=== PATIENT | female | born 1990 | race American Indian/Alaskan Native ===

== ENCOUNTER 2016-11-28 17:35 | Inpatient (IN) | payer MEDICAID, SELFPAY ==
--- NOTE | 2016-11-28 17:47 | EDM.PDOC ---
<Susan Esquivel - Last Filed: 11/28/16 18:49> ED HPI DIABETIC EMERGENCY - General Chief Complaint: Diabetic Complaint Stated Complaint: BY AMBULANCE Time Seen by Provider: 11/28/16 17:46 - History of Present Illness INITIAL COMMENTS - FREE TEXT/NARRATIVE: Patient presents to the ER per [facility]. She is somewhat lethargic. She states she missed her Lantus last night. She states she has been vomiting and has had abdominal pain since 8am today. She denies fever, chills, chest pain, sob. Symptom Onset Date: 11/28/16 Symptom Onset Time: 08:00 Location, General: Reports: abdomen Quality: Reports: Ache Severity: moderate Improves with: Reports: None Worsens with: Reports: None Associated Symptoms: Reports: nausea/vomiting Associated Symptoms (General): Reports: nausea/vomiting - Related Data Allergies/ADRs: Allergies Allergy/AdvReac Type Severity Reaction Status Date / Time No Known Allergies Allergy Verified 05/18/15 23:28 Home Meds: Home Meds Insulin Aspart [NovoLOG] 10 unit SQ TID 02/18/14 [History] Insulin Detemir [Levemir] 30 unit SUBCUT BEDTIME #1 pen 09/07/16 [Rx] Potassium Chloride [Klor-Con 10] 40 meq PO BIDMEALS #4 tab.er 09/07/16 [Rx] ED ROS GENERAL - Review of Systems Review Of Systems: ROS reveals no pertinent complaints other than HPI. ED EXAM GENERAL NO PERIP PULSE - Physical Exam Exam: See Below Exam Limited By: No limitations General Appearance: WD/WN, no apparent distress, lethargic, mild distress, thin Eye Exam: bilateral eye: PERRL (sluggishly reactive to light) Ears: normal external exam, normal canal, hearing grossly normal, normal TMs Nose: normal inspection, normal mucosa, no blood Throat/Mouth: Normal inspection, Normal oropharynx, Normal voice, No airway compromise, Other Head: atraumatic, normocephalic Neck: normal inspection, supple, non-tender, full range of motion Respiratory/Chest: no respiratory distress, lungs clear, normal breath sounds, no accessory muscle use, chest non-tender Cardiovascular: normal peripheral pulses, regular rate, rhythm, no edema, no gallop, no JVD, no murmur, no rub GI/Abdominal: normal bowel sounds, soft, non tender, no organomegaly, no distention, no abnormal bruit, no mass (Female) Exam: Deferred Rectal (Female) Exam: Deferred Back Exam: normal inspection, full range of motion Extremities: normal inspection, normal range of motion, non-tender, no pedal edema, normal capillary refill Neurological: alert, oriented, CN II-XII intact, normal cognition, no motor/ sensory deficits Psychiatric: flat affect Skin Exam: Warm, Dry, Intact, Normal color, No rash Lymphatic: no adenopathy Course - Vital Signs Last Recorded V/S: Last Vital Signs Temp 36.2 C 11/28/16 17:46 Pulse 132 H 11/28/16 17:46 Resp 16 11/28/16 17:46 BP 149/85 H 11/28/16 17:46 Pulse Ox 100 11/28/16 17:46 - Orders/Labs/Meds Orders: Active Orders 24 hr Category Date Time Status Blood Glucose Check, Bedside [RC] ONETIME Care 11/28/16 17:50 Active Peripheral IV Care [RC] . DIRECTED Care 11/28/16 17:48 Active Chest 1V Frontal [CR] Stat Exams 11/28/16 18:54 Ordered CULTURE BLOOD [BC] Stat Lab 11/28/16 17:55 Received CULTURE BLOOD [BC] Stat Lab 11/28/16 18:00 Results CULTURE STREP A CONFIRMATION [RM] Stat Lab 11/28/16 18:00 Results STREP SCRN A RAPID W CULT CONF [RM] Stat Lab 11/28/16 18:00 Results UA W/MICROSCOPIC [URIN] Stat Lab 11/28/16 18:37 Ordered Insulin Regular, Human [NovoLIN R] 100 unit Med 11/28/16 18:36 Active Sodium Chloride 0.9% [Normal Saline] 99 ml IV TITRATE Sodium Chloride 0.9% [Saline Flush] Med 11/28/16 17:48 Active 10 ml FLUSH ASDIRECTED PRN Blood Culture x2 Reflex Set [OM.PC] Stat Oth 11/28/16 17:47 Ordered Peripheral IV Insertion Adult [OM.PC] Stat Oth 11/28/16 17:47 Ordered Medication Orders Insulin Human Regular 100 unit (/ Sodium Chloride) 100 mls @ 5 mls/hr IV TITRATE ONE; 5 UNITS/HR PRN Reason: Protocol Stop: 11/29/16 14:35 Sodium Chloride (Saline Flush) 10 ml FLUSH ASDIRECTED PRN PRN Reason: Keep Vein Open Last Admin: 11/28/16 18:05 Dose: 10 ml Labs: Laboratory Tests 11/28/16 11/28/16 11/28/16 Range/Units 17:55 17:55 17:55 WBC 8.9 (5.0-10.0) 10^3/uL RBC 5.00 (4.2-5.4) 10^6/uL Hgb 14.9 (12.0-16.0) g/dL Hct 46.0 (37.0-47.0) % MCV 92.0 (80-100) fL MCH 29.8 (27.0-34.0) pg MCHC 32.4 L (33.0-35.0) g/dL Plt Count 424 (150-450) 10^3/uL Neut % (Auto) 84.8 H (42.2-75.2) % Lymph % (Auto) 11.1 L (20.5-50.1) % [place] % (Auto) 3.9 (2-8) % Eos % (Auto) 0.0 L (1.0-3.0) % Baso % (Auto) 0.2 (0.0-1.0) % ABG pH (7.35-7.45) ABG pCO2 (35-45) mmHg ABG pO2 (70-100) mmHg ABG HCO3 (22-26) mmol/L ABG O2 Saturation (95-100) % ABG Base Excess ((-2)-(+3)) mmol/L Aakash Test O2 Delivery Device Oxygen Flow Rate Sodium 135 (135-145) mmol/L Potassium 5.2 H (3.6-5.0) mmol/L Chloride 104 (101-111) mmol/L Carbon Dioxide 7.0 L* (21.0-31.0) mmol/L Anion Gap 29.2 BUN 23 H (7-18) mg/dL Creatinine 1.3 (0.6-1.3) mg/dL Est Cr Clr Drug Dosing 61.58 mL/min Estimated GFR (MDRD) 50 BUN/Creatinine Ratio 17.69 Glucose 236 H (74-105) mg/dL POC Glucose (70-105) mg/dl Lactic Acid 1.0 (0.5-2.2) mmol/L Calcium 9.1 (8.4-10.2) mg/dl Total Bilirubin 1.2 H (0.2-1.0) mg/dL AST 21 (10-42) IU/L ALT 23 (10-60) IU/L Alkaline Phosphatase 108 (42-121) IU/L Creatine Kinase 44 (26-174) IU/L Total Protein 9.3 H (6.7-8.2) g/dl Albumin 4.9 (3.2-5.5) g/dl Globulin 4.4 Albumin/Globulin Ratio 1.11 Amylase 75 (28-100) U/L Lipase 14 L (22-51) U/L Urine HCG, Qual Urine Opiates Screen (NEGATIVE) Ur Oxycodone Screen (NEGATIVE) Urine Methadone Screen (NEGATIVE) Ur Barbiturates Screen (NEGATIVE) U Tricyclic Antidepress (NEGATIVE) Ur Phencyclidine Scrn (NEGATIVE) Ur Amphetamine Screen (NEGATIVE) U Methamphetamines Scrn (NEGATIVE) Urine MDMA Screen (NEGATIVE) U Benzodiazepines Scrn (NEGATIVE) Urine Cocaine Screen (NEGATIVE) U Marijuana (THC) Screen (NEGATIVE) Ethyl Alcohol < 5 mg/dL Ketones Positive 11/28/16 11/28/16 11/28/16 Range/Units 17:59 18:35 18:35 WBC (5.0-10.0) 10^3/uL RBC (4.2-5.4) 10^6/uL Hgb (12.0-16.0) g/dL Hct (37.0-47.0) % MCV (80-100) fL MCH (27.0-34.0) pg MCHC (33.0-35.0) g/dL Plt Count (150-450) 10^3/uL Neut % (Auto) (42.2-75.2) % Lymph % (Auto) (20.5-50.1) % [place] % (Auto) (2-8) % Eos % (Auto) (1.0-3.0) % Baso % (Auto) (0.0-1.0) % ABG pH (7.35-7.45) ABG pCO2 (35-45) mmHg ABG pO2 (70-100) mmHg ABG HCO3 (22-26) mmol/L ABG O2 Saturation (95-100) % ABG Base Excess ((-2)-(+3)) mmol/L Aakash Test O2 Delivery Device Oxygen Flow Rate Sodium (135-145) mmol/L Potassium (3.6-5.0) mmol/L Chloride (101-111) mmol/L Carbon Dioxide (21.0-31.0) mmol/L Anion Gap BUN (7-18) mg/dL Creatinine (0.6-1.3) mg/dL Est Cr Clr Drug Dosing mL/min Estimated GFR (MDRD) BUN/Creatinine Ratio Glucose (74-105) mg/dL POC Glucose 209 H (70-105) mg/dl Lactic Acid (0.5-2.2) mmol/L Calcium (8.4-10.2) mg/dl Total Bilirubin (0.2-1.0) mg/dL AST (10-42) IU/L ALT (10-60) IU/L Alkaline Phosphatase (42-121) IU/L Creatine Kinase (26-174) IU/L Total Protein (6.7-8.2) g/dl Albumin (3.2-5.5) g/dl Globulin Albumin/Globulin Ratio Amylase (28-100) U/L Lipase (22-51) U/L Urine HCG, Qual Negative Urine Opiates Screen Negative (NEGATIVE) Ur Oxycodone Screen Negative (NEGATIVE) Urine Methadone Screen Negative (NEGATIVE) Ur Barbiturates Screen Negative (NEGATIVE) U Tricyclic Antidepress Negative (NEGATIVE) Ur Phencyclidine Scrn Negative (NEGATIVE) Ur Amphetamine Screen Positive H (NEGATIVE) U Methamphetamines Scrn Positive H (NEGATIVE) Urine MDMA Screen Negative (NEGATIVE) U Benzodiazepines Scrn Negative (NEGATIVE) Urine Cocaine Screen Negative (NEGATIVE) U Marijuana (THC) Screen Negative (NEGATIVE) Ethyl Alcohol mg/dL Ketones 11/28/16 11/28/16 Range/Units 18:45 18:53 WBC (5.0-10.0) 10^3/uL RBC (4.2-5.4) 10^6/uL Hgb (12.0-16.0) g/dL Hct (37.0-47.0) % MCV (80-100) fL MCH (27.0-34.0) pg MCHC (33.0-35.0) g/dL Plt Count (150-450) 10^3/uL Neut % (Auto) (42.2-75.2) % Lymph % (Auto) (20.5-50.1) % [place] % (Auto) (2-8) % Eos % (Auto) (1.0-3.0) % Baso % (Auto) (0.0-1.0) % ABG pH 7.06 L* (7.35-7.45) ABG pCO2 13 L* (35-45) mmHg ABG pO2 129 H (70-100) mmHg ABG HCO3 3.4 L (22-26) mmol/L ABG O2 Saturation 98 (95-100) % ABG Base Excess -27 L ((-2)-(+3)) mmol/L Aakash Test pos O2 Delivery Device Room air Oxygen Flow Rate 0 Sodium (135-145) mmol/L Potassium (3.6-5.0) mmol/L Chloride (101-111) mmol/L Carbon Dioxide (21.0-31.0) mmol/L Anion Gap BUN (7-18) mg/dL Creatinine (0.6-1.3) mg/dL Est Cr Clr Drug Dosing mL/min Estimated GFR (MDRD) BUN/Creatinine Ratio Glucose (74-105) mg/dL POC Glucose 247 H (70-105) mg/dl Lactic Acid (0.5-2.2) mmol/L Calcium (8.4-10.2) mg/dl Total Bilirubin (0.2-1.0) mg/dL AST (10-42) IU/L ALT (10-60) IU/L Alkaline Phosphatase (42-121) IU/L Creatine Kinase (26-174) IU/L Total Protein (6.7-8.2) g/dl Albumin (3.2-5.5) g/dl Globulin Albumin/Globulin Ratio Amylase (28-100) U/L Lipase (22-51) U/L Urine HCG, Qual Urine Opiates Screen (NEGATIVE) Ur Oxycodone Screen (NEGATIVE) Urine Methadone Screen (NEGATIVE) Ur Barbiturates Screen (NEGATIVE) U Tricyclic Antidepress (NEGATIVE) Ur Phencyclidine Scrn (NEGATIVE) Ur Amphetamine Screen (NEGATIVE) U Methamphetamines Scrn (NEGATIVE) Urine MDMA Screen (NEGATIVE) U Benzodiazepines Scrn (NEGATIVE) Urine Cocaine Screen (NEGATIVE) U Marijuana (THC) Screen (NEGATIVE) Ethyl Alcohol mg/dL Ketones Rapid Strep: NEGATIVE Rapid Influenza A & B: Meds: Medications Generic Name Dose Route Start Last Admin Trade Name Mihaela PRN Reason Stop Dose Admin Insulin Human Regular 100 unit 100 mls @ 5 mls/hr 11/28/16 18:36 / Sodium Chloride IV 11/29/16 14:35 TITRATE ONE Protocol 5 UNITS/HR Sodium Chloride 10 ml 11/28/16 17:48 11/28/16 18:05 Saline Flush FLUSH 10 ml ASDIRECTED PRN Administration Keep Vein Open Discontinued Medications Generic Name Dose Route Start Last Admin Trade Name Mihaela PRN Reason Stop Dose Admin Sodium Chloride 1,000 mls @ 999 mls/hr 11/28/16 17:49 11/28/16 17:55 Normal Saline IV 11/28/16 18:49 999 mls/hr .BOLUS ONE Administration Insulin Human Regular 5 unit 11/29/16 18:37 Novolin R IV 11/29/16 18:38 ONETIME ONE Protocol Insulin Human Regular 5 unit 11/28/16 18:37 11/28/16 18:55 Novolin R IV 11/28/16 18:38 5 unit ONETIME ONE Administration Protocol Ondansetron HCl 4 mg 11/28/16 17:49 11/28/16 18:00 Zofran IV 11/28/16 17:50 4 mg ONETIME ONE Administration Departure - Departure Time of Disposition: 18:52 Disposition: Admitted As Inpatient 67 Condition: poor Clinical Impression: Substance abuse, Methamphetamine abuse, Marijuana abuse, Noncompliance with diabetes treatment Diabetic ketoacidosis associated with type 1 diabetes mellitus Qualifiers: Diabetes mellitus complication detail: without coma Qualified Code(s): E10.10 - Type 1 diabetes mellitus with ketoacidosis without coma Forms: ED Department Discharge - My Orders Last 24 Hours: My Active Orders 11/28/16 17:47 Blood Culture x2 Reflex Set [OM.PC] Stat Peripheral IV Insertion Adult [OM.PC] Stat 11/28/16 17:48 Peripheral IV Care [RC] . DIRECTED Sodium Chloride 0.9% [Saline Flush] 10 ml FLUSH ASDIRECTED PRN 11/28/16 17:50 Blood Glucose Check, Bedside [RC] ONETIME 11/28/16 17:55 CULTURE BLOOD [BC] Stat 11/28/16 18:00 CULTURE BLOOD [BC] Stat CULTURE STREP A CONFIRMATION [RM] Stat STREP SCRN A RAPID W CULT CONF [RM] Stat 11/28/16 18:36 Insulin Regular, Human [NovoLIN R] 100 unit Sodium Chloride 0.9% [Normal Saline] 99 ml IV TITRATE 11/28/16 18:37 UA W/MICROSCOPIC [URIN] Stat 11/28/16 18:54 Chest 1V Frontal [CR] Stat - Assessment/Plan Last 24 Hours: My Active Orders 11/28/16 17:47 Blood Culture x2 Reflex Set [OM.PC] Stat Peripheral IV Insertion Adult [OM.PC] Stat 11/28/16 17:48 Peripheral IV Care [RC] . DIRECTED Sodium Chloride 0.9% [Saline Flush] 10 ml FLUSH ASDIRECTED PRN 11/28/16 17:50 Blood Glucose Check, Bedside [RC] ONETIME 11/28/16 17:55 CULTURE BLOOD [BC] Stat 11/28/16 18:00 CULTURE BLOOD [BC] Stat CULTURE STREP A CONFIRMATION [RM] Stat STREP SCRN A RAPID W CULT CONF [RM] Stat 11/28/16 18:36 Insulin Regular, Human [NovoLIN R] 100 unit Sodium Chloride 0.9% [Normal Saline] 99 ml IV TITRATE 11/28/16 18:37 UA W/MICROSCOPIC [URIN] Stat 11/28/16 18:54 Chest 1V Frontal [CR] Stat <Clint Carl - Last Filed: 11/28/16 19:06> ED HPI DIABETIC EMERGENCY - General Source of Information: Reports: Patient, EMS, Old records, RN, RN notes reviewed History Limitations: Reports: No limitations - History of Present Illness INITIAL COMMENTS - FREE TEXT/NARRATIVE: Admits to recent methamphetamine use, and daily marijuana use. Past Medical History Other Musculoskeletal History: fracture left foot one month ago, no surgery Psychiatric History: Reports: Addiction, Other (see below) Other Psychiatric History: Medical non-complience Endocrine/Metabolic History: Reports: Diabetes, type I, Other (see below) (DKA) Social & Family History - Family History Family Medical History: Noncontributory HEENT: Reports: None Oncologic: Reports: Breast, Other (see below) Other Oncologic Family History: Stomach CA - Tobacco Use Smoking Status *Q: Never Smoker Years of Tobacco use: 6 Packs/Tins Daily: 0.1 Second Hand Smoke Exposure: No - Caffeine Use Caffeine Use: Reports: None - Alcohol Use Days Per Week of Alcohol Use: 1 Number of Drinks Per Day: 10 Total Drinks Per Week: 10 - Recreational Drug Use Recreational Drug Use: Yes Drug Use in Last 12 Months: Yes Recreational Drug Type: Reports: Marijuana/Hashish, Methamphetamine Recreational Drug Use Frequency: Binges - Living Situation & Occupation Living situation: Reports: with family ED EXAM GENERAL NO PERIP PULSE - Physical Exam Throat/Mouth: Other (very dry oral membranes) Course - Vital Signs Last Recorded V/S: Last Vital Signs Temp 36.2 C 11/28/16 17:46 Pulse 132 H 11/28/16 17:46 Resp 16 11/28/16 17:46 BP 149/85 H 11/28/16 17:46 Pulse Ox 100 11/28/16 17:46 - Orders/Labs/Meds Orders: Active Orders 24 hr Category Date Time Status Blood Glucose Check, Bedside [RC] ONETIME Care 11/28/16 17:50 Active Peripheral IV Care [RC] . DIRECTED Care 11/28/16 17:48 Active Chest 1V Frontal [CR] Stat Exams 11/28/16 18:54 Ordered CULTURE BLOOD [BC] Stat Lab 11/28/16 17:55 Received CULTURE BLOOD [BC] Stat Lab 11/28/16 18:00 Results CULTURE STREP A CONFIRMATION [] Stat Lab 11/28/16 18:00 Results STREP SCRN A RAPID W CULT CONF [RM] Stat Lab 11/28/16 18:00 Results UA W/MICROSCOPIC [URIN] Stat Lab 11/28/16 18:37 Ordered Insulin Regular, Human [NovoLIN R] 100 unit Med 11/28/16 18:36 Active Sodium Chloride 0.9% [Normal Saline] 99 ml IV TITRATE Sodium Chloride 0.9% [Saline Flush] Med 11/28/16 17:48 Active 10 ml FLUSH ASDIRECTED PRN Blood Culture x2 Reflex Set [OM.PC] Stat Oth 11/28/16 17:47 Ordered Peripheral IV Insertion Adult [OM.PC] Stat Oth 11/28/16 17:47 Ordered Medication Orders Insulin Human Regular 100 unit (/ Sodium Chloride) 100 mls @ 5 mls/hr IV TITRATE ONE; 5 UNITS/HR PRN Reason: Protocol Stop: 11/29/16 14:35 Sodium Chloride (Saline Flush) 10 ml FLUSH ASDIRECTED PRN PRN Reason: Keep Vein Open Last Admin: 11/28/16 18:05 Dose: 10 ml Labs: Laboratory Tests 11/28/16 11/28/16 11/28/16 Range/Units 17:55 17:55 17:55 WBC 8.9 (5.0-10.0) 10^3/uL RBC 5.00 (4.2-5.4) 10^6/uL Hgb 14.9 (12.0-16.0) g/dL Hct 46.0 (37.0-47.0) % MCV 92.0 (80-100) fL MCH 29.8 (27.0-34.0) pg MCHC 32.4 L (33.0-35.0) g/dL Plt Count 424 (150-450) 10^3/uL Neut % (Auto) 84.8 H (42.2-75.2) % Lymph % (Auto) 11.1 L (20.5-50.1) % [place] % (Auto) 3.9 (2-8) % Eos % (Auto) 0.0 L (1.0-3.0) % Baso % (Auto) 0.2 (0.0-1.0) % ABG pH (7.35-7.45) ABG pCO2 (35-45) mmHg ABG pO2 (70-100) mmHg ABG HCO3 (22-26) mmol/L ABG O2 Saturation (95-100) % ABG Base Excess ((-2)-(+3)) mmol/L Aakash Test O2 Delivery Device Oxygen Flow Rate Sodium 135 (135-145) mmol/L Potassium 5.2 H (3.6-5.0) mmol/L Chloride 104 (101-111) mmol/L Carbon Dioxide 7.0 L* (21.0-31.0) mmol/L Anion Gap 29.2 BUN 23 H (7-18) mg/dL Creatinine 1.3 (0.6-1.3) mg/dL Est Cr Clr Drug Dosing 61.58 mL/min Estimated GFR (MDRD) 50 BUN/Creatinine Ratio 17.69 Glucose 236 H (74-105) mg/dL POC Glucose (70-105) mg/dl Lactic Acid 1.0 (0.5-2.2) mmol/L Calcium 9.1 (8.4-10.2) mg/dl Total Bilirubin 1.2 H (0.2-1.0) mg/dL AST 21 (10-42) IU/L ALT 23 (10-60) IU/L Alkaline Phosphatase 108 (42-121) IU/L Creatine Kinase 44 (26-174) IU/L Total Protein 9.3 H (6.7-8.2) g/dl Albumin 4.9 (3.2-5.5) g/dl Globulin 4.4 Albumin/Globulin Ratio 1.11 Amylase 75 (28-100) U/L Lipase 14 L (22-51) U/L Urine HCG, Qual Urine Opiates Screen (NEGATIVE) Ur Oxycodone Screen (NEGATIVE) Urine Methadone Screen (NEGATIVE) Ur Barbiturates Screen (NEGATIVE) U Tricyclic Antidepress (NEGATIVE) Ur Phencyclidine Scrn (NEGATIVE) Ur Amphetamine Screen (NEGATIVE) U Methamphetamines Scrn (NEGATIVE) Urine MDMA Screen (NEGATIVE) U Benzodiazepines Scrn (NEGATIVE) Urine Cocaine Screen (NEGATIVE) U Marijuana (THC) Screen (NEGATIVE) Ethyl Alcohol < 5 mg/dL Ketones Positive 11/28/16 11/28/16 11/28/16 Range/Units 17:59 18:35 18:35 WBC (5.0-10.0) 10^3/uL RBC (4.2-5.4) 10^6/uL Hgb (12.0-16.0) g/dL Hct (37.0-47.0) % MCV (80-100) fL MCH (27.0-34.0) pg MCHC (33.0-35.0) g/dL Plt Count (150-450) 10^3/uL Neut % (Auto) (42.2-75.2) % Lymph % (Auto) (20.5-50.1) % [place] % (Auto) (2-8) % Eos % (Auto) (1.0-3.0) % Baso % (Auto) (0.0-1.0) % ABG pH (7.35-7.45) ABG pCO2 (35-45) mmHg ABG pO2 (70-100) mmHg ABG HCO3 (22-26) mmol/L ABG O2 Saturation (95-100) % ABG Base Excess ((-2)-(+3)) mmol/L Aakash Test O2 Delivery Device Oxygen Flow Rate Sodium (135-145) mmol/L Potassium (3.6-5.0) mmol/L Chloride (101-111) mmol/L Carbon Dioxide (21.0-31.0) mmol/L Anion Gap BUN (7-18) mg/dL Creatinine (0.6-1.3) mg/dL Est Cr Clr Drug Dosing mL/min Estimated GFR (MDRD) BUN/Creatinine Ratio Glucose (74-105) mg/dL POC Glucose 209 H (70-105) mg/dl Lactic Acid (0.5-2.2) mmol/L Calcium (8.4-10.2) mg/dl Total Bilirubin (0.2-1.0) mg/dL AST (10-42) IU/L ALT (10-60) IU/L Alkaline Phosphatase (42-121) IU/L Creatine Kinase (26-174) IU/L Total Protein (6.7-8.2) g/dl Albumin (3.2-5.5) g/dl Globulin Albumin/Globulin Ratio Amylase (28-100) U/L Lipase (22-51) U/L Urine HCG, Qual Negative Urine Opiates Screen Negative (NEGATIVE) Ur Oxycodone Screen Negative (NEGATIVE) Urine Methadone Screen Negative (NEGATIVE) Ur Barbiturates Screen Negative (NEGATIVE) U Tricyclic Antidepress Negative (NEGATIVE) Ur Phencyclidine Scrn Negative (NEGATIVE) Ur Amphetamine Screen Positive H (NEGATIVE) U Methamphetamines Scrn Positive H (NEGATIVE) Urine MDMA Screen Negative (NEGATIVE) U Benzodiazepines Scrn Negative (NEGATIVE) Urine Cocaine Screen Negative (NEGATIVE) U Marijuana (THC) Screen Negative (NEGATIVE) Ethyl Alcohol mg/dL Ketones 11/28/16 11/28/16 Range/Units 18:45 18:53 WBC (5.0-10.0) 10^3/uL RBC (4.2-5.4) 10^6/uL Hgb (12.0-16.0) g/dL Hct (37.0-47.0) % MCV (80-100) fL MCH (27.0-34.0) pg MCHC (33.0-35.0) g/dL Plt Count (150-450) 10^3/uL Neut % (Auto) (42.2-75.2) % Lymph % (Auto) (20.5-50.1) % [place] % (Auto) (2-8) % Eos % (Auto) (1.0-3.0) % Baso % (Auto) (0.0-1.0) % ABG pH 7.06 L* (7.35-7.45) ABG pCO2 13 L* (35-45) mmHg ABG pO2 129 H (70-100) mmHg ABG HCO3 3.4 L (22-26) mmol/L ABG O2 Saturation 98 (95-100) % ABG Base Excess -27 L ((-2)-(+3)) mmol/L Aakash Test pos O2 Delivery Device Room air Oxygen Flow Rate 0 Sodium (135-145) mmol/L Potassium (3.6-5.0) mmol/L Chloride (101-111) mmol/L Carbon Dioxide (21.0-31.0) mmol/L Anion Gap BUN (7-18) mg/dL Creatinine (0.6-1.3) mg/dL Est Cr Clr Drug Dosing mL/min Estimated GFR (MDRD) BUN/Creatinine Ratio Glucose (74-105) mg/dL POC Glucose 247 H (70-105) mg/dl Lactic Acid (0.5-2.2) mmol/L Calcium (8.4-10.2) mg/dl Total Bilirubin (0.2-1.0) mg/dL AST (10-42) IU/L ALT (10-60) IU/L Alkaline Phosphatase (42-121) IU/L Creatine Kinase (26-174) IU/L Total Protein (6.7-8.2) g/dl Albumin (3.2-5.5) g/dl Globulin Albumin/Globulin Ratio Amylase (28-100) U/L Lipase (22-51) U/L Urine HCG, Qual Urine Opiates Screen (NEGATIVE) Ur Oxycodone Screen (NEGATIVE) Urine Methadone Screen (NEGATIVE) Ur Barbiturates Screen (NEGATIVE) U Tricyclic Antidepress (NEGATIVE) Ur Phencyclidine Scrn (NEGATIVE) Ur Amphetamine Screen (NEGATIVE) U Methamphetamines Scrn (NEGATIVE) Urine MDMA Screen (NEGATIVE) U Benzodiazepines Scrn (NEGATIVE) Urine Cocaine Screen (NEGATIVE) U Marijuana (THC) Screen (NEGATIVE) Ethyl Alcohol mg/dL Ketones Meds: Medications Generic Name Dose Route Start Last Admin Trade Name Mihaela PRN Reason Stop Dose Admin Insulin Human Regular 100 unit 100 mls @ 5 mls/hr 11/28/16 18:36 / Sodium Chloride IV 11/29/16 14:35 TITRATE ONE Protocol 5 UNITS/HR Sodium Chloride 10 ml 11/28/16 17:48 11/28/16 18:05 Saline Flush FLUSH 10 ml ASDIRECTED PRN Administration Keep Vein Open Discontinued Medications Generic Name Dose Route Start Last Admin Trade Name Freq PRN Reason Stop Dose Admin Sodium Chloride 1,000 mls @ 999 mls/hr 11/28/16 17:49 11/28/16 17:55 Normal Saline IV 11/28/16 18:49 999 mls/hr .BOLUS ONE Administration Insulin Human Regular 5 unit 11/29/16 18:37 Novolin R IV 11/29/16 18:38 ONETIME ONE Protocol Insulin Human Regular 5 unit 11/28/16 18:37 11/28/16 18:55 Novolin R IV 11/28/16 18:38 5 unit ONETIME ONE Administration Protocol Ondansetron HCl 4 mg 11/28/16 17:49 11/28/16 18:00 Zofran IV 11/28/16 17:50 4 mg ONETIME ONE Administration - Re-Assessments/Exams Free Text/Narrative Re-Assessment/Exam: 11/28/16 18:43 FOR THIS ENCOUNTER THE PATIENT WAS SEEN IN CONJUNCTION WITH [facility] STUDENT SUSAN ESQUIVEL. ALL PATIENT CARE AND/OR PROCEDURE(S), DIAGNOSTIC ORDERS, MEDICATION(S) AND TREATMENT ORDERS, DISPOSITION ORDERS/PLANNING, AND DISCHARGE/FOLLOW UP INSTRUCTIONS WERE UNDER MY DIRECT SUPERVISION. gbd Departure - Departure Time of Disposition: 19:04 (Dr. Chu) Condition: critical - My Orders Last 24 Hours: My Active Orders 11/28/16 17:47 Blood Culture x2 Reflex Set [OM.PC] Stat Peripheral IV Insertion Adult [OM.PC] Stat 11/28/16 17:48 Peripheral IV Care [RC] . DIRECTED Sodium Chloride 0.9% [Saline Flush] 10 ml FLUSH ASDIRECTED PRN 11/28/16 17:50 Blood Glucose Check, Bedside [RC] ONETIME 11/28/16 17:55 CULTURE BLOOD [BC] Stat 11/28/16 18:00 CULTURE BLOOD [BC] Stat CULTURE STREP A CONFIRMATION [RM] Stat STREP SCRN A RAPID W CULT CONF [RM] Stat 11/28/16 18:36 Insulin Regular, Human [NovoLIN R] 100 unit Sodium Chloride 0.9% [Normal Saline] 99 ml IV TITRATE 11/28/16 18:37 UA W/MICROSCOPIC [URIN] Stat 11/28/16 18:54 Chest 1V Frontal [CR] Stat - Assessment/Plan Last 24 Hours: My Active Orders 11/28/16 17:47 Blood Culture x2 Reflex Set [OM.PC] Stat Peripheral IV Insertion Adult [OM.PC] Stat 11/28/16 17:48 Peripheral IV Care [RC] . DIRECTED Sodium Chloride 0.9% [Saline Flush] 10 ml FLUSH ASDIRECTED PRN 11/28/16 17:50 Blood Glucose Check, Bedside [RC] ONETIME 11/28/16 17:55 CULTURE BLOOD [BC] Stat 11/28/16 18:00 CULTURE BLOOD [BC] Stat CULTURE STREP A CONFIRMATION [RM] Stat STREP SCRN A RAPID W CULT CONF [RM] Stat 11/28/16 18:36 Insulin Regular, Human [NovoLIN R] 100 unit Sodium Chloride 0.9% [Normal Saline] 99 ml IV TITRATE 11/28/16 18:37 UA W/MICROSCOPIC [URIN] Stat 11/28/16 18:54 Chest 1V Frontal [CR] Stat
[2016-11-28] MEDS ORDERED: Sodium Chloride 0.9% 10 ML Syringe FLUSH PRN (17:48)
[2016-11-28] MEDS ORDERED: Sodium Chloride 0.9% 1,000 ML IV ONE ×3 (17:49→20:48)
[2016-11-28] MEDS ORDERED: Ondansetron 4 MG/2 ML SDV IV ONE (17:49)
[2016-11-28 18:27] LABS: CHLORIDE,CL 104 mmol/L (101-111); SODIUM,NA 135 mmol/L (135-145)
[2016-11-28] MEDS ORDERED: Insulin Regular, Human 100 Units/ML 10 ML Vial IV ONE (18:37)
[2016-11-28 18:51] LABS: O2 DELIVERY DEVICE ROOM AIR; O2 FLOW RATE 0
[2016-11-28 18:55] LABS: BASE EXCESS ARTERIAL -27 mmol/L ((-2)-(+3)); BICARBONATE,ARTERIAL 3.4 mmol/L (22-26); O2 SATURATION ARTERIAL 98 % (95-100); PO2 ARTERIAL 129 mmHg (70-100)
[2016-11-28 18:57] LABS: PCO2 ARTERIAL 13 mmHg (35-45)
[2016-11-28 18:58] LABS: ALLEN TEST pos
[2016-11-28] MEDS ORDERED: Ondansetron 4 MG Tab.DIS PO PRN (20:34)
[2016-11-28] MEDS ORDERED: Zolpidem 5 MG Tab PO PRN (20:34)
[2016-11-28] MEDS ORDERED: Acetaminophen/oxyCODONE 325-5 MG Tab PO PRN (20:34)
[2016-11-28] MEDS ORDERED: Sodium Chloride 0.9% 1,000 ML IV SCH (20:45)
[2016-11-28] MEDS: Aspirin 81 MG Tab.EC PO SCH (21:52)
[2016-11-28] MEDS: Gabapentin 100 MG Cap PO SCH (21:53)
[2016-11-28] MEDS ORDERED: 50% Dextrose in Water 50 ML Syringe ONE (22:13)
[2016-11-28] MEDS ORDERED: Dextrose 5%-0.45% NaCl 1,000 ML IV SCH (22:30)
--- NOTE | 2016-11-28 23:12 | HP ---
CHIEF COMPLAINT: Nausea, vomiting, weakness. HISTORY OF PRESENTING ILLNESS: Ms. Rolanda Horne is a 26-year-old female with medical history significant for type 1 diabetes mellitus and history of polysubstance abuse, including marijuana and methamphetamine, presented to the ER with complaints of increasing weakness, tiredness, and nausea and vomiting. While in the emergency room, the patient was noted to be in severe diabetic ketoacidosis with elevated anion gap, requiring admission to the hospital. At this time, the patient claims that she has been sick for the last 2 days. She missed taking her Levemir last night and this morning. Since 8:00 a.m., she has been increasingly weak and tired and nausea and vomiting. The patient had at least 2 episodes of vomiting each hour and she got severely dehydrated, so came to the emergency room. She complains of increasing weakness, 5-6/10 in intensity, aggravated on ambulation, relieved with rest, associated with nausea and vomiting. Denied any fevers for the last few days, but complains of having chills earlier today. Denies any headaches. No chest pains. No shortness of breath. No cough with phlegm for the last few days. No complaints of burning or micturition. No complaints of abdominal pain. The patient denied any history of chest pains on exertion. No history of dyspnea on exertion. No history of orthopnea or paroxysmal nocturnal dyspnea. The patient denied any history of hematemesis, hematochezia, or melanotic stools. Normal bowel and bladder habits, otherwise. REVIEW OF SYSTEMS: A complete review of system including skin, ear, nose, and throat, cardiovascular system, respiratory system, gastrointestinal system, genitourinary system, hematology, oncology, neurology, allergy, immunology, endocrinology, constitutional were all evaluated and were negative except both said notes. PAST MEDICAL HISTORY: Significant for: 1. Type 1 diabetes mellitus. 2. Polysubstance abuse. 3. Neuropathy. 4. Ingrowing toenails. 5. Seizures PAST SURGICAL HISTORY, None. ALLERGIES: No known drug allergies. SOCIAL HISTORY: Significant for smoking marijuana. Her last marijuana use was 2-3 days back. Smoking methamphetamine and last methamphetamine use was 2-3 days back. FAMILY HISTORY: Significant for diabetes in the family. PHYSICAL EXAMINATION: Vital Signs: Temperature of 97, blood pressure of 150/72, respiratory rate of 30, heart rate of 187, saturating at 100% on room air. General Appearance: The patient is well oriented to time, place, and person. Follows commands spontaneously. Cardiovascular: S1 and S2 heard with normal intensity. No gallops. Respiratory: Clear to auscultation bilaterally. No wheeze. No crepitations. Abdomen: Soft. Bowel sounds positive. Nontender. No rigidity. Extremities: No edema in bilateral lower extremities. Ingrowing toenail noted on the great toe. Neurology: No gross focal neurological deficits. LABORATORY DATA: WBC 8.9, hemoglobin 14.9, hematocrit 46, platelet count 32.4. Sodium 135, potassium 5.2, chloride 104, bicarb 7, BUN 23, creatinine 1.3, glucose 236, lactic acid 1, AST 21, ALT 23, alkaline phosphatase 108, total protein 9.3. Urinalysis negative for nitrites, negative for leukocyte esterase, moderate bacteria, large bilirubin, greater than 300 protein and greater than 160 ketones. Urine toxicology screen positive for methamphetamine and also amphetamine. Ethyl alcohol less than 5, positive for ketones. HOME MEDICATIONS: Include: 1. Levemir 30 units at bedtime. 2. NovoLog 10 units 3 times a day. 3. Aspirin 81 mg daily. 4. Ibuprofen 400 mg every 6 hours as needed. 5. Neurontin 100 mg at bedtime. 6. Potassium chloride 40 mg twice a day. ASSESSMENT: 1. Severe diabetic ketoacidosis. 2. Severe dehydration. 3. Hypernatremia. 4. Polysubstance abuse. 5. Type 1 diabetes mellitus, uncontrolled. 6. Noncompliance with medications. PLAN: 1. Severe diabetic ketoacidosis. The patient presents with severe diabetic ketoacidosis. Her ABG shows a pH of 7.06 with bicarb of 3.4. The patient will be admitted to the hospital. We will have her on IV fluids, IV insulin drip and we will closely follow. We will recheck a basic metabolic panel every 6 hourly and we will continue insulin drip until anion gap is closed. Her anion gap is elevated at 29.2 at this time. 2. Polysubstance abuse. The patient was educated about ill effects of substance abuse on her health and strongly encouraged her to quit smoking marijuana and methamphetamine, which she understands and verbalized the same. 3. Severe dehydration. We will continue with IV normal saline. 4. Hyperkalemia. The patient is noted to have a potassium of 5.2, she is noted to have potassium supplement. We will hold the potassium supplement, closely follow with the basic metabolic panel. 5. Deep vein thrombosis prophylaxis. We will have her on Lovenox for deep vein thrombosis prophylaxis. 6. We will obtain a urine HCG screen. 7. Code status, Full Code. 8. Discussed with Dr. Marin, ER Physician. Reviewed the labs and Medications, Reviewed the old charts. [facility] /[id number] MTDD
[2016-11-28 23:56] LABS: CHLORIDE,CL 112 mmol/L (101-111); SODIUM,NA 135 mmol/L (135-145)
[2016-11-29] MEDS: Dextrose 5%-0.45% NaCl 1,000 ML IV SCH ×3 (00:33→09:36)
[2016-11-29 07:13] LABS: CHLORIDE,CL 114 mmol/L (101-111); SODIUM,NA 136 mmol/L (135-145)
[2016-11-29] MEDS: Aspirin 81 MG Tab.EC PO SCH (08:57)
[2016-11-29] MEDS: Enoxaparin 40 MG/0.4 ML Syringe SUBCUT SCH (08:59)
[2016-11-29] MEDS: Calcium Carbonate 500 MG Tab.Chew PO SCH ×2 (12:09→17:46)
[2016-11-29] MEDS: D5 1/2 NS w/ 20 mEq/L KCl 1,000 ML IV SCH ×2 (12:17→20:04)
--- NOTE | 2016-11-29 12:24 | PN ---
DATE: 11/29/2016 SUBJECTIVE: Ms. Rolanda Horne is a 26-year-old female with medical history significant for type 1 diabetes mellitus, history of polysubstance abuse, including marijuana and methamphetamine admitted to the hospital with increasing weakness, tiredness, nausea, and vomiting, noted to have acute diabetic ketoacidosis and acute dehydration. For the past 24 hours, the patient was continued on IV insulin drip, IV fluids. We had to change IV fluids to D5 half-normal saline and change the dosage on the insulin drip to optimize her DKA . She denies any chest pain. No shortness of breath. No abdominal pain. No nausea, vomiting, or diarrhea after getting admitted to the hospital. REVIEW OF SYSTEMS: Cardiovascular, respiratory, gastrointestinal, neurology, constitutional were all evaluated. PHYSICAL EXAMINATION: Vital Signs: Temperature of 99, pulse of 96, blood pressure 109/66, respiratory rate of 16, saturating at 99% on room air. General Appearance: The patient is well oriented to time, place, and person. Follows commands spontaneously. Cardiovascular System: S1 and S2 heard with normal intensity. No gallops. Respiratory: Clear to auscultation bilaterally. No wheeze. No crepitations. Abdomen: Soft. Bowel sounds positive. Nontender. No rigidity. Extremities: No edema in bilateral lower extremities. Neurology: No gross focal neurological deficit appreciated. Skin: No acute rash noted. MEDICATIONS: 1. Aspirin 81 mg daily. 2. Calcium carbonate 500 mg twice a day. 3. Lovenox 40 mg daily. 4. Neurontin 100 mg twice a day. 5. Magnesium oxide 500 mg twice a day. 6. Zofran 4 mg every 4 hours as needed. 7. Percocet 5/325 mg every 4 hours as needed for pain. 8. Neutra-Phos 250 mg p.o. 4 times a day. 9. Ambien 5 mg at bedtime as needed. 10.IV insulin drip. 11.IV fluids with D5 half-normal saline. LABORATORY DATA: Reviewed. WBC 7.6, hemoglobin 11.6, hematocrit 35.1, and platelet count 359. Sodium 136, potassium 3.4, chloride 114, bicarb 13, anion gap 12.4, BUN 11, creatinine 0.6, glucose 127. Calcium 7.7, phosphorus 2, and magnesium 1.4. ASSESSMENT: 1. Severe diabetic ketoacidosis. 2. Severe dehydration. 3. Acute hypomagnesemia. 4. Acute hypokalemia. 5. Acute hypophosphatemia. 6. Polysubstance abuse. 7. Type 1 diabetes mellitus, uncontrolled. 8. Noncompliance with medications. PLAN: 1. Severe diabetic ketoacidosis. The patient was admitted with severe diabetic ketoacidosis and anion gap seems to be improving, but she continues to have metabolic acidosis. We will continue with IV insulin drip and also on IV fluids. We will change IV fluids to D5 half-normal saline with potassium and stated at 150 mL/h. Once the bicarb is improved then one can switch her to subcutaneous insulin at that time. Closely follow the patient. 2. Severe dehydration, seems to be improved. The patient got at least 3 L of fluid boluses along with D5 half-normal saline fluids. Her weakness has much improved. 3. Nausea and vomiting. The patient denies any further nausea and vomiting at this time. Use Zofran as needed for symptom control. 4. Acute hypokalemia. We will replace with oral potassium chloride. We will mix 20 mEq in D5 half normal saline. We will recheck a basic metabolic panel later today. 5. Acute hypomagnesemia and hypophosphatemia. The patient is noted to have low magnesium and phosphorus. We will replace with oral magnesium oxide and Neutra-Phos and we will recheck a magnesium and phosphorus level in a.m. 6. Deep venous thrombosis prophylaxis. Continue with Lovenox for DVT prophylaxis. [facility] /[id number]
[2016-11-29] MEDS: Phosphorus #1 250 MG Tab PO SCH ×3 (13:00→20:43)
[2016-11-29 14:30] LABS: CHLORIDE,CL 108 mmol/L (101-111); SODIUM,NA 133 mmol/L (135-145)
[2016-11-29] MEDS ORDERED: Insulin Regular, Human 100 Units/ML 10 ML Vial IV ONE (18:37)
[2016-11-29 20:33] LABS: CHLORIDE,CL 111 mmol/L (101-111); SODIUM,NA 136 mmol/L (135-145)
[2016-11-29] MEDS: Gabapentin 100 MG Cap PO SCH (20:43)
[2016-11-29] MEDS ORDERED: Insulin Aspart 100 Units/ML 3 ML Pen SUBCUT SCH (21:15)
[2016-11-29] MEDS: Insulin Detemir 100 Units/ML 3 ML Pen SUBCUT SCH (21:48)
[2016-11-29] MEDS: Sodium Chloride 0.45% 1,000 ML IV SCH (21:51)
[2016-11-30 06:35] LABS: CHLORIDE,CL 112 mmol/L (101-111); SODIUM,NA 139 mmol/L (135-145)
[2016-11-30] MEDS: Insulin Aspart 100 Units/ML 3 ML Pen SUBCUT SCH ×4 (08:18→21:10)
[2016-11-30] MEDS: Aspirin 81 MG Tab.EC PO SCH (08:22)
[2016-11-30] MEDS: Phosphorus #1 250 MG Tab PO SCH ×4 (08:22→21:07)
[2016-11-30] MEDS: Calcium Carbonate 500 MG Tab.Chew PO SCH ×3 (08:22→21:07)
[2016-11-30] MEDS: Enoxaparin 40 MG/0.4 ML Syringe SUBCUT SCH (08:23)
[2016-11-30] MEDS: Sodium Chloride 0.45% 1,000 ML IV SCH ×2 (11:57→22:09)
[2016-11-30] MEDS: Potassium Chloride 10 MEQ in Premix Bag 1 BAG IV SCH ×5 (11:58→17:04)
--- NOTE | 2016-11-30 13:05 | PN ---
DATE: 11/30/2016 SUBJECTIVE: Mrs. Coleen Orantes is a 26-year-old female with medical history significant for type 1 diabetes mellitus, history of polysubstance abuse, including marijuana and methamphetamine, noncompliance with medications, admitted with increasing weakness, tiredness, nausea, vomiting and was noted to be in severe diabetic ketoacidosis. For the past 24 hours, the patient denies any complaints of chest pain. No shortness of breath. No abdominal pain. No nausea. No vomiting. No diarrhea. We were able to switch her to subcutaneous insulin. She was noted to be hypoglycemic this morning. She continues to have electrolyte imbalance with hypokalemia, hypomagnesemia, and hypophosphatemia. REVIEW OF SYSTEMS: Cardiovascular, respiratory, gastrointestinal, neurology, constitutional were all evaluated. PHYSICAL EXAMINATION: Vital signs: Temperature of 98.3, pulse of 87, blood pressure 123/83, respiratory rate of 20, saturating at 98% on room air. General Appearance: The patient is well oriented to time, place, and person. Follows commands spontaneously. Cardiovascular: S1, S2 heard with normal intensity. No gallops. Respiratory: Clear to auscultation bilaterally. No wheeze. No crepitations. Abdomen: Soft. Bowel sounds positive. Nontender. No rigidity. Extremities: No edema in bilateral lower extremities. Neurology: No gross focal neurological deficits. MEDICATIONS: Reviewed, continue with: 1. Aspirin 81 mg daily. 2. Calcium carbonate 500 mg 3 times a day. 3. Lovenox 40 mg daily. 4. Neurontin 100 mg at bedtime. 5. NovoLog supplemental scale. 6. Levemir 30 units at bedtime. 7. Vancomycin 1 g pharmacy to dose. 8. Magnesium oxide 500 mg 3 times a day. LABORATORY DATA: Sodium 139, potassium 2.7, chloride 112, bicarb 20, BUN 6, creatinine 0.4, glucose 29, calcium 7.8, phosphorus 1.8, magnesium 1.4. ASSESSMENT: 1. Severe diabetic ketoacidosis, resolved. 2. Severe dehydration, resolved. 3. Acute hypokalemia. 4. Acute hypomagnesemia. 5. Acute hypophosphatemia. 6. Polysubstance abuse. 7. Noncompliance with medical treatments. PLAN: 1. Severe diabetic ketoacidosis. This seems to be resolved. We were able to wean her off the insulin drip. She is currently on subcutaneous insulin. She is noted to have hypoglycemic episodes, have her on hypoglycemic protocol. Avoid any hypoglycemic episodes. We will further titrate the medications insulin to optimize her blood sugars. 2. Acute hypokalemia. The patient's potassium is down to 2.7. We will replace with 40 mg of IV potassium chloride. Recheck a potassium later in the evening and have her on oral potassium chloride. 3. Hypomagnesemia. She is currently on magnesium oxide 3 times a day. Continue the same. We increased the dose to 3 times a day today. Recheck magnesium in the a.m. 4. Hypophosphatemia. Continue with Neutra-Phos 4 times a day. We will recheck a phosphorus level in the a.m. 5. DVT prophylaxis. Continue with Lovenox for DVT prophylaxis. 6. Bacteremia. The patient's blood cultures were positive for Gram-positive coccus. We repeated the blood culture, shows 1 of 2 blood cultures positive, still awaiting for identity and susceptibility on the blood cultures. The patient does not have any signs of sepsis at this time. Her blood culture positive could be contaminant. We will closely follow. Meanwhile, we will continue the IV vancomycin. [facility] /[id number]
[2016-11-30] MEDS: Gabapentin 100 MG Cap PO SCH (21:07)
[2016-11-30] MEDS: Insulin Detemir 100 Units/ML 3 ML Pen SUBCUT SCH (21:08)
[2016-11-30] MEDS ORDERED: Vancomycin 1 GM SDV ONE (22:54)
[2016-12-01 06:59] LABS: CHLORIDE,CL 108 mmol/L (101-111); SODIUM,NA 140 mmol/L (135-145)
[2016-12-01] MEDS ORDERED: Insulin Detemir 100 Units/ML 3 ML Pen SUBCUT SCH (08:20)
[2016-12-01] MEDS ORDERED: Potassium Chloride 20 MEQ in Premix Bag 1 BAG IV SCH (08:30)
[2016-12-01] MEDS: Insulin Aspart 100 Units/ML 3 ML Pen SUBCUT SCH (08:48)
[2016-12-01] MEDS: Sodium Chloride 0.45% 1,000 ML IV SCH (11:16)
--- NOTE | 2016-12-01 11:16 | PCM.DCSUM1 ---
Discharge Summary - Hospital Course Brief History: Coleen is a pleasant 26 y/o with PMH of brittle Type I DM, polysubstance abuse and medical non-complience. Pt presented with N/V, fatigue , weakness for 2 day duration. Pt admitted to recent cannibus and meth use. Pt was found to be in signficant DKA with pH or 7.06 , bicarb of 7 and anion gap of 29. Pt was admitted for DKA and signigicant electrolye abnormalities. - Discharge Data Discharge Date: 12/01/16 Discharge Disposition: DC/Tfer to Acute Hospital 02 Condition: Good - Patient Summary/Data Hospital Course: DKA in pt with h/o brittle type I DM -at admit pt had pH of 7.06, bicarb 7 and anion gap of 29 -pt was treated with insulin drip and IV fluids- pt required D5 IV fluids to maintain glucose at rate that would allow cont use of insulin until gap closed. -gap was closed and pt transitioned to SQ insulin -pt has been brittle with ranges of glucose checks- 300 and AM glucose of 29 yesterday, 33 today -pt's prandial novolog had been held - getting only SSI for prandial doses - consider resuming prandial doses at 50% of baseline - defer to accepting MD -home dose of 30 units levemir- reduced to 20 units today given her AM hypoglycemia -pt is eating well. no emesis no nausea Bacteremia with staph epi - ingrown toe nails bilateral/infected - -3 of 4 bottles growing staph epi - cultures obtained on admit -pt has been on vacn since initial + bottle - cont same -no fevers, no leukocytosis -will repeat blood cultures today -ECHO - not availabel prior to transfer -source appears to be her bilateral infected ingrown toenails- pt states these have been present for about one month -no protozoology teacher or surgeon available here this seek - transfer to [facility] for podietry consult Hypokalelmia / low mag -low again this AM at 2.8 - will replace again with 40 mEq IV - dose ordered- unlikely will be able to give prior to transfer -replace mag- low at 1.7 - will give one gram IV mag- this has been started prior to transfer Low calcium -started on PO TUMS -no ionized levels available here- albumin ordered- pending - to correct for low albumin if present Substance abuse -UDS + and pt admits to smoking both cannibus and methamphetamine -pt denies IV drug use EVER. -no s/s of withdrawal to date Low phos - resolved -phos now normal range today- -can d/c PO neutrophos Dehydration- -Due to DKA_ resolved s/p IV fluids and correction of DKA full code meeta for DVT PPX Dr. Heredia accepting MD at [place]. - Patient Instructions Diet: Diabetic Diet Activity: As Tolerated Other/Special Instructions: transfer to [facility] for podietry consult. Dr. Heredia accepting MD - Discharge Plan Home Medications: Home Meds Insulin Aspart [NovoLOG] 10 unit SQ TID 02/18/14 [History] Potassium Chloride [Klor-Con 10] 40 meq PO BIDMEALS #4 tab.er 09/07/16 [Rx] Aspirin [Halfprin] 81 mg PO BRK 11/28/16 [History] Gabapentin [Neurontin] 100 mg PO BEDTIME 11/28/16 [History] Acetaminophen/oxyCODONE [Percocet 325-5 MG] 1 tab PO Q4H PRN #0 tablet 12/01/16 [Rx] Calcium Carbonate [Tums] 500 mg PO TID tab.chew 12/01/16 [Rx] Enoxaparin [Lovenox] 40 mg SUBCUT DAILY syringe 12/01/16 [Rx] Insulin Aspart [NovoLOG] 0 unit SUBCUT QIDACANDBED pen 12/01/16 [Rx] Insulin Detemir [Levemir] 20 unit SUBCUT BEDTIME pen 12/01/16 [Rx] Magnesium Oxide 500 mg PO TID tablet 12/01/16 [Rx] Ondansetron [Zofran ODT] 4 mg PO Q4H PRN #0 tab.dis 12/01/16 [Rx] Phosphorus #1 [Neutra-Phos] 500 mg PO QID tablet 12/01/16 [Rx] Potassium Chloride [KCL 20 MEQ in Water 100 ML] 20 meq IV Q2H bag 12/01/16 [Rx] Sodium Chloride 0.45% 100 ml IV ASDIRECTED #0 bag 12/01/16 [Rx] Sodium Chloride 0.9% [Saline Flush] 10 ml FLUSH ASDIRECTED PRN #0 syringe [Rx] Vancomycin Pharmacy to Dose [Pharmacy to Dose - Vancomycin] 1 dose .XX ASDIRECTED each 12/01/16 [Rx] Vancomycin [Vancocin] 1 gm IV Q8H adv 12/01/16 [Rx] - General Info Date of Service: 12/01/16 Subjective Update: pt states she feels better - basically back to baseline. denies any symptoms of hypoglycemia in the am. states when it happens during the day she gets dizzy /weak but can not tell in AM when glucose is low. pt denies ever use of IV drugs. states she has been suffering from bilateral ingrown toes nails for about one month. states was seen at [facility] for it but that they couldn't "do anything " until the infection was gone. nail with drainage, crusting on bandaide. Pain with weight bearing. no f/c. no redness /warmth to foot- just toes. Functional Status: Reports: pain controlled, tolerating diet, ambulating, urinating - Review of Systems General: Reports: no symptoms HEENT: Reports: no symptoms Pulmonary: Reports: no symptoms Cardiovascular: Reports: no symptoms Gastrointestinal: Reports: No symptoms Genitourinary: Reports: no symptoms Musculoskeletal: Reports: no symptoms Skin: Reports: other (infected great toes with ingrown toe nails ) Neurological: Reports: no symptoms Psychiatric: Reports: no symptoms - Patient Data Vitals - Most Recent: Last Vital Signs Temp 36.7 C 12/01/16 08:23 Pulse 88 12/01/16 08:23 Resp 20 12/01/16 08:23 BP 122/71 12/01/16 08:23 Pulse Ox 100 12/01/16 08:23 Weight - Most Recent: 55.066 kg I&O - Last 24 hours: Intake & Output 11/30/16 12/01/16 12/01/16 22:59 06:59 14:59 Intake Total 1653 940 Output Total 1600 1000 Balance 53 940 -1000 Lab Results - Last 24 hrs: Laboratory Results - last 24 hr 11/30/16 11/30/16 11/30/16 Range/Units 11:13 16:48 20:52 Sodium (135-145) mmol/L Potassium (3.6-5.0) mmol/L Chloride (101-111) mmol/L Carbon Dioxide (21.0-31.0) mmol/L Anion Gap BUN (7-18) mg/dL Creatinine (0.6-1.3) mg/dL Est Cr Clr Drug Dosing mL/min Estimated GFR (MDRD) Glucose (74-105) mg/dL POC Glucose 211 H 171 H 336 H (70-105) mg/dl Calcium (8.4-10.2) mg/dl Phosphorus (2.5-4.6) mg/dL Magnesium (1.8-2.5) mg/dL Albumin (3.2-5.5) g/dl Vancomycin Trough (10-15) ug/ml 11/30/16 11/30/16 12/01/16 Range/Units 21:35 21:35 06:15 Sodium 140 (135-145) mmol/L Potassium 3.5 L 2.8 L (3.6-5.0) mmol/L Chloride 108 (101-111) mmol/L Carbon Dioxide 26.0 (21.0-31.0) mmol/L Anion Gap 8.8 BUN 6 L (7-18) mg/dL Creatinine 0.4 L (0.6-1.3) mg/dL Est Cr Clr Drug Dosing 186.90 mL/min Estimated GFR (MDRD) > 60 Glucose 33 L* (74-105) mg/dL POC Glucose (70-105) mg/dl Calcium 7.8 L (8.4-10.2) mg/dl Phosphorus 3.2 (2.5-4.6) mg/dL Magnesium 1.7 L (1.8-2.5) mg/dL Albumin (3.2-5.5) g/dl Vancomycin Trough 9.7 L (10-15) ug/ml 12/01/16 12/01/16 Range/Units 07:53 08:43 Sodium (135-145) mmol/L Potassium (3.6-5.0) mmol/L Chloride (101-111) mmol/L Carbon Dioxide (21.0-31.0) mmol/L Anion Gap BUN (7-18) mg/dL Creatinine (0.6-1.3) mg/dL Est Cr Clr Drug Dosing mL/min Estimated GFR (MDRD) Glucose (74-105) mg/dL POC Glucose 139 H (70-105) mg/dl Calcium (8.4-10.2) mg/dl Phosphorus (2.5-4.6) mg/dL Magnesium (1.8-2.5) mg/dL Albumin 3.4 (3.2-5.5) g/dl Vancomycin Trough (10-15) ug/ml ULI Results - Last 24 hrs: Microbiology 11/29/16 14:00 Aerobic Blood Culture - Preliminary Blood - Venous NO GROWTH AFTER 1 DAY Anaerobic Blood Culture - Preliminary NO GROWTH AFTER 1 DAY Med Orders - Current: Current Medications Aspirin (Halfprin) 81 mg PO BRK COUNTS INCLUDE 234 BEDS AT THE [facility] Last Admin: 11/30/16 08:22 Dose: 81 mg Calcium Carbonate/Glycine (Tums) 500 mg PO TID COUNTS INCLUDE 234 BEDS AT THE [facility] Last Admin: 11/30/16 21:07 Dose: 500 mg Enoxaparin Sodium (Lovenox) 40 mg SUBCUT DAILY COUNTS INCLUDE 234 BEDS AT THE [facility] Last Admin: 11/30/16 08:23 Dose: 40 mg Gabapentin (Neurontin) 100 mg PO BEDTIME COUNTS INCLUDE 234 BEDS AT THE [facility] Last Admin: 11/30/16 21:07 Dose: 100 mg Vancomycin HCl 1 gm/ Sodium (Chloride) 250 mls @ 166.667 mls/hr IV Q8H COUNTS INCLUDE 234 BEDS AT THE [facility] Last Infusion: 12/01/16 06:57 Dose: Infused Sodium Chloride (Sodium Chloride 0.45%) 1,000 mls @ 100 mls/hr IV ASDIRECTED COUNTS INCLUDE 234 BEDS AT THE [facility] Last Admin: 11/30/16 22:09 Dose: 100 mls/hr Potassium Chloride 20 meq/ (Premix) 100 mls @ 50 mls/hr IV Q2H COUNTS INCLUDE 234 BEDS AT THE [facility] Stop: 12/01/16 12:29 Insulin Aspart (Novolog) 0 unit SUBCUT QIDACANDBED COUNTS INCLUDE 234 BEDS AT THE [facility] PRN Reason: Protocol Last Admin: 12/01/16 08:48 Dose: Not Given Insulin Detemir (Levemir) 20 unit SUBCUT BEDTIME COUNTS INCLUDE 234 BEDS AT THE [facility] Magnesium Oxide (Magnesium Oxide) 500 mg PO TID COUNTS INCLUDE 234 BEDS AT THE [facility] Last Admin: 11/30/16 21:06 Dose: 500 mg Ondansetron HCl (Zofran Odt) 4 mg PO Q4H PRN PRN Reason: nausea, able to take PO Oxycodone/Acetaminophen (Percocet 325-5 Mg) 1 tab PO Q4H PRN PRN Reason: Pain (moderate 4-6) Sodium Chloride (Saline Flush) 10 ml FLUSH ASDIRECTED PRN PRN Reason: Keep Vein Open Last Admin: 11/28/16 18:05 Dose: 10 ml Sodium Phosphate (Neutra-Phos) 500 mg PO QID COUNTS INCLUDE 234 BEDS AT THE [facility] Last Admin: 11/30/16 21:07 Dose: 500 mg Vancomycin HCl (Pharmacy To Dose - Vancomycin) 1 dose .XX ASDIRECTED COUNTS INCLUDE 234 BEDS AT THE [facility] Zolpidem Tartrate (Ambien) 5 mg PO BEDTIME PRN PRN Reason: Sleep Discontinued Medications Calcium Carbonate/Glycine (Tums) 500 mg PO BIDM COUNTS INCLUDE 234 BEDS AT THE [facility] Last Admin: 11/30/16 08:22 Dose: 500 mg Dextrose/Water (Dextrose 50% In Water) Confirm Administered Dose 50 ml .ROUTE .STK-MED ONE Stop: 11/28/16 22:14 Last Admin: 11/28/16 22:34 Dose: 50 ml Sodium Chloride (Normal Saline) 1,000 mls @ 999 mls/hr IV .BOLUS ONE Stop: 11/28/16 18:49 Last Admin: 11/28/16 17:55 Dose: 999 mls/hr Insulin Human Regular 100 unit (/ Sodium Chloride) 100 mls @ 2 mls/hr IV TITRATE ONE; 2 UNITS/HR PRN Reason: Protocol Stop: 11/30/16 20:35 Last Titration: 11/29/16 18:32 Dose: 3 units/hr, 3 mls/hr Sodium Chloride (Normal Saline) 1,000 mls @ 999 mls/hr IV .BOLUS ONE Stop: 11/28/16 20:06 Last Admin: 11/28/16 19:09 Dose: 999 mls/hr Sodium Chloride (Normal Saline) 1,000 mls @ 150 mls/hr IV ASDIRECTED COUNTS INCLUDE 234 BEDS AT THE [facility] Sodium Chloride (Normal Saline) 1,000 mls @ 999 mls/hr IV .BOLUS ONE Stop: 11/28/16 21:48 Last Admin: 11/28/16 21:31 Dose: 999 mls/hr Dextrose/Sodium Chloride (Dextrose 5%-1/2 Ns) 1,000 mls @ 150 mls/hr IV ASDIRECTED COUNTS INCLUDE 234 BEDS AT THE [facility] Last Admin: 11/28/16 22:49 Dose: 150 mls/hr Dextrose/Sodium Chloride (Dextrose 5%-1/2 Ns) 1,000 mls @ 200 mls/hr IV ASDIRECTED COUNTS INCLUDE 234 BEDS AT THE [facility] Last Infusion: 11/29/16 12:14 Dose: 200 mls/hr Potassium Chloride/Dextrose/Sod Cl (D5 1/2 Ns W/ 20 Meq/L Kcl) 1,000 mls @ 150 mls/hr IV ASDIRECTED COUNTS INCLUDE 234 BEDS AT THE [facility] Last Admin: 11/29/16 20:04 Dose: 150 mls/hr Potassium Chloride 10 meq/ (Premix) 100 mls @ 100 mls/hr IV Q2HR COUNTS INCLUDE 234 BEDS AT THE [facility] Stop: 11/30/16 18:59 Last Admin: 11/30/16 17:04 Dose: Not Given Magnesium Sulfate/Dextrose 1 (gm/ Premix) 100 mls @ 100 mls/hr IV ONETIME ONE Stop: 12/01/16 09:27 Insulin Aspart (Novolog) 0 unit SUBCUT ASDIRECTED COUNTS INCLUDE 234 BEDS AT THE [facility] PRN Reason: Protocol Last Admin: 11/29/16 21:49 Dose: 4 units Insulin Detemir (Levemir) 0 unit SUBCUT BEDTIME COUNTS INCLUDE 234 BEDS AT THE [facility] Last Admin: 11/30/16 21:08 Dose: 30 units Insulin Human Regular (Novolin R) 5 unit IV ONETIME ONE PRN Reason: Protocol Stop: 11/29/16 18:38 Insulin Human Regular (Novolin R) 5 unit IV ONETIME ONE PRN Reason: Protocol Stop: 11/28/16 18:38 Last Admin: 11/28/16 18:55 Dose: 5 unit Magnesium Oxide (Magnesium Oxide) 500 mg PO BIDM COUNTS INCLUDE 234 BEDS AT THE [facility] Last Admin: 11/30/16 08:22 Dose: 500 mg Ondansetron HCl (Zofran) 4 mg IV ONETIME ONE Stop: 11/28/16 17:50 Last Admin: 11/28/16 18:00 Dose: 4 mg Sodium Phosphate (Neutra-Phos) 250 mg PO QID COUNTS INCLUDE 234 BEDS AT THE [facility] Last Admin: 11/30/16 08:22 Dose: 250 mg Vancomycin HCl (Vancomycin) Confirm Administered Dose 1 gm .ROUTE .STK-MED ONE Stop: 11/30/16 22:55 Last Admin: 11/30/16 23:03 Dose: Not Given - Exam General: Reports: alert, oriented, cooperative, no acute distress HEENT: Reports: Pupils equal Lungs: Reports: Clear to auscultation, Normal respiratory effort Cardiovascular: Reports: regular rate, regular rhythm, no murmurs Abdomen: Reports: bowel sounds present, soft, no tenderness Extremities: Reports: no edema Skin: Reports: warm, dry Wound/Incisions: Reports: other (bialteral ingrown toes nails. +drainage on bandaides, tender, wet macerated skin ) Psy/Mental Status: Reports: alert, normal affect, normal mood *Q Meaningful Use (DIS) - VTE *Q VTE Criteria *Q: - Stroke *Q Stroke Criteria *Q: - AMI *Q AMI Criteria *Q:
[2016-12-01] MEDS: Phosphorus #1 250 MG Tab PO SCH (11:19)
[2016-12-01] MEDS: Aspirin 81 MG Tab.EC PO SCH (11:20)
[2016-12-01] MEDS: Calcium Carbonate 500 MG Tab.Chew PO SCH (11:20)
[2016-12-01] MEDS: Enoxaparin 40 MG/0.4 ML Syringe SUBCUT SCH (11:20)
[2016-12-01 11:32] VITALS: BP 136/91
== END 2016-12-01 12:06 | DRG 638 ==
LOC: DL.ED 17:35 → DL.MS 19:19
PROVIDERS: ADMIT Internal Medicine; ATTEND Internal Medicine
DX: E10.10 Type 1 diabetes mellitus with ketoacidosis without coma (principal); E87.0 Hyperosmolality and hypernatremia; F15.10 Other stimulant abuse, uncomplicated; F12.10 Cannabis abuse, uncomplicated; E10.40 Type 1 diabetes mellitus with diabetic neuropathy, unspecified; Z79.4 Long term (current) use of insulin; E86.0 Dehydration; E83.42 Hypomagnesemia; E83.39 Other disorders of phosphorus metabolism; F19.10 Other psychoactive substance abuse, uncomplicated; Z91.14 Patient's other noncompliance with medication regimen
CPT/HCPCS: 36415; 36600; 80053; 80305; 81001; 81025; 82009; 82150; 82550; 82803; 82962 ×2; 83605; 83690; 85025; 87040 ×2; 87077; 87081; 87186; 87430; 87804 ×2; 96374; 96375; 99285; G0480; J1815 ×2; J2405; J7030 ×2; J7050 ×2; 71010; 80048; 80202; 82040; 83735; 84100; 84132; 85027; A9270-GY; J1650; J3370; J3475; J3480; J7042; J7060

== ENCOUNTER 2018-11-26 09:32 | Emergency (ER) | payer OTHER ==
[2018-11-26 09:39] VITALS: BP 92/70
[2018-11-26] MEDS ORDERED: Sodium Chloride 0.9% 10 ML Syringe FLUSH PRN (09:39)
[2018-11-26] MEDS ORDERED: Sodium Chloride 0.9% 1,000 ML IV ONE ×2 (09:41→10:57)
[2018-11-26] MEDS ORDERED: Insulin Regular, Human 100 Units/ML 3 ML Vial IV ONE (09:50)
--- NOTE | 2018-11-26 09:50 | EDM.PDOC ---
ED HPI GENERAL MEDICAL PROBLEM - General Chief Complaint: Diabetic Complaint Stated Complaint: AMBULANCE Time Seen by Provider: 11/26/18 09:36 Source of Information: Reports: Patient, EMS, EMS Notes Reviewed, RN, RN Notes Reviewed History Limitations: Reports: No Limitations - History of Present Illness INITIAL COMMENTS - FREE TEXT/NARRATIVE: Pt to ER per [facility] with c/o high blood sugar and lethargy, nausea. EMS reports the patient states she has not taken her insulin since last night, has progressively gotten more nauseated and lethargic. Patient denies drug or alcohol use, denies , denies recent illness. Onset: Today, Sudden - Related Data Allergies Allergy/AdvReac Type Severity Reaction Status Date / Time No Known Allergies Allergy Verified 11/26/18 09:36 Home Meds: Home Meds Insulin Aspart [Novolog] 8 unit SQ TIDMEALS 12/04/16 [History] Insulin Detemir [Levemir] 25 unit SUBCUT BEDTIME 12/04/16 [History] Pnv No.122/Iron/Folic Acid [ Multi Tablet] 1 each PO DAILY 12/04/16 [ History] Past Medical History - Past Health History Medical/Surgical History: Denies Medical/Surgical History Other HEENT History: states has a cloud to the right side Cardiovascular History: Reports: None Respiratory History: Reports: None Gastrointestinal History: Reports: None Genitourinary History: Reports: None [employer] History: Reports: Other Musculoskeletal History: fracture left foot one month ago, no surgery. Bilateral ingrown toe nails leading to sepsis, IV vanco BID for 10 days Neurological History: Reports: Seizure Psychiatric History: Reports: Addiction, Other (See Below) Other Psychiatric History: Medical non-complience Endocrine/Metabolic History: Reports: Diabetes, Type I Hematologic History: Reports: None Immunologic History: Reports: None Oncologic (Cancer) History: Reports: None Dermatologic History: Reports: None - Infectious Disease History Infectious Disease History: Reports: None - Past Surgical History Head Surgeries/Procedures: Reports: None Social & Family History - Family History Family Medical History: Noncontributory HEENT: Reports: None Oncologic: Reports: Breast, Other (See Below) Other Oncologic Family History: Stomach CA - Tobacco Use Smoking Status *Q: Current Status Unknown Second Hand Smoke Exposure: No - Caffeine Use Caffeine Use: Reports: None - Recreational Drug Use Recreational Drug Use: No - Living Situation & Occupation Living situation: Reports: with Family ED ROS GENERAL - Review of Systems Review Of Systems: ROS reveals no pertinent complaints other than HPI. ED EXAM GENERAL NO PERIP PULSE - Physical Exam Exam: See Below Exam Limited By: No Limitations General Appearance: Lethargic, Moderate Distress, Thin Eye Exam: Bilateral Eye: Normal Inspection Ears: Normal External Exam Nose: Normal Inspection Throat/Mouth: Normal Inspection, Normal Voice, No Airway Compromise, Other (Dry mucous membranes) Head: Atraumatic, Normocephalic Neck: Normal Inspection, Supple, Non-Tender, Full Range of Motion Respiratory/Chest: No Respiratory Distress, Lungs Clear, Normal Breath Sounds, No Accessory Muscle Use, Chest Non-Tender Cardiovascular: Normal Peripheral Pulses, Regular Rate, Rhythm, No Edema, No Gallop, No JVD, No Murmur, No Rub GI/Abdominal: Normal Bowel Sounds, Soft, Non-Tender (Female) Exam: Deferred Rectal (Female) Exam: Deferred Back Exam: Normal Inspection, Full Range of Motion Extremities: Normal Inspection, Normal Range of Motion, Non-Tender, No Pedal Edema, Normal Capillary Refill Neurological: Other (very lethargic, inattentive, arousable) Skin Exam: Warm, Dry, Intact, Normal Color, No Rash Lymphatic: No Adenopathy Course - Vital Signs Last Recorded V/S: Last Vital Signs Temp 98.6 F 11/26/18 09:36 Pulse 132 H 11/26/18 09:36 Resp 16 11/26/18 09:36 BP 92/70 11/26/18 09:36 Pulse Ox 100 11/26/18 09:36 - Orders/Labs/Meds Orders: Active Orders 24 hr Category Date Time Status Blood Glucose Check, Bedside [RC] ONETIME Care 11/26/18 09:36 Active Blood Glucose Check, Bedside [RC] ONETIME Care 11/26/18 10:53 Active Peripheral IV Care [RC] . DIRECTED Care 11/26/18 09:39 Active Chest 1V Frontal [CR] Urgent Exams 11/26/18 11:39 Stop Req CULTURE BLOOD [BC] Stat Lab 11/26/18 10:47 Received CULTURE BLOOD [BC] Stat Lab 11/26/18 10:47 Results Blood Culture x2 Reflex Set [OM.PC] Stat Oth 11/26/18 10:05 Ordered Peripheral IV Insertion Adult [OM.PC] Stat Oth 11/26/18 09:39 Ordered Labs: Laboratory Tests 11/26/18 11/26/18 11/26/18 Range/Units 09:36 09:40 09:40 WBC 22.2 H (5.0-10.0) 10^3/uL RBC 4.21 (4.2-5.4) 10^6/uL Hgb 13.1 (12.0-16.0) g/dL Hct 41.6 (37.0-47.0) % MCV 98.8 D (80-100) fL MCH 31.1 (27.0-34.0) pg MCHC 31.5 L (33.0-35.0) g/dL Plt Count 427 (150-450) 10^3/uL Neut % (Auto) 92.5 H (42.2-75.2) % Lymph % (Auto) 3.5 L (20.5-50.1) % [place] % (Auto) 3.9 (2-8) % Eos % (Auto) 0.0 L (1.0-3.0) % Baso % (Auto) 0.1 (0.0-1.0) % Add Manual Diff Yes Neutrophils % (Manual) 81 H (42-75) % Band Neutrophils % 11 % Lymphocytes % (Manual) 5 L (20-50) % Monocytes % (Manual) 3 (2-8) % ABG pH (7.35-7.45) ABG pCO2 (35-45) mmHg ABG pO2 (70-100) mmHg ABG HCO3 (22-26) mmol/L ABG O2 Saturation (95-100) % ABG Base Excess ((-2)-(+3)) mmol/L O2 Delivery Device Sodium 134 L (135-145) mmol/L Potassium 5.5 H (3.6-5.0) mmol/L Chloride 97 L (101-111) mmol/L Carbon Dioxide 5.0 L* (21.0-31.0) mmol/L Anion Gap 37.5 BUN 36 H (7-18) mg/dL Creatinine 1.7 H (0.6-1.3) mg/dL Est Cr Clr Drug Dosing 42.71 mL/min Estimated GFR (MDRD) 36 BUN/Creatinine Ratio 21.17 Glucose 818 H* (74-105) mg/dL POC Glucose > 500 H* (70-105) mg/dl Lactic Acid (0.5-2.2) mmol/L Calcium 8.7 (8.4-10.2) mg/dl Total Bilirubin 3.1 H (0.2-1.0) mg/dL AST 34 (10-42) IU/L ALT 27 (10-60) IU/L Alkaline Phosphatase 135 H (42-121) IU/L Total Protein 7.8 (6.7-8.2) g/dl Albumin 4.3 (3.2-5.5) g/dl Globulin 3.5 Albumin/Globulin Ratio 1.23 Urine Color (YELLOW) Urine Appearance (CLEAR) Urine pH (5.0-9.0) Ur Specific [place] (1.005-1.030) Urine Protein (NEGATIVE) Urine Glucose (UA) (NEGATIVE) Urine Ketones (NEGATIVE) Urine Occult Blood (NEGATIVE) Urine Nitrite (NEGATIVE) Urine Bilirubin (NEGATIVE) Urine Urobilinogen (0.2-1.0) mg/dL Ur Leukocyte Esterase (NEGATIVE) Urine RBC /HPF Urine WBC (0-5/HPF) /HPF Ur Epithelial Cells /HPF Urine Bacteria (0-FEW/HPF) /HPF Urine Mucus /LPF Urine HCG, Qual Urine Opiates Screen (NEGATIVE) Ur Oxycodone Screen (NEGATIVE) Urine Methadone Screen (NEGATIVE) Ur Barbiturates Screen (NEGATIVE) U Tricyclic Antidepress (NEGATIVE) Ur Phencyclidine Scrn (NEGATIVE) Ur Amphetamine Screen (NEGATIVE) U Methamphetamines Scrn (NEGATIVE) Urine MDMA Screen (NEGATIVE) U Benzodiazepines Scrn (NEGATIVE) Urine Cocaine Screen (NEGATIVE) U Marijuana (THC) Screen (NEGATIVE) Ethyl Alcohol < 5 mg/dL Ketones Positive 11/26/18 11/26/18 11/26/18 Range/Units 10:47 10:50 10:55 WBC (5.0-10.0) 10^3/uL RBC (4.2-5.4) 10^6/uL Hgb (12.0-16.0) g/dL Hct (37.0-47.0) % MCV (80-100) fL MCH (27.0-34.0) pg MCHC (33.0-35.0) g/dL Plt Count (150-450) 10^3/uL Neut % (Auto) (42.2-75.2) % Lymph % (Auto) (20.5-50.1) % [place] % (Auto) (2-8) % Eos % (Auto) (1.0-3.0) % Baso % (Auto) (0.0-1.0) % Add Manual Diff Neutrophils % (Manual) (42-75) % Band Neutrophils % % Lymphocytes % (Manual) (20-50) % Monocytes % (Manual) (2-8) % ABG pH 7.00 L* (7.35-7.45) ABG pCO2 12 L* (35-45) mmHg ABG pO2 122 H (70-100) mmHg ABG HCO3 2.9 L (22-26) mmol/L ABG O2 Saturation 97 (95-100) % ABG Base Excess -28 L ((-2)-(+3)) mmol/L O2 Delivery Device Room air Sodium (135-145) mmol/L Potassium (3.6-5.0) mmol/L Chloride (101-111) mmol/L Carbon Dioxide (21.0-31.0) mmol/L Anion Gap BUN (7-18) mg/dL Creatinine (0.6-1.3) mg/dL Est Cr Clr Drug Dosing mL/min Estimated GFR (MDRD) BUN/Creatinine Ratio Glucose (74-105) mg/dL POC Glucose > 500 H* (70-105) mg/dl Lactic Acid 2.0 (0.5-2.2) mmol/L Calcium (8.4-10.2) mg/dl Total Bilirubin (0.2-1.0) mg/dL AST (10-42) IU/L ALT (10-60) IU/L Alkaline Phosphatase (42-121) IU/L Total Protein (6.7-8.2) g/dl Albumin (3.2-5.5) g/dl Globulin Albumin/Globulin Ratio Urine Color (YELLOW) Urine Appearance (CLEAR) Urine pH (5.0-9.0) Ur Specific [place] (1.005-1.030) Urine Protein (NEGATIVE) Urine Glucose (UA) (NEGATIVE) Urine Ketones (NEGATIVE) Urine Occult Blood (NEGATIVE) Urine Nitrite (NEGATIVE) Urine Bilirubin (NEGATIVE) Urine Urobilinogen (0.2-1.0) mg/dL Ur Leukocyte Esterase (NEGATIVE) Urine RBC /HPF Urine WBC (0-5/HPF) /HPF Ur Epithelial Cells /HPF Urine Bacteria (0-FEW/HPF) /HPF Urine Mucus /LPF Urine HCG, Qual Urine Opiates Screen (NEGATIVE) Ur Oxycodone Screen (NEGATIVE) Urine Methadone Screen (NEGATIVE) Ur Barbiturates Screen (NEGATIVE) U Tricyclic Antidepress (NEGATIVE) Ur Phencyclidine Scrn (NEGATIVE) Ur Amphetamine Screen (NEGATIVE) U Methamphetamines Scrn (NEGATIVE) Urine MDMA Screen (NEGATIVE) U Benzodiazepines Scrn (NEGATIVE) Urine Cocaine Screen (NEGATIVE) U Marijuana (THC) Screen (NEGATIVE) Ethyl Alcohol mg/dL Ketones 11/26/18 11/26/18 11/26/18 Range/Units 11:03 11:03 11:03 WBC (5.0-10.0) 10^3/uL RBC (4.2-5.4) 10^6/uL Hgb (12.0-16.0) g/dL Hct (37.0-47.0) % MCV (80-100) fL MCH (27.0-34.0) pg MCHC (33.0-35.0) g/dL Plt Count (150-450) 10^3/uL Neut % (Auto) (42.2-75.2) % Lymph % (Auto) (20.5-50.1) % [place] % (Auto) (2-8) % Eos % (Auto) (1.0-3.0) % Baso % (Auto) (0.0-1.0) % Add Manual Diff Neutrophils % (Manual) (42-75) % Band Neutrophils % % Lymphocytes % (Manual) (20-50) % Monocytes % (Manual) (2-8) % ABG pH (7.35-7.45) ABG pCO2 (35-45) mmHg ABG pO2 (70-100) mmHg ABG HCO3 (22-26) mmol/L ABG O2 Saturation (95-100) % ABG Base Excess ((-2)-(+3)) mmol/L O2 Delivery Device Sodium (135-145) mmol/L Potassium (3.6-5.0) mmol/L Chloride (101-111) mmol/L Carbon Dioxide (21.0-31.0) mmol/L Anion Gap BUN (7-18) mg/dL Creatinine (0.6-1.3) mg/dL Est Cr Clr Drug Dosing mL/min Estimated GFR (MDRD) BUN/Creatinine Ratio Glucose (74-105) mg/dL POC Glucose (70-105) mg/dl Lactic Acid (0.5-2.2) mmol/L Calcium (8.4-10.2) mg/dl Total Bilirubin (0.2-1.0) mg/dL AST (10-42) IU/L ALT (10-60) IU/L Alkaline Phosphatase (42-121) IU/L Total Protein (6.7-8.2) g/dl Albumin (3.2-5.5) g/dl Globulin Albumin/Globulin Ratio Urine Color Yellow (YELLOW) Urine Appearance Clear (CLEAR) Urine pH 5.0 (5.0-9.0) Ur Specific [place] 1.015 (1.005-1.030) Urine Protein 30 H (NEGATIVE) Urine Glucose (UA) 500 H (NEGATIVE) Urine Ketones >=160 H (NEGATIVE) Urine Occult Blood Negative (NEGATIVE) Urine Nitrite Negative (NEGATIVE) Urine Bilirubin Small H (NEGATIVE) Urine Urobilinogen 0.2 (0.2-1.0) mg/dL Ur Leukocyte Esterase Negative (NEGATIVE) Urine RBC Not seen /HPF Urine WBC Not seen (0-5/HPF) /HPF Ur Epithelial Cells Rare /HPF Urine Bacteria Rare (0-FEW/HPF) /HPF Urine Mucus Not seen /LPF Urine HCG, Qual Negative Urine Opiates Screen Negative (NEGATIVE) Ur Oxycodone Screen Negative (NEGATIVE) Urine Methadone Screen Negative (NEGATIVE) Ur Barbiturates Screen Negative (NEGATIVE) U Tricyclic Antidepress Negative (NEGATIVE) Ur Phencyclidine Scrn Negative (NEGATIVE) Ur Amphetamine Screen Negative (NEGATIVE) U Methamphetamines Scrn Positive H (NEGATIVE) Urine MDMA Screen Negative (NEGATIVE) U Benzodiazepines Scrn Negative (NEGATIVE) Urine Cocaine Screen Negative (NEGATIVE) U Marijuana (THC) Screen Negative (NEGATIVE) Ethyl Alcohol mg/dL Ketones 11/26/18 11/26/18 Range/Units 11:32 12:06 WBC (5.0-10.0) 10^3/uL RBC (4.2-5.4) 10^6/uL Hgb (12.0-16.0) g/dL Hct (37.0-47.0) % MCV (80-100) fL MCH (27.0-34.0) pg MCHC (33.0-35.0) g/dL Plt Count (150-450) 10^3/uL Neut % (Auto) (42.2-75.2) % Lymph % (Auto) (20.5-50.1) % [place] % (Auto) (2-8) % Eos % (Auto) (1.0-3.0) % Baso % (Auto) (0.0-1.0) % Add Manual Diff Neutrophils % (Manual) (42-75) % Band Neutrophils % % Lymphocytes % (Manual) (20-50) % Monocytes % (Manual) (2-8) % ABG pH (7.35-7.45) ABG pCO2 (35-45) mmHg ABG pO2 (70-100) mmHg ABG HCO3 (22-26) mmol/L ABG O2 Saturation (95-100) % ABG Base Excess ((-2)-(+3)) mmol/L O2 Delivery Device Sodium 142 (135-145) mmol/L Potassium 3.7 D (3.6-5.0) mmol/L Chloride 108 (101-111) mmol/L Carbon Dioxide 7.0 L* (21.0-31.0) mmol/L Anion Gap 30.7 BUN 33 H (7-18) mg/dL Creatinine 1.5 H (0.6-1.3) mg/dL Est Cr Clr Drug Dosing 48.41 mL/min Estimated GFR (MDRD) 42 BUN/Creatinine Ratio Glucose 472 H* (74-105) mg/dL POC Glucose 458 H* (70-105) mg/dl Lactic Acid (0.5-2.2) mmol/L Calcium 8.3 L (8.4-10.2) mg/dl Total Bilirubin (0.2-1.0) mg/dL AST (10-42) IU/L ALT (10-60) IU/L Alkaline Phosphatase (42-121) IU/L Total Protein (6.7-8.2) g/dl Albumin (3.2-5.5) g/dl Globulin Albumin/Globulin Ratio Urine Color (YELLOW) Urine Appearance (CLEAR) Urine pH (5.0-9.0) Ur Specific [place] (1.005-1.030) Urine Protein (NEGATIVE) Urine Glucose (UA) (NEGATIVE) Urine Ketones (NEGATIVE) Urine Occult Blood (NEGATIVE) Urine Nitrite (NEGATIVE) Urine Bilirubin (NEGATIVE) Urine Urobilinogen (0.2-1.0) mg/dL Ur Leukocyte Esterase (NEGATIVE) Urine RBC /HPF Urine WBC (0-5/HPF) /HPF Ur Epithelial Cells /HPF Urine Bacteria (0-FEW/HPF) /HPF Urine Mucus /LPF Urine HCG, Qual Urine Opiates Screen (NEGATIVE) Ur Oxycodone Screen (NEGATIVE) Urine Methadone Screen (NEGATIVE) Ur Barbiturates Screen (NEGATIVE) U Tricyclic Antidepress (NEGATIVE) Ur Phencyclidine Scrn (NEGATIVE) Ur Amphetamine Screen (NEGATIVE) U Methamphetamines Scrn (NEGATIVE) Urine MDMA Screen (NEGATIVE) U Benzodiazepines Scrn (NEGATIVE) Urine Cocaine Screen (NEGATIVE) U Marijuana (THC) Screen (NEGATIVE) Ethyl Alcohol mg/dL Ketones Meds: Medications Discontinued Medications Generic Name Dose Route Start Last Admin Trade Name Enriqueq PRN Reason Stop Dose Admin Sodium Chloride 1,000 mls @ 999 mls/hr 11/26/18 09:41 11/26/18 09:50 Normal Saline IV 11/26/18 10:41 999 mls/hr .BOLUS ONE Administration Insulin Human Regular 100 unit 100 mls @ 5.44 mls/hr 11/26/18 10:00 11/26/18 10:23 / Sodium Chloride IV 0.1 units/kg/hr TITRATE DONNIE 5.44 mls/hr Administration Protocol 0.1 UNITS/KG/HR Sodium Chloride 1,000 mls @ 999 mls/hr 11/26/18 10:57 11/26/18 11:00 Normal Saline IV 11/26/18 11:57 999 mls/hr .BOLUS ONE Administration Insulin Human Regular 10 unit 11/26/18 09:50 11/26/18 10:24 Humulin R IV 11/26/18 09:51 103 units ONETIME ONE Administration Sodium Bicarbonate 50 meq 11/26/18 11:27 11/26/18 11:32 Sodium Bicarbonate 8.4% IVPUSH 11/26/18 11:28 50 meq ONETIME ONE Administration Sodium Chloride 10 ml 11/26/18 09:39 11/26/18 09:50 Saline Flush FLUSH 10 ml ASDIRECTED PRN Administration Keep Vein Open - Radiology Interpretation Free Text/Narrative:: Chest xray: FINDINGS: Lungs: There is questionable airspace disease in the left lung base. No air bronchogram formation or silhouette sign. However, the patient is rotated to the left which could produce an asymmetric appearance of the lung bases. Pleural space: No pleural effusion or pneumothorax. Heart/Mediastinum: The heart is not enlarged. The mediastinal contours are normal. Bones/joints: No acute osseous abnormality. IMPRESSION: Question of left basilar airspace disease. Any pertinent clinical information to support pneumonia? Thank you for allowing us to participate in the care of your patient. Dictated and Authenticated by: Silvio Phillips MD See rad report - Re-Assessments/Exams Free Text/Narrative Re-Assessment/Exam: 11/26/18 11:51 Discussed patient case with Dr. Jara who agreed to accept the patient for transfer. Departure - Departure Time of Disposition: 11:51 Disposition: DC/Tfer to [facility] 02 Condition: Poor Clinical Impression: Methamphetamine abuse Diabetic ketoacidosis associated with type 1 diabetes mellitus Qualifiers: Diabetes mellitus complication detail: without coma Qualified Code(s): E10.10 - Type 1 diabetes mellitus with ketoacidosis without coma - Discharge Information *PRESCRIPTION DRUG MONITORING PROGRAM REVIEWED*: No *COPY OF PRESCRIPTION DRUG MONITORING REPORT IN PATIENT LEOLA: No Forms: ED Department Discharge, Interfacility Transfer EMTALA - My Orders Last 24 Hours: My Active Orders 11/26/18 09:36 Blood Glucose Check, Bedside [RC] ONETIME 11/26/18 09:39 Peripheral IV Care [RC] . DIRECTED Peripheral IV Insertion Adult [OM.PC] Stat 11/26/18 10:05 Blood Culture x2 Reflex Set [OM.PC] Stat 11/26/18 10:47 CULTURE BLOOD [BC] Stat CULTURE BLOOD [BC] Stat 11/26/18 10:53 Blood Glucose Check, Bedside [RC] ONETIME 11/26/18 11:39 Chest 1V Frontal [CR] Urgent - Assessment/Plan Last 24 Hours: My Active Orders 11/26/18 09:36 Blood Glucose Check, Bedside [RC] ONETIME 11/26/18 09:39 Peripheral IV Care [RC] . DIRECTED Peripheral IV Insertion Adult [OM.PC] Stat 11/26/18 10:05 Blood Culture x2 Reflex Set [OM.PC] Stat 11/26/18 10:47 CULTURE BLOOD [BC] Stat CULTURE BLOOD [BC] Stat 11/26/18 10:53 Blood Glucose Check, Bedside [RC] ONETIME 11/26/18 11:39 Chest 1V Frontal [CR] Urgent
[2018-11-26 10:16] LABS: ANION GAP 37.5; CHLORIDE,CL 97 mmol/L (101-111); SODIUM,NA 134 mmol/L (135-145)
[2018-11-26 10:51] LABS: BASE EXCESS ARTERIAL -28 mmol/L ((-2)-(+3)); BICARBONATE,ARTERIAL 2.9 mmol/L (22-26); O2 DELIVERY DEVICE ROOM AIR; O2 SATURATION ARTERIAL 97 % (95-100); PO2 ARTERIAL 122 mmHg (70-100)
[2018-11-26 10:57] LABS: PCO2 ARTERIAL 12 mmHg (35-45)
[2018-11-26] MEDS ORDERED: Sodium Bicarbonate 8.4% 50 MEQ/50 ML Syringe IVPUSH ONE (11:27)
[2018-11-26 12:32] LABS: ANION GAP 30.7
== END 2018-11-26 12:10 ==
LOC: DL.ED 09:32
DX: E10.10 Type 1 diabetes mellitus with ketoacidosis without coma (principal); F15.10 Other stimulant abuse, uncomplicated; Z79.899 Other long term (current) drug therapy; Z79.4 Long term (current) use of insulin
CPT/HCPCS: 36415; 36600; 51701; 71045; 80048; 80053; 80305; 81001; 81025; 82009; 82803; 82962; 83605; 85025; 87040; 96361; 96365; 96366; 96375; 96376; 99285; G0480; J1815; J7030; 99284

== ENCOUNTER 2019-03-14 19:23 | Inpatient (IN) | payer MEDICAID, OTHER ==
[2019-03-14] MEDS ORDERED: Ondansetron 4 MG/2 ML SDV IV ONE (19:37)
[2019-03-14 19:51] LABS: BASE EXCESS ARTERIAL -17 mmol/L ((-2)-(+3)); BICARBONATE,ARTERIAL 8.1 mmol/L (22-26); O2 DELIVERY DEVICE ROOM AIR; O2 SATURATION ARTERIAL 98 % (95-100); PO2 ARTERIAL 118 mmHg (70-100)
[2019-03-14 19:52] LABS: ALLEN TEST PERFORMED; PCO2 ARTERIAL 17 mmHg (35-45)
[2019-03-14] MEDS ORDERED: Sodium Bicarbonate 8.4% 50 MEQ/50 ML Syringe IVPUSH ONE (19:55)
[2019-03-14] MEDS ORDERED: Sodium Chloride 0.9% 1,000 ML IV ONE (20:03)
[2019-03-14 20:24] LABS: ANION GAP 32.1; CHLORIDE,CL 99 mmol/L (101-111); SODIUM,NA 138 mmol/L (135-145)
--- NOTE | 2019-03-14 21:04 | EDM.PDOC ---
ED HPI GENERAL MEDICAL PROBLEM - General Chief Complaint: Gastrointestinal Problem Stated Complaint: UNK Time Seen by Provider: 03/14/19 19:35 Source of Information: Reports: Patient History Limitations: Reports: No Limitations - History of Present Illness INITIAL COMMENTS - FREE TEXT/NARRATIVE: ED via [facility] with c/o vomiting since 5am. Denies recent drug or alcohol use. Hx IDDM. Took insulin today. Weak tonight. No diarrhea. Denies blood in emesis. Blood sugar for EMS 169. Onset: Today Throat Pain Score (Numeric/FACES): 8 - Related Data Allergies Allergy/AdvReac Type Severity Reaction Status Date / Time No Known Allergies Allergy Verified 03/14/19 19:46 Home Meds: Home Meds Insulin Aspart [Novolog] 8 unit SQ TIDMEALS 12/04/16 [History] Insulin Detemir [Levemir] 25 unit SUBCUT BEDTIME 12/04/16 [History] Pnv No.122/Iron/Folic Acid [ Multi Tablet] 1 each PO DAILY 12/04/16 [ History] Past Medical History - Past Health History Medical/Surgical History: Denies Medical/Surgical History Other HEENT History: states has a cloud to the right side Cardiovascular History: Reports: None Respiratory History: Reports: None Gastrointestinal History: Reports: None Genitourinary History: Reports: None INVASIVE CARDIOLOGIST History: Reports: Other Musculoskeletal History: fracture left foot one month ago, no surgery. Bilateral ingrown toe nails leading to sepsis, IV vanco BID for 10 days Neurological History: Reports: Seizure Psychiatric History: Reports: Addiction, Other (See Below) Other Psychiatric History: Medical non-complience Endocrine/Metabolic History: Reports: Diabetes, Type I Hematologic History: Reports: None Immunologic History: Reports: None Oncologic (Cancer) History: Reports: None Dermatologic History: Reports: None - Infectious Disease History Infectious Disease History: Reports: None - Past Surgical History Head Surgeries/Procedures: Reports: None Social & Family History - Family History Family Medical History: Noncontributory HEENT: Reports: None Oncologic: Reports: Breast, Other (See Below) Other Oncologic Family History: Stomach CA - Tobacco Use Smoking Status *Q: Never Smoker Second Hand Smoke Exposure: No - Caffeine Use Caffeine Use: Reports: Soda - Recreational Drug Use Recreational Drug Use: Yes Recreational Drug Type: Reports: Methamphetamine Other Recreational Drug Type: pt states that she was here about a month ago and almost from using meth. - Living Situation & Occupation Living situation: Reports: with Family ED ROS GENERAL - Review of Systems Review Of Systems: See Below Constitutional: Reports: Chills (yesterday benito), Weakness HEENT: Reports: No Symptoms Respiratory: Reports: No Symptoms Cardiovascular: Reports: No Symptoms Endocrine: Reports: High Glucose GI/Abdominal: Reports: Abdominal Pain (epigastric), Nausea, Vomiting. Denies: Black Stool, Hematemesis Skin: Reports: No Symptoms Neurological: Reports: No Symptoms ED EXAM, GI/ABD - Physical Exam Exam: See Below Exam Limited By: No Limitations General Appearance: Lethargic (arouses to voice), Mild Distress Eyes: Bilateral: EOMI (sluggish) Ears: Normal External Exam Nose: Normal Inspection Throat/Mouth: Normal Inspection Head: Atraumatic, Normocephalic Neck: Normal Inspection Respiratory/Chest: No Respiratory Distress, Lungs Clear, Normal Breath Sounds Cardiovascular: Normal Peripheral Pulses, Regular Rate, Rhythm GI/Abdominal Exam: Normal Bowel Sounds, Soft, Non-Tender, No Distention, Tender (epigastric) Extremities: Normal Range of Motion Psychiatric: Normal Affect, Normal Mood Skin Exam: Warm, Dry, Intact, Normal Color Course - Vital Signs Last Recorded V/S: Last Vital Signs Temp 99.2 F 03/14/19 21:14 Pulse 119 H 03/14/19 21:14 Resp 30 H 03/14/19 21:14 BP 140/89 03/14/19 21:14 Pulse Ox 99 03/14/19 21:14 - Orders/Labs/Meds Orders: Active Orders 24 hr Category Date Time Status Glucose [Blood Glucose Check, Bedside] [RC] Q1H Care 03/14/19 19:22 Active Telemetry Monitoring [Cardiac Monitoring] [RC] Care 03/14/19 21:28 Active CONTINUOUS BASIC METABOLIC PANEL,BMP [CHEM] AM Lab 03/15/19 05:11 Ordered CBC WITH AUTO DIFF [HEME] AM Lab 03/15/19 05:15 Ordered CULTURE BLOOD [BC] Stat Lab 03/14/19 19:41 Results CULTURE BLOOD [BC] Stat Lab 03/14/19 22:00 Results MAGNESIUM [CHEM] AM Lab 03/15/19 05:11 Ordered PHOSPHORUS [CHEM] AM Lab 03/15/19 05:11 Ordered Dextrose 5%-0.9% NaCl with KCl [D5 NS with 20 mEq KCl] Med 03/14/19 22:00 Active 1,000 ml IV ASDIRECTED Insulin Regular, Human [HumuLIN R] 100 unit Med 03/14/19 22:00 Active Sodium Chloride 0.9% [Normal Saline] 99 ml IV TITRATE Metoclopramide [Reglan] Med 03/14/19 22:04 Active 10 mg IVPUSH Q6H PRN Multivitamins/Minerals [Vitamins and Minerals] Med 03/15/19 08:00 Active 1 tab PO WITHBREAKFAST Ondansetron [Zofran] Med 03/14/19 22:08 Active 4 mg IV Q6H PRN Sodium Chloride 0.9% [Normal Saline] 1,000 ml Med 03/14/19 22:00 Active IV ASDIRECTED Blood Culture x2 Reflex Set [OM.PC] Stat Oth 03/14/19 19:20 Ordered Medication Orders Acetaminophen (Tylenol) 650 mg PO Q4H PRN PRN Reason: Pain (Mild, moderate )/fever Sodium Chloride (Normal Saline) 1,000 mls @ 999 mls/hr IV ASDIRECTED DONNIE Last Admin: 03/14/19 22:48 Dose: 999 mls/hr Potassium Chloride/Dextrose/Sod Cl (D5 Ns With 20 Meq Kcl) 1,000 mls @ 200 mls/ hr IV ASDIRECTED DONNIE Last Admin: 03/14/19 23:56 Dose: 200 mls/hr Insulin Human Regular 100 unit (/ Sodium Chloride) 100 mls @ 5.64 mls/hr IV TITRATE DONNIE; Protocol Last Infusion: 03/15/19 02:07 Dose: 0.15 units/kg/hr, 9 mls/hr Infusion: 03/15/19 01:07 Dose: 0.12 units/kg/hr, 7 mls/hr Infusion: 03/15/19 00:00 Dose: 0.08 units/kg/hr, 5 mls/hr Admin: 03/14/19 22:45 Dose: 0.08 units/kg/hr, 5 mls/hr Ibuprofen (Motrin) 400 mg PO Q6H PRN PRN Reason: Pain (severe 7-10) Metoclopramide HCl (Reglan) 10 mg IVPUSH Q6H PRN PRN Reason: Nausea Multivitamins/Minerals (Vitamins And Minerals) 1 tab PO WITHBREAKFAST DONNIE Ondansetron HCl (Zofran) 4 mg IV Q6H PRN PRN Reason: Nausea/Vomiting Pantoprazole Sodium (Protonix) 40 mg PO BIDAC DONNIE Last Admin: 03/14/19 22:51 Dose: Not Given Sodium Chloride (Saline Flush) 10 ml FLUSH ASDIRECTED PRN PRN Reason: Keep Vein Open Labs: Laboratory Tests 03/14/19 03/14/19 03/14/19 Range/Units 19:20 19:20 19:30 WBC (5.0-10.0) 10^3/uL RBC (4.2-5.4) 10^6/uL Hgb (12.0-16.0) g/dL Hct (37.0-47.0) % MCV (80-100) fL MCH (27.0-34.0) pg MCHC (33.0-35.0) g/dL Plt Count (150-450) 10^3/uL Neut % (Auto) (42.2-75.2) % Lymph % (Auto) (20.5-50.1) % Howard % (Auto) (2-8) % Eos % (Auto) (1.0-3.0) % Baso % (Auto) (0.0-1.0) % ABG pH (7.35-7.45) ABG pCO2 (35-45) mmHg ABG pO2 (70-100) mmHg ABG HCO3 (22-26) mmol/L ABG O2 Saturation (95-100) % ABG Base Excess ((-2)-(+3)) mmol/L Aakash Test O2 Delivery Device Sodium (135-145) mmol/L Potassium (3.6-5.0) mmol/L Chloride (101-111) mmol/L Carbon Dioxide (21.0-31.0) mmol/L Anion Gap BUN (7-18) mg/dL Creatinine (0.6-1.3) mg/dL Est Cr Clr Drug Dosing Estimated GFR (MDRD) BUN/Creatinine Ratio Glucose (74-105) mg/dL POC Glucose (70-105) mg/dl Lactic Acid (0.5-2.2) mmol/L Calcium (8.4-10.2) mg/dl Total Bilirubin (0.2-1.0) mg/dL AST (10-42) IU/L ALT (10-60) IU/L Alkaline Phosphatase (42-121) IU/L Total Protein (6.7-8.2) g/dl Albumin (3.2-5.5) g/dl Globulin Albumin/Globulin Ratio Amylase (28-100) U/L Lipase (22-51) U/L Urine Color Yellow (YELLOW) Urine Appearance Clear (CLEAR) Urine pH 5.5 (5.0-9.0) Ur Specific [place] 1.020 (1.005-1.030) Urine Protein 30 H (NEGATIVE) Urine Glucose (UA) 500 H (NEGATIVE) Urine Ketones >=160 H (NEGATIVE) Urine Occult Blood Trace-intact H (NEGATIVE) Urine Nitrite Negative (NEGATIVE) Urine Bilirubin Moderate H (NEGATIVE) Urine Urobilinogen 0.2 (0.2-1.0) mg/dL Ur Leukocyte Esterase Negative (NEGATIVE) Urine RBC 0-5 /HPF Urine WBC 0-5 (0-5/HPF) /HPF Ur Epithelial Cells Rare (NOT SEEN) /HPF Urine Bacteria Rare (0-FEW/HPF) /HPF Granular Casts Occasional (NOT SEEN) /LPF Fine Granular Casts (NOT SEEN) /LPF Urine HCG, Qual Negative Urine Opiates Screen Negative (NEGATIVE) Ur Oxycodone Screen Negative (NEGATIVE) Urine Methadone Screen Negative (NEGATIVE) Ur Barbiturates Screen Negative (NEGATIVE) U Tricyclic Antidepress Negative (NEGATIVE) Ur Phencyclidine Scrn Negative (NEGATIVE) Ur Amphetamine Screen Negative (NEGATIVE) U Methamphetamines Scrn Positive H (NEGATIVE) Urine MDMA Screen Negative (NEGATIVE) U Benzodiazepines Scrn Negative (NEGATIVE) Urine Cocaine Screen Negative (NEGATIVE) U Marijuana (THC) Screen Negative (NEGATIVE) Ethyl Alcohol mg/dL Ketones 03/14/19 03/14/19 03/14/19 Range/Units 19:34 19:41 19:41 WBC 12.0 H (5.0-10.0) 10^3/uL RBC 4.57 (4.2-5.4) 10^6/uL Hgb 13.8 D (12.0-16.0) g/dL Hct 40.7 (37.0-47.0) % MCV 89.1 (80-100) fL MCH 30.2 (27.0-34.0) pg MCHC 33.9 (33.0-35.0) g/dL Plt Count 489 H (150-450) 10^3/uL Neut % (Auto) 86.9 H (42.2-75.2) % Lymph % (Auto) 9.5 L (20.5-50.1) % Howard % (Auto) 3.4 (2-8) % Eos % (Auto) 0.0 L (1.0-3.0) % Baso % (Auto) 0.2 (0.0-1.0) % ABG pH (7.35-7.45) ABG pCO2 (35-45) mmHg ABG pO2 (70-100) mmHg ABG HCO3 (22-26) mmol/L ABG O2 Saturation (95-100) % ABG Base Excess ((-2)-(+3)) mmol/L Aakash Test O2 Delivery Device Sodium 138 (135-145) mmol/L Potassium 4.1 (3.6-5.0) mmol/L Chloride 99 L (101-111) mmol/L Carbon Dioxide 11.0 L (21.0-31.0) mmol/L Anion Gap 32.1 BUN 41 H (7-18) mg/dL Creatinine 1.6 H (0.6-1.3) mg/dL Est Cr Clr Drug Dosing TNP Estimated GFR (MDRD) 39 BUN/Creatinine Ratio 25.62 Glucose 196 H (74-105) mg/dL POC Glucose 194 H (70-105) mg/dl Lactic Acid (0.5-2.2) mmol/L Calcium 9.2 (8.4-10.2) mg/dl Total Bilirubin 2.1 H (0.2-1.0) mg/dL AST 19 (10-42) IU/L ALT 23 (10-60) IU/L Alkaline Phosphatase 143 H (42-121) IU/L Total Protein 8.3 H (6.7-8.2) g/dl Albumin 4.5 (3.2-5.5) g/dl Globulin 3.8 Albumin/Globulin Ratio 1.18 Amylase 112 H (28-100) U/L Lipase 22 (22-51) U/L Urine Color (YELLOW) Urine Appearance (CLEAR) Urine pH (5.0-9.0) Ur Specific [place] (1.005-1.030) Urine Protein (NEGATIVE) Urine Glucose (UA) (NEGATIVE) Urine Ketones (NEGATIVE) Urine Occult Blood (NEGATIVE) Urine Nitrite (NEGATIVE) Urine Bilirubin (NEGATIVE) Urine Urobilinogen (0.2-1.0) mg/dL Ur Leukocyte Esterase (NEGATIVE) Urine RBC /HPF Urine WBC (0-5/HPF) /HPF Ur Epithelial Cells (NOT SEEN) /HPF Urine Bacteria (0-FEW/HPF) /HPF Granular Casts (NOT SEEN) /LPF Fine Granular Casts (NOT SEEN) /LPF Urine HCG, Qual Urine Opiates Screen (NEGATIVE) Ur Oxycodone Screen (NEGATIVE) Urine Methadone Screen (NEGATIVE) Ur Barbiturates Screen (NEGATIVE) U Tricyclic Antidepress (NEGATIVE) Ur Phencyclidine Scrn (NEGATIVE) Ur Amphetamine Screen (NEGATIVE) U Methamphetamines Scrn (NEGATIVE) Urine MDMA Screen (NEGATIVE) U Benzodiazepines Scrn (NEGATIVE) Urine Cocaine Screen (NEGATIVE) U Marijuana (THC) Screen (NEGATIVE) Ethyl Alcohol < 5 mg/dL Ketones 03/14/19 03/14/19 03/14/19 Range/Units 19:41 19:41 19:45 WBC (5.0-10.0) 10^3/uL RBC (4.2-5.4) 10^6/uL Hgb (12.0-16.0) g/dL Hct (37.0-47.0) % MCV (80-100) fL MCH (27.0-34.0) pg MCHC (33.0-35.0) g/dL Plt Count (150-450) 10^3/uL Neut % (Auto) (42.2-75.2) % Lymph % (Auto) (20.5-50.1) % Howard % (Auto) (2-8) % Eos % (Auto) (1.0-3.0) % Baso % (Auto) (0.0-1.0) % ABG pH 7.29 L (7.35-7.45) ABG pCO2 17 L* (35-45) mmHg ABG pO2 118 H (70-100) mmHg ABG HCO3 8.1 L (22-26) mmol/L ABG O2 Saturation 98 (95-100) % ABG Base Excess -17 L ((-2)-(+3)) mmol/L Aakash Test Performed O2 Delivery Device Room air Sodium (135-145) mmol/L Potassium (3.6-5.0) mmol/L Chloride (101-111) mmol/L Carbon Dioxide (21.0-31.0) mmol/L Anion Gap BUN (7-18) mg/dL Creatinine (0.6-1.3) mg/dL Est Cr Clr Drug Dosing Estimated GFR (MDRD) BUN/Creatinine Ratio Glucose (74-105) mg/dL POC Glucose (70-105) mg/dl Lactic Acid 1.6 (0.5-2.2) mmol/L Calcium (8.4-10.2) mg/dl Total Bilirubin (0.2-1.0) mg/dL AST (10-42) IU/L ALT (10-60) IU/L Alkaline Phosphatase (42-121) IU/L Total Protein (6.7-8.2) g/dl Albumin (3.2-5.5) g/dl Globulin Albumin/Globulin Ratio Amylase (28-100) U/L Lipase (22-51) U/L Urine Color (YELLOW) Urine Appearance (CLEAR) Urine pH (5.0-9.0) Ur Specific [place] (1.005-1.030) Urine Protein (NEGATIVE) Urine Glucose (UA) (NEGATIVE) Urine Ketones (NEGATIVE) Urine Occult Blood (NEGATIVE) Urine Nitrite (NEGATIVE) Urine Bilirubin (NEGATIVE) Urine Urobilinogen (0.2-1.0) mg/dL Ur Leukocyte Esterase (NEGATIVE) Urine RBC /HPF Urine WBC (0-5/HPF) /HPF Ur Epithelial Cells (NOT SEEN) /HPF Urine Bacteria (0-FEW/HPF) /HPF Granular Casts (NOT SEEN) /LPF Fine Granular Casts (NOT SEEN) /LPF Urine HCG, Qual Urine Opiates Screen (NEGATIVE) Ur Oxycodone Screen (NEGATIVE) Urine Methadone Screen (NEGATIVE) Ur Barbiturates Screen (NEGATIVE) U Tricyclic Antidepress (NEGATIVE) Ur Phencyclidine Scrn (NEGATIVE) Ur Amphetamine Screen (NEGATIVE) U Methamphetamines Scrn (NEGATIVE) Urine MDMA Screen (NEGATIVE) U Benzodiazepines Scrn (NEGATIVE) Urine Cocaine Screen (NEGATIVE) U Marijuana (THC) Screen (NEGATIVE) Ethyl Alcohol mg/dL Ketones Positive Meds: Medications Generic Name Dose Route Start Last Admin Trade Name Enriqueq PRN Reason Stop Dose Admin Acetaminophen 650 mg 03/14/19 22:13 Tylenol PO Q4H PRN Pain (Mild, moderate )/fever Sodium Chloride 1,000 mls @ 999 mls/hr 03/14/19 22:00 03/14/19 22:48 Normal Saline IV 999 mls/hr ASDIRECTED DONNIE Administration Potassium Chloride/Dextrose/Sod Cl 1,000 mls @ 200 mls/hr 03/14/19 22:00 23:56 D5 Ns With 20 Meq Kcl IV 200 mls/hr ASDIRECTED DONNIE Administration Insulin Human Regular 100 unit 100 mls @ 5.64 mls/hr 03/14/19 22:00 03/15/19 02:07 / Sodium Chloride IV 0.15 units/kg/hr TITRATE DONNIE 9 mls/hr Infusion Protocol 0.1 UNITS/KG/HR Ibuprofen 400 mg 03/14/19 22:13 Motrin PO Q6H PRN Pain (severe 7-10) Metoclopramide HCl 10 mg 03/14/19 22:04 Reglan IVPUSH Q6H PRN Nausea Multivitamins/Minerals 1 tab 03/15/19 08:00 Vitamins And Minerals PO WITHBREAKFAST DONNIE Ondansetron HCl 4 mg 03/14/19 22:08 Zofran IV Q6H PRN Nausea/Vomiting Pantoprazole Sodium 40 mg 03/14/19 23:00 03/14/19 22:51 Protonix PO Not Given BIDAC DONNIE Sodium Chloride 10 ml 03/14/19 22:13 Saline Flush FLUSH ASDIRECTED PRN Keep Vein Open Discontinued Medications Generic Name Dose Route Start Last Admin Trade Name Enriqueq PRN Reason Stop Dose Admin Dextrose/Water 50 ml 03/14/19 21:52 03/14/19 22:41 Dextrose 50% In Water IVPUSH 03/14/19 21:53 50 ml ONETIME ONE Administration Sodium Chloride 1,000 mls @ 999 mls/hr 03/14/19 20:03 03/14/19 20:08 Normal Saline IV 03/14/19 21:03 999 mls/hr .BOLUS ONE Administration Metoclopramide HCl 10 mg 03/14/19 21:27 03/14/19 21:48 Reglan IVPUSH 06/24/19 21:28 10 mg ONETIME ONE Administration Ondansetron HCl 4 mg 03/14/19 19:37 03/14/19 19:50 Zofran IV 03/14/19 19:38 4 mg ONETIME ONE Administration Sodium Bicarbonate 50 meq 03/14/19 19:55 03/14/19 20:06 Sodium Bicarbonate 8.4% IVPUSH 03/14/19 19:56 50 meq ONETIME ONE Administration - Re-Assessments/Exams Free Text/Narrative Re-Assessment/Exam: 03/15/19 02:28 Dr Bradley accepting aptient for acute admission. Departure - Departure Time of Disposition: 21:20 Disposition: Admitted As Inpatient 67 Condition: Good Clinical Impression: Positive urine drug screen Diabetic ketoacidosis associated with type 1 diabetes mellitus Qualifiers: Diabetes mellitus complication detail: without coma Qualified Code(s): E10.10 - Type 1 diabetes mellitus with ketoacidosis without coma Vomiting Qualifiers: Vomiting type: bilious vomiting Nausea presence: with nausea Qualified Code(s) : R11.14 - Bilious vomiting - Discharge Information *PRESCRIPTION DRUG MONITORING PROGRAM REVIEWED*: No *COPY OF PRESCRIPTION DRUG MONITORING REPORT IN PATIENT LEOLA: No - My Orders Last 24 Hours: My Active Orders 03/14/19 19:20 Blood Culture x2 Reflex Set [OM.PC] Stat 03/14/19 19:22 Glucose [Blood Glucose Check, Bedside] [RC] Q1H 03/14/19 19:41 CULTURE BLOOD [BC] Stat 03/14/19 22:00 CULTURE BLOOD [BC] Stat - Assessment/Plan Last 24 Hours: My Active Orders 03/14/19 19:20 Blood Culture x2 Reflex Set [OM.PC] Stat 03/14/19 19:22 Glucose [Blood Glucose Check, Bedside] [RC] Q1H 03/14/19 19:41 CULTURE BLOOD [BC] Stat 03/14/19 22:00 CULTURE BLOOD [BC] Stat
[2019-03-14] MEDS ORDERED: Metoclopramide 10 MG/2 ML SDV IVPUSH ONE (21:27)
[2019-03-14] MEDS ORDERED: 50% Dextrose in Water 50 ML Syringe IVPUSH ONE (21:52)
[2019-03-14] MEDS ORDERED: Sodium Chloride 0.9% 1,000 ML IV SCH (22:00)
[2019-03-14] MEDS ORDERED: Metoclopramide 10 MG/2 ML SDV IVPUSH PRN (22:04)
[2019-03-14] MEDS ORDERED: Ondansetron 4 MG/2 ML SDV IV PRN (22:08)
[2019-03-14] MEDS ORDERED: Acetaminophen 325 MG Tab PO PRN (22:13)
[2019-03-14] MEDS ORDERED: Sodium Chloride 0.9% 10 ML Syringe FLUSH PRN (22:13)
[2019-03-14] MEDS ORDERED: Ibuprofen 400 MG Tab PO PRN (22:13)
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
[2019-03-14] MEDS: Pantoprazole 40 MG Tab.CR PO SCH (22:51)
[2019-03-14] MEDS: Dextrose 5%-0.9% NaCl with KCl 1,000 ML IV SCH (23:56)
[2019-03-15 01:35] LABS: ANION GAP 20.2
[2019-03-15] MEDS: Dextrose 5%-0.9% NaCl with KCl 1,000 ML IV SCH ×4 (05:03→20:30)
[2019-03-15] MEDS: Pantoprazole 40 MG Tab.CR PO SCH ×2 (06:16→17:13)
[2019-03-15 06:41] LABS: ANION GAP 20.6
[2019-03-15] MEDS: Multivitamins, Therapeutic with Minerals Tab PO SCH (08:57)
[2019-03-15] MEDS ORDERED: 50% Dextrose in Water 50 ML Syringe IVPUSH ONE (09:08)
--- NOTE | 2019-03-15 09:42 | PCM.PN ---
- General Info Date of Service: 03/15/19 Admission Dx/Problem (Free Text): Admission Diagnosis/Problem Admission Diagnosis/Problem Diabetic ketoacidosis Subjective Update: no more nausea, tolerating clear liquid diet abd pain resolved more communicative this morning no cp has good Uo Functional Status: Reports: Pain Controlled - Review of Systems General: Denies: Fever, Weakness Pulmonary: Denies: Shortness of Breath Cardiovascular: Denies: Chest Pain Gastrointestinal: Denies: Abdominal Pain Neurological: Denies: Confusion - Patient Data Vitals - Most Recent: Last Vital Signs Temp 36.9 C 03/15/19 07:24 Pulse 116 H 03/15/19 07:24 Resp 16 03/15/19 07:24 BP 106/57 L 03/15/19 07:24 Pulse Ox 100 03/15/19 07:24 Weight - Most Recent: 56.427 kg I&O - Last 24 Hours: Intake & Output 03/14/19 03/15/19 03/15/19 22:59 06:59 14:59 Intake Total 500 Output Total 600 Balance -100 Lab Results Last 24 Hours: Laboratory Results - last 24 hr 03/14/19 03/14/19 03/14/19 Range/Units 19:20 19:20 19:30 WBC (5.0-10.0) 10^3/uL RBC (4.2-5.4) 10^6/uL Hgb (12.0-16.0) g/dL Hct (37.0-47.0) % MCV (80-100) fL MCH (27.0-34.0) pg MCHC (33.0-35.0) g/dL Plt Count (150-450) 10^3/uL Neut % (Auto) (42.2-75.2) % Lymph % (Auto) (20.5-50.1) % [place] % (Auto) (2-8) % Eos % (Auto) (1.0-3.0) % Baso % (Auto) (0.0-1.0) % ABG pH (7.35-7.45) ABG pCO2 (35-45) mmHg ABG pO2 (70-100) mmHg ABG HCO3 (22-26) mmol/L ABG O2 Saturation (95-100) % ABG Base Excess ((-2)-(+3)) mmol/L Aakash Test O2 Delivery Device Sodium (135-145) mmol/L Potassium (3.6-5.0) mmol/L Chloride (101-111) mmol/L Carbon Dioxide (21.0-31.0) mmol/L Anion Gap BUN (7-18) mg/dL Creatinine (0.6-1.3) mg/dL Est Cr Clr Drug Dosing Estimated GFR (MDRD) BUN/Creatinine Ratio Glucose (74-105) mg/dL POC Glucose (70-105) mg/dl Lactic Acid (0.5-2.2) mmol/L Calcium (8.4-10.2) mg/dl Phosphorus (2.5-4.6) mg/dL Magnesium (1.8-2.5) mg/dL Total Bilirubin (0.2-1.0) mg/dL AST (10-42) IU/L ALT (10-60) IU/L Alkaline Phosphatase (42-121) IU/L Total Protein (6.7-8.2) g/dl Albumin (3.2-5.5) g/dl Globulin Albumin/Globulin Ratio Amylase (28-100) U/L Lipase (22-51) U/L Urine Color Yellow (YELLOW) Urine Appearance Clear (CLEAR) Urine pH 5.5 (5.0-9.0) Ur Specific [place] 1.020 (1.005-1.030) Urine Protein 30 H (NEGATIVE) Urine Glucose (UA) 500 H (NEGATIVE) Urine Ketones >=160 H (NEGATIVE) Urine Occult Blood Trace-intact H (NEGATIVE) Urine Nitrite Negative (NEGATIVE) Urine Bilirubin Moderate H (NEGATIVE) Urine Urobilinogen 0.2 (0.2-1.0) mg/dL Ur Leukocyte Esterase Negative (NEGATIVE) Urine RBC 0-5 /HPF Urine WBC 0-5 (0-5/HPF) /HPF Ur Epithelial Cells Rare (NOT SEEN) /HPF Urine Bacteria Rare (0-FEW/HPF) /HPF Granular Casts Occasional (NOT SEEN) /LPF Fine Granular Casts (NOT SEEN) /LPF Urine HCG, Qual Negative Urine Opiates Screen Negative (NEGATIVE) Ur Oxycodone Screen Negative (NEGATIVE) Urine Methadone Screen Negative (NEGATIVE) Ur Barbiturates Screen Negative (NEGATIVE) U Tricyclic Antidepress Negative (NEGATIVE) Ur Phencyclidine Scrn Negative (NEGATIVE) Ur Amphetamine Screen Negative (NEGATIVE) U Methamphetamines Scrn Positive H (NEGATIVE) Urine MDMA Screen Negative (NEGATIVE) U Benzodiazepines Scrn Negative (NEGATIVE) Urine Cocaine Screen Negative (NEGATIVE) U Marijuana (THC) Screen Negative (NEGATIVE) Ethyl Alcohol mg/dL Ketones 03/14/19 03/14/19 03/14/19 Range/Units 19:34 19:41 19:41 WBC 12.0 H (5.0-10.0) 10^3/uL RBC 4.57 (4.2-5.4) 10^6/uL Hgb 13.8 D (12.0-16.0) g/dL Hct 40.7 (37.0-47.0) % MCV 89.1 (80-100) fL MCH 30.2 (27.0-34.0) pg MCHC 33.9 (33.0-35.0) g/dL Plt Count 489 H (150-450) 10^3/uL Neut % (Auto) 86.9 H (42.2-75.2) % Lymph % (Auto) 9.5 L (20.5-50.1) % [place] % (Auto) 3.4 (2-8) % Eos % (Auto) 0.0 L (1.0-3.0) % Baso % (Auto) 0.2 (0.0-1.0) % ABG pH (7.35-7.45) ABG pCO2 (35-45) mmHg ABG pO2 (70-100) mmHg ABG HCO3 (22-26) mmol/L ABG O2 Saturation (95-100) % ABG Base Excess ((-2)-(+3)) mmol/L Aakash Test O2 Delivery Device Sodium 138 (135-145) mmol/L Potassium 4.1 (3.6-5.0) mmol/L Chloride 99 L (101-111) mmol/L Carbon Dioxide 11.0 L (21.0-31.0) mmol/L Anion Gap 32.1 BUN 41 H (7-18) mg/dL Creatinine 1.6 H (0.6-1.3) mg/dL Est Cr Clr Drug Dosing TNP Estimated GFR (MDRD) 39 BUN/Creatinine Ratio 25.62 Glucose 196 H (74-105) mg/dL POC Glucose 194 H (70-105) mg/dl Lactic Acid (0.5-2.2) mmol/L Calcium 9.2 (8.4-10.2) mg/dl Phosphorus (2.5-4.6) mg/dL Magnesium (1.8-2.5) mg/dL Total Bilirubin 2.1 H (0.2-1.0) mg/dL AST 19 (10-42) IU/L ALT 23 (10-60) IU/L Alkaline Phosphatase 143 H (42-121) IU/L Total Protein 8.3 H (6.7-8.2) g/dl Albumin 4.5 (3.2-5.5) g/dl Globulin 3.8 Albumin/Globulin Ratio 1.18 Amylase 112 H (28-100) U/L Lipase 22 (22-51) U/L Urine Color (YELLOW) Urine Appearance (CLEAR) Urine pH (5.0-9.0) Ur Specific [place] (1.005-1.030) Urine Protein (NEGATIVE) Urine Glucose (UA) (NEGATIVE) Urine Ketones (NEGATIVE) Urine Occult Blood (NEGATIVE) Urine Nitrite (NEGATIVE) Urine Bilirubin (NEGATIVE) Urine Urobilinogen (0.2-1.0) mg/dL Ur Leukocyte Esterase (NEGATIVE) Urine RBC /HPF Urine WBC (0-5/HPF) /HPF Ur Epithelial Cells (NOT SEEN) /HPF Urine Bacteria (0-FEW/HPF) /HPF Granular Casts (NOT SEEN) /LPF Fine Granular Casts (NOT SEEN) /LPF Urine HCG, Qual Urine Opiates Screen (NEGATIVE) Ur Oxycodone Screen (NEGATIVE) Urine Methadone Screen (NEGATIVE) Ur Barbiturates Screen (NEGATIVE) U Tricyclic Antidepress (NEGATIVE) Ur Phencyclidine Scrn (NEGATIVE) Ur Amphetamine Screen (NEGATIVE) U Methamphetamines Scrn (NEGATIVE) Urine MDMA Screen (NEGATIVE) U Benzodiazepines Scrn (NEGATIVE) Urine Cocaine Screen (NEGATIVE) U Marijuana (THC) Screen (NEGATIVE) Ethyl Alcohol < 5 mg/dL Ketones 03/14/19 03/14/19 03/14/19 Range/Units 19:41 19:41 19:45 WBC (5.0-10.0) 10^3/uL RBC (4.2-5.4) 10^6/uL Hgb (12.0-16.0) g/dL Hct (37.0-47.0) % MCV (80-100) fL MCH (27.0-34.0) pg MCHC (33.0-35.0) g/dL Plt Count (150-450) 10^3/uL Neut % (Auto) (42.2-75.2) % Lymph % (Auto) (20.5-50.1) % [place] % (Auto) (2-8) % Eos % (Auto) (1.0-3.0) % Baso % (Auto) (0.0-1.0) % ABG pH 7.29 L (7.35-7.45) ABG pCO2 17 L* (35-45) mmHg ABG pO2 118 H (70-100) mmHg ABG HCO3 8.1 L (22-26) mmol/L ABG O2 Saturation 98 (95-100) % ABG Base Excess -17 L ((-2)-(+3)) mmol/L Aakash Test Performed O2 Delivery Device Room air Sodium (135-145) mmol/L Potassium (3.6-5.0) mmol/L Chloride (101-111) mmol/L Carbon Dioxide (21.0-31.0) mmol/L Anion Gap BUN (7-18) mg/dL Creatinine (0.6-1.3) mg/dL Est Cr Clr Drug Dosing Estimated GFR (MDRD) BUN/Creatinine Ratio Glucose (74-105) mg/dL POC Glucose (70-105) mg/dl Lactic Acid 1.6 (0.5-2.2) mmol/L Calcium (8.4-10.2) mg/dl Phosphorus (2.5-4.6) mg/dL Magnesium (1.8-2.5) mg/dL Total Bilirubin (0.2-1.0) mg/dL AST (10-42) IU/L ALT (10-60) IU/L Alkaline Phosphatase (42-121) IU/L Total Protein (6.7-8.2) g/dl Albumin (3.2-5.5) g/dl Globulin Albumin/Globulin Ratio Amylase (28-100) U/L Lipase (22-51) U/L Urine Color (YELLOW) Urine Appearance (CLEAR) Urine pH (5.0-9.0) Ur Specific [place] (1.005-1.030) Urine Protein (NEGATIVE) Urine Glucose (UA) (NEGATIVE) Urine Ketones (NEGATIVE) Urine Occult Blood (NEGATIVE) Urine Nitrite (NEGATIVE) Urine Bilirubin (NEGATIVE) Urine Urobilinogen (0.2-1.0) mg/dL Ur Leukocyte Esterase (NEGATIVE) Urine RBC /HPF Urine WBC (0-5/HPF) /HPF Ur Epithelial Cells (NOT SEEN) /HPF Urine Bacteria (0-FEW/HPF) /HPF Granular Casts (NOT SEEN) /LPF Fine Granular Casts (NOT SEEN) /LPF Urine HCG, Qual Urine Opiates Screen (NEGATIVE) Ur Oxycodone Screen (NEGATIVE) Urine Methadone Screen (NEGATIVE) Ur Barbiturates Screen (NEGATIVE) U Tricyclic Antidepress (NEGATIVE) Ur Phencyclidine Scrn (NEGATIVE) Ur Amphetamine Screen (NEGATIVE) U Methamphetamines Scrn (NEGATIVE) Urine MDMA Screen (NEGATIVE) U Benzodiazepines Scrn (NEGATIVE) Urine Cocaine Screen (NEGATIVE) U Marijuana (THC) Screen (NEGATIVE) Ethyl Alcohol mg/dL Ketones Positive 03/14/19 03/15/19 03/15/19 Range/Units 22:38 00:00 01:05 WBC (5.0-10.0) 10^3/uL RBC (4.2-5.4) 10^6/uL Hgb (12.0-16.0) g/dL Hct (37.0-47.0) % MCV (80-100) fL MCH (27.0-34.0) pg MCHC (33.0-35.0) g/dL Plt Count (150-450) 10^3/uL Neut % (Auto) (42.2-75.2) % Lymph % (Auto) (20.5-50.1) % [place] % (Auto) (2-8) % Eos % (Auto) (1.0-3.0) % Baso % (Auto) (0.0-1.0) % ABG pH (7.35-7.45) ABG pCO2 (35-45) mmHg ABG pO2 (70-100) mmHg ABG HCO3 (22-26) mmol/L ABG O2 Saturation (95-100) % ABG Base Excess ((-2)-(+3)) mmol/L Aakash Test O2 Delivery Device Sodium (135-145) mmol/L Potassium (3.6-5.0) mmol/L Chloride (101-111) mmol/L Carbon Dioxide (21.0-31.0) mmol/L Anion Gap BUN (7-18) mg/dL Creatinine (0.6-1.3) mg/dL Est Cr Clr Drug Dosing Estimated GFR (MDRD) BUN/Creatinine Ratio Glucose (74-105) mg/dL POC Glucose 241 H 226 H 270 H (70-105) mg/dl Lactic Acid (0.5-2.2) mmol/L Calcium (8.4-10.2) mg/dl Phosphorus (2.5-4.6) mg/dL Magnesium (1.8-2.5) mg/dL Total Bilirubin (0.2-1.0) mg/dL AST (10-42) IU/L ALT (10-60) IU/L Alkaline Phosphatase (42-121) IU/L Total Protein (6.7-8.2) g/dl Albumin (3.2-5.5) g/dl Globulin Albumin/Globulin Ratio Amylase (28-100) U/L Lipase (22-51) U/L Urine Color (YELLOW) Urine Appearance (CLEAR) Urine pH (5.0-9.0) Ur Specific [place] (1.005-1.030) Urine Protein (NEGATIVE) Urine Glucose (UA) (NEGATIVE) Urine Ketones (NEGATIVE) Urine Occult Blood (NEGATIVE) Urine Nitrite (NEGATIVE) Urine Bilirubin (NEGATIVE) Urine Urobilinogen (0.2-1.0) mg/dL Ur Leukocyte Esterase (NEGATIVE) Urine RBC /HPF Urine WBC (0-5/HPF) /HPF Ur Epithelial Cells (NOT SEEN) /HPF Urine Bacteria (0-FEW/HPF) /HPF Granular Casts (NOT SEEN) /LPF Fine Granular Casts (NOT SEEN) /LPF Urine HCG, Qual Urine Opiates Screen (NEGATIVE) Ur Oxycodone Screen (NEGATIVE) Urine Methadone Screen (NEGATIVE) Ur Barbiturates Screen (NEGATIVE) U Tricyclic Antidepress (NEGATIVE) Ur Phencyclidine Scrn (NEGATIVE) Ur Amphetamine Screen (NEGATIVE) U Methamphetamines Scrn (NEGATIVE) Urine MDMA Screen (NEGATIVE) U Benzodiazepines Scrn (NEGATIVE) Urine Cocaine Screen (NEGATIVE) U Marijuana (THC) Screen (NEGATIVE) Ethyl Alcohol mg/dL Ketones 03/15/19 03/15/19 03/15/19 Range/Units 01:08 02:06 03:04 WBC (5.0-10.0) 10^3/uL RBC (4.2-5.4) 10^6/uL Hgb (12.0-16.0) g/dL Hct (37.0-47.0) % MCV (80-100) fL MCH (27.0-34.0) pg MCHC (33.0-35.0) g/dL Plt Count (150-450) 10^3/uL Neut % (Auto) (42.2-75.2) % Lymph % (Auto) (20.5-50.1) % [place] % (Auto) (2-8) % Eos % (Auto) (1.0-3.0) % Baso % (Auto) (0.0-1.0) % ABG pH (7.35-7.45) ABG pCO2 (35-45) mmHg ABG pO2 (70-100) mmHg ABG HCO3 (22-26) mmol/L ABG O2 Saturation (95-100) % ABG Base Excess ((-2)-(+3)) mmol/L Aakash Test O2 Delivery Device Sodium 140 (135-145) mmol/L Potassium 4.2 (3.6-5.0) mmol/L Chloride 111 D (101-111) mmol/L Carbon Dioxide 13.0 L (21.0-31.0) mmol/L Anion Gap 20.2 BUN 30 H (7-18) mg/dL Creatinine 1.1 (0.6-1.3) mg/dL Est Cr Clr Drug Dosing 68.43 Estimated GFR (MDRD) 60 BUN/Creatinine Ratio Glucose 279 H (74-105) mg/dL POC Glucose 329 H 344 H (70-105) mg/dl Lactic Acid (0.5-2.2) mmol/L Calcium 7.6 L D (8.4-10.2) mg/dl Phosphorus 2.9 (2.5-4.6) mg/dL Magnesium 1.7 L (1.8-2.5) mg/dL Total Bilirubin (0.2-1.0) mg/dL AST (10-42) IU/L ALT (10-60) IU/L Alkaline Phosphatase (42-121) IU/L Total Protein (6.7-8.2) g/dl Albumin (3.2-5.5) g/dl Globulin Albumin/Globulin Ratio Amylase (28-100) U/L Lipase (22-51) U/L Urine Color (YELLOW) Urine Appearance (CLEAR) Urine pH (5.0-9.0) Ur Specific [place] (1.005-1.030) Urine Protein (NEGATIVE) Urine Glucose (UA) (NEGATIVE) Urine Ketones (NEGATIVE) Urine Occult Blood (NEGATIVE) Urine Nitrite (NEGATIVE) Urine Bilirubin (NEGATIVE) Urine Urobilinogen (0.2-1.0) mg/dL Ur Leukocyte Esterase (NEGATIVE) Urine RBC /HPF Urine WBC (0-5/HPF) /HPF Ur Epithelial Cells (NOT SEEN) /HPF Urine Bacteria (0-FEW/HPF) /HPF Granular Casts (NOT SEEN) /LPF Fine Granular Casts (NOT SEEN) /LPF Urine HCG, Qual Urine Opiates Screen (NEGATIVE) Ur Oxycodone Screen (NEGATIVE) Urine Methadone Screen (NEGATIVE) Ur Barbiturates Screen (NEGATIVE) U Tricyclic Antidepress (NEGATIVE) Ur Phencyclidine Scrn (NEGATIVE) Ur Amphetamine Screen (NEGATIVE) U Methamphetamines Scrn (NEGATIVE) Urine MDMA Screen (NEGATIVE) U Benzodiazepines Scrn (NEGATIVE) Urine Cocaine Screen (NEGATIVE) U Marijuana (THC) Screen (NEGATIVE) Ethyl Alcohol mg/dL Ketones 03/15/19 03/15/19 03/15/19 Range/Units 04:04 05:08 06:05 WBC (5.0-10.0) 10^3/uL RBC (4.2-5.4) 10^6/uL Hgb (12.0-16.0) g/dL Hct (37.0-47.0) % MCV (80-100) fL MCH (27.0-34.0) pg MCHC (33.0-35.0) g/dL Plt Count (150-450) 10^3/uL Neut % (Auto) (42.2-75.2) % Lymph % (Auto) (20.5-50.1) % [place] % (Auto) (2-8) % Eos % (Auto) (1.0-3.0) % Baso % (Auto) (0.0-1.0) % ABG pH (7.35-7.45) ABG pCO2 (35-45) mmHg ABG pO2 (70-100) mmHg ABG HCO3 (22-26) mmol/L ABG O2 Saturation (95-100) % ABG Base Excess ((-2)-(+3)) mmol/L Aakash Test O2 Delivery Device Sodium (135-145) mmol/L Potassium (3.6-5.0) mmol/L Chloride (101-111) mmol/L Carbon Dioxide (21.0-31.0) mmol/L Anion Gap BUN (7-18) mg/dL Creatinine (0.6-1.3) mg/dL Est Cr Clr Drug Dosing Estimated GFR (MDRD) BUN/Creatinine Ratio Glucose (74-105) mg/dL POC Glucose 374 H 398 H 258 H (70-105) mg/dl Lactic Acid (0.5-2.2) mmol/L Calcium (8.4-10.2) mg/dl Phosphorus (2.5-4.6) mg/dL Magnesium (1.8-2.5) mg/dL Total Bilirubin (0.2-1.0) mg/dL AST (10-42) IU/L ALT (10-60) IU/L Alkaline Phosphatase (42-121) IU/L Total Protein (6.7-8.2) g/dl Albumin (3.2-5.5) g/dl Globulin Albumin/Globulin Ratio Amylase (28-100) U/L Lipase (22-51) U/L Urine Color (YELLOW) Urine Appearance (CLEAR) Urine pH (5.0-9.0) Ur Specific [place] (1.005-1.030) Urine Protein (NEGATIVE) Urine Glucose (UA) (NEGATIVE) Urine Ketones (NEGATIVE) Urine Occult Blood (NEGATIVE) Urine Nitrite (NEGATIVE) Urine Bilirubin (NEGATIVE) Urine Urobilinogen (0.2-1.0) mg/dL Ur Leukocyte Esterase (NEGATIVE) Urine RBC /HPF Urine WBC (0-5/HPF) /HPF Ur Epithelial Cells (NOT SEEN) /HPF Urine Bacteria (0-FEW/HPF) /HPF Granular Casts (NOT SEEN) /LPF Fine Granular Casts (NOT SEEN) /LPF Urine HCG, Qual Urine Opiates Screen (NEGATIVE) Ur Oxycodone Screen (NEGATIVE) Urine Methadone Screen (NEGATIVE) Ur Barbiturates Screen (NEGATIVE) U Tricyclic Antidepress (NEGATIVE) Ur Phencyclidine Scrn (NEGATIVE) Ur Amphetamine Screen (NEGATIVE) U Methamphetamines Scrn (NEGATIVE) Urine MDMA Screen (NEGATIVE) U Benzodiazepines Scrn (NEGATIVE) Urine Cocaine Screen (NEGATIVE) U Marijuana (THC) Screen (NEGATIVE) Ethyl Alcohol mg/dL Ketones 03/15/19 03/15/19 03/15/19 Range/Units 06:06 06:06 07:02 WBC 13.4 H (5.0-10.0) 10^3/uL RBC 3.81 L (4.2-5.4) 10^6/uL Hgb 11.3 L D (12.0-16.0) g/dL Hct 35.1 L (37.0-47.0) % MCV 92.1 D (80-100) fL MCH 29.7 (27.0-34.0) pg MCHC 32.2 L (33.0-35.0) g/dL Plt Count 435 (150-450) 10^3/uL Neut % (Auto) 80.6 H (42.2-75.2) % Lymph % (Auto) 12.9 L (20.5-50.1) % [place] % (Auto) 6.4 (2-8) % Eos % (Auto) 0.0 L (1.0-3.0) % Baso % (Auto) 0.1 (0.0-1.0) % ABG pH (7.35-7.45) ABG pCO2 (35-45) mmHg ABG pO2 (70-100) mmHg ABG HCO3 (22-26) mmol/L ABG O2 Saturation (95-100) % ABG Base Excess ((-2)-(+3)) mmol/L Aakash Test O2 Delivery Device Sodium 136 (135-145) mmol/L Potassium 3.6 (3.6-5.0) mmol/L Chloride 111 (101-111) mmol/L Carbon Dioxide 8.0 L* (21.0-31.0) mmol/L Anion Gap 20.6 BUN 21 H (7-18) mg/dL Creatinine 1.1 (0.6-1.3) mg/dL Est Cr Clr Drug Dosing 68.43 Estimated GFR (MDRD) 60 BUN/Creatinine Ratio Glucose 272 H (74-105) mg/dL POC Glucose 201 H (70-105) mg/dl Lactic Acid (0.5-2.2) mmol/L Calcium 7.5 L (8.4-10.2) mg/dl Phosphorus 2.4 L (2.5-4.6) mg/dL Magnesium 1.6 L (1.8-2.5) mg/dL Total Bilirubin (0.2-1.0) mg/dL AST (10-42) IU/L ALT (10-60) IU/L Alkaline Phosphatase (42-121) IU/L Total Protein (6.7-8.2) g/dl Albumin (3.2-5.5) g/dl Globulin Albumin/Globulin Ratio Amylase (28-100) U/L Lipase (22-51) U/L Urine Color (YELLOW) Urine Appearance (CLEAR) Urine pH (5.0-9.0) Ur Specific [place] (1.005-1.030) Urine Protein (NEGATIVE) Urine Glucose (UA) (NEGATIVE) Urine Ketones (NEGATIVE) Urine Occult Blood (NEGATIVE) Urine Nitrite (NEGATIVE) Urine Bilirubin (NEGATIVE) Urine Urobilinogen (0.2-1.0) mg/dL Ur Leukocyte Esterase (NEGATIVE) Urine RBC /HPF Urine WBC (0-5/HPF) /HPF Ur Epithelial Cells (NOT SEEN) /HPF Urine Bacteria (0-FEW/HPF) /HPF Granular Casts (NOT SEEN) /LPF Fine Granular Casts (NOT SEEN) /LPF Urine HCG, Qual Urine Opiates Screen (NEGATIVE) Ur Oxycodone Screen (NEGATIVE) Urine Methadone Screen (NEGATIVE) Ur Barbiturates Screen (NEGATIVE) U Tricyclic Antidepress (NEGATIVE) Ur Phencyclidine Scrn (NEGATIVE) Ur Amphetamine Screen (NEGATIVE) U Methamphetamines Scrn (NEGATIVE) Urine MDMA Screen (NEGATIVE) U Benzodiazepines Scrn (NEGATIVE) Urine Cocaine Screen (NEGATIVE) U Marijuana (THC) Screen (NEGATIVE) Ethyl Alcohol mg/dL Ketones 03/15/19 03/15/19 Range/Units 08:01 09:01 WBC (5.0-10.0) 10^3/uL RBC (4.2-5.4) 10^6/uL Hgb (12.0-16.0) g/dL Hct (37.0-47.0) % MCV (80-100) fL MCH (27.0-34.0) pg MCHC (33.0-35.0) g/dL Plt Count (150-450) 10^3/uL Neut % (Auto) (42.2-75.2) % Lymph % (Auto) (20.5-50.1) % [place] % (Auto) (2-8) % Eos % (Auto) (1.0-3.0) % Baso % (Auto) (0.0-1.0) % ABG pH (7.35-7.45) ABG pCO2 (35-45) mmHg ABG pO2 (70-100) mmHg ABG HCO3 (22-26) mmol/L ABG O2 Saturation (95-100) % ABG Base Excess ((-2)-(+3)) mmol/L Aakash Test O2 Delivery Device Sodium (135-145) mmol/L Potassium (3.6-5.0) mmol/L Chloride (101-111) mmol/L Carbon Dioxide (21.0-31.0) mmol/L Anion Gap BUN (7-18) mg/dL Creatinine (0.6-1.3) mg/dL Est Cr Clr Drug Dosing Estimated GFR (MDRD) BUN/Creatinine Ratio Glucose (74-105) mg/dL POC Glucose 141 H 73 (70-105) mg/dl Lactic Acid (0.5-2.2) mmol/L Calcium (8.4-10.2) mg/dl Phosphorus (2.5-4.6) mg/dL Magnesium (1.8-2.5) mg/dL Total Bilirubin (0.2-1.0) mg/dL AST (10-42) IU/L ALT (10-60) IU/L Alkaline Phosphatase (42-121) IU/L Total Protein (6.7-8.2) g/dl Albumin (3.2-5.5) g/dl Globulin Albumin/Globulin Ratio Amylase (28-100) U/L Lipase (22-51) U/L Urine Color (YELLOW) Urine Appearance (CLEAR) Urine pH (5.0-9.0) Ur Specific [place] (1.005-1.030) Urine Protein (NEGATIVE) Urine Glucose (UA) (NEGATIVE) Urine Ketones (NEGATIVE) Urine Occult Blood (NEGATIVE) Urine Nitrite (NEGATIVE) Urine Bilirubin (NEGATIVE) Urine Urobilinogen (0.2-1.0) mg/dL Ur Leukocyte Esterase (NEGATIVE) Urine RBC /HPF Urine WBC (0-5/HPF) /HPF Ur Epithelial Cells (NOT SEEN) /HPF Urine Bacteria (0-FEW/HPF) /HPF Granular Casts (NOT SEEN) /LPF Fine Granular Casts (NOT SEEN) /LPF Urine HCG, Qual Urine Opiates Screen (NEGATIVE) Ur Oxycodone Screen (NEGATIVE) Urine Methadone Screen (NEGATIVE) Ur Barbiturates Screen (NEGATIVE) U Tricyclic Antidepress (NEGATIVE) Ur Phencyclidine Scrn (NEGATIVE) Ur Amphetamine Screen (NEGATIVE) U Methamphetamines Scrn (NEGATIVE) Urine MDMA Screen (NEGATIVE) U Benzodiazepines Scrn (NEGATIVE) Urine Cocaine Screen (NEGATIVE) U Marijuana (THC) Screen (NEGATIVE) Ethyl Alcohol mg/dL Ketones Quan Results Last 24 Hours: Microbiology 03/14/19 22:00 Anaerobic Blood Culture - Final Blood - Venous - Lab Draw 03/14/19 19:41 Anaerobic Blood Culture - Final Blood - Venous Med Orders - Current: Current Medications Acetaminophen (Tylenol) 650 mg PO Q4H PRN PRN Reason: Pain (Mild, moderate )/fever Sodium Chloride (Normal Saline) 1,000 mls @ 999 mls/hr IV ASDIRECTED [facility] Last Admin: 03/14/19 22:48 Dose: 999 mls/hr Potassium Chloride/Dextrose/Sod Cl (D5 Ns With 20 Meq Kcl) 1,000 mls @ 200 mls/ hr IV ASDIRECTED DONNIE Last Admin: 03/15/19 05:03 Dose: 200 mls/hr Insulin Human Regular 100 unit (/ Sodium Chloride) 100 mls @ 5.64 mls/hr IV TITRATE DONNIE; Protocol Last Infusion: 03/15/19 09:00 Dose: Infused Ibuprofen (Motrin) 400 mg PO Q6H PRN PRN Reason: Pain (severe 7-10) Magnesium Oxide (Magnesium Oxide) 500 mg PO BIDM [facility] Stop: 03/16/19 08:01 Metoclopramide HCl (Reglan) 10 mg IVPUSH Q6H PRN PRN Reason: Nausea Multivitamins/Minerals (Vitamins And Minerals) 1 tab PO WITHBREAKFAST [facility] Last Admin: 03/15/19 08:57 Dose: 1 tab Ondansetron HCl (Zofran) 4 mg IV Q6H PRN PRN Reason: Nausea/Vomiting Pantoprazole Sodium (Protonix) 40 mg PO BIDAC DONNIE Last Admin: 03/15/19 06:16 Dose: Not Given Sodium Chloride (Saline Flush) 10 ml FLUSH ASDIRECTED PRN PRN Reason: Keep Vein Open Sodium Phosphate (Neutra-Phos) 500 mg PO .BID DONNIE Discontinued Medications Dextrose/Water (Dextrose 50% In Water) 50 ml IVPUSH ONETIME ONE Stop: 03/14/19 21:53 Last Admin: 03/14/19 22:41 Dose: 50 ml Dextrose/Water (Dextrose 50% In Water) 50 ml IVPUSH ONETIME ONE Stop: 03/15/19 09:09 Last Admin: 03/15/19 09:10 Dose: 50 ml Sodium Chloride (Normal Saline) 1,000 mls @ 999 mls/hr IV .BOLUS ONE Stop: 03/14/19 21:03 Last Admin: 03/14/19 20:08 Dose: 999 mls/hr Metoclopramide HCl (Reglan) 10 mg IVPUSH ONETIME ONE Stop: 03/14/19 21:28 Last Admin: 03/14/19 21:48 Dose: 10 mg Ondansetron HCl (Zofran) 4 mg IV ONETIME ONE Stop: 03/14/19 19:38 Last Admin: 03/14/19 19:50 Dose: 4 mg Sodium Bicarbonate (Sodium Bicarbonate 8.4%) 50 meq IVPUSH ONETIME ONE Stop: 03/14/19 19:56 Last Admin: 03/14/19 20:06 Dose: 50 meq - Exam General: Alert, Oriented Neck: Supple Lungs: Clear to Auscultation, Normal Respiratory Effort Cardiovascular: Regular Rate, Regular Rhythm GI/Abdominal Exam: Normal Bowel Sounds, Soft, Non-Tender Extremities: No Pedal Edema - Problem List & Annotations (1) CHANDLER (acute kidney injury) SNOMED Code(s): 89201602, 92432422 Code(s): N17.9 - ACUTE KIDNEY FAILURE, UNSPECIFIED Status: Acute Current Visit: Yes (2) Diabetic ketoacidosis associated with type 1 diabetes mellitus SNOMED Code(s): 655297378, 883210749 Code(s): E10.10 - TYPE 1 DIABETES MELLITUS WITH KETOACIDOSIS WITHOUT COMA Status: Acute Current Visit: No Qualifiers: Diabetes mellitus complication detail: without coma Qualified Code(s): E10.10 - Type 1 diabetes mellitus with ketoacidosis without coma - Problem List Review Problem List Initiated/Reviewed/Updated: Yes - My Orders Last 24 Hours: My Active Orders 03/14/19 21:28 Telemetry Monitoring [Cardiac Monitoring] [RC] CONTINUOUS 03/14/19 22:00 Dextrose 5%-0.9% NaCl with KCl [D5 NS with 20 mEq KCl] 1,000 ml IV ASDIRECTED Insulin Regular, Human [HumuLIN R] 100 unit Sodium Chloride 0.9% [Normal Saline] 99 ml IV TITRATE Sodium Chloride 0.9% [Normal Saline] 1,000 ml IV ASDIRECTED 03/14/19 22:04 Metoclopramide [Reglan] 10 mg IVPUSH Q6H PRN 03/14/19 22:08 Ondansetron [Zofran] 4 mg IV Q6H PRN 03/14/19 22:13 Patient Status [ADT] Routine Ambulate [RC] PER UNIT ROUTINE Oxygen Therapy [RC] PRN Up With Assistance [RC] ASDIRECTED VTE/DVT Education [RC] PER UNIT ROUTINE Vital Signs [RC] 04,08,12,16,20,00 Acetaminophen [Tylenol] 650 mg PO Q4H PRN Ibuprofen [Motrin] 400 mg PO Q6H PRN Sodium Chloride 0.9% [Saline Flush] 10 ml FLUSH ASDIRECTED PRN Antiembolic Hose [OM.PC] Per Unit Routine Peripheral IV Insertion Adult [OM.PC] Routine Resuscitation Status Routine 03/14/19 22:14 Antiembolic Devices [RC] PER UNIT ROUTINE Peripheral IV Care [RC] 03/14/19 23:00 Pantoprazole [ProTONIX] 40 mg PO BIDAC 03/15/19 08:00 Multivitamins/Minerals [Vitamins and Minerals] 1 tab PO WITHBREAKFAST 03/15/19 09:30 Phosphorus #1 [Neutra-Phos] 500 mg PO .BID 03/15/19 13:00 BASIC METABOLIC PANEL,BMP [CHEM] Timed 03/15/19 18:00 Magnesium Oxide 500 mg PO BIDM 03/16/19 05:11 MAGNESIUM [CHEM] AM PHOSPHORUS [CHEM] AM 03/16/19 05:15 BASIC METABOLIC PANEL,BMP [CHEM] AM CBC WITH AUTO DIFF [HEME] AM - Plan Plan:: 28-year-old presented with a one-day history of nausea. The patient has diabetes. DKA still low Bicarb cont to hydrate the patient cont insulin drip Follow electrolytes and replace mg, phos today recheck in 4 hours Abdominal pain Likely secondary to gastroenteritis, nausea vomiting Abdominal examination is benign, lactic acid is normal pain resolved Give proton pump inhibitor We'll monitor Acute renal failure Will hydrate well Follow electrolytes and replace as needed Recheck in the morning Leukocytosis Likely stress reaction Urinalysis is negative for signs of infection The patient has her period, RBCs likely related to that Blood culture has been obtained DVT prophylaxis with compression stocking, activity
[2019-03-15] MEDS: Phosphorus #1 250 MG Tab PO SCH ×2 (10:59→20:39)
[2019-03-15] MEDS ORDERED: 50% Dextrose in Water 50 ML Syringe IVPUSH PRN (11:07)
[2019-03-15 13:55] LABS: ANION GAP 11.5; CHLORIDE,CL 116 mmol/L (101-111); SODIUM,NA 139 mmol/L (135-145)
[2019-03-15] MEDS ORDERED: Potassium Chloride 10 MEQ Tab.ER PO ONE (15:00)
[2019-03-15 20:33] LABS: ANION GAP 11.4; CHLORIDE,CL 115 mmol/L (101-111); SODIUM,NA 138 mmol/L (135-145)
[2019-03-15] MEDS ORDERED: Insulin Glarg,Human.Rec.Analog 100 Unit/ML SUBCUT SCH (21:00)
[2019-03-15] MEDS: Lactated Ringers 1,000 ML IV SCH (21:15)
[2019-03-15] MEDS: Insulin Lispro 100 Units/ML 3 ML Vial SUBCUT SCH (21:18)
[2019-03-16] MEDS: Pantoprazole 40 MG Tab.CR PO SCH (05:47)
[2019-03-16 06:42] LABS: ANION GAP 12.9; CHLORIDE,CL 111 mmol/L (101-111); SODIUM,NA 137 mmol/L (135-145)
[2019-03-16] MEDS: Lactated Ringers 1,000 ML IV SCH (07:11)
[2019-03-16] MEDS: Multivitamins, Therapeutic with Minerals Tab PO SCH (07:50)
[2019-03-16] MEDS: Insulin Lispro 100 Units/ML 3 ML Vial SUBCUT SCH ×2 (07:50→12:10)
--- NOTE | 2019-03-16 10:07 | PCM.DCSUM1 ---
Discharge Summary - Hospital Course Free Text/Narrative:: 28-year-old presented with a one-day history of nausea. The patient has diabetes. DKA due to nausea, vomiting resolved with hydration, insulin drip replaced mg, phos today Abdominal pain Likely secondary to gastroenteritis, nausea vomiting resolved Acute renal failure resolved with hydration Leukocytosis Likely stress reaction resolved Diagnosis: Stroke: No - Discharge Data Discharge Date: 03/16/19 Discharge Disposition: Home, Self-Care 01 Condition: Stable - Discharge Diagnosis/Problem(s) (1) CHANDLER (acute kidney injury) SNOMED Code(s): 93732313, 22014661 ICD Code: N17.9 - ACUTE KIDNEY FAILURE, UNSPECIFIED Status: Acute Current Visit: Yes (2) Diabetic ketoacidosis associated with type 1 diabetes mellitus SNOMED Code(s): 756456919, 661983805 ICD Code: E10.10 - TYPE 1 DIABETES MELLITUS WITH KETOACIDOSIS WITHOUT COMA Status: Acute Current Visit: No Qualifiers: Diabetes mellitus complication detail: without coma Qualified Code(s): E10.10 - Type 1 diabetes mellitus with ketoacidosis without coma - Patient Instructions Diet: Diabetic Diet Activity: As Tolerated - Discharge Plan *PRESCRIPTION DRUG MONITORING PROGRAM REVIEWED*: Not Applicable *COPY OF PRESCRIPTION DRUG MONITORING REPORT IN PATIENT LEOLA: Not Applicable Home Medications: Home Meds Insulin Aspart [Novolog Flexpen] 8 unit SQ TIDMEALS 12/04/16 [History] Insulin Detemir [Levemir] 25 unit SUBCUT BEDTIME 12/04/16 [History] Pnv No.122/Iron/Folic Acid [ Multi Tablet] 1 each PO DAILY 12/04/16 [ History] Forms: ED Department Discharge Referrals: PCP,None [Ordering Only Provider] - - Discharge Summary/Plan Comment DC Time >30 min.: No - General Info Date of Service: 03/16/19 Functional Status: Reports: Tolerating Diet, Ambulating - Review of Systems General: Denies: Fever, Weakness Pulmonary: Denies: Shortness of Breath Cardiovascular: Denies: Chest Pain Gastrointestinal: Denies: Abdominal Pain Genitourinary: Denies: Dysuria - Patient Data Vitals - Most Recent: Last Vital Signs Temp 36.4 C 03/16/19 08:14 Pulse 90 03/16/19 08:14 Resp 20 03/16/19 08:14 BP 97/52 L 03/16/19 08:14 Pulse Ox 97 03/16/19 08:14 Weight - Most Recent: 56.427 kg I&O - Last 24 hours: Intake & Output 03/15/19 03/16/19 03/16/19 22:59 06:59 14:59 Output Total 700 Balance -700 Lab Results - Last 24 hrs: Laboratory Results - last 24 hr 03/15/19 03/15/19 03/15/19 Range/Units 10:04 11:01 12:00 WBC (5.0-10.0) 10^3/uL RBC (4.2-5.4) 10^6/uL Hgb (12.0-16.0) g/dL Hct (37.0-47.0) % MCV (80-100) fL MCH (27.0-34.0) pg MCHC (33.0-35.0) g/dL Plt Count (150-450) 10^3/uL Neut % (Auto) (42.2-75.2) % Lymph % (Auto) (20.5-50.1) % [place] % (Auto) (2-8) % Eos % (Auto) (1.0-3.0) % Baso % (Auto) (0.0-1.0) % Sodium (135-145) mmol/L Potassium (3.6-5.0) mmol/L Chloride (101-111) mmol/L Carbon Dioxide (21.0-31.0) mmol/L Anion Gap BUN (7-18) mg/dL Creatinine (0.6-1.3) mg/dL Est Cr Clr Drug Dosing mL/min Estimated GFR (MDRD) Glucose (74-105) mg/dL POC Glucose 213 H 77 118 H (70-105) mg/dl Calcium (8.4-10.2) mg/dl Phosphorus (2.5-4.6) mg/dL Magnesium (1.8-2.5) mg/dL 03/15/19 03/15/19 03/15/19 Range/Units 13:04 13:30 13:46 WBC (5.0-10.0) 10^3/uL RBC (4.2-5.4) 10^6/uL Hgb (12.0-16.0) g/dL Hct (37.0-47.0) % MCV (80-100) fL MCH (27.0-34.0) pg MCHC (33.0-35.0) g/dL Plt Count (150-450) 10^3/uL Neut % (Auto) (42.2-75.2) % Lymph % (Auto) (20.5-50.1) % [place] % (Auto) (2-8) % Eos % (Auto) (1.0-3.0) % Baso % (Auto) (0.0-1.0) % Sodium 139 (135-145) mmol/L Potassium 3.5 L (3.6-5.0) mmol/L Chloride 116 H (101-111) mmol/L Carbon Dioxide 15.0 L (21.0-31.0) mmol/L Anion Gap 11.5 BUN 13 (7-18) mg/dL Creatinine 0.6 (0.6-1.3) mg/dL Est Cr Clr Drug Dosing 125.46 mL/min Estimated GFR (MDRD) > 60 Glucose 144 H (74-105) mg/dL POC Glucose 144 H 151 H (70-105) mg/dl Calcium 7.4 L (8.4-10.2) mg/dl Phosphorus (2.5-4.6) mg/dL Magnesium (1.8-2.5) mg/dL 03/15/19 03/15/19 03/15/19 Range/Units 15:04 16:05 17:11 WBC (5.0-10.0) 10^3/uL RBC (4.2-5.4) 10^6/uL Hgb (12.0-16.0) g/dL Hct (37.0-47.0) % MCV (80-100) fL MCH (27.0-34.0) pg MCHC (33.0-35.0) g/dL Plt Count (150-450) 10^3/uL Neut % (Auto) (42.2-75.2) % Lymph % (Auto) (20.5-50.1) % [place] % (Auto) (2-8) % Eos % (Auto) (1.0-3.0) % Baso % (Auto) (0.0-1.0) % Sodium (135-145) mmol/L Potassium (3.6-5.0) mmol/L Chloride (101-111) mmol/L Carbon Dioxide (21.0-31.0) mmol/L Anion Gap BUN (7-18) mg/dL Creatinine (0.6-1.3) mg/dL Est Cr Clr Drug Dosing mL/min Estimated GFR (MDRD) Glucose (74-105) mg/dL POC Glucose 150 H 175 H 152 H (70-105) mg/dl Calcium (8.4-10.2) mg/dl Phosphorus (2.5-4.6) mg/dL Magnesium (1.8-2.5) mg/dL 03/15/19 03/15/19 03/15/19 Range/Units 18:09 19:10 20:00 WBC (5.0-10.0) 10^3/uL RBC (4.2-5.4) 10^6/uL Hgb (12.0-16.0) g/dL Hct (37.0-47.0) % MCV (80-100) fL MCH (27.0-34.0) pg MCHC (33.0-35.0) g/dL Plt Count (150-450) 10^3/uL Neut % (Auto) (42.2-75.2) % Lymph % (Auto) (20.5-50.1) % [place] % (Auto) (2-8) % Eos % (Auto) (1.0-3.0) % Baso % (Auto) (0.0-1.0) % Sodium (135-145) mmol/L Potassium (3.6-5.0) mmol/L Chloride (101-111) mmol/L Carbon Dioxide (21.0-31.0) mmol/L Anion Gap BUN (7-18) mg/dL Creatinine (0.6-1.3) mg/dL Est Cr Clr Drug Dosing mL/min Estimated GFR (MDRD) Glucose (74-105) mg/dL POC Glucose 219 H 247 H 237 H (70-105) mg/dl Calcium (8.4-10.2) mg/dl Phosphorus (2.5-4.6) mg/dL Magnesium (1.8-2.5) mg/dL 03/15/19 03/15/19 03/16/19 Range/Units 20:08 20:51 05:58 WBC 7.9 (5.0-10.0) 10^3/uL RBC 3.31 L (4.2-5.4) 10^6/uL Hgb 9.9 L (12.0-16.0) g/dL Hct 30.8 L (37.0-47.0) % MCV 93.1 (80-100) fL MCH 29.9 (27.0-34.0) pg MCHC 32.1 L (33.0-35.0) g/dL Plt Count 334 D (150-450) 10^3/uL Neut % (Auto) 54.4 (42.2-75.2) % Lymph % (Auto) 36.9 (20.5-50.1) % [place] % (Auto) 7.6 (2-8) % Eos % (Auto) 1.0 (1.0-3.0) % Baso % (Auto) 0.1 (0.0-1.0) % Sodium 138 (135-145) mmol/L Potassium 4.4 (3.6-5.0) mmol/L Chloride 115 H (101-111) mmol/L Carbon Dioxide 16.0 L (21.0-31.0) mmol/L Anion Gap 11.4 BUN 8 (7-18) mg/dL Creatinine 0.8 (0.6-1.3) mg/dL Est Cr Clr Drug Dosing 94.09 mL/min Estimated GFR (MDRD) > 60 Glucose 241 H (74-105) mg/dL POC Glucose 254 H (70-105) mg/dl Calcium 7.4 L (8.4-10.2) mg/dl Phosphorus (2.5-4.6) mg/dL Magnesium (1.8-2.5) mg/dL 03/16/19 03/16/19 Range/Units 05:58 07:08 WBC (5.0-10.0) 10^3/uL RBC (4.2-5.4) 10^6/uL Hgb (12.0-16.0) g/dL Hct (37.0-47.0) % MCV (80-100) fL MCH (27.0-34.0) pg MCHC (33.0-35.0) g/dL Plt Count (150-450) 10^3/uL Neut % (Auto) (42.2-75.2) % Lymph % (Auto) (20.5-50.1) % [place] % (Auto) (2-8) % Eos % (Auto) (1.0-3.0) % Baso % (Auto) (0.0-1.0) % Sodium 137 (135-145) mmol/L Potassium 3.9 (3.6-5.0) mmol/L Chloride 111 (101-111) mmol/L Carbon Dioxide 17.0 L (21.0-31.0) mmol/L Anion Gap 12.9 BUN 8 (7-18) mg/dL Creatinine 0.7 (0.6-1.3) mg/dL Est Cr Clr Drug Dosing 107.54 mL/min Estimated GFR (MDRD) > 60 Glucose 297 H (74-105) mg/dL POC Glucose 250 H (70-105) mg/dl Calcium 7.7 L (8.4-10.2) mg/dl Phosphorus 1.7 L (2.5-4.6) mg/dL Magnesium 1.4 L (1.8-2.5) mg/dL ULI Results - Last 24 hrs: Microbiology 03/14/19 22:00 Aerobic Blood Culture - Preliminary Blood - Venous - Lab Draw NO GROWTH AFTER 1 DAY Anaerobic Blood Culture - Final 03/14/19 19:41 Aerobic Blood Culture - Preliminary Blood - Venous NO GROWTH AFTER 1 DAY Anaerobic Blood Culture - Final Med Orders - Current: Current Medications Acetaminophen (Tylenol) 650 mg PO Q4H PRN PRN Reason: Pain (Mild, moderate )/fever Last Admin: 03/15/19 23:29 Dose: 650 mg Dextrose/Water (Dextrose 50% In Water) 50 ml IVPUSH ONETIME PRN PRN Reason: Blood Glucose Last Admin: 03/15/19 11:11 Dose: 50 ml Lactated Ringer's (Ringers, Lactated) 1,000 mls @ 100 mls/hr IV ASDIRECTED COUNT INCLUDES THE [facility] Last Admin: 03/16/19 07:11 Dose: 100 mls/hr Ibuprofen (Motrin) 400 mg PO Q6H PRN PRN Reason: Pain (severe 7-10) Insulin Glargine (Lantus) 20 unit SUBCUT BEDTIME COUNT INCLUDES THE [facility] Last Admin: 03/15/19 21:19 Dose: 20 units Insulin Human Lispro (Humalog) 0 unit SUBCUT ACBED DONNIE; Protocol Last Admin: 03/16/19 07:50 Dose: 6 units Magnesium Oxide (Magnesium Oxide) 500 mg PO WITHBREAKFAST DONNIE Stop: 03/16/19 10:31 Metoclopramide HCl (Reglan) 10 mg IVPUSH Q6H PRN PRN Reason: Nausea Multivitamins/Minerals (Vitamins And Minerals) 1 tab PO WITHBREAKFAST DONNIE Last Admin: 03/16/19 07:50 Dose: 1 tab Ondansetron HCl (Zofran) 4 mg IV Q6H PRN PRN Reason: Nausea/Vomiting Pantoprazole Sodium (Protonix) 40 mg PO BIDAC DONNIE Last Admin: 03/16/19 05:47 Dose: 40 mg Sodium Chloride (Saline Flush) 10 ml FLUSH ASDIRECTED PRN PRN Reason: Keep Vein Open Sodium Phosphate (Neutra-Phos) 500 mg PO ONETIME ONE Stop: 03/16/19 10:31 Discontinued Medications Dextrose/Water (Dextrose 50% In Water) 50 ml IVPUSH ONETIME ONE Stop: 03/14/19 21:53 Last Admin: 03/14/19 22:41 Dose: 50 ml Dextrose/Water (Dextrose 50% In Water) 50 ml IVPUSH ONETIME ONE Stop: 03/15/19 09:09 Last Admin: 03/15/19 09:10 Dose: 50 ml Sodium Chloride (Normal Saline) 1,000 mls @ 999 mls/hr IV .BOLUS ONE Stop: 03/14/19 21:03 Last Admin: 03/14/19 20:08 Dose: 999 mls/hr Sodium Chloride (Normal Saline) 1,000 mls @ 999 mls/hr IV ASDIRECTED DONNIE Last Admin: 03/14/19 22:48 Dose: 999 mls/hr Potassium Chloride/Dextrose/Sod Cl (D5 Ns With 20 Meq Kcl) 1,000 mls @ 200 mls/ hr IV ASDIRECTED DONNIE Last Admin: 03/15/19 20:30 Dose: 200 mls/hr Insulin Human Regular 100 unit (/ Sodium Chloride) 100 mls @ 5.64 mls/hr IV TITRATE DONNIE; Protocol Last Infusion: 03/15/19 21:15 Dose: 0 units/kg/hr, 0 mls/hr Magnesium Oxide (Magnesium Oxide) 500 mg PO BIDM COUNT INCLUDES THE [facility] Stop: 03/16/19 08:01 Last Admin: 03/16/19 07:50 Dose: 500 mg Metoclopramide HCl (Reglan) 10 mg IVPUSH ONETIME ONE Stop: 03/14/19 21:28 Last Admin: 03/14/19 21:48 Dose: 10 mg Ondansetron HCl (Zofran) 4 mg IV ONETIME ONE Stop: 03/14/19 19:38 Last Admin: 03/14/19 19:50 Dose: 4 mg Potassium Chloride (Klor-Con 10) 40 meq PO ONETIME ONE Stop: 03/15/19 15:01 Last Admin: 03/15/19 15:46 Dose: 40 meq Sodium Bicarbonate (Sodium Bicarbonate 8.4%) 50 meq IVPUSH ONETIME ONE Stop: 03/14/19 19:56 Last Admin: 03/14/19 20:06 Dose: 50 meq Sodium Phosphate (Neutra-Phos) 500 mg PO BID COUNT INCLUDES THE [facility] Stop: 03/15/19 21:01 Last Admin: 03/15/19 20:39 Dose: 500 mg - Exam General: Reports: Alert, Oriented Neck: Reports: Supple Lungs: Reports: Clear to Auscultation, Normal Respiratory Effort GI/Abdominal Exam: Normal Bowel Sounds, Soft, Non-Tender Extremities: No Pedal Edema Skin: Reports: Warm, Dry Psy/Mental Status: Reports: Alert, Normal Affect, Normal Mood
[2019-03-16] MEDS ORDERED: Phosphorus #1 250 MG Tab PO ONE (10:30)
[2019-03-16 13:27] VITALS: BP 101/53; PULSE 67
== END 2019-03-16 13:30 | disposition home or self-care (01) | DRG 638 ==
LOC: DL.ED 19:23 → UNDOADMIN 21:13 → DL.MS 21:13
PROVIDERS: ADMIT Internal Medicine; ATTEND Internal Medicine
DX: E10.10 Type 1 diabetes mellitus with ketoacidosis without coma (principal); R53.1 Weakness; N17.9 Acute kidney failure, unspecified; F15.10 Other stimulant abuse, uncomplicated; R10.13 Epigastric pain; R11.2 Nausea with vomiting, unspecified; R53.83 Other fatigue; K52.9 Noninfective gastroenteritis and colitis, unspecified; Z79.4 Long term (current) use of insulin; Z79.899 Other long term (current) drug therapy
CPT/HCPCS: 36415; 36600; 51701; 80053; 80305; 81001; 81025; 82009; 82150; 82803; 82962; 83605; 83690; 85025; 87040 ×2; 93005; 96361; 96374; 96375; 99285; G0480; J2405; J2765; J7030; 80048; 83735; 84100; A9270-GY; J1815; J1815-GY; J3480; J7050; J7120

== ENCOUNTER 2019-06-03 08:32 | Inpatient (IN) | payer MEDICAID ==
--- NOTE | 2019-06-03 08:38 | EDM.PDOC ---
ED HPI GENERAL MEDICAL PROBLEM - General Chief Complaint: General Stated Complaint: sick Time Seen by Provider: 06/03/19 08:38 Source of Information: Reports: Patient, RN, RN Notes Reviewed - History of Present Illness INITIAL COMMENTS - FREE TEXT/NARRATIVE: Pt to ER with her boyfriend. Boyfriend states the patient was fine yesterday, vomited through out the night, and told him he needed to bring her to the ER this morning. Pt and boyfriend unsure of last time she checked her blood sugar, or last time she took insulin. Patient and boyfriend admit that patient has used meth recently, unsure when last time was. Denies recent fever or chills, but admits to nausea and vomiting. Admits to bilateral kidney pain. Patient states she has been getting IV antibiotics for recent kidney infection/UTI/ sepsis. Onset: Gradual Duration: Getting Worse - Related Data Allergies Allergy/AdvReac Type Severity Reaction Status Date / Time No Known Allergies Allergy Verified 06/01/19 14:22 Home Meds: Home Meds Acetaminophen [Tylenol] 650 mg PO Q4H PRN #30 tablet 05/30/19 [Rx] Insulin Glarg,Human.Rec.Analog [Lantus] 35 unit SUBCUT BEDTIME #1 pen 05/30/19 [ Rx] Insulin Lispro [HumaLOG] 5 unit SUBCUT QIDACANDBED #1 vial 05/30/19 [Rx] Past Medical History - Past Health History Medical/Surgical History: Denies Medical/Surgical History Other HEENT History: states has a cloud to the right side. States she is near sighted. 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 Bilateral ingrown toe nails leading to sepsis, IV vanco BID for 10 days Neurological History: Reports: Concussion, Seizure Psychiatric History: Reports: Addiction, Other (See Below) Other Psychiatric History: Medical non-complience Endocrine/Metabolic History: Reports: Diabetes, Type I Hematologic History: Reports: None Immunologic History: Reports: None Oncologic (Cancer) History: Reports: None Dermatologic History: Reports: None - Infectious Disease History Infectious Disease History: Reports: None - Past Surgical History Head Surgeries/Procedures: Reports: None Social & Family History - Family History Family Medical History: Noncontributory HEENT: Reports: None Oncologic: Reports: Breast, Other (See Below) Other Oncologic Family History: Stomach CA - Caffeine Use Caffeine Use: Reports: Tea Other Caffeine Use: pt. unable to answer - Living Situation & Occupation Living situation: Reports: with Family ED ROS GENERAL - Review of Systems Review Of Systems: ROS reveals no pertinent complaints other than HPI. ED EXAM, GENERAL - Physical Exam Exam: See Below Exam Limited By: Altered Mental Status General Appearance: Lethargic, Moderate Distress, Thin Eye Exam: Bilateral Eye: EOMI, PERRL (4 sluggish) Ears: Normal External Exam, Hearing Grossly Normal Nose: Normal Inspection Throat/Mouth: Normal Inspection, Normal Voice, No Airway Compromise Head: Atraumatic, Normocephalic Neck: Normal Inspection, Supple, Non-Tender, Full Range of Motion Respiratory/Chest: No Respiratory Distress, Lungs Clear, Normal Breath Sounds, No Accessory Muscle Use, Chest Non-Tender Cardiovascular: Normal Peripheral Pulses, Regular Rate, Rhythm, No Edema, No Gallop, No JVD, No Murmur, No Rub Peripheral Pulses: 2+: Radial (L), Radial (R) GI/Abdominal: Normal Bowel Sounds, Soft, Non-Tender (Female) Exam: Deferred Rectal (Female) Exam: Deferred Back Exam: Normal Inspection, Full Range of Motion, CVA Tenderness (L), CVA Tenderness (R) Extremities: Normal Range of Motion, Non-Tender, No Pedal Edema, Normal Capillary Refill, Other (left AC track spence) Neurological: Inattentive, Slow to Respond Psychiatric: Anxious, Tearful Skin Exam: Warm, Dry, Intact, Normal Color, No Rash Lymphatic: No Adenopathy Course - Vital Signs Last Recorded V/S: Last Vital Signs Temp 95.8 F 06/03/19 08:41 Pulse 129 H 06/03/19 10:09 Resp 18 06/03/19 10:09 BP 121/78 06/03/19 10:09 Pulse Ox 100 06/03/19 10:09 - Orders/Labs/Meds Orders: Active Orders 24 hr Category Date Time Status Blood Glucose Check, Bedside [RC] ONETIME Care 06/03/19 08:46 Active EKG Documentation Completion [RC] STAT Care 06/03/19 08:45 Active Peripheral IV Care [RC] . DIRECTED Care 06/03/19 08:46 Active CULTURE BLOOD [BC] Stat Lab 06/03/19 10:25 Ordered CULTURE BLOOD [BC] Stat Lab 06/03/19 10:25 Ordered LACTIC ACID [CHEM] Stat Lab 06/03/19 10:23 Ordered Insulin Regular, Human [HumuLIN R] 100 unit Med 06/03/19 09:30 Active Sodium Chloride 0.9% [Normal Saline] 99 ml IV TITRATE Meropenem Premix [Meropenem] 1 gm Med 06/03/19 10:23 Active Premix Bag 1 bag IV ONETIME Sodium Chloride 0.9% [Saline Flush] Med 06/03/19 08:46 Active 10 ml FLUSH ASDIRECTED PRN Blood Culture x2 Reflex Set [OM.PC] Stat Oth 06/03/19 10:23 Ordered Peripheral IV Insertion Adult [OM.PC] Stat Oth 06/03/19 08:45 Ordered Medication Orders Insulin Human Regular 100 unit (/ Sodium Chloride) 100 mls @ 5.12 mls/hr IV TITRATE DONNIE; Protocol Last Admin: 06/03/19 09:25 Dose: 0.1 units/kg/hr, 5.12 mls/hr Meropenem/Sodium Chloride 1 gm (/ Premix) 50 mls @ 100 mls/hr IV ONETIME ONE Stop: 06/03/19 10:52 Sodium Chloride (Saline Flush) 10 ml FLUSH ASDIRECTED PRN PRN Reason: Keep Vein Open Last Admin: 06/03/19 08:56 Dose: 10 ml Labs: Laboratory Tests 06/03/19 06/03/19 06/03/19 Range/Units 08:41 08:50 08:50 WBC 19.6 H (5.0-10.0) 10^3/uL RBC 4.79 (4.2-5.4) 10^6/uL Hgb 14.1 D (12.0-16.0) g/dL Hct 41.3 (37.0-47.0) % MCV 86.2 D (80-100) fL MCH 29.4 (27.0-34.0) pg MCHC 34.1 (33.0-35.0) g/dL Plt Count 904 H D (150-450) 10^3/uL Neut % (Auto) 86.8 H (42.2-75.2) % Lymph % (Auto) 7.4 L (20.5-50.1) % [place] % (Auto) 5.6 (2-8) % Eos % (Auto) 0.1 L (1.0-3.0) % Baso % (Auto) 0.1 (0.0-1.0) % Add Manual Diff Yes Neutrophils % (Manual) 83 H (42-75) % Band Neutrophils % 7 % Lymphocytes % (Manual) 5 L (20-50) % Monocytes % (Manual) 2 (2-8) % Metamyelocytes % 3 ABG pH (7.35-7.45) ABG pCO2 (35-45) mmHg ABG pO2 (70-100) mmHg ABG HCO3 (22-26) mmol/L ABG O2 Saturation (95-100) % ABG Base Excess ((-2)-(+3)) mmol/L Aakash Test O2 Delivery Device Sodium 138 (135-145) mmol/L Potassium 3.9 (3.6-5.0) mmol/L Chloride 85 L D (101-111) mmol/L Carbon Dioxide 17.0 L D (21.0-31.0) mmol/L Anion Gap 39.9 BUN 44 H D (7-18) mg/dL Creatinine 2.9 H D (0.6-1.3) mg/dL Est Cr Clr Drug Dosing TNP Estimated GFR (MDRD) 19 BUN/Creatinine Ratio 15.17 Glucose 447 H* (74-105) mg/dL POC Glucose 395 H (70-105) mg/dl Calcium 10.6 H D (8.4-10.2) mg/dl Total Bilirubin 2.3 H (0.2-1.0) mg/dL AST 29 (10-42) IU/L ALT 85 H (10-60) IU/L Alkaline Phosphatase 274 H (42-121) IU/L Total Protein 10.9 H (6.7-8.2) g/dl Albumin 5.0 (3.2-5.5) g/dl Globulin 5.9 Albumin/Globulin Ratio 0.85 Urine Color (YELLOW) Urine Appearance (CLEAR) Urine pH (5.0-9.0) Ur Specific [place] (1.005-1.030) Urine Protein (NEGATIVE) Urine Glucose (UA) (NEGATIVE) Urine Ketones (NEGATIVE) Urine Occult Blood (NEGATIVE) Urine Nitrite (NEGATIVE) Urine Bilirubin (NEGATIVE) Urine Urobilinogen (0.2-1.0) mg/dL Ur Leukocyte Esterase (NEGATIVE) Urine RBC /HPF Urine WBC (0-5/HPF) /HPF Ur Epithelial Cells (NOT SEEN) /HPF Amorphous Sediment (NOT SEEN) /HPF Urine Bacteria (0-FEW/HPF) /HPF Urine HCG, Qual Urine Opiates Screen (NEGATIVE) Ur Oxycodone Screen (NEGATIVE) Urine Methadone Screen (NEGATIVE) Ur Barbiturates Screen (NEGATIVE) U Tricyclic Antidepress (NEGATIVE) Ur Phencyclidine Scrn (NEGATIVE) Ur Amphetamine Screen (NEGATIVE) U Methamphetamines Scrn (NEGATIVE) Urine MDMA Screen (NEGATIVE) U Benzodiazepines Scrn (NEGATIVE) Urine Cocaine Screen (NEGATIVE) U Marijuana (THC) Screen (NEGATIVE) Ethyl Alcohol < 5 mg/dL 06/03/19 06/03/19 06/03/19 Range/Units 09:03 09:03 09:03 WBC (5.0-10.0) 10^3/uL RBC (4.2-5.4) 10^6/uL Hgb (12.0-16.0) g/dL Hct (37.0-47.0) % MCV (80-100) fL MCH (27.0-34.0) pg MCHC (33.0-35.0) g/dL Plt Count (150-450) 10^3/uL Neut % (Auto) (42.2-75.2) % Lymph % (Auto) (20.5-50.1) % [place] % (Auto) (2-8) % Eos % (Auto) (1.0-3.0) % Baso % (Auto) (0.0-1.0) % Add Manual Diff Neutrophils % (Manual) (42-75) % Band Neutrophils % % Lymphocytes % (Manual) (20-50) % Monocytes % (Manual) (2-8) % Metamyelocytes % ABG pH (7.35-7.45) ABG pCO2 (35-45) mmHg ABG pO2 (70-100) mmHg ABG HCO3 (22-26) mmol/L ABG O2 Saturation (95-100) % ABG Base Excess ((-2)-(+3)) mmol/L Aakash Test O2 Delivery Device Sodium (135-145) mmol/L Potassium (3.6-5.0) mmol/L Chloride (101-111) mmol/L Carbon Dioxide (21.0-31.0) mmol/L Anion Gap BUN (7-18) mg/dL Creatinine (0.6-1.3) mg/dL Est Cr Clr Drug Dosing Estimated GFR (MDRD) BUN/Creatinine Ratio Glucose (74-105) mg/dL POC Glucose (70-105) mg/dl Calcium (8.4-10.2) mg/dl Total Bilirubin (0.2-1.0) mg/dL AST (10-42) IU/L ALT (10-60) IU/L Alkaline Phosphatase (42-121) IU/L Total Protein (6.7-8.2) g/dl Albumin (3.2-5.5) g/dl Globulin Albumin/Globulin Ratio Urine Color Yellow (YELLOW) Urine Appearance Clear (CLEAR) Urine pH 5.5 (5.0-9.0) Ur Specific [place] 1.015 (1.005-1.030) Urine Protein Trace H (NEGATIVE) Urine Glucose (UA) 500 H (NEGATIVE) Urine Ketones >=160 H (NEGATIVE) Urine Occult Blood Negative (NEGATIVE) Urine Nitrite Negative (NEGATIVE) Urine Bilirubin Negative (NEGATIVE) Urine Urobilinogen 0.2 (0.2-1.0) mg/dL Ur Leukocyte Esterase Negative (NEGATIVE) Urine RBC 0-5 /HPF Urine WBC 0-5 (0-5/HPF) /HPF Ur Epithelial Cells Few (NOT SEEN) /HPF Amorphous Sediment Few (NOT SEEN) /HPF Urine Bacteria Rare (0-FEW/HPF) /HPF Urine HCG, Qual Negative Urine Opiates Screen Negative (NEGATIVE) Ur Oxycodone Screen Negative (NEGATIVE) Urine Methadone Screen Negative (NEGATIVE) Ur Barbiturates Screen Negative (NEGATIVE) U Tricyclic Antidepress Negative (NEGATIVE) Ur Phencyclidine Scrn Negative (NEGATIVE) Ur Amphetamine Screen Negative (NEGATIVE) U Methamphetamines Scrn Positive H (NEGATIVE) Urine MDMA Screen Negative (NEGATIVE) U Benzodiazepines Scrn Negative (NEGATIVE) Urine Cocaine Screen Negative (NEGATIVE) U Marijuana (THC) Screen Negative (NEGATIVE) Ethyl Alcohol mg/dL 06/03/19 06/03/19 Range/Units 09:14 09:20 WBC (5.0-10.0) 10^3/uL RBC (4.2-5.4) 10^6/uL Hgb (12.0-16.0) g/dL Hct (37.0-47.0) % MCV (80-100) fL MCH (27.0-34.0) pg MCHC (33.0-35.0) g/dL Plt Count (150-450) 10^3/uL Neut % (Auto) (42.2-75.2) % Lymph % (Auto) (20.5-50.1) % [place] % (Auto) (2-8) % Eos % (Auto) (1.0-3.0) % Baso % (Auto) (0.0-1.0) % Add Manual Diff Neutrophils % (Manual) (42-75) % Band Neutrophils % % Lymphocytes % (Manual) (20-50) % Monocytes % (Manual) (2-8) % Metamyelocytes % ABG pH 7.36 (7.35-7.45) ABG pCO2 28 L (35-45) mmHg ABG pO2 106 H (70-100) mmHg ABG HCO3 15.3 L (22-26) mmol/L ABG O2 Saturation 98 (95-100) % ABG Base Excess -9 L ((-2)-(+3)) mmol/L Aakash Test rb O2 Delivery Device Room air Sodium (135-145) mmol/L Potassium (3.6-5.0) mmol/L Chloride (101-111) mmol/L Carbon Dioxide (21.0-31.0) mmol/L Anion Gap BUN (7-18) mg/dL Creatinine (0.6-1.3) mg/dL Est Cr Clr Drug Dosing Estimated GFR (MDRD) BUN/Creatinine Ratio Glucose (74-105) mg/dL POC Glucose 431 H* (70-105) mg/dl Calcium (8.4-10.2) mg/dl Total Bilirubin (0.2-1.0) mg/dL AST (10-42) IU/L ALT (10-60) IU/L Alkaline Phosphatase (42-121) IU/L Total Protein (6.7-8.2) g/dl Albumin (3.2-5.5) g/dl Globulin Albumin/Globulin Ratio Urine Color (YELLOW) Urine Appearance (CLEAR) Urine pH (5.0-9.0) Ur Specific [place] (1.005-1.030) Urine Protein (NEGATIVE) Urine Glucose (UA) (NEGATIVE) Urine Ketones (NEGATIVE) Urine Occult Blood (NEGATIVE) Urine Nitrite (NEGATIVE) Urine Bilirubin (NEGATIVE) Urine Urobilinogen (0.2-1.0) mg/dL Ur Leukocyte Esterase (NEGATIVE) Urine RBC /HPF Urine WBC (0-5/HPF) /HPF Ur Epithelial Cells (NOT SEEN) /HPF Amorphous Sediment (NOT SEEN) /HPF Urine Bacteria (0-FEW/HPF) /HPF Urine HCG, Qual Urine Opiates Screen (NEGATIVE) Ur Oxycodone Screen (NEGATIVE) Urine Methadone Screen (NEGATIVE) Ur Barbiturates Screen (NEGATIVE) U Tricyclic Antidepress (NEGATIVE) Ur Phencyclidine Scrn (NEGATIVE) Ur Amphetamine Screen (NEGATIVE) U Methamphetamines Scrn (NEGATIVE) Urine MDMA Screen (NEGATIVE) U Benzodiazepines Scrn (NEGATIVE) Urine Cocaine Screen (NEGATIVE) U Marijuana (THC) Screen (NEGATIVE) Ethyl Alcohol mg/dL Meds: Medications Generic Name Dose Route Start Last Admin Trade Name Freq PRN Reason Stop Dose Admin Insulin Human Regular 100 unit 100 mls @ 5.12 mls/hr 06/03/19 09:30 06/03/19 09:25 / Sodium Chloride IV 0.1 units/kg/hr TITRATE DONNIE 5.12 mls/hr Administration Protocol 0.1 UNITS/KG/HR Meropenem/Sodium Chloride 1 gm 50 mls @ 100 mls/hr 06/03/19 10:23 / Premix IV 06/03/19 10:52 ONETIME ONE Sodium Chloride 10 ml 06/03/19 08:46 06/03/19 08:56 Saline Flush FLUSH 10 ml ASDIRECTED PRN Administration Keep Vein Open Discontinued Medications Generic Name Dose Route Start Last Admin Trade Name Freq PRN Reason Stop Dose Admin Sodium Chloride 1,000 mls @ 999 mls/hr 06/03/19 08:46 06/03/19 08:48 Normal Saline IV 06/03/19 09:46 999 mls/hr .BOLUS ONE Administration Sodium Chloride 1,000 mls @ 999 mls/hr 06/03/19 09:18 Normal Saline IV 06/03/19 10:18 .BOLUS ONE Insulin Human Regular 10 unit 06/03/19 08:47 06/03/19 08:54 Humulin R IV 06/03/19 08:48 10 units ONETIME ONE Administration Ondansetron HCl 4 mg 06/03/19 08:46 06/03/19 08:56 Zofran IV 06/03/19 08:47 4 mg ONETIME ONE Administration - Radiology Interpretation Free Text/Narrative:: Discussed pt case with Dr. Vargas who agreed to accept the patient as an inpatient to the medical floor. Departure - Departure Time of Disposition: 10:27 Disposition: Admitted As Inpatient 67 Condition: Poor Clinical Impression: Pyelonephritis, Methamphetamine abuse Diabetic ketoacidosis associated with type 1 diabetes mellitus Qualifiers: Diabetes mellitus complication detail: without coma Qualified Code(s): E10.10 - Type 1 diabetes mellitus with ketoacidosis without coma - Discharge Information *PRESCRIPTION DRUG MONITORING PROGRAM REVIEWED*: No *COPY OF PRESCRIPTION DRUG MONITORING REPORT IN PATIENT LEOLA: No Forms: ED Department Discharge - My Orders Last 24 Hours: My Active Orders 06/03/19 08:45 EKG Documentation Completion [RC] STAT Peripheral IV Insertion Adult [OM.PC] Stat 06/03/19 08:46 Blood Glucose Check, Bedside [RC] ONETIME Peripheral IV Care [RC] . DIRECTED Sodium Chloride 0.9% [Saline Flush] 10 ml FLUSH ASDIRECTED PRN 06/03/19 09:30 Insulin Regular, Human [HumuLIN R] 100 unit Sodium Chloride 0.9% [Normal Saline] 99 ml IV TITRATE 06/03/19 10:23 LACTIC ACID [CHEM] Stat Meropenem Premix [Meropenem] 1 gm Premix Bag 1 bag IV ONETIME Blood Culture x2 Reflex Set [OM.PC] Stat 06/03/19 10:25 CULTURE BLOOD [BC] Stat CULTURE BLOOD [BC] Stat - Assessment/Plan Last 24 Hours: My Active Orders 06/03/19 08:45 EKG Documentation Completion [RC] STAT Peripheral IV Insertion Adult [OM.PC] Stat 06/03/19 08:46 Blood Glucose Check, Bedside [RC] ONETIME Peripheral IV Care [RC] . DIRECTED Sodium Chloride 0.9% [Saline Flush] 10 ml FLUSH ASDIRECTED PRN 06/03/19 09:30 Insulin Regular, Human [HumuLIN R] 100 unit Sodium Chloride 0.9% [Normal Saline] 99 ml IV TITRATE 06/03/19 10:23 LACTIC ACID [CHEM] Stat Meropenem Premix [Meropenem] 1 gm Premix Bag 1 bag IV ONETIME Blood Culture x2 Reflex Set [OM.PC] Stat 06/03/19 10:25 CULTURE BLOOD [BC] Stat CULTURE BLOOD [BC] Stat
[2019-06-03] MEDS ORDERED: Ondansetron 4 MG/2 ML SDV IV ONE (08:46)
[2019-06-03] MEDS ORDERED: Sodium Chloride 0.9% 1,000 ML IV ONE ×2 (08:46→09:18)
[2019-06-03] MEDS ORDERED: Insulin Regular, Human 100 Units/ML 3 ML Vial IV ONE (08:47)
[2019-06-03] MEDS: Sodium Chloride 0.9% 10 ML Syringe FLUSH PRN ×4 (08:56→12:41)
[2019-06-03 09:16] LABS: ANION GAP 39.9; CHLORIDE,CL 85 mmol/L (101-111); SODIUM,NA 138 mmol/L (135-145)
[2019-06-03 09:40] LABS: BASE EXCESS ARTERIAL -9 mmol/L ((-2)-(+3)); BICARBONATE,ARTERIAL 15.3 mmol/L (22-26); O2 DELIVERY DEVICE ROOM AIR; O2 SATURATION ARTERIAL 98 % (95-100); PCO2 ARTERIAL 28 mmHg (35-45); PO2 ARTERIAL 106 mmHg (70-100)
[2019-06-03 09:46] LABS: ALLEN TEST rb
[2019-06-03] MEDS ORDERED: Meropenem Premix 1 GM in Premix Bag 1 BAG IV ONE ×2 (10:23→11:30)
[2019-06-03] MEDS: Dextrose 5% in Water 1,000 ML IV SCH ×2 (12:39→19:56)
[2019-06-03 12:55] LABS: ANION GAP 24.6
[2019-06-03] MEDS ORDERED: Sodium Chloride 0.9% 3,000 ML IV ONE (13:21)
--- NOTE | 2019-06-03 13:25 | PCM.HP ---
H&P History of Present Illness - General Date of Service: 06/03/19 Admit Problem/Dx: Admission Diagnosis/Problem Admission Diagnosis/Problem Diabetic ketoacidosis Source of Information: Patient History Limitations: Reports: Altered Mental Status - History of Present Illness Initial Comments - Free Text/Narative: 29 yo F with PMH of type 1 DM, IVDU, who presents with lethargy, AMS. She was recently managed for UTI on admission at our facility and was to get daily ceftriaxone Returns to the ED today with lethargy. Unable to obtain Hx from patient as she has AMS In the ED, she was found to have AG of 39, blood glucose of 447. Started on insulin gtt and IV fluids. Lab work suggests severe dehydration. UDS positive for Meth Onset of Symptoms: Reports: Today - Related Data Allergies/Adverse Reactions: Allergies Allergy/AdvReac Type Severity Reaction Status Date / Time No Known Allergies Allergy Verified 06/03/19 11:47 Home Medications: Home Meds Acetaminophen [Tylenol] 650 mg PO Q4H PRN #30 tablet 05/30/19 [Rx] Insulin Glarg,Human.Rec.Analog [Lantus] 35 unit SUBCUT BEDTIME #1 pen 05/30/19 [ Rx] Insulin Lispro [HumaLOG] 5 unit SUBCUT QIDACANDBED #1 vial 05/30/19 [Rx] Past Medical History - Past Health History Medical/Surgical History: Denies Medical/Surgical History HEENT History: Reports: Impaired Vision Other HEENT History: states has a cloud to the right side. States she is near sighted. 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, Recurrent [employer] History: Reports: Other Musculoskeletal History: fracture left foot one month ago, no surgery. Bilateral ingrown toe nails leading to sepsis, IV vanco BID for 10 days Neurological History: Reports: Concussion, Seizure Psychiatric History: Reports: Addiction, Other (See Below) Other Psychiatric History: Medical non-complience Endocrine/Metabolic History: Reports: Diabetes, Type I Hematologic History: Reports: None Immunologic History: Reports: None Oncologic (Cancer) History: Reports: None Dermatologic History: Reports: None - Infectious Disease History Infectious Disease History: Reports: None - Past Surgical History Head Surgeries/Procedures: Reports: None Social & Family History - Family History Family Medical History: Noncontributory HEENT: Reports: None Oncologic: Reports: Breast, Other (See Below) Other Oncologic Family History: Stomach CA - Tobacco Use Smoking Status *Q: Current Some Day Smoker Years of Tobacco use: 10 Packs/Tins Daily: 1 - Caffeine Use Caffeine Use: Reports: Other Other Caffeine Use: pt. unable to answer - Recreational Drug Use Recreational Drug Use: Yes Recreational Drug Type: Reports: Methamphetamine - Living Situation & Occupation Living situation: Reports: with Family H&P Review of Systems - Review of Systems: Review Of Systems: Unable To Obtain (AMS) Exam - Exam Exam: See Below - Vital Signs Vital Signs: Last Vital Signs Temp 36.7 C 06/03/19 11:36 Pulse 116 H 06/03/19 11:36 Resp 20 06/03/19 11:36 BP 136/84 06/03/19 11:36 Pulse Ox 100 06/03/19 11:36 Weight: 50.712 kg - Exam General: Lethargic, Obtunded Neck: Supple, Trachea Midline Lungs: Clear to Auscultation, Normal Respiratory Effort Cardiovascular: Regular Rate, Regular Rhythm GI/Abdominal Exam: Normal Bowel Sounds, Soft, Non-Tender, No Organomegaly Extremities: Normal Inspection, Normal Range of Motion, Non-Tender, No Pedal Edema - Patient Data Lab Results Last 24 hrs: Laboratory Results - last 24 hr 06/03/19 06/03/19 06/03/19 Range/Units 08:41 08:50 08:50 WBC 19.6 H (5.0-10.0) 10^3/uL RBC 4.79 (4.2-5.4) 10^6/uL Hgb 14.1 D (12.0-16.0) g/dL Hct 41.3 (37.0-47.0) % MCV 86.2 D (80-100) fL MCH 29.4 (27.0-34.0) pg MCHC 34.1 (33.0-35.0) g/dL Plt Count 904 H D (150-450) 10^3/uL Neut % (Auto) 86.8 H (42.2-75.2) % Lymph % (Auto) 7.4 L (20.5-50.1) % [place] % (Auto) 5.6 (2-8) % Eos % (Auto) 0.1 L (1.0-3.0) % Baso % (Auto) 0.1 (0.0-1.0) % Add Manual Diff Yes Neutrophils % (Manual) 83 H (42-75) % Band Neutrophils % 7 % Lymphocytes % (Manual) 5 L (20-50) % Monocytes % (Manual) 2 (2-8) % Metamyelocytes % 3 ABG pH (7.35-7.45) ABG pCO2 (35-45) mmHg ABG pO2 (70-100) mmHg ABG HCO3 (22-26) mmol/L ABG O2 Saturation (95-100) % ABG Base Excess ((-2)-(+3)) mmol/L Aakash Test O2 Delivery Device Sodium 138 (135-145) mmol/L Potassium 3.9 (3.6-5.0) mmol/L Chloride 85 L D (101-111) mmol/L Carbon Dioxide 17.0 L D (21.0-31.0) mmol/L Anion Gap 39.9 BUN 44 H D (7-18) mg/dL Creatinine 2.9 H D (0.6-1.3) mg/dL Est Cr Clr Drug Dosing TNP Estimated GFR (MDRD) 19 BUN/Creatinine Ratio 15.17 Glucose 447 H* (74-105) mg/dL POC Glucose 395 H (70-105) mg/dl Lactic Acid (0.5-2.2) mmol/L Calcium 10.6 H D (8.4-10.2) mg/dl Phosphorus (2.5-4.6) mg/dL Magnesium (1.8-2.5) mg/dL Total Bilirubin 2.3 H (0.2-1.0) mg/dL AST 29 (10-42) IU/L ALT 85 H (10-60) IU/L Alkaline Phosphatase 274 H (42-121) IU/L Total Protein 10.9 H (6.7-8.2) g/dl Albumin 5.0 (3.2-5.5) g/dl Globulin 5.9 Albumin/Globulin Ratio 0.85 Urine Color (YELLOW) Urine Appearance (CLEAR) Urine pH (5.0-9.0) Ur Specific [place] (1.005-1.030) Urine Protein (NEGATIVE) Urine Glucose (UA) (NEGATIVE) Urine Ketones (NEGATIVE) Urine Occult Blood (NEGATIVE) Urine Nitrite (NEGATIVE) Urine Bilirubin (NEGATIVE) Urine Urobilinogen (0.2-1.0) mg/dL Ur Leukocyte Esterase (NEGATIVE) Urine RBC /HPF Urine WBC (0-5/HPF) /HPF Ur Epithelial Cells (NOT SEEN) /HPF Amorphous Sediment (NOT SEEN) /HPF Urine Bacteria (0-FEW/HPF) /HPF Urine HCG, Qual Urine Opiates Screen (NEGATIVE) Ur Oxycodone Screen (NEGATIVE) Urine Methadone Screen (NEGATIVE) Ur Barbiturates Screen (NEGATIVE) U Tricyclic Antidepress (NEGATIVE) Ur Phencyclidine Scrn (NEGATIVE) Ur Amphetamine Screen (NEGATIVE) U Methamphetamines Scrn (NEGATIVE) Urine MDMA Screen (NEGATIVE) U Benzodiazepines Scrn (NEGATIVE) Urine Cocaine Screen (NEGATIVE) U Marijuana (THC) Screen (NEGATIVE) Ethyl Alcohol < 5 mg/dL 06/03/19 06/03/19 06/03/19 Range/Units 08:50 09:03 09:03 WBC (5.0-10.0) 10^3/uL RBC (4.2-5.4) 10^6/uL Hgb (12.0-16.0) g/dL Hct (37.0-47.0) % MCV (80-100) fL MCH (27.0-34.0) pg MCHC (33.0-35.0) g/dL Plt Count (150-450) 10^3/uL Neut % (Auto) (42.2-75.2) % Lymph % (Auto) (20.5-50.1) % [place] % (Auto) (2-8) % Eos % (Auto) (1.0-3.0) % Baso % (Auto) (0.0-1.0) % Add Manual Diff Neutrophils % (Manual) (42-75) % Band Neutrophils % % Lymphocytes % (Manual) (20-50) % Monocytes % (Manual) (2-8) % Metamyelocytes % ABG pH (7.35-7.45) ABG pCO2 (35-45) mmHg ABG pO2 (70-100) mmHg ABG HCO3 (22-26) mmol/L ABG O2 Saturation (95-100) % ABG Base Excess ((-2)-(+3)) mmol/L Aakash Test O2 Delivery Device Sodium (135-145) mmol/L Potassium (3.6-5.0) mmol/L Chloride (101-111) mmol/L Carbon Dioxide (21.0-31.0) mmol/L Anion Gap BUN (7-18) mg/dL Creatinine (0.6-1.3) mg/dL Est Cr Clr Drug Dosing Estimated GFR (MDRD) BUN/Creatinine Ratio Glucose (74-105) mg/dL POC Glucose (70-105) mg/dl Lactic Acid 2.6 H (0.5-2.2) mmol/L Calcium (8.4-10.2) mg/dl Phosphorus (2.5-4.6) mg/dL Magnesium (1.8-2.5) mg/dL Total Bilirubin (0.2-1.0) mg/dL AST (10-42) IU/L ALT (10-60) IU/L Alkaline Phosphatase (42-121) IU/L Total Protein (6.7-8.2) g/dl Albumin (3.2-5.5) g/dl Globulin Albumin/Globulin Ratio Urine Color (YELLOW) Urine Appearance (CLEAR) Urine pH (5.0-9.0) Ur Specific [place] (1.005-1.030) Urine Protein (NEGATIVE) Urine Glucose (UA) (NEGATIVE) Urine Ketones (NEGATIVE) Urine Occult Blood (NEGATIVE) Urine Nitrite (NEGATIVE) Urine Bilirubin (NEGATIVE) Urine Urobilinogen (0.2-1.0) mg/dL Ur Leukocyte Esterase (NEGATIVE) Urine RBC /HPF Urine WBC (0-5/HPF) /HPF Ur Epithelial Cells (NOT SEEN) /HPF Amorphous Sediment (NOT SEEN) /HPF Urine Bacteria (0-FEW/HPF) /HPF Urine HCG, Qual Negative Urine Opiates Screen Negative (NEGATIVE) Ur Oxycodone Screen Negative (NEGATIVE) Urine Methadone Screen Negative (NEGATIVE) Ur Barbiturates Screen Negative (NEGATIVE) U Tricyclic Antidepress Negative (NEGATIVE) Ur Phencyclidine Scrn Negative (NEGATIVE) Ur Amphetamine Screen Negative (NEGATIVE) U Methamphetamines Scrn Positive H (NEGATIVE) Urine MDMA Screen Negative (NEGATIVE) U Benzodiazepines Scrn Negative (NEGATIVE) Urine Cocaine Screen Negative (NEGATIVE) U Marijuana (THC) Screen Negative (NEGATIVE) Ethyl Alcohol mg/dL 0906/03/19 06/03/19 Range/Units 09:03 09:14 09:20 WBC (5.0-10.0) 10^3/uL RBC (4.2-5.4) 10^6/uL Hgb (12.0-16.0) g/dL Hct (37.0-47.0) % MCV (80-100) fL MCH (27.0-34.0) pg MCHC (33.0-35.0) g/dL Plt Count (150-450) 10^3/uL Neut % (Auto) (42.2-75.2) % Lymph % (Auto) (20.5-50.1) % [place] % (Auto) (2-8) % Eos % (Auto) (1.0-3.0) % Baso % (Auto) (0.0-1.0) % Add Manual Diff Neutrophils % (Manual) (42-75) % Band Neutrophils % % Lymphocytes % (Manual) (20-50) % Monocytes % (Manual) (2-8) % Metamyelocytes % ABG pH 7.36 (7.35-7.45) ABG pCO2 28 L (35-45) mmHg ABG pO2 106 H (70-100) mmHg ABG HCO3 15.3 L (22-26) mmol/L ABG O2 Saturation 98 (95-100) % ABG Base Excess -9 L ((-2)-(+3)) mmol/L Aakash Test rb O2 Delivery Device Room air Sodium (135-145) mmol/L Potassium (3.6-5.0) mmol/L Chloride (101-111) mmol/L Carbon Dioxide (21.0-31.0) mmol/L Anion Gap BUN (7-18) mg/dL Creatinine (0.6-1.3) mg/dL Est Cr Clr Drug Dosing Estimated GFR (MDRD) BUN/Creatinine Ratio Glucose (74-105) mg/dL POC Glucose 431 H* (70-105) mg/dl Lactic Acid (0.5-2.2) mmol/L Calcium (8.4-10.2) mg/dl Phosphorus (2.5-4.6) mg/dL Magnesium (1.8-2.5) mg/dL Total Bilirubin (0.2-1.0) mg/dL AST (10-42) IU/L ALT (10-60) IU/L Alkaline Phosphatase (42-121) IU/L Total Protein (6.7-8.2) g/dl Albumin (3.2-5.5) g/dl Globulin Albumin/Globulin Ratio Urine Color Yellow (YELLOW) Urine Appearance Clear (CLEAR) Urine pH 5.5 (5.0-9.0) Ur Specific [place] 1.015 (1.005-1.030) Urine Protein Trace H (NEGATIVE) Urine Glucose (UA) 500 H (NEGATIVE) Urine Ketones >=160 H (NEGATIVE) Urine Occult Blood Negative (NEGATIVE) Urine Nitrite Negative (NEGATIVE) Urine Bilirubin Negative (NEGATIVE) Urine Urobilinogen 0.2 (0.2-1.0) mg/dL Ur Leukocyte Esterase Negative (NEGATIVE) Urine RBC 0-5 /HPF Urine WBC 0-5 (0-5/HPF) /HPF Ur Epithelial Cells Few (NOT SEEN) /HPF Amorphous Sediment Few (NOT SEEN) /HPF Urine Bacteria Rare (0-FEW/HPF) /HPF Urine HCG, Qual Urine Opiates Screen (NEGATIVE) Ur Oxycodone Screen (NEGATIVE) Urine Methadone Screen (NEGATIVE) Ur Barbiturates Screen (NEGATIVE) U Tricyclic Antidepress (NEGATIVE) Ur Phencyclidine Scrn (NEGATIVE) Ur Amphetamine Screen (NEGATIVE) U Methamphetamines Scrn (NEGATIVE) Urine MDMA Screen (NEGATIVE) U Benzodiazepines Scrn (NEGATIVE) Urine Cocaine Screen (NEGATIVE) U Marijuana (THC) Screen (NEGATIVE) Ethyl Alcohol mg/dL 06/03/19 06/03/19 06/03/19 Range/Units 10:26 11:22 12:21 WBC (5.0-10.0) 10^3/uL RBC (4.2-5.4) 10^6/uL Hgb (12.0-16.0) g/dL Hct (37.0-47.0) % MCV (80-100) fL MCH (27.0-34.0) pg MCHC (33.0-35.0) g/dL Plt Count (150-450) 10^3/uL Neut % (Auto) (42.2-75.2) % Lymph % (Auto) (20.5-50.1) % [place] % (Auto) (2-8) % Eos % (Auto) (1.0-3.0) % Baso % (Auto) (0.0-1.0) % Add Manual Diff Neutrophils % (Manual) (42-75) % Band Neutrophils % % Lymphocytes % (Manual) (20-50) % Monocytes % (Manual) (2-8) % Metamyelocytes % ABG pH (7.35-7.45) ABG pCO2 (35-45) mmHg ABG pO2 (70-100) mmHg ABG HCO3 (22-26) mmol/L ABG O2 Saturation (95-100) % ABG Base Excess ((-2)-(+3)) mmol/L Aakash Test O2 Delivery Device Sodium 141 (135-145) mmol/L Potassium 3.6 (3.6-5.0) mmol/L Chloride 99 L D (101-111) mmol/L Carbon Dioxide 21.0 (21.0-31.0) mmol/L Anion Gap 24.6 BUN 42 H (7-18) mg/dL Creatinine 2.0 H (0.6-1.3) mg/dL Est Cr Clr Drug Dosing 33.53 Estimated GFR (MDRD) 30 BUN/Creatinine Ratio Glucose 213 H (74-105) mg/dL POC Glucose 294 H 248 H (70-105) mg/dl Lactic Acid (0.5-2.2) mmol/L Calcium 9.1 D (8.4-10.2) mg/dl Phosphorus 3.2 (2.5-4.6) mg/dL Magnesium 2.2 (1.8-2.5) mg/dL Total Bilirubin (0.2-1.0) mg/dL AST (10-42) IU/L ALT (10-60) IU/L Alkaline Phosphatase (42-121) IU/L Total Protein (6.7-8.2) g/dl Albumin (3.2-5.5) g/dl Globulin Albumin/Globulin Ratio Urine Color (YELLOW) Urine Appearance (CLEAR) Urine pH (5.0-9.0) Ur Specific [place] (1.005-1.030) Urine Protein (NEGATIVE) Urine Glucose (UA) (NEGATIVE) Urine Ketones (NEGATIVE) Urine Occult Blood (NEGATIVE) Urine Nitrite (NEGATIVE) Urine Bilirubin (NEGATIVE) Urine Urobilinogen (0.2-1.0) mg/dL Ur Leukocyte Esterase (NEGATIVE) Urine RBC /HPF Urine WBC (0-5/HPF) /HPF Ur Epithelial Cells (NOT SEEN) /HPF Amorphous Sediment (NOT SEEN) /HPF Urine Bacteria (0-FEW/HPF) /HPF Urine HCG, Qual Urine Opiates Screen (NEGATIVE) Ur Oxycodone Screen (NEGATIVE) Urine Methadone Screen (NEGATIVE) Ur Barbiturates Screen (NEGATIVE) U Tricyclic Antidepress (NEGATIVE) Ur Phencyclidine Scrn (NEGATIVE) Ur Amphetamine Screen (NEGATIVE) U Methamphetamines Scrn (NEGATIVE) Urine MDMA Screen (NEGATIVE) U Benzodiazepines Scrn (NEGATIVE) Urine Cocaine Screen (NEGATIVE) U Marijuana (THC) Screen (NEGATIVE) Ethyl Alcohol mg/dL 06/03/19 Range/Units 12:29 WBC (5.0-10.0) 10^3/uL RBC (4.2-5.4) 10^6/uL Hgb (12.0-16.0) g/dL Hct (37.0-47.0) % MCV (80-100) fL MCH (27.0-34.0) pg MCHC (33.0-35.0) g/dL Plt Count (150-450) 10^3/uL Neut % (Auto) (42.2-75.2) % Lymph % (Auto) (20.5-50.1) % [place] % (Auto) (2-8) % Eos % (Auto) (1.0-3.0) % Baso % (Auto) (0.0-1.0) % Add Manual Diff Neutrophils % (Manual) (42-75) % Band Neutrophils % % Lymphocytes % (Manual) (20-50) % Monocytes % (Manual) (2-8) % Metamyelocytes % ABG pH (7.35-7.45) ABG pCO2 (35-45) mmHg ABG pO2 (70-100) mmHg ABG HCO3 (22-26) mmol/L ABG O2 Saturation (95-100) % ABG Base Excess ((-2)-(+3)) mmol/L Aakash Test O2 Delivery Device Sodium (135-145) mmol/L Potassium (3.6-5.0) mmol/L Chloride (101-111) mmol/L Carbon Dioxide (21.0-31.0) mmol/L Anion Gap BUN (7-18) mg/dL Creatinine (0.6-1.3) mg/dL Est Cr Clr Drug Dosing Estimated GFR (MDRD) BUN/Creatinine Ratio Glucose (74-105) mg/dL POC Glucose 189 H (70-105) mg/dl Lactic Acid (0.5-2.2) mmol/L Calcium (8.4-10.2) mg/dl Phosphorus (2.5-4.6) mg/dL Magnesium (1.8-2.5) mg/dL Total Bilirubin (0.2-1.0) mg/dL AST (10-42) IU/L ALT (10-60) IU/L Alkaline Phosphatase (42-121) IU/L Total Protein (6.7-8.2) g/dl Albumin (3.2-5.5) g/dl Globulin Albumin/Globulin Ratio Urine Color (YELLOW) Urine Appearance (CLEAR) Urine pH (5.0-9.0) Ur Specific [place] (1.005-1.030) Urine Protein (NEGATIVE) Urine Glucose (UA) (NEGATIVE) Urine Ketones (NEGATIVE) Urine Occult Blood (NEGATIVE) Urine Nitrite (NEGATIVE) Urine Bilirubin (NEGATIVE) Urine Urobilinogen (0.2-1.0) mg/dL Ur Leukocyte Esterase (NEGATIVE) Urine RBC /HPF Urine WBC (0-5/HPF) /HPF Ur Epithelial Cells (NOT SEEN) /HPF Amorphous Sediment (NOT SEEN) /HPF Urine Bacteria (0-FEW/HPF) /HPF Urine HCG, Qual Urine Opiates Screen (NEGATIVE) Ur Oxycodone Screen (NEGATIVE) Urine Methadone Screen (NEGATIVE) Ur Barbiturates Screen (NEGATIVE) U Tricyclic Antidepress (NEGATIVE) Ur Phencyclidine Scrn (NEGATIVE) Ur Amphetamine Screen (NEGATIVE) U Methamphetamines Scrn (NEGATIVE) Urine MDMA Screen (NEGATIVE) U Benzodiazepines Scrn (NEGATIVE) Urine Cocaine Screen (NEGATIVE) U Marijuana (THC) Screen (NEGATIVE) Ethyl Alcohol mg/dL Result Diagrams: 06/03/19 08:50 06/03/19 12:21 Quan Results Last 24 hrs: Microbiology 06/03/19 08:50 Anaerobic Blood Culture - Final Blood - Venous Problem List Initiated/Reviewed/Updated: Yes Orders Last 24hrs: Active Orders 24 hr Category Date Time Status Admission Status [Patient Status] [ADT] Routine ADT 06/03/19 10:20 Active Ambulate [RC] ASDIRECTED Care 06/03/19 11:36 Active Blood Glucose Check, Bedside [RC] Q1H Care 06/03/19 11:35 Active Height and Weight [RC] DAILY Care 06/03/19 11:36 Active Oxygen Therapy [RC] PRN Care 06/03/19 11:36 Active Peripheral IV Care [RC] , Care 06/03/19 08:46 Active Up With Assistance [RC] ASDIRECTED Care 06/03/19 11:36 Active VTE/DVT Education [RC] PER UNIT ROUTINE Care 06/03/19 11:36 Active Vital Signs [RC] Q4H Care 06/03/19 11:36 Active NPO Now [Nothing per Oral Now Diet] [DIET] Diet 06/03/19 Lunch Active Chest Abdomen Pelvis wo Cont [CT] Stat Exams 06/03/19 12:38 Ordered BASIC METABOLIC PANEL,BMP [CHEM] Q4H Lab 06/03/19 15:35 Ordered BASIC METABOLIC PANEL,BMP [CHEM] Q4H Lab 06/03/19 19:35 Ordered BASIC METABOLIC PANEL,BMP [CHEM] Q4H Lab 06/03/19 23:35 Ordered CULTURE BLOOD [BC] Stat Lab 06/03/19 08:50 Results CULTURE BLOOD [BC] Stat Lab 06/03/19 10:39 Received CULTURE URINE [RM] Routine Lab 06/03/19 08:59 Received MAGNESIUM [CHEM] Q4H Lab 06/03/19 15:35 Ordered MAGNESIUM [CHEM] Q4H Lab 06/03/19 19:35 Ordered MAGNESIUM [CHEM] Q4H Lab 06/03/19 23:35 Ordered Dextrose 5% in Water 1,000 ml Med 06/03/19 12:45 Active IV ASDIRECTED Heparin Sodium Med 06/03/19 14:00 Active 5,000 units SUBCUT Q8HR Insulin Regular, Human [HumuLIN R] 100 unit Med 06/03/19 09:30 Active Sodium Chloride 0.9% [Normal Saline] 99 ml IV TITRATE Meropenem Premix [Meropenem] 1 gm Med 06/03/19 22:00 Active Premix Bag 1 bag IV Q8HR Sodium Chloride 0.9% [Saline Flush] Med 06/03/19 08:46 Active 10 ml FLUSH ASDIRECTED PRN Sodium Chloride 0.9% [Saline Flush] Med 06/03/19 11:35 Active 10 ml FLUSH ASDIRECTED PRN Blood Culture x2 Reflex Set [OM.PC] Stat Ot 06/03/19 10:23 Ordered Peripheral IV Insertion Adult [OM.PC] Routine Ot 06/03/19 11:36 Ordered Peripheral IV Insertion Adult [OM.PC] Stat [facility] 06/03/19 08:45 Ordered Saline Lock Insert [OM.PC] Routine Ot 06/03/19 11:36 Ordered Resuscitation Status Routine Resus Stat 06/03/19 11:35 Ordered Medication Orders Heparin Sodium (Porcine) (Heparin Sodium) 5,000 units SUBCUT Q8HR DONNIE Insulin Human Regular 100 unit (/ Sodium Chloride) 100 mls @ 5.12 mls/hr IV TITRATE DONNIE; Protocol Last Titration: 06/03/19 12:35 Dose: 0.11 units/kg/hr, 5.8 mls/hr Titration: 06/03/19 11:37 Dose: 0.11 units/kg/hr, 5.8 mls/hr Admin: 06/03/19 09:25 Dose: 0.1 units/kg/hr, 5.12 mls/hr Dextrose/Water (Dextrose 5% In Water) 1,000 mls @ 150 mls/hr IV ASDIRECTED DONNIE Last Admin: 06/03/19 12:39 Dose: 150 mls/hr Meropenem/Sodium Chloride 1 gm (/ Premix) 50 mls @ 100 mls/hr IV Q8HR DONNIE Sodium Chloride (Saline Flush) 10 ml FLUSH ASDIRECTED PRN PRN Reason: Keep Vein Open Last Admin: 06/03/19 12:41 Dose: 10 ml Admin: 06/03/19 12:24 Dose: 10 ml Admin: 06/03/19 11:33 Dose: 10 ml Admin: 06/03/19 08:56 Dose: 10 ml Sodium Chloride (Saline Flush) 10 ml FLUSH ASDIRECTED PRN PRN Reason: Keep Vein Open Assessment/Plan Comment:: DKA IVF hydration DKA protocol accucheck hourly BMP Q4 hrs Check Mg, PO4 Severe Dehydration rehydrate patient IVF boluses CHANDLER Pre-renal 2/2 dehydration Sepsis UTI? check CT chest abd pelvis Start IV meropenem Blood cx Urine cx DVT ppx SC heparin
[2019-06-03] MEDS: Heparin Sodium 5,000 Units/ML Vial SUBCUT SCH ×2 (14:47→21:44)
[2019-06-03 16:14] LABS: ANION GAP 16.4
[2019-06-03 20:14] LABS: CHLORIDE,CL 108 mmol/L (101-111); SODIUM,NA 142 mmol/L (135-145)
[2019-06-03] MEDS ORDERED: Ondansetron 4 MG/2 ML SDV IV PRN (20:57)
[2019-06-03] MEDS: Meropenem Premix 1 GM in Premix Bag 1 BAG IV SCH (21:42)
[2019-06-03] MEDS ORDERED: Dextrose 5%-0.9% NaCl 1,000 ML IV SCH (22:45)
[2019-06-04 00:09] LABS: ANION GAP 14.2; CHLORIDE,CL 107 mmol/L (101-111); SODIUM,NA 141 mmol/L (135-145)
[2019-06-04] MEDS ORDERED: Potassium Chloride 10 MEQ Tab.ER PO ONE (04:25)
[2019-06-04] MEDS: Meropenem Premix 1 GM in Premix Bag 1 BAG IV SCH (05:33)
[2019-06-04] MEDS: Heparin Sodium 5,000 Units/ML Vial SUBCUT SCH ×3 (05:35→22:03)
[2019-06-04] MEDS ORDERED: Insulin NPH HUM/REG Insulin HM 100 UNIT/ML 3 ML Vial SQ ONE (09:15)
[2019-06-04] MEDS: Sodium Chloride 0.9% 10 ML Syringe FLUSH PRN ×4 (09:44→11:53)
[2019-06-04] MEDS: Acetaminophen 325 MG Tab PO PRN ×2 (09:50→16:15)
[2019-06-04] MEDS: cefTRIAXone 2 GM in Sodium Chloride 0.9% 100 ML IV SCH (10:06)
--- NOTE | 2019-06-04 11:33 | PCM.PN ---
- General Info Date of Service: 06/04/19 Admission Dx/Problem (Free Text): Admission Diagnosis/Problem Admission Diagnosis/Problem Diabetic ketoacidosis Subjective Update: Feels better today No fever overnight Complains of mild back pain CT scan report reviewed, no collection in the urinary system Will transition to BB insulin today - Review of Systems General: Denies: Fever HEENT: Reports: No Symptoms Pulmonary: Reports: No Symptoms Cardiovascular: Reports: No Symptoms Gastrointestinal: Reports: No Symptoms Genitourinary: Reports: No Symptoms Musculoskeletal: Reports: Back Pain Skin: Reports: No Symptoms - Patient Data Vitals - Most Recent: Last Vital Signs Temp 37.2 C 06/04/19 07:54 Pulse 98 06/04/19 07:54 Resp 20 06/04/19 07:54 BP 124/78 06/04/19 07:54 Pulse Ox 97 06/04/19 07:54 Weight - Most Recent: 54.613 kg I&O - Last 24 Hours: Intake & Output 06/03/19 06/04/19 06/04/19 22:59 06:59 14:59 Intake Total 4000 1354 1966 Output Total 700 Balance 3300 1354 1966 Lab Results Last 24 Hours: Laboratory Results - last 24 hr 06/03/19 06/03/19 06/03/19 Range/Units 11:22 12:21 12:29 Sodium 141 (135-145) mmol/L Potassium 3.6 (3.6-5.0) mmol/L Chloride 99 L D (101-111) mmol/L Carbon Dioxide 21.0 (21.0-31.0) mmol/L Anion Gap 24.6 BUN 42 H (7-18) mg/dL Creatinine 2.0 H (0.6-1.3) mg/dL Est Cr Clr Drug Dosing 33.53 mL/min Estimated GFR (MDRD) 30 Glucose 213 H (74-105) mg/dL POC Glucose 248 H 189 H (70-105) mg/dl Calcium 9.1 D (8.4-10.2) mg/dl Phosphorus 3.2 (2.5-4.6) mg/dL Magnesium 2.2 (1.8-2.5) mg/dL 06/03/19 06/03/19 06/03/19 Range/Units 13:29 14:28 15:32 Sodium (135-145) mmol/L Potassium (3.6-5.0) mmol/L Chloride (101-111) mmol/L Carbon Dioxide (21.0-31.0) mmol/L Anion Gap BUN (7-18) mg/dL Creatinine (0.6-1.3) mg/dL Est Cr Clr Drug Dosing mL/min Estimated GFR (MDRD) Glucose (74-105) mg/dL POC Glucose 189 H 185 H 146 H (70-105) mg/dl Calcium (8.4-10.2) mg/dl Phosphorus (2.5-4.6) mg/dL Magnesium (1.8-2.5) mg/dL 06/03/19 06/03/19 06/03/19 Range/Units 15:50 16:28 17:29 Sodium 144 (135-145) mmol/L Potassium 3.4 L (3.6-5.0) mmol/L Chloride 107 (101-111) mmol/L Carbon Dioxide 24.0 (21.0-31.0) mmol/L Anion Gap 16.4 BUN 35 H (7-18) mg/dL Creatinine 1.5 H (0.6-1.3) mg/dL Est Cr Clr Drug Dosing 44.70 mL/min Estimated GFR (MDRD) 41 Glucose 133 H (74-105) mg/dL POC Glucose 104 91 (70-105) mg/dl Calcium 8.0 L (8.4-10.2) mg/dl Phosphorus (2.5-4.6) mg/dL Magnesium 2.0 (1.8-2.5) mg/dL 06/03/19 06/03/19 06/03/19 Range/Units 18:20 19:33 19:35 Sodium 142 (135-145) mmol/L Potassium 3.0 L (3.6-5.0) mmol/L Chloride 108 (101-111) mmol/L Carbon Dioxide 23.0 (21.0-31.0) mmol/L Anion Gap 14.0 BUN 27 H (7-18) mg/dL Creatinine 1.0 (0.6-1.3) mg/dL Est Cr Clr Drug Dosing 67.05 mL/min Estimated GFR (MDRD) > 60 Glucose 72 L (74-105) mg/dL POC Glucose 98 81 (70-105) mg/dl Calcium 7.8 L (8.4-10.2) mg/dl Phosphorus (2.5-4.6) mg/dL Magnesium 1.9 (1.8-2.5) mg/dL 06/03/19 06/03/19 06/03/19 Range/Units 20:35 21:20 22:28 Sodium (135-145) mmol/L Potassium (3.6-5.0) mmol/L Chloride (101-111) mmol/L Carbon Dioxide (21.0-31.0) mmol/L Anion Gap BUN (7-18) mg/dL Creatinine (0.6-1.3) mg/dL Est Cr Clr Drug Dosing mL/min Estimated GFR (MDRD) Glucose (74-105) mg/dL POC Glucose 81 78 62 L (70-105) mg/dl Calcium (8.4-10.2) mg/dl Phosphorus (2.5-4.6) mg/dL Magnesium (1.8-2.5) mg/dL 06/03/19 06/03/19 06/03/19 Range/Units 23:01 23:39 23:45 Sodium 141 (135-145) mmol/L Potassium 3.2 L (3.6-5.0) mmol/L Chloride 107 (101-111) mmol/L Carbon Dioxide 23.0 (21.0-31.0) mmol/L Anion Gap 14.2 BUN 23 H (7-18) mg/dL Creatinine 1.0 (0.6-1.3) mg/dL Est Cr Clr Drug Dosing 67.05 mL/min Estimated GFR (MDRD) > 60 Glucose 91 (74-105) mg/dL POC Glucose 87 93 (70-105) mg/dl Calcium 7.9 L (8.4-10.2) mg/dl Phosphorus (2.5-4.6) mg/dL Magnesium 2.0 (1.8-2.5) mg/dL 06/04/19 06/04/19 06/04/19 Range/Units 00:40 01:29 02:27 Sodium (135-145) mmol/L Potassium (3.6-5.0) mmol/L Chloride (101-111) mmol/L Carbon Dioxide (21.0-31.0) mmol/L Anion Gap BUN (7-18) mg/dL Creatinine (0.6-1.3) mg/dL Est Cr Clr Drug Dosing mL/min Estimated GFR (MDRD) Glucose (74-105) mg/dL POC Glucose 116 H 134 H 160 H (70-105) mg/dl Calcium (8.4-10.2) mg/dl Phosphorus (2.5-4.6) mg/dL Magnesium (1.8-2.5) mg/dL 06/04/19 06/04/19 06/04/19 Range/Units 03:34 04:34 05:31 Sodium (135-145) mmol/L Potassium (3.6-5.0) mmol/L Chloride (101-111) mmol/L Carbon Dioxide (21.0-31.0) mmol/L Anion Gap BUN (7-18) mg/dL Creatinine (0.6-1.3) mg/dL Est Cr Clr Drug Dosing mL/min Estimated GFR (MDRD) Glucose (74-105) mg/dL POC Glucose 204 H 254 H 274 H (70-105) mg/dl Calcium (8.4-10.2) mg/dl Phosphorus (2.5-4.6) mg/dL Magnesium (1.8-2.5) mg/dL 06/04/19 06/04/19 06/04/19 Range/Units 06:30 07:31 08:43 Sodium (135-145) mmol/L Potassium (3.6-5.0) mmol/L Chloride (101-111) mmol/L Carbon Dioxide (21.0-31.0) mmol/L Anion Gap BUN (7-18) mg/dL Creatinine (0.6-1.3) mg/dL Est Cr Clr Drug Dosing mL/min Estimated GFR (MDRD) Glucose (74-105) mg/dL POC Glucose 208 H 203 H 298 H (70-105) mg/dl Calcium (8.4-10.2) mg/dl Phosphorus (2.5-4.6) mg/dL Magnesium (1.8-2.5) mg/dL Quan Results Last 24 Hours: Microbiology 06/03/19 10:39 Aerobic Blood Culture - Preliminary Blood - Venous - Lab Draw NO GROWTH AFTER 1 DAY Anaerobic Blood Culture - Preliminary NO GROWTH AFTER 1 DAY 06/03/19 08:50 Aerobic Blood Culture - Preliminary Blood - Venous NO GROWTH AFTER 1 DAY Anaerobic Blood Culture - Final 06/03/19 08:59 Urine Culture - Preliminary Urine, Quick Cath (In-Out) NO GROWTH AFTER 1 DAY Med Orders - Current: Current Medications Acetaminophen (Tylenol) 650 mg PO Q4H PRN PRN Reason: Pain/Fever Last Admin: 06/04/19 09:50 Dose: 650 mg Heparin Sodium (Porcine) (Heparin Sodium) 5,000 units SUBCUT Q8HR DONNIE Last Admin: 06/04/19 05:35 Dose: 5,000 units Insulin Human Regular 100 unit (/ Sodium Chloride) 100 mls @ 5.12 mls/hr IV TITRATE DONNIE; Protocol Last Titration: 06/04/19 04:18 Dose: 0.03 units/kg/hr, 2 mls/hr Ceftriaxone Sodium 2 gm/ (Sodium Chloride) 100 mls @ 200 mls/hr IV Q24H [facility] Last Infusion: 06/04/19 10:56 Dose: Infused Insulin Glargine (Lantus) 30 unit SUBCUT BEDTIME DONNIE Insulin Human Lispro (Humalog) 0 unit SUBCUT QIDACANDBED [facility]; Protocol Insulin Human Lispro (Humalog) 10 unit SUBCUT TIDMEALS [facility] Ondansetron HCl (Zofran) 4 mg IV Q4H PRN PRN Reason: Nausea/Vomiting Last Admin: 06/03/19 21:04 Dose: 4 mg Sodium Chloride (Saline Flush) 10 ml FLUSH ASDIRECTED PRN PRN Reason: Keep Vein Open Last Admin: 06/04/19 10:57 Dose: 10 ml Discontinued Medications Sodium Chloride (Normal Saline) 1,000 mls @ 999 mls/hr IV .BOLUS ONE Stop: 06/03/19 09:46 Last Admin: 06/03/19 08:48 Dose: 999 mls/hr Sodium Chloride (Normal Saline) 1,000 mls @ 999 mls/hr IV .BOLUS ONE Stop: 06/03/19 10:18 Last Infusion: 06/03/19 12:30 Dose: Infused Meropenem/Sodium Chloride 1 gm (/ Premix) 50 mls @ 100 mls/hr IV ONETIME ONE Stop: 06/03/19 11:59 Last Infusion: 06/03/19 12:23 Dose: Infused Dextrose/Water (Dextrose 5% In Water) 1,000 mls @ 150 mls/hr IV ASDIRECTED DONNIE Last Admin: 06/03/19 19:56 Dose: 150 mls/hr Meropenem/Sodium Chloride 1 gm (/ Premix) 50 mls @ 100 mls/hr IV Q8HR [facility] Last Admin: 06/04/19 05:33 Dose: 100 mls/hr Sodium Chloride (Normal Saline) 3,000 mls @ 999 mls/hr IV .BOLUS ONE Stop: 06/03/19 16:21 Last Infusion: 06/03/19 15:58 Dose: 999 mls/hr Dextrose/Sodium Chloride (Dextrose 5%-Normal Saline) 1,000 mls @ 100 mls/hr IV ASDIRECTED [facility] Last Infusion: 06/04/19 09:45 Dose: Infused Insulin Human Regular (Humulin R) 10 unit IV ONETIME ONE Stop: 06/03/19 08:48 Last Admin: 06/03/19 08:54 Dose: 10 units Insulin NPH Beef/Pork (Humulin 70-30) 30 unit SQ ONETIME ONE Stop: 06/04/19 09:16 Last Admin: 06/04/19 09:42 Dose: 30 unit Ondansetron HCl (Zofran) 4 mg IV ONETIME ONE Stop: 06/03/19 08:47 Last Admin: 06/03/19 08:56 Dose: 4 mg Potassium Chloride (Klor-Con 10) 40 meq PO ONETIME ONE Stop: 06/04/19 04:26 Last Admin: 06/04/19 04:41 Dose: 40 meq Sodium Chloride (Saline Flush) 10 ml FLUSH ASDIRECTED PRN PRN Reason: Keep Vein Open Last Admin: 06/03/19 12:41 Dose: 10 ml - Exam General: Alert, Oriented HEENT: Pupils Equal, Pupils Reactive Neck: Supple Lungs: Clear to Auscultation, Normal Respiratory Effort Cardiovascular: Regular Rate, Regular Rhythm GI/Abdominal Exam: Normal Bowel Sounds, Soft, Non-Tender, No Organomegaly Extremities: Normal Inspection, Normal Range of Motion, Non-Tender, No Pedal Edema - Problem List Review Problem List Initiated/Reviewed/Updated: Yes - My Orders Last 24 Hours: My Active Orders 06/03/19 11:35 Sodium Chloride 0.9% [Saline Flush] 10 ml FLUSH ASDIRECTED PRN Resuscitation Status Routine 06/03/19 11:36 Ambulate [RC] ASDIRECTED Height and Weight [RC] 0600 Oxygen Therapy [RC] PRN Up With Assistance [RC] ASDIRECTED VTE/DVT Education [RC] PER UNIT ROUTINE Vital Signs [RC] Q4H Peripheral IV Insertion Adult [OM.PC] Routine Saline Lock Insert [OM.PC] Routine 06/03/19 14:00 Heparin Sodium 5,000 units SUBCUT Q8HR 06/03/19 16:40 Communication Order [RC] PER UNIT ROUTINE 06/03/19 19:25 Communication Order [RC] DAILY 06/03/19 20:57 Ondansetron [Zofran] 4 mg IV Q4H PRN 06/04/19 09:04 BASIC METABOLIC PANEL,BMP [CHEM] Routine CBC W/O DIFF,HEMOGRAM [HEME] Routine MAGNESIUM [CHEM] Routine PHOSPHORUS [CHEM] Routine 06/04/19 09:10 Communication Order [RC] ROUTINE 06/04/19 09:15 Acetaminophen [Tylenol] 650 mg PO Q4H PRN 06/04/19 09:16 Accu Check [Blood Glucose Check, Bedside] [RC] QIDACANDBED 06/04/19 10:00 cefTRIAXone [Rocephin] 2 gm Sodium Chloride 0.9% [Normal Saline] 100 ml IV Q24H 06/04/19 11:00 Insulin Lispro [HumaLOG] See Protocol SUBCUT QIDACANDBED 06/04/19 12:00 Insulin Lispro [HumaLOG] 10 unit SUBCUT TIDMEALS 06/04/19 21:00 Insulin Glarg,Human.Rec.Analog [LantUS] 30 unit SUBCUT BEDTIME 06/04/19 Breakfast Consistent Carbohydrate Diet [DIET] 06/05/19 05:11 BASIC METABOLIC PANEL,BMP [CHEM] AM CBC W/O DIFF,HEMOGRAM [HEME] AM MAGNESIUM [CHEM] AM PHOSPHORUS [CHEM] AM 06/06/19 05:11 BASIC METABOLIC PANEL,BMP [CHEM] AM CBC W/O DIFF,HEMOGRAM [HEME] AM MAGNESIUM [CHEM] AM PHOSPHORUS [CHEM] AM 06/07/19 05:11 BASIC METABOLIC PANEL,BMP [CHEM] AM CBC W/O DIFF,HEMOGRAM [HEME] AM MAGNESIUM [CHEM] AM PHOSPHORUS [CHEM] AM - Plan Plan:: DKA, resolved Uncontrolled Type 1 DM transition to basal bolus insulin accuchecks, ISS carb controlled diet Substance abuse disorder UDS: meth positive 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 To complete dose on 06/08/19 Blood cx: neg Urine cx: neg DVT ppx SC heparin
[2019-06-04 11:34] LABS: ANION GAP 13.9; CHLORIDE,CL 106 mmol/L (101-111); SODIUM,NA 138 mmol/L (135-145)
[2019-06-04] MEDS: Phosphorus #1 250 MG Tab PO SCH ×3 (12:19→20:53)
[2019-06-04] MEDS: Insulin Lispro 100 Units/ML 3 ML Vial SUBCUT SCH ×5 (12:19→20:59)
[2019-06-04] MEDS ORDERED: Insulin Glarg,Human.Rec.Analog 100 UNIT/ML ML SUBCUT SCH (21:00)
[2019-06-05] MEDS: Heparin Sodium 5,000 Units/ML Vial SUBCUT SCH ×3 (05:48→21:48)
[2019-06-05 07:20] LABS: ANION GAP 10.9; CHLORIDE,CL 106 mmol/L (101-111); SODIUM,NA 140 mmol/L (135-145)
[2019-06-05] MEDS: Insulin Lispro 100 Units/ML 3 ML Vial SUBCUT SCH ×7 (09:42→21:51)
[2019-06-05] MEDS: Potassium Chloride 10 MEQ Tab.ER PO SCH ×3 (09:58→17:32)
[2019-06-05] MEDS: Phosphorus #1 250 MG Tab PO SCH ×3 (09:58→21:45)
[2019-06-05] MEDS: cefTRIAXone 2 GM in Sodium Chloride 0.9% 100 ML IV SCH (09:59)
--- NOTE | 2019-06-05 09:59 | PCM.PN ---
- General Info Date of Service: 06/05/19 Admission Dx/Problem (Free Text): Admission Diagnosis/Problem Admission Diagnosis/Problem Diabetic ketoacidosis Subjective Update: Feels better today No fever overnight Had episode of hypoglycemia this morning Corrected with hypoglycemic protocol No new symptoms this morning Potassium low this morning - Review of Systems General: Reports: No Symptoms. Denies: Fever HEENT: Reports: No Symptoms Pulmonary: Reports: No Symptoms Cardiovascular: Reports: No Symptoms Gastrointestinal: Reports: No Symptoms Genitourinary: Reports: No Symptoms Musculoskeletal: Reports: No Symptoms Skin: Reports: No Symptoms - Patient Data Vitals - Most Recent: Last Vital Signs Temp 36.4 C 06/05/19 08:00 Pulse 77 06/05/19 08:00 Resp 20 06/05/19 08:00 BP 120/75 06/05/19 08:00 Pulse Ox 100 06/05/19 08:00 Weight - Most Recent: 57.969 kg I&O - Last 24 Hours: Intake & Output 06/04/19 06/05/19 06/05/19 22:59 06:59 14:59 Intake Total 200 Output Total 1000 Balance 200 -1000 Lab Results Last 24 Hours: Laboratory Results - last 24 hr 06/04/19 06/04/19 06/04/19 Range/Units 11:03 11:03 11:32 WBC 15.4 H (5.0-10.0) 10^3/uL RBC 3.37 L (4.2-5.4) 10^6/uL Hgb 10.0 L D (12.0-16.0) g/dL Hct 30.4 L (37.0-47.0) % MCV 90.2 D (80-100) fL MCH 29.7 (27.0-34.0) pg MCHC 32.9 L (33.0-35.0) g/dL Plt Count 638 H D (150-450) 10^3/uL Sodium 138 (135-145) mmol/L Potassium 3.9 (3.6-5.0) mmol/L Chloride 106 (101-111) mmol/L Carbon Dioxide 22.0 (21.0-31.0) mmol/L Anion Gap 13.9 BUN 11 (7-18) mg/dL Creatinine 0.8 (0.6-1.3) mg/dL Est Cr Clr Drug Dosing 90.26 mL/min Estimated GFR (MDRD) > 60 Glucose 300 H (74-105) mg/dL POC Glucose 282 H (70-105) mg/dl Calcium 8.0 L (8.4-10.2) mg/dl Phosphorus 1.3 L (2.5-4.6) mg/dL Magnesium 1.9 (1.8-2.5) mg/dL 06/04/19 06/04/19 06/05/19 Range/Units 16:20 20:18 05:45 WBC 9.8 (5.0-10.0) 10^3/uL RBC 3.13 L (4.2-5.4) 10^6/uL Hgb 9.3 L (12.0-16.0) g/dL Hct 28.5 L (37.0-47.0) % MCV 91.1 (80-100) fL MCH 29.7 (27.0-34.0) pg MCHC 32.6 L (33.0-35.0) g/dL Plt Count 634 H (150-450) 10^3/uL Sodium (135-145) mmol/L Potassium (3.6-5.0) mmol/L Chloride (101-111) mmol/L Carbon Dioxide (21.0-31.0) mmol/L Anion Gap BUN (7-18) mg/dL Creatinine (0.6-1.3) mg/dL Est Cr Clr Drug Dosing mL/min Estimated GFR (MDRD) Glucose (74-105) mg/dL POC Glucose 76 208 H (70-105) mg/dl Calcium (8.4-10.2) mg/dl Phosphorus (2.5-4.6) mg/dL Magnesium (1.8-2.5) mg/dL 06/05/19 06/05/19 06/05/19 Range/Units 05:45 07:47 08:03 WBC (5.0-10.0) 10^3/uL RBC (4.2-5.4) 10^6/uL Hgb (12.0-16.0) g/dL Hct (37.0-47.0) % MCV (80-100) fL MCH (27.0-34.0) pg MCHC (33.0-35.0) g/dL Plt Count (150-450) 10^3/uL Sodium 140 (135-145) mmol/L Potassium 2.9 L (3.6-5.0) mmol/L Chloride 106 (101-111) mmol/L Carbon Dioxide 26.0 (21.0-31.0) mmol/L Anion Gap 10.9 BUN 7 (7-18) mg/dL Creatinine 0.4 L (0.6-1.3) mg/dL Est Cr Clr Drug Dosing 191.62 mL/min Estimated GFR (MDRD) > 60 Glucose 42 L* (74-105) mg/dL POC Glucose 57 L 103 (70-105) mg/dl Calcium 8.0 L (8.4-10.2) mg/dl Phosphorus 2.5 (2.5-4.6) mg/dL Magnesium 1.8 (1.8-2.5) mg/dL Quan Results Last 24 Hours: Microbiology 06/03/19 08:59 Urine Culture - Final Urine, Quick Cath (In-Out) No Growth 06/03/19 10:39 Aerobic Blood Culture - Preliminary Blood - Venous - Lab Draw NO GROWTH AFTER 1 DAY Anaerobic Blood Culture - Preliminary NO GROWTH AFTER 1 DAY 06/03/19 08:50 Aerobic Blood Culture - Preliminary Blood - Venous NO GROWTH AFTER 1 DAY Anaerobic Blood Culture - Final Med Orders - Current: Current Medications Acetaminophen (Tylenol) 650 mg PO Q4H PRN PRN Reason: Pain/Fever Last Admin: 06/04/19 16:15 Dose: 650 mg Heparin Sodium (Porcine) (Heparin Sodium) 5,000 units SUBCUT Q8HR [facility] Last Admin: 06/05/19 05:48 Dose: 5,000 units Ceftriaxone Sodium 2 gm/ (Sodium Chloride) 100 mls @ 200 mls/hr IV Q24H [facility] Last Infusion: 06/04/19 10:56 Dose: Infused Insulin Human Lispro (Humalog) 0 unit SUBCUT QIDACANDBED [facility]; Protocol Last Admin: 06/05/19 09:42 Dose: Not Given Ondansetron HCl (Zofran) 4 mg IV Q4H PRN PRN Reason: Nausea/Vomiting Last Admin: 06/03/19 21:04 Dose: 4 mg Potassium Chloride (Klor-Con 10) 40 meq PO Q4H [facility] Stop: 06/05/19 18:01 Sodium Chloride (Saline Flush) 10 ml FLUSH ASDIRECTED PRN PRN Reason: Keep Vein Open Last Admin: 06/04/19 11:53 Dose: 10 ml Sodium Phosphate (Neutra-Phos) 500 mg PO TID [facility] Last Admin: 06/04/19 20:53 Dose: 500 mg Discontinued Medications Sodium Chloride (Normal Saline) 1,000 mls @ 999 mls/hr IV .BOLUS ONE Stop: 06/03/19 09:46 Last Admin: 06/03/19 08:48 Dose: 999 mls/hr Insulin Human Regular 100 unit (/ Sodium Chloride) 100 mls @ 5.12 mls/hr IV TITRATE DONNIE; Protocol Last Titration: 06/04/19 11:50 Dose: 0.03 units/kg/hr, 2 mls/hr Sodium Chloride (Normal Saline) 1,000 mls @ 999 mls/hr IV .BOLUS ONE Stop: 06/03/19 10:18 Last Infusion: 06/03/19 12:30 Dose: Infused Meropenem/Sodium Chloride 1 gm (/ Premix) 50 mls @ 100 mls/hr IV ONETIME ONE Stop: 06/03/19 11:59 Last Infusion: 06/03/19 12:23 Dose: Infused Dextrose/Water (Dextrose 5% In Water) 1,000 mls @ 150 mls/hr IV ASDIRECTED [facility] Last Admin: 06/03/19 19:56 Dose: 150 mls/hr Meropenem/Sodium Chloride 1 gm (/ Premix) 50 mls @ 100 mls/hr IV Q8HR [facility] Last Admin: 06/04/19 05:33 Dose: 100 mls/hr Sodium Chloride (Normal Saline) 3,000 mls @ 999 mls/hr IV .BOLUS ONE Stop: 06/03/19 16:21 Last Infusion: 06/03/19 15:58 Dose: 999 mls/hr Dextrose/Sodium Chloride (Dextrose 5%-Normal Saline) 1,000 mls @ 100 mls/hr IV ASDIRECTED [facility] Last Infusion: 06/04/19 09:45 Dose: Infused Insulin Glargine (Lantus) 30 unit SUBCUT BEDTIME [facility] Last Admin: 06/04/19 20:58 Dose: 30 units Insulin Human Lispro (Humalog) 10 unit SUBCUT TIDMEALS [facility] Last Admin: 06/05/19 09:44 Dose: Not Given Insulin Human Regular (Humulin R) 10 unit IV ONETIME ONE Stop: 06/03/19 08:48 Last Admin: 06/03/19 08:54 Dose: 10 units Insulin NPH Beef/Pork (Humulin 70-30) 30 unit SQ ONETIME ONE Stop: 06/04/19 09:16 Last Admin: 06/04/19 09:42 Dose: 30 unit Ondansetron HCl (Zofran) 4 mg IV ONETIME ONE Stop: 06/03/19 08:47 Last Admin: 06/03/19 08:56 Dose: 4 mg Potassium Chloride (Klor-Con 10) 40 meq PO ONETIME ONE Stop: 06/04/19 04:26 Last Admin: 06/04/19 04:41 Dose: 40 meq Sodium Chloride (Saline Flush) 10 ml FLUSH ASDIRECTED PRN PRN Reason: Keep Vein Open Last Admin: 06/03/19 12:41 Dose: 10 ml - Exam General: Alert, Oriented HEENT: Pupils Equal, Pupils Reactive Lungs: Clear to Auscultation, Normal Respiratory Effort Cardiovascular: Regular Rate, Regular Rhythm GI/Abdominal Exam: Normal Bowel Sounds, Soft, Non-Tender, No Organomegaly Extremities: Normal Inspection, Normal Range of Motion, Non-Tender, No Pedal Edema - Problem List Review Problem List Initiated/Reviewed/Updated: Yes - My Orders Last 24 Hours: My Active Orders 06/04/19 09:10 Communication Order [RC] ROUTINE 06/04/19 09:15 Acetaminophen [Tylenol] 650 mg PO Q4H PRN 06/04/19 09:16 Accu Check [Blood Glucose Check, Bedside] [RC] QIDACANDBED 06/04/19 10:00 cefTRIAXone [Rocephin] 2 gm Sodium Chloride 0.9% [Normal Saline] 100 ml IV Q24H 06/04/19 11:00 Insulin Lispro [HumaLOG] See Protocol SUBCUT QIDACANDBED 06/04/19 11:43 Phosphorus #1 [Neutra-Phos] 500 mg PO TID 06/05/19 10:00 Potassium Chloride [Klor-Con 10] 40 meq PO Q4H 06/05/19 12:00 Insulin Lispro [HumaLOG] 8 unit SUBCUT TIDMEALS 06/05/19 16:00 POTASSIUM,K [CHEM] Routine 06/05/19 21:00 Insulin Glarg,Human.Rec.Analog [LantUS] 20 unit SUBCUT BEDTIME 06/06/19 05:11 BASIC METABOLIC PANEL,BMP [CHEM] AM CBC W/O DIFF,HEMOGRAM [HEME] AM MAGNESIUM [CHEM] AM PHOSPHORUS [CHEM] AM 06/07/19 05:11 BASIC METABOLIC PANEL,BMP [CHEM] AM CBC W/O DIFF,HEMOGRAM [HEME] AM MAGNESIUM [CHEM] AM PHOSPHORUS [CHEM] AM - Plan Plan:: DKA, resolved Uncontrolled Type 1 DM Hypoglycemia this morning reduce insulin dose; lantus 20 hs, lispro 8 tidac accuchecks, ISS carb controlled diet Hypokalemia replenish potassium orally Substance abuse disorder UDS: meth positive 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 To complete dose on 06/08/19 Blood cx: neg Urine cx: neg DVT ppx SC heparin Dispo, discharge home tomorrow
[2019-06-05] MEDS: Sodium Chloride 0.9% 10 ML Syringe FLUSH PRN ×3 (10:00→21:56)
[2019-06-05] MEDS: Acetaminophen 325 MG Tab PO PRN ×2 (10:33→22:53)
[2019-06-05] MEDS ORDERED: Calcium Carbonate 500 MG Tab.Chew PO PRN (12:46)
[2019-06-05] MEDS: Insulin Glarg,Human.Rec.Analog 100 UNIT/ML ML SUBCUT SCH (21:46)
[2019-06-06] MEDS: Heparin Sodium 5,000 Units/ML Vial SUBCUT SCH ×3 (05:33→21:22)
[2019-06-06 06:53] LABS: ANION GAP 13.2; CHLORIDE,CL 104 mmol/L (101-111); SODIUM,NA 138 mmol/L (135-145)
[2019-06-06] MEDS: Insulin Lispro 100 Units/ML 3 ML Vial SUBCUT SCH ×6 (08:44→21:23)
[2019-06-06] MEDS: Phosphorus #1 250 MG Tab PO SCH ×3 (08:47→21:23)
--- NOTE | 2019-06-06 10:48 | PCM.PN ---
- General Info Date of Service: 06/06/19 Admission Dx/Problem (Free Text): Admission Diagnosis/Problem Admission Diagnosis/Problem Diabetic ketoacidosis Subjective Update: Complains of diarrhea overnight No chest pain, no SOB, no abdominal pain, no n/v Functional Status: Reports: Pain Controlled - Review of Systems General: Reports: No Symptoms HEENT: Reports: No Symptoms Pulmonary: Reports: No Symptoms Cardiovascular: Reports: No Symptoms Gastrointestinal: Reports: Diarrhea Genitourinary: Reports: No Symptoms Musculoskeletal: Reports: No Symptoms Skin: Reports: No Symptoms - Patient Data Vitals - Most Recent: Last Vital Signs Temp 36.8 C 06/06/19 08:09 Pulse 76 06/06/19 08:09 Resp 20 06/06/19 08:09 BP 121/86 06/06/19 08:09 Pulse Ox 100 06/06/19 08:09 Weight - Most Recent: 57.062 kg I&O - Last 24 Hours: Intake & Output 06/05/19 06/06/19 06/06/19 22:59 06:59 14:59 Intake Total 1150 650 240 Output Total 1200 800 Balance -50 -150 240 Lab Results Last 24 Hours: Laboratory Results - last 24 hr 06/05/19 06/05/19 06/05/19 Range/Units 11:30 16:02 16:30 WBC (5.0-10.0) 10^3/uL RBC (4.2-5.4) 10^6/uL Hgb (12.0-16.0) g/dL Hct (37.0-47.0) % MCV (80-100) fL MCH (27.0-34.0) pg MCHC (33.0-35.0) g/dL Plt Count (150-450) 10^3/uL Sodium (135-145) mmol/L Potassium 4.3 (3.6-5.0) mmol/L Chloride (101-111) mmol/L Carbon Dioxide (21.0-31.0) mmol/L Anion Gap BUN (7-18) mg/dL Creatinine (0.6-1.3) mg/dL Est Cr Clr Drug Dosing mL/min Estimated GFR (MDRD) Glucose (74-105) mg/dL POC Glucose 255 H 86 (70-105) mg/dl Calcium (8.4-10.2) mg/dl Phosphorus (2.5-4.6) mg/dL Magnesium (1.8-2.5) mg/dL 06/05/19 06/06/19 06/06/19 Range/Units 20:42 05:20 05:20 WBC 6.9 (5.0-10.0) 10^3/uL RBC 3.39 L (4.2-5.4) 10^6/uL Hgb 9.9 L (12.0-16.0) g/dL Hct 30.9 L (37.0-47.0) % MCV 91.2 (80-100) fL MCH 29.2 (27.0-34.0) pg MCHC 32.0 L (33.0-35.0) g/dL Plt Count 598 H (150-450) 10^3/uL Sodium 138 (135-145) mmol/L Potassium 4.2 (3.6-5.0) mmol/L Chloride 104 (101-111) mmol/L Carbon Dioxide 25.0 (21.0-31.0) mmol/L Anion Gap 13.2 BUN 12 (7-18) mg/dL Creatinine 0.5 L (0.6-1.3) mg/dL Est Cr Clr Drug Dosing 150.90 mL/min Estimated GFR (MDRD) > 60 Glucose 116 H (74-105) mg/dL POC Glucose 90 (70-105) mg/dl Calcium 8.9 (8.4-10.2) mg/dl Phosphorus 4.2 (2.5-4.6) mg/dL Magnesium 1.6 L (1.8-2.5) mg/dL 06/06/19 Range/Units 07:52 WBC (5.0-10.0) 10^3/uL RBC (4.2-5.4) 10^6/uL Hgb (12.0-16.0) g/dL Hct (37.0-47.0) % MCV (80-100) fL MCH (27.0-34.0) pg MCHC (33.0-35.0) g/dL Plt Count (150-450) 10^3/uL Sodium (135-145) mmol/L Potassium (3.6-5.0) mmol/L Chloride (101-111) mmol/L Carbon Dioxide (21.0-31.0) mmol/L Anion Gap BUN (7-18) mg/dL Creatinine (0.6-1.3) mg/dL Est Cr Clr Drug Dosing mL/min Estimated GFR (MDRD) Glucose (74-105) mg/dL POC Glucose 215 H (70-105) mg/dl Calcium (8.4-10.2) mg/dl Phosphorus (2.5-4.6) mg/dL Magnesium (1.8-2.5) mg/dL Quan Results Last 24 Hours: Microbiology 06/03/19 10:39 Aerobic Blood Culture - Preliminary Blood - Venous - Lab Draw NO GROWTH AFTER 3 DAYS Anaerobic Blood Culture - Preliminary NO GROWTH AFTER 3 DAYS 06/03/19 08:50 Aerobic Blood Culture - Preliminary Blood - Venous NO GROWTH AFTER 3 DAYS Anaerobic Blood Culture - Final 06/03/19 08:59 Urine Culture - Final Urine, Quick Cath (In-Out) No Growth Med Orders - Current: Current Medications Acetaminophen (Tylenol) 650 mg PO Q4H PRN PRN Reason: Pain/Fever Last Admin: 06/05/19 22:53 Dose: 650 mg Calcium Carbonate/Glycine (Tums) 500 mg PO TID PRN PRN Reason: Heartburn Last Admin: 06/05/19 14:42 Dose: 500 mg Heparin Sodium (Porcine) (Heparin Sodium) 5,000 units SUBCUT Q8HR [facility] Last Admin: 06/06/19 05:33 Dose: 5,000 units Ceftriaxone Sodium 2 gm/ (Sodium Chloride) 100 mls @ 200 mls/hr IV Q24H [facility] Last Infusion: 06/05/19 10:39 Dose: Infused Magnesium Sulfate/Dextrose 1 (gm/ Premix) 100 mls @ 100 mls/hr IV ONETIME ONE Stop: 06/06/19 10:59 Insulin Glargine (Lantus) 20 unit SUBCUT BEDTIME [facility] Last Admin: 06/05/19 21:46 Dose: 20 units Insulin Human Lispro (Humalog) 0 unit SUBCUT QIDACANDBED [facility]; Protocol Last Admin: 06/06/19 08:44 Dose: 4 units Insulin Human Lispro (Humalog) 8 unit SUBCUT TIDMEALS [facility] Last Admin: 06/06/19 08:46 Dose: 8 units Ondansetron HCl (Zofran) 4 mg IV Q4H PRN PRN Reason: Nausea/Vomiting Last Admin: 06/03/19 21:04 Dose: 4 mg Sodium Chloride (Saline Flush) 10 ml FLUSH ASDIRECTED PRN PRN Reason: Keep Vein Open Last Admin: 06/05/19 21:56 Dose: 10 ml Sodium Phosphate (Neutra-Phos) 500 mg PO TID DONNIE Last Admin: 06/06/19 08:47 Dose: 500 mg Discontinued Medications Sodium Chloride (Normal Saline) 1,000 mls @ 999 mls/hr IV .BOLUS ONE Stop: 06/03/19 09:46 Last Admin: 06/03/19 08:48 Dose: 999 mls/hr Insulin Human Regular 100 unit (/ Sodium Chloride) 100 mls @ 5.12 mls/hr IV TITRATE DONNIE; Protocol Last Titration: 06/04/19 11:50 Dose: 0.03 units/kg/hr, 2 mls/hr Sodium Chloride (Normal Saline) 1,000 mls @ 999 mls/hr IV .BOLUS ONE Stop: 06/03/19 10:18 Last Infusion: 06/03/19 12:30 Dose: Infused Meropenem/Sodium Chloride 1 gm (/ Premix) 50 mls @ 100 mls/hr IV ONETIME ONE Stop: 06/03/19 11:59 Last Infusion: 06/03/19 12:23 Dose: Infused Dextrose/Water (Dextrose 5% In Water) 1,000 mls @ 150 mls/hr IV ASDIRECTED [facility] Last Admin: 06/03/19 19:56 Dose: 150 mls/hr Meropenem/Sodium Chloride 1 gm (/ Premix) 50 mls @ 100 mls/hr IV Q8HR [facility] Last Admin: 06/04/19 05:33 Dose: 100 mls/hr Sodium Chloride (Normal Saline) 3,000 mls @ 999 mls/hr IV .BOLUS ONE Stop: 06/03/19 16:21 Last Infusion: 06/03/19 15:58 Dose: 999 mls/hr Dextrose/Sodium Chloride (Dextrose 5%-Normal Saline) 1,000 mls @ 100 mls/hr IV ASDIRECTED [facility] Last Infusion: 06/04/19 09:45 Dose: Infused Insulin Glargine (Lantus) 30 unit SUBCUT BEDTIME [facility] Last Admin: 06/04/19 20:58 Dose: 30 units Insulin Human Lispro (Humalog) 10 unit SUBCUT TIDMEALS [facility] Last Admin: 06/05/19 09:44 Dose: Not Given Insulin Human Regular (Humulin R) 10 unit IV ONETIME ONE Stop: 06/03/19 08:48 Last Admin: 06/03/19 08:54 Dose: 10 units Insulin NPH Beef/Pork (Humulin 70-30) 30 unit SQ ONETIME ONE Stop: 06/04/19 09:16 Last Admin: 06/04/19 09:42 Dose: 30 unit Ondansetron HCl (Zofran) 4 mg IV ONETIME ONE Stop: 06/03/19 08:47 Last Admin: 06/03/19 08:56 Dose: 4 mg Potassium Chloride (Klor-Con 10) 40 meq PO ONETIME ONE Stop: 06/04/19 04:26 Last Admin: 06/04/19 04:41 Dose: 40 meq Potassium Chloride (Klor-Con 10) 40 meq PO Q4H DONNIE Stop: 06/05/19 18:01 Last Admin: 06/05/19 17:32 Dose: 40 meq Sodium Chloride (Saline Flush) 10 ml FLUSH ASDIRECTED PRN PRN Reason: Keep Vein Open Last Admin: 06/03/19 12:41 Dose: 10 ml - Exam General: Alert, Oriented HEENT: Pupils Equal, Pupils Reactive Neck: Supple Lungs: Clear to Auscultation, Normal Respiratory Effort Cardiovascular: Regular Rate, Regular Rhythm GI/Abdominal Exam: Normal Bowel Sounds, Soft, No Organomegaly, Tender. No: Guarding, Rigid, Rebound Extremities: Normal Inspection, Normal Range of Motion, Non-Tender, No Pedal Edema - Problem List Review Problem List Initiated/Reviewed/Updated: Yes - My Orders Last 24 Hours: My Active Orders 06/05/19 12:00 Insulin Lispro [HumaLOG] 8 unit SUBCUT TIDMEALS 06/05/19 12:46 Calcium Carbonate [Tums] 500 mg PO TID PRN 06/05/19 21:00 Insulin Glarg,Human.Rec.Analog [LantUS] 20 unit SUBCUT BEDTIME 06/06/19 10:00 Magnesium Sulfate/D5W [Magnesium Sulfate in D5W 100 Premix] 1 gm Premix Bag 1 bag IV ONETIME 06/06/19 10:21 CLOSTRIDIUM DIFFICILE TOX RFLX [MREF] Routine 06/07/19 05:11 BASIC METABOLIC PANEL,BMP [CHEM] AM CBC W/O DIFF,HEMOGRAM [HEME] AM MAGNESIUM [CHEM] AM PHOSPHORUS [CHEM] AM - Plan Plan:: \ Diarrhea check C Diff as px has been on abx if negative, PRN imodium Uncontrolled Type 1 DM continue insulin dose; lantus 20 hs, lispro 8 tidac accuchecks, ISS carb controlled diet Hypokalemia replenish potassium orally Substance abuse disorder UDS: meth positive 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 To complete dose on 06/08/19 Blood cx: neg Urine cx: neg DVT ppx SC heparin Dispo, discharge home tomorrow
[2019-06-06] MEDS: cefTRIAXone 2 GM in Sodium Chloride 0.9% 100 ML IV SCH (11:02)
[2019-06-06] MEDS: Sodium Chloride 0.9% 10 ML Syringe FLUSH PRN ×2 (11:04→11:47)
[2019-06-06] MEDS: Insulin Glarg,Human.Rec.Analog 100 UNIT/ML ML SUBCUT SCH (21:25)
[2019-06-07] MEDS: Heparin Sodium 5,000 Units/ML Vial SUBCUT SCH ×3 (06:49→21:17)
[2019-06-07 06:53] LABS: ANION GAP 15.8; CHLORIDE,CL 95 mmol/L (101-111); SODIUM,NA 133 mmol/L (135-145)
[2019-06-07] MEDS: Insulin Lispro 100 Units/ML 3 ML Vial SUBCUT SCH ×6 (07:52→21:18)
[2019-06-07] MEDS: cefTRIAXone 2 GM in Sodium Chloride 0.9% 100 ML IV SCH ×2 (10:37→10:58)
[2019-06-07] MEDS: Sodium Chloride 0.9% 10 ML Syringe FLUSH PRN (10:38)
[2019-06-07] MEDS: Phosphorus #1 250 MG Tab PO SCH (10:38)
--- NOTE | 2019-06-07 11:36 | PCM.PN ---
- General Info Date of Service: 06/07/19 Admission Dx/Problem (Free Text): Admission Diagnosis/Problem Admission Diagnosis/Problem Diabetic ketoacidosis Subjective Update: No diarrhea overnight, likely resolved No chest pain, no SOB, no abdominal pain, no n/v Is agreeable to enrol in a drug treatment program Planned to DC tomorrow home after completing IV abx - Review of Systems General: Reports: No Symptoms HEENT: Reports: No Symptoms Pulmonary: Reports: No Symptoms Cardiovascular: Reports: No Symptoms Gastrointestinal: Reports: No Symptoms Genitourinary: Reports: No Symptoms Musculoskeletal: Reports: No Symptoms Skin: Reports: No Symptoms Neurological: Reports: No Symptoms - Patient Data Vitals - Most Recent: Last Vital Signs Temp 36.3 C 06/07/19 08:01 Pulse 87 06/07/19 08:01 Resp 20 06/07/19 08:01 BP 116/72 06/07/19 08:01 Pulse Ox 99 06/07/19 08:01 Weight - Most Recent: 58.967 kg I&O - Last 24 Hours: Intake & Output 06/06/19 06/07/19 06/07/19 22:59 06:59 14:59 Intake Total 800 750 Output Total 1200 650 Balance -400 100 Lab Results Last 24 Hours: Laboratory Results - last 24 hr 06/06/19 06/06/19 06/06/19 Range/Units 11:33 15:55 16:16 WBC (5.0-10.0) 10^3/uL RBC (4.2-5.4) 10^6/uL Hgb (12.0-16.0) g/dL Hct (37.0-47.0) % MCV (80-100) fL MCH (27.0-34.0) pg MCHC (33.0-35.0) g/dL Plt Count (150-450) 10^3/uL Sodium (135-145) mmol/L Potassium (3.6-5.0) mmol/L Chloride (101-111) mmol/L Carbon Dioxide (21.0-31.0) mmol/L Anion Gap BUN (7-18) mg/dL Creatinine (0.6-1.3) mg/dL Est Cr Clr Drug Dosing mL/min Estimated GFR (MDRD) Glucose (74-105) mg/dL POC Glucose 262 H 28 L* 64 L (70-105) mg/dl Calcium (8.4-10.2) mg/dl Phosphorus (2.5-4.6) mg/dL Magnesium (1.8-2.5) mg/dL 06/06/19 06/06/19 06/07/19 Range/Units 16:56 20:56 05:32 WBC 7.5 (5.0-10.0) 10^3/uL RBC 3.30 L (4.2-5.4) 10^6/uL Hgb 9.8 L (12.0-16.0) g/dL Hct 30.2 L (37.0-47.0) % MCV 91.5 (80-100) fL MCH 29.7 (27.0-34.0) pg MCHC 32.5 L (33.0-35.0) g/dL Plt Count 595 H (150-450) 10^3/uL Sodium (135-145) mmol/L Potassium (3.6-5.0) mmol/L Chloride (101-111) mmol/L Carbon Dioxide (21.0-31.0) mmol/L Anion Gap BUN (7-18) mg/dL Creatinine (0.6-1.3) mg/dL Est Cr Clr Drug Dosing mL/min Estimated GFR (MDRD) Glucose (74-105) mg/dL POC Glucose 78 283 H (70-105) mg/dl Calcium (8.4-10.2) mg/dl Phosphorus (2.5-4.6) mg/dL Magnesium (1.8-2.5) mg/dL 06/07/19 06/07/19 Range/Units 05:32 07:40 WBC (5.0-10.0) 10^3/uL RBC (4.2-5.4) 10^6/uL Hgb (12.0-16.0) g/dL Hct (37.0-47.0) % MCV (80-100) fL MCH (27.0-34.0) pg MCHC (33.0-35.0) g/dL Plt Count (150-450) 10^3/uL Sodium 133 L (135-145) mmol/L Potassium 4.8 (3.6-5.0) mmol/L Chloride 95 L (101-111) mmol/L Carbon Dioxide 27.0 (21.0-31.0) mmol/L Anion Gap 15.8 BUN 18 (7-18) mg/dL Creatinine 0.6 (0.6-1.3) mg/dL Est Cr Clr Drug Dosing 129.95 mL/min Estimated GFR (MDRD) > 60 Glucose 397 H (74-105) mg/dL POC Glucose 368 H (70-105) mg/dl Calcium 8.5 (8.4-10.2) mg/dl Phosphorus 4.7 H (2.5-4.6) mg/dL Magnesium 1.6 L (1.8-2.5) mg/dL Quan Results Last 24 Hours: Microbiology 06/03/19 10:39 Aerobic Blood Culture - Preliminary Blood - Venous - Lab Draw NO GROWTH AFTER 4 DAYS Anaerobic Blood Culture - Preliminary NO GROWTH AFTER 4 DAYS 06/03/19 08:50 Aerobic Blood Culture - Preliminary Blood - Venous NO GROWTH AFTER 4 DAYS Anaerobic Blood Culture - Final Med Orders - Current: Current Medications Acetaminophen (Tylenol) 650 mg PO Q4H PRN PRN Reason: Pain/Fever Last Admin: 06/05/19 22:53 Dose: 650 mg Calcium Carbonate/Glycine (Tums) 500 mg PO TID PRN PRN Reason: Heartburn Last Admin: 06/05/19 14:42 Dose: 500 mg Heparin Sodium (Porcine) (Heparin Sodium) 5,000 units SUBCUT Q8HR [facility] Last Admin: 06/07/19 06:49 Dose: 5,000 units Magnesium Sulfate/Dextrose 1 (gm/ Premix) 100 mls @ 100 mls/hr IV ONETIME ONE Stop: 06/07/19 11:59 Last Admin: 06/07/19 11:17 Dose: 100 mls/hr Ceftriaxone Sodium 2 gm/ (Sodium Chloride) 100 mls @ 200 mls/hr IV Q24H [facility] Last Admin: 06/07/19 10:58 Dose: Not Given Insulin Glargine (Lantus) 20 unit SUBCUT BEDTIME [facility] Last Admin: 06/06/19 21:25 Dose: 20 units Insulin Human Lispro (Humalog) 0 unit SUBCUT QIDACANDBED [facility]; Protocol Last Admin: 06/07/19 07:52 Dose: 10 units Insulin Human Lispro (Humalog) 8 unit SUBCUT TIDMEALS [facility] Ondansetron HCl (Zofran) 4 mg IV Q4H PRN PRN Reason: Nausea/Vomiting Last Admin: 06/03/19 21:04 Dose: 4 mg Sodium Chloride (Saline Flush) 10 ml FLUSH ASDIRECTED PRN PRN Reason: Keep Vein Open Last Admin: 06/07/19 10:38 Dose: 10 ml Discontinued Medications Sodium Chloride (Normal Saline) 1,000 mls @ 999 mls/hr IV .BOLUS ONE Stop: 06/03/19 09:46 Last Admin: 06/03/19 08:48 Dose: 999 mls/hr Insulin Human Regular 100 unit (/ Sodium Chloride) 100 mls @ 5.12 mls/hr IV TITRATE DONNIE; Protocol Last Titration: 06/04/19 11:50 Dose: 0.03 units/kg/hr, 2 mls/hr Sodium Chloride (Normal Saline) 1,000 mls @ 999 mls/hr IV .BOLUS ONE Stop: 06/03/19 10:18 Last Infusion: 06/03/19 12:30 Dose: Infused Meropenem/Sodium Chloride 1 gm (/ Premix) 50 mls @ 100 mls/hr IV ONETIME ONE Stop: 06/03/19 11:59 Last Infusion: 06/03/19 12:23 Dose: Infused Dextrose/Water (Dextrose 5% In Water) 1,000 mls @ 150 mls/hr IV ASDIRECTED [facility] Last Admin: 06/03/19 19:56 Dose: 150 mls/hr Meropenem/Sodium Chloride 1 gm (/ Premix) 50 mls @ 100 mls/hr IV Q8HR [facility] Last Admin: 06/04/19 05:33 Dose: 100 mls/hr Sodium Chloride (Normal Saline) 3,000 mls @ 999 mls/hr IV .BOLUS ONE Stop: 06/03/19 16:21 Last Infusion: 06/03/19 15:58 Dose: 999 mls/hr Dextrose/Sodium Chloride (Dextrose 5%-Normal Saline) 1,000 mls @ 100 mls/hr IV ASDIRECTED [facility] Last Infusion: 06/04/19 09:45 Dose: Infused Ceftriaxone Sodium 2 gm/ (Sodium Chloride) 100 mls @ 200 mls/hr IV Q24H [facility] Last Infusion: 06/07/19 11:17 Dose: Infused Magnesium Sulfate/Dextrose 1 (gm/ Premix) 100 mls @ 100 mls/hr IV ONETIME ONE Stop: 06/06/19 10:59 Last Infusion: 06/06/19 13:17 Dose: Infused Insulin Glargine (Lantus) 30 unit SUBCUT BEDTIME [facility] Last Admin: 06/04/19 20:58 Dose: 30 units Insulin Human Lispro (Humalog) 10 unit SUBCUT TIDMEALS [facility] Last Admin: 06/05/19 09:44 Dose: Not Given Insulin Human Lispro (Humalog) 8 unit SUBCUT TIDMEALS [facility] Last Admin: 06/06/19 12:16 Dose: 8 units Insulin Human Regular (Humulin R) 10 unit IV ONETIME ONE Stop: 06/03/19 08:48 Last Admin: 06/03/19 08:54 Dose: 10 units Insulin NPH Beef/Pork (Humulin 70-30) 30 unit SQ ONETIME ONE Stop: 06/04/19 09:16 Last Admin: 06/04/19 09:42 Dose: 30 unit Ondansetron HCl (Zofran) 4 mg IV ONETIME ONE Stop: 06/03/19 08:47 Last Admin: 06/03/19 08:56 Dose: 4 mg Potassium Chloride (Klor-Con 10) 40 meq PO ONETIME ONE Stop: 06/04/19 04:26 Last Admin: 06/04/19 04:41 Dose: 40 meq Potassium Chloride (Klor-Con 10) 40 meq PO Q4H [facility] Stop: 06/05/19 18:01 Last Admin: 06/05/19 17:32 Dose: 40 meq Sodium Chloride (Saline Flush) 10 ml FLUSH ASDIRECTED PRN PRN Reason: Keep Vein Open Last Admin: 06/03/19 12:41 Dose: 10 ml Sodium Phosphate (Neutra-Phos) 500 mg PO TID [facility] Last Admin: 06/07/19 10:38 Dose: Not Given - Exam General: Alert, Oriented HEENT: Pupils Equal, Pupils Reactive Neck: Supple Lungs: Clear to Auscultation, Normal Respiratory Effort Cardiovascular: Regular Rate, Regular Rhythm, No Murmurs GI/Abdominal Exam: Normal Bowel Sounds, Soft, Non-Tender, No Organomegaly Extremities: Normal Inspection, Normal Range of Motion, Non-Tender, No Pedal Edema Neurological: No New Focal Deficit - Problem List Review Problem List Initiated/Reviewed/Updated: Yes - My Orders Last 24 Hours: My Active Orders 06/07/19 11:00 Magnesium Sulfate/D5W [Magnesium Sulfate in D5W 100 Premix] 1 gm Premix Bag 1 bag IV ONETIME [id number] [Rocephin] 2 gm Sodium Chloride 0.9% [Normal Saline] 100 ml IV Q24H 06/07/19 12:00 Insulin Lispro [HumaLOG] 8 unit SUBCUT TIDMEALS 06/08/19 05:11 BASIC METABOLIC PANEL,BMP [CHEM] AM CBC W/O DIFF,HEMOGRAM [HEME] AM MAGNESIUM [CHEM] AM PHOSPHORUS [CHEM] AM 06/09/19 05:11 BASIC METABOLIC PANEL,BMP [CHEM] AM CBC W/O DIFF,HEMOGRAM [HEME] AM MAGNESIUM [CHEM] AM PHOSPHORUS [CHEM] AM 06/10/19 05:11 BASIC METABOLIC PANEL,BMP [CHEM] AM CBC W/O DIFF,HEMOGRAM [HEME] AM MAGNESIUM [CHEM] AM PHOSPHORUS [CHEM] AM - Plan Plan:: \ Diarrhea, resolved Uncontrolled Type 1 DM continue insulin dose; lantus 20 hs, lispro 8 tidac accuchecks, ISS carb controlled diet Hypokalemia, resolved Hypomagenesemia. REplenish magnesium intravenously Substance abuse disorder UDS: meth positive Interested in enrolling in a substance abuse program Severe Dehydration, resolved CHANDLER, resolved Pre-renal 2/2 dehydration Cr at baseline; 0.[address] chest abd pelvis: no collection Switch back to IV ceftriaxone. To complete dose on 06/08/19 Blood cx: neg Urine cx: neg DVT ppx SC heparin Dispo, discharge home tomorrow
[2019-06-07] MEDS: Insulin Glarg,Human.Rec.Analog 100 UNIT/ML ML SUBCUT SCH (21:20)
[2019-06-07] MEDS: Acetaminophen 325 MG Tab PO PRN (23:44)
[2019-06-08] MEDS: Heparin Sodium 5,000 Units/ML Vial SUBCUT SCH (05:53)
[2019-06-08 06:56] LABS: ANION GAP 15.4; CHLORIDE,CL 98 mmol/L (101-111); SODIUM,NA 133 mmol/L (135-145)
[2019-06-08] MEDS: Insulin Lispro 100 Units/ML 3 ML Vial SUBCUT SCH ×3 (07:59→12:06)
[2019-06-08 08:47] VITALS: BP 129/91; PULSE 87
--- NOTE | 2019-06-08 10:07 | PCM.DCSUM1 ---
Discharge Summary - Hospital Course Free Text/Narrative:: 29 yo F with PMH of type 1 DM, IVDU, who presents with lethargy, AMS. She was recently managed for UTI on admission at our facility and was to get daily ceftriaxone Returns to the ED with lethargy. In the ED, she was found to have AG of 39, blood glucose of 447. Started on insulin gtt and IV fluids. Lab work suggests severe dehydration. UDS positive for Meth Patient was managed for DKA on the DKA protocol. Anion gap improved and closed and patient was transitioned to basal bolus regimen. Electrolyte anomalies were corrected. Patient expressed interest on getting rehab for substance abuse problems. She was evaluated by [facility] and offered voluntary entry into rehab. Patient had work up for sepsis, CT abd/pelvis showed no collection, bld cx/ urine cx were negative. Patient completed ceftriaxone for previous bacteremia on 06/08/2019. I discussed extensively with the patient on Type 1 DM and need to manage disease with lifestyle, diet, exercise, medications, follow up with PCP Follow up with PCP Diagnosis: Stroke: No Modified Stewart Scale: No Symptoms at All Modified Compa Scale Score: 0 - Discharge Data Discharge Date: 06/08/19 Discharge Disposition: Home, Self-Care 01 Condition: Stable - Referral to Home Health Primary Care Physician: PCP None - Patient Instructions Diet: Diabetic Diet Activity: As Tolerated - Discharge Plan *PRESCRIPTION DRUG MONITORING PROGRAM REVIEWED*: No *COPY OF PRESCRIPTION DRUG MONITORING REPORT IN PATIENT LEOLA: No Home Medications: Home Meds Insulin Glarg,Human.Rec.Analog [Lantus] 35 unit SUBCUT BEDTIME #1 pen 05/30/19 [ Rx] Insulin Lispro [HumaLOG] 5 unit SUBCUT QIDACANDBED #1 vial 05/30/19 [Rx] Patient Handouts: Tips for Eating Away From Home If You Have Diabetes, Type 1 Diabetes Mellitus, Self Care, Adult, Carbohydrate Counting for Diabetes Mellitus , Adult, Diabetes Mellitus and Nutrition, Adult Referrals: PCP,None [Primary Care Provider] - - Discharge Summary/Plan Comment DC Time >30 min.: Yes - General Info Date of Service: 06/08/19 Admission Dx/Problem (Free Text: Admission Diagnosis/Problem Admission Diagnosis/Problem Diabetic ketoacidosis Subjective Update: Patient seen and examined No chest pain, no SOB, no abdominal pain, no n/v Is agreeable to enrol in a drug treatment program Planned to DC today - Review of Systems General: Reports: No Symptoms HEENT: Reports: No Symptoms Pulmonary: Reports: No Symptoms Cardiovascular: Reports: No Symptoms Gastrointestinal: Reports: No Symptoms Genitourinary: Reports: No Symptoms Musculoskeletal: Reports: No Symptoms Skin: Reports: No Symptoms Neurological: Reports: No Symptoms - Patient Data Vitals - Most Recent: Last Vital Signs Temp 36.4 C 06/08/19 08:00 Pulse 87 06/08/19 08:00 Resp 18 06/08/19 08:00 BP 129/91 H 06/08/19 08:00 Pulse Ox 99 06/08/19 08:00 Weight - Most Recent: 57.833 kg I&O - Last 24 hours: Intake & Output 06/07/19 06/08/19 06/08/19 22:59 06:59 14:59 Intake Total 1075 Balance 1075 Lab Results - Last 24 hrs: Laboratory Results - last 24 hr 06/07/19 06/07/19 06/07/19 Range/Units 11:53 16:50 20:46 WBC (5.0-10.0) 10^3/uL RBC (4.2-5.4) 10^6/uL Hgb (12.0-16.0) g/dL Hct (37.0-47.0) % MCV (80-100) fL MCH (27.0-34.0) pg MCHC (33.0-35.0) g/dL Plt Count (150-450) 10^3/uL Sodium (135-145) mmol/L Potassium (3.6-5.0) mmol/L Chloride (101-111) mmol/L Carbon Dioxide (21.0-31.0) mmol/L Anion Gap BUN (7-18) mg/dL Creatinine (0.6-1.3) mg/dL Est Cr Clr Drug Dosing mL/min Estimated GFR (MDRD) Glucose (74-105) mg/dL POC Glucose 420 H* 111 H 289 H (70-105) mg/dl Calcium (8.4-10.2) mg/dl Phosphorus (2.5-4.6) mg/dL Magnesium (1.8-2.5) mg/dL 06/08/19 06/08/19 06/08/19 Range/Units 05:48 05:48 07:30 WBC 8.4 (5.0-10.0) 10^3/uL RBC 3.39 L (4.2-5.4) 10^6/uL Hgb 10.1 L (12.0-16.0) g/dL Hct 31.5 L (37.0-47.0) % MCV 92.9 (80-100) fL MCH 29.8 (27.0-34.0) pg MCHC 32.1 L (33.0-35.0) g/dL Plt Count 634 H (150-450) 10^3/uL Sodium 133 L (135-145) mmol/L Potassium 5.4 H (3.6-5.0) mmol/L Chloride 98 L (101-111) mmol/L Carbon Dioxide 25.0 (21.0-31.0) mmol/L Anion Gap 15.4 BUN 23 H (7-18) mg/dL Creatinine 0.6 (0.6-1.3) mg/dL Est Cr Clr Drug Dosing 127.45 mL/min Estimated GFR (MDRD) > 60 Glucose 376 H (74-105) mg/dL POC Glucose 314 H (70-105) mg/dl Calcium 9.0 (8.4-10.2) mg/dl Phosphorus 3.6 (2.5-4.6) mg/dL Magnesium 1.6 L (1.8-2.5) mg/dL ULI Results - Last 24 hrs: Microbiology 06/03/19 10:39 Aerobic Blood Culture - Preliminary Blood - Venous - Lab Draw NO GROWTH AFTER 4 DAYS Anaerobic Blood Culture - Preliminary NO GROWTH AFTER 4 DAYS 06/03/19 08:50 Aerobic Blood Culture - Preliminary Blood - Venous NO GROWTH AFTER 4 DAYS Anaerobic Blood Culture - Final Med Orders - Current: Current Medications Acetaminophen (Tylenol) 650 mg PO Q4H PRN PRN Reason: Pain/Fever Last Admin: 06/07/19 23:44 Dose: 650 mg Calcium Carbonate/Glycine (Tums) 500 mg PO TID PRN PRN Reason: Heartburn Last Admin: 06/05/19 14:42 Dose: 500 mg Heparin Sodium (Porcine) (Heparin Sodium) 5,000 units SUBCUT Q8HR DONNIE Last Admin: 06/08/19 05:53 Dose: 5,000 units Ceftriaxone Sodium 2 gm/ (Sodium Chloride) 100 mls @ 200 mls/hr IV Q24H DONNIE Last Admin: 06/07/19 10:58 Dose: Not Given Insulin Glargine (Lantus) 20 unit SUBCUT BEDTIME DONNIE Last Admin: 06/07/19 21:20 Dose: 20 units Insulin Human Lispro (Humalog) 0 unit SUBCUT QIDACANDBED [facility], 1928–1983; Protocol Last Admin: 06/08/19 07:59 Dose: 8 units Insulin Human Lispro (Humalog) 8 unit SUBCUT TIDMEALS [facility], [facility]–1983 Last Admin: 06/08/19 08:00 Dose: 8 units Ondansetron HCl (Zofran) 4 mg IV Q4H PRN PRN Reason: Nausea/Vomiting Last Admin: 06/03/19 21:04 Dose: 4 mg Sodium Chloride (Saline Flush) 10 ml FLUSH ASDIRECTED PRN PRN Reason: Keep Vein Open Last Admin: 06/07/19 10:38 Dose: 10 ml Discontinued Medications Sodium Chloride (Normal Saline) 1,000 mls @ 999 mls/hr IV .BOLUS ONE Stop: 06/03/19 09:46 Last Admin: 06/03/19 08:48 Dose: 999 mls/hr Insulin Human Regular 100 unit (/ Sodium Chloride) 100 mls @ 5.12 mls/hr IV TITRATE [facility], [facility]; Protocol Last Titration: 06/04/19 11:50 Dose: 0.03 units/kg/hr, 2 mls/hr Sodium Chloride (Normal Saline) 1,000 mls @ 999 mls/hr IV .BOLUS ONE Stop: 06/03/19 10:18 Last Infusion: 06/03/19 12:30 Dose: Infused Meropenem/Sodium Chloride 1 gm (/ Premix) 50 mls @ 100 mls/hr IV ONETIME ONE Stop: 06/03/19 11:59 Last Infusion: 06/03/19 12:23 Dose: Infused Dextrose/Water (Dextrose 5% In Water) 1,000 mls @ 150 mls/hr IV ASDIRECTED DONNIE Last Admin: 06/03/19 19:56 Dose: 150 mls/hr Meropenem/Sodium Chloride 1 gm (/ Premix) 50 mls @ 100 mls/hr IV Q8HR [facility], [facility] Last Admin: 06/04/19 05:33 Dose: 100 mls/hr Sodium Chloride (Normal Saline) 3,000 mls @ 999 mls/hr IV .BOLUS ONE Stop: 06/03/19 16:21 Last Infusion: 06/03/19 15:58 Dose: 999 mls/hr Dextrose/Sodium Chloride (Dextrose 5%-Normal Saline) 1,000 mls @ 100 mls/hr IV ASDIRECTED [facility], [facility] Last Infusion: 06/04/19 09:45 Dose: Infused Ceftriaxone Sodium 2 gm/ (Sodium Chloride) 100 mls @ 200 mls/hr IV Q24H [facility], [facility] Last Infusion: 06/07/19 11:17 Dose: Infused Magnesium Sulfate/Dextrose 1 (gm/ Premix) 100 mls @ 100 mls/hr IV ONETIME ONE Stop: 06/06/19 10:59 Last Infusion: 06/06/19 13:17 Dose: Infused Magnesium Sulfate/Dextrose 1 (gm/ Premix) 100 mls @ 100 mls/hr IV ONETIME ONE Stop: 06/07/19 11:59 Last Infusion: 06/07/19 13:30 Dose: Infused Insulin Glargine (Lantus) 30 unit SUBCUT BEDTIME [facility], [facility] Last Admin: 06/04/19 20:58 Dose: 30 units Insulin Human Lispro (Humalog) 10 unit SUBCUT TIDMEALS [facility], [facility] Last Admin: 06/05/19 09:44 Dose: Not Given Insulin Human Lispro (Humalog) 8 unit SUBCUT TIDMEALS [facility], [facility] Last Admin: 06/06/19 12:16 Dose: 8 units Insulin Human Regular (Humulin R) 10 unit IV ONETIME ONE Stop: 06/03/19 08:48 Last Admin: 06/03/19 08:54 Dose: 10 units Insulin NPH Beef/Pork (Humulin 70-30) 30 unit SQ ONETIME ONE Stop: 06/04/19 09:16 Last Admin: 06/04/19 09:42 Dose: 30 unit Ondansetron HCl (Zofran) 4 mg IV ONETIME ONE Stop: 06/03/19 08:47 Last Admin: 06/03/19 08:56 Dose: 4 mg Potassium Chloride (Klor-Con 10) 40 meq PO ONETIME ONE Stop: 06/04/19 04:26 Last Admin: 06/04/19 04:41 Dose: 40 meq Potassium Chloride (Klor-Con 10) 40 meq PO Q4H DONNIE Stop: 06/05/19 18:01 Last Admin: 06/05/19 17:32 Dose: 40 meq Sodium Chloride (Saline Flush) 10 ml FLUSH ASDIRECTED PRN PRN Reason: Keep Vein Open Last Admin: 06/03/19 12:41 Dose: 10 ml Sodium Phosphate (Neutra-Phos) 500 mg PO TID [facility] Last Admin: 06/07/19 10:38 Dose: Not Given - Exam General: Reports: Alert, Oriented HEENT: Reports: Pupils Equal, Pupils Reactive Neck: Reports: Supple Lungs: Reports: Clear to Auscultation, Normal Respiratory Effort Cardiovascular: Reports: Regular Rate, Regular Rhythm, No Murmurs GI/Abdominal Exam: Normal Bowel Sounds, Soft, Non-Tender, No Organomegaly Extremities: Normal Inspection, Normal Range of Motion, Non-Tender, No Pedal Edema
[2019-06-08] MEDS: cefTRIAXone 2 GM in Sodium Chloride 0.9% 100 ML IV SCH (10:33)
[2019-06-08] MEDS: Sodium Chloride 0.9% 10 ML Syringe FLUSH PRN (10:33)
== END 2019-06-08 11:20 | disposition home or self-care (01) | DRG 637 ==
LOC: DL.ED 08:32 → DL.MS 10:20
PROVIDERS: ADMIT Hospitalist; ATTEND Hospitalist
DX: E10.10 Type 1 diabetes mellitus with ketoacidosis without coma (principal); A41.9 Sepsis, unspecified organism; N17.9 Acute kidney failure, unspecified; N39.0 Urinary tract infection, site not specified; H54.7 Unspecified visual loss; F17.210 Nicotine dependence, cigarettes, uncomplicated; E86.0 Dehydration; E87.6 Hypokalemia; E83.42 Hypomagnesemia; R19.7 Diarrhea, unspecified; F19.10 Other psychoactive substance abuse, uncomplicated; Z87.442 Personal history of urinary calculi; Z79.4 Long term (current) use of insulin; Z79.899 Other long term (current) drug therapy
CPT/HCPCS: 36415; 36600; 71250; 74176; 80048; 80053; 80305-QW; 81001; 81025; 82803; 82962; 83605; 83735; 84100; 84132; 85025; 85027; 87040; 87086; 93005; 96361; 96365; 96375; 96376; 99285-25; A9270-GY; G0480; J0696; J1644; J1815; J1815-GY; J2185; J2405; J3475; J7030; J7042; J7050; J7060

== ENCOUNTER 2019-06-15 19:55 | Emergency (ER) | payer MEDICAID ==
[2019-06-15] MEDS ORDERED: Ondansetron 4 MG/2 ML SDV IV ONE (20:18)
[2019-06-15] MEDS ORDERED: Sodium Chloride 0.9% 1,000 ML IV ONE (20:18)
[2019-06-15 20:41] LABS: ANION GAP 17.5; CHLORIDE,CL 96 mmol/L (101-111); SODIUM,NA 136 mmol/L (135-145)
[2019-06-15] MEDS ORDERED: Famotidine 20 MG/2 ML SDV IVPUSH ONE (20:49)
[2019-06-15] MEDS ORDERED: Iopamidol 612 MG/ML 75 ML Bottle IVPUSH ONE (20:50)
[2019-06-15] MEDS ORDERED: Insulin Regular, Human 100 Units/ML 3 ML Vial IV ONE (20:53)
--- NOTE | 2019-06-15 21:16 | EDM.PDOC ---
"ED HPI GENERAL MEDICAL PROBLEM - General Chief Complaint: Abdominal Pain Stated Complaint: STOMACH PAIN, IBS OR SOMETHING ELSE Time Seen by Provider: 06/15/19 20:10 Source of Information: Reports: Patient, RN History Limitations: Reports: No Limitations - History of Present Illness INITIAL COMMENTS - FREE TEXT/NARRATIVE: ED ambulatory with c/o burning in stomach, nausea since after supper. Last meal chili dog. No hx of similar symptoms. 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 IDDM, BS have been running in 200's Has been compliant with insulin per report. Currently in treatment, States has been almost a month clean though patient seen 10 days ago with recent substance use. Emesis x 1 on arrival to ED, some improvement in pain after, describes as cyclic coming about every 5 minutes. Middle Abdomen Pain Score (Numeric/FACES): 6 - Related Data Allergies Allergy/AdvReac Type Severity Reaction Status Date / Time No Known Allergies Allergy Verified 06/15/19 20:15 Home Meds: Home Meds Insulin Glarg,Human.Rec.Analog [Lantus] 35 unit SUBCUT BEDTIME #1 pen 05/30/19 [ Rx] Insulin Lispro [HumaLOG] 5 unit SUBCUT QIDACANDBED #1 vial 05/30/19 [Rx] Past Medical History - Past Health History Medical/Surgical History: Denies Medical/Surgical History HEENT History: Reports: Impaired Vision Other HEENT History: [facility] has a cloud to the right side. States she is near sighted. 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, Recurrent PRODUCTION TECHNICIAN History: Reports: Other Musculoskeletal History: fracture left foot one month ago, no surgery. Bilateral ingrown toe nails leading to sepsis, IV vanco BID for 10 days Neurological History: Reports: Concussion, Seizure Psychiatric History: Reports: Addiction, Other (See Below) Other Psychiatric History: Medical non-complience Endocrine/Metabolic History: Reports: Diabetes, Type I Hematologic History: Reports: None Immunologic History: Reports: None Oncologic (Cancer) History: Reports: None Dermatologic History: Reports: None - Infectious Disease History Infectious Disease History: Reports: None - Past Surgical History Head Surgeries/Procedures: Reports: None Social & Family History - Family History Family Medical History: Noncontributory HEENT: Reports: None Oncologic: Reports: Breast, Other (See Below) Other Oncologic Family History: Stomach CA - Tobacco Use Smoking Status *Q: Current Status Unknown Second Hand Smoke Exposure: No - Caffeine Use Caffeine Use: Reports: Soda Other Caffeine Use: pt. unable to answer - Recreational Drug Use Recreational Drug Use: Yes Drug Use in Last 12 Months: Yes Recreational Drug Type: Reports: Marijuana/Hashish, Methamphetamine Recreational Drug Use Frequency: Socially - Living Situation & Occupation Living situation: Reports: with Family ED ROS GENERAL - Review of Systems Review Of Systems: ROS reveals no pertinent complaints other than HPI. ED EXAM, GI/ABD - Physical Exam Exam: See Below Exam Limited By: No Limitations General Appearance: Alert, Anxious, Mild Distress Ears: Normal External Exam Nose: Normal Inspection Throat/Mouth: Normal Inspection, Normal Oropharynx, No Airway Compromise Head: Atraumatic, Normocephalic Neck: Normal Inspection, Full Range of Motion Respiratory/Chest: No Respiratory Distress, Lungs Clear, Normal Breath Sounds Cardiovascular: Normal Peripheral Pulses, Regular Rate, Rhythm GI/Abdominal Exam: Tender (mild LLQ), Abnormal Bowel Sounds (hyperactive). No: Distended, Guarding, Rigid Back Exam: Normal Inspection, Full Range of Motion, Paraspinal Tenderness. No: CVA Tenderness (L), CVA Tenderness (R) Neurological: Alert, Oriented, Normal Cognition Psychiatric: Normal Affect Skin Exam: Warm, Dry, Intact, Normal Color Course - Vital Signs Last Recorded V/S: Last Vital Signs Temp 97.2 F 06/15/19 21:54 Pulse 117 H 06/15/19 21:54 Resp 18 06/15/19 21:54 BP 117/70 06/15/19 21:54 Pulse Ox 100 06/15/19 21:54 - Orders/Labs/Meds Orders: Active Orders 24 hr Category Date Time Status Blood Glucose Check, Bedside [RC] ONETIME Care 06/15/19 20:05 Active Abdomen Pelvis w Cont [CT] Urgent Exams 06/15/19 20:51 Taken Labs: Laboratory Tests 06/15/19 06/15/19 06/15/19 Range/Units 20:01 20:01 20:01 WBC (5.0-10.0) 10^3/uL RBC (4.2-5.4) 10^6/uL Hgb (12.0-16.0) g/dL Hct (37.0-47.0) % MCV (80-100) fL MCH (27.0-34.0) pg MCHC (33.0-35.0) g/dL Plt Count (150-450) 10^3/uL Neut % (Auto) (42.2-75.2) % Lymph % (Auto) (20.5-50.1) % [place] % (Auto) (2-8) % Eos % (Auto) (1.0-3.0) % Baso % (Auto) (0.0-1.0) % Sodium (135-145) mmol/L Potassium (3.6-5.0) mmol/L Chloride (101-111) mmol/L Carbon Dioxide (21.0-31.0) mmol/L Anion Gap BUN (7-18) mg/dL Creatinine (0.6-1.3) mg/dL Est Cr Clr Drug Dosing mL/min Estimated GFR (MDRD) BUN/Creatinine Ratio Glucose (74-105) mg/dL POC Glucose (70-105) mg/dl Lactic Acid (0.5-2.2) mmol/L Calcium (8.4-10.2) mg/dl Total Bilirubin (0.2-1.0) mg/dL AST (10-42) IU/L ALT (10-60) IU/L Alkaline Phosphatase (42-121) IU/L Total Protein (6.7-8.2) g/dl Albumin (3.2-5.5) g/dl Globulin Albumin/Globulin Ratio Amylase (28-100) U/L Lipase (22-51) U/L Urine Color Yellow (YELLOW) Urine Appearance Slightly cloudy (CLEAR) Urine pH 6.5 (5.0-9.0) Ur Specific [place] 1.020 (1.005-1.030) Urine Protein Trace H (NEGATIVE) Urine Glucose (UA) 100 H (NEGATIVE) Urine Ketones 15 H (NEGATIVE) Urine Occult Blood Negative (NEGATIVE) Urine Nitrite Negative (NEGATIVE) Urine Bilirubin Negative (NEGATIVE) Urine Urobilinogen 0.2 (0.2-1.0) mg/dL Ur Leukocyte Esterase Negative (NEGATIVE) Urine RBC 0-5 /HPF Urine WBC 10-20 H (0-5/HPF) /HPF Ur Epithelial Cells Few (NOT SEEN) /HPF Amorphous Sediment Few (NOT SEEN) /HPF Urine Bacteria Few (0-FEW/HPF) /HPF Urine Mucus Occasional (NOT SEEN) /LPF Urine HCG, Qual Negative Urine Opiates Screen Negative (NEGATIVE) Ur Oxycodone Screen Negative (NEGATIVE) Urine Methadone Screen Negative (NEGATIVE) Ur Barbiturates Screen Negative (NEGATIVE) U Tricyclic Antidepress Negative (NEGATIVE) Ur Phencyclidine Scrn Negative (NEGATIVE) Ur Amphetamine Screen Negative (NEGATIVE) U Methamphetamines Scrn Negative (NEGATIVE) Urine MDMA Screen Negative (NEGATIVE) U Benzodiazepines Scrn Negative (NEGATIVE) Urine Cocaine Screen Negative (NEGATIVE) U Marijuana (THC) Screen Negative (NEGATIVE) Ethyl Alcohol mg/dL 06/15/19 06/15/19 06/15/19 Range/Units 20:13 20:15 20:15 WBC 13.4 H (5.0-10.0) 10^3/uL RBC 3.73 L (4.2-5.4) 10^6/uL Hgb 11.2 L (12.0-16.0) g/dL Hct 34.1 L (37.0-47.0) % MCV 91.4 (80-100) fL MCH 30.0 (27.0-34.0) pg MCHC 32.8 L (33.0-35.0) g/dL Plt Count 602 H (150-450) 10^3/uL Neut % (Auto) 68.2 (42.2-75.2) % Lymph % (Auto) 20.7 (20.5-50.1) % [place] % (Auto) 7.9 (2-8) % Eos % (Auto) 2.8 (1.0-3.0) % Baso % (Auto) 0.4 (0.0-1.0) % Sodium 136 (135-145) mmol/L Potassium 4.5 (3.6-5.0) mmol/L Chloride 96 L (101-111) mmol/L Carbon Dioxide 27.0 (21.0-31.0) mmol/L Anion Gap 17.5 BUN 32 H (7-18) mg/dL Creatinine 0.7 (0.6-1.3) mg/dL Est Cr Clr Drug Dosing 112.01 mL/min Estimated GFR (MDRD) > 60 BUN/Creatinine Ratio 45.71 Glucose 267 H (74-105) mg/dL POC Glucose 250 H (70-105) mg/dl Lactic Acid (0.5-2.2) mmol/L Calcium 9.5 (8.4-10.2) mg/dl Total Bilirubin 0.3 (0.2-1.0) mg/dL AST 58 H (10-42) IU/L ALT 66 H (10-60) IU/L Alkaline Phosphatase 113 (42-121) IU/L Total Protein 8.2 (6.7-8.2) g/dl Albumin 4.2 (3.2-5.5) g/dl Globulin 4.0 Albumin/Globulin Ratio 1.05 Amylase 222 H (28-100) U/L Lipase 87 H (22-51) U/L Urine Color (YELLOW) Urine Appearance (CLEAR) Urine pH (5.0-9.0) Ur Specific [place] (1.005-1.030) Urine Protein (NEGATIVE) Urine Glucose (UA) (NEGATIVE) Urine Ketones (NEGATIVE) Urine Occult Blood (NEGATIVE) Urine Nitrite (NEGATIVE) Urine Bilirubin (NEGATIVE) Urine Urobilinogen (0.2-1.0) mg/dL Ur Leukocyte Esterase (NEGATIVE) Urine RBC /HPF Urine WBC (0-5/HPF) /HPF Ur Epithelial Cells (NOT SEEN) /HPF Amorphous Sediment (NOT SEEN) /HPF Urine Bacteria (0-FEW/HPF) /HPF Urine Mucus (NOT SEEN) /LPF Urine HCG, Qual Urine Opiates Screen (NEGATIVE) Ur Oxycodone Screen (NEGATIVE) Urine Methadone Screen (NEGATIVE) Ur Barbiturates Screen (NEGATIVE) U Tricyclic Antidepress (NEGATIVE) Ur Phencyclidine Scrn (NEGATIVE) Ur Amphetamine Screen (NEGATIVE) U Methamphetamines Scrn (NEGATIVE) Urine MDMA Screen (NEGATIVE) U Benzodiazepines Scrn (NEGATIVE) Urine Cocaine Screen (NEGATIVE) U Marijuana (THC) Screen (NEGATIVE) Ethyl Alcohol < 5 mg/dL 06/15/19 06/15/19 06/15/19 Range/Units 20:15 21:53 22:47 WBC (5.0-10.0) 10^3/uL RBC (4.2-5.4) 10^6/uL Hgb (12.0-16.0) g/dL Hct (37.0-47.0) % MCV (80-100) fL MCH (27.0-34.0) pg MCHC (33.0-35.0) g/dL Plt Count (150-450) 10^3/uL Neut % (Auto) (42.2-75.2) % Lymph % (Auto) (20.5-50.1) % [place] % (Auto) (2-8) % Eos % (Auto) (1.0-3.0) % Baso % (Auto) (0.0-1.0) % Sodium (135-145) mmol/L Potassium (3.6-5.0) mmol/L Chloride (101-111) mmol/L Carbon Dioxide (21.0-31.0) mmol/L Anion Gap BUN (7-18) mg/dL Creatinine (0.6-1.3) mg/dL Est Cr Clr Drug Dosing mL/min Estimated GFR (MDRD) BUN/Creatinine Ratio Glucose (74-105) mg/dL POC Glucose 72 62 L (70-105) mg/dl Lactic Acid 2.1 (0.5-2.2) mmol/L Calcium (8.4-10.2) mg/dl Total Bilirubin (0.2-1.0) mg/dL AST (10-42) IU/L ALT (10-60) IU/L Alkaline Phosphatase (42-121) IU/L Total Protein (6.7-8.2) g/dl Albumin (3.2-5.5) g/dl Globulin Albumin/Globulin Ratio Amylase (28-100) U/L Lipase (22-51) U/L Urine Color (YELLOW) Urine Appearance (CLEAR) Urine pH (5.0-9.0) Ur Specific [place] (1.005-1.030) Urine Protein (NEGATIVE) Urine Glucose (UA) (NEGATIVE) Urine Ketones (NEGATIVE) Urine Occult Blood (NEGATIVE) Urine Nitrite (NEGATIVE) Urine Bilirubin (NEGATIVE) Urine Urobilinogen (0.2-1.0) mg/dL Ur Leukocyte Esterase (NEGATIVE) Urine RBC /HPF Urine WBC (0-5/HPF) /HPF Ur Epithelial Cells (NOT SEEN) /HPF Amorphous Sediment (NOT SEEN) /HPF Urine Bacteria (0-FEW/HPF) /HPF Urine Mucus (NOT SEEN) /LPF Urine HCG, Qual Urine Opiates Screen (NEGATIVE) Ur Oxycodone Screen (NEGATIVE) Urine Methadone Screen (NEGATIVE) Ur Barbiturates Screen (NEGATIVE) U Tricyclic Antidepress (NEGATIVE) Ur Phencyclidine Scrn (NEGATIVE) Ur Amphetamine Screen (NEGATIVE) U Methamphetamines Scrn (NEGATIVE) Urine MDMA Screen (NEGATIVE) U Benzodiazepines Scrn (NEGATIVE) Urine Cocaine Screen (NEGATIVE) U Marijuana (THC) Screen (NEGATIVE) Ethyl Alcohol mg/dL Meds: Medications Discontinued Medications Generic Name Dose Route Start Last Admin Trade Name Frelópez PRN Reason Stop Dose Admin Dextrose/Water 25 ml 06/15/19 22:49 06/15/19 22:56 Dextrose 50% In Water IVPUSH 06/15/19 22:50 25 ml ONETIME ONE Administration Famotidine 20 mg 06/15/19 20:49 06/15/19 20:56 Pepcid IVPUSH 06/15/19 20:50 20 mg ONETIME ONE Administration Sodium Chloride 1,000 mls @ 999 mls/hr 06/15/19 20:18 06/15/19 20:31 Normal Saline IV 06/15/19 21:18 999 mls/hr .BOLUS ONE Administration Insulin Human Regular 4 unit 06/15/19 20:53 06/15/19 21:04 Humulin R IV 06/15/19 20:54 4 unit ONETIME ONE Administration Protocol Iopamidol 75 ml 06/15/19 20:50 06/15/19 21:44 Isovue-300 (61%) IVPUSH 06/15/19 20:51 75 ml ONETIME ONE Administration Ondansetron HCl 4 mg 06/15/19 20:18 06/15/19 20:31 Zofran IV 06/15/19 20:19 4 mg ONETIME ONE Administration - Radiology Interpretation Free Text/Narrative:: [facility] - [facility] Final Radiology Report Call: [phone] assistance Online chat: [email or web address] Name: PARAMJIT ROSS Age: 29Years F Date: 06/15/2019 SSN: -- : [id number] Study: CT ABDOMEN/PELVIS W Requesting Physician: VENITA LINO Images: [id number] Addl Studies: Provided Clinical History: Contrast: With Contrast Medium: Iso 300 Contrast Amount: 75 mL Contrast Method: RAC 18g Page 1 of 2 PROCEDURE INFORMATION: Exam: CT Abdomen and Pelvis With Contrast Exam date and time: 06/15/2019 9:31 PM Clinical history: 29 years old, female; Other: Left upper and mid abdomen pain, wbc 13,000; Patient HX: HX of kidney infections TECHNIQUE: Imaging protocol: Computed tomography of the abdomen and pelvis with intravenous contrast. Radiation optimization: All CT scans at this facility use at least one of these dose optimization techniques: automated exposure control; mA and/or kV adjustment per patient size (includes targeted exams where dose is matched to clinical indication); or iterative reconstruction. Contrast material: ISO 300; Contrast volume: 75 ml; Contrast route: RAC 18G; COMPARISON: No relevant prior studies available. FINDINGS: Liver: No suspicious lesions. Gallbladder and bile ducts: No acute or concerning findings. Pancreas: Unremarkable. No ductal dilation. Spleen: No suspicious lesions. Adrenals: No suspicious nodule. Kidneys and ureters: Right kidney has a heterogeneous enhancement pattern. Left kidney is within limits of normal the appearance and there is no evidence of hydronephrosis on either side. Stomach and bowel: No inflammed or dilated loops. Appendix: No evidence of appendicitis. Intraperitoneal space: No free air. No significant fluid collection. Vasculature: Unremarkable. No acute findings Lymph nodes: Unremarkable. PARAMJIT ROSS | Final Radiology Report CONFIDENTIALITY STATEMENT This report is intended only for use by the referring physician, and only in accordance with law. If you received this in error, call [phone]. Page 2 of 2 Bladder: Unremarkable as visualized. Reproductive: Unremarkable as visualized. Bones/joints: Unremarkable. No acute fracture. Soft tissues: Unremarkable. IMPRESSION: Heterogeneous enhancement pattern of the right kidney suggesting pyelonephritis. Correlate with urinalysis results. Thank you for allowing us to participate in the care of your patient. Dictated and Authenticated by: Earnest Choudhury MD 06/15/2019 10:42 PM Central Time ([place] & [place] Departure - Departure Time of Disposition: 23:11 Disposition: Home, Self-Care 01 Condition: Good Clinical Impression: IDDM (insulin dependent diabetes mellitus) Abdominal pain Qualifiers: Abdominal location: left lower quadrant Qualified Code(s): R10.32 - Left lower quadrant pain Constipation Qualifiers: Constipation type: slow transit constipation Qualified Code(s): K59.01 - Slow transit constipation - Discharge Information *PRESCRIPTION DRUG MONITORING PROGRAM REVIEWED*: No *COPY OF PRESCRIPTION DRUG MONITORING REPORT IN PATIENT LEOLA: No Forms: ED Department Discharge Additional Instructions: monitora blood sugars closely tonight , light snack before bed miralax one capful daily with at least 8 ounces liquid increase liquids and fiber in diet bland diet follow up as needed - My Orders Last 24 Hours: My Active Orders 06/15/19 20:05 Blood Glucose Check, Bedside [RC] ONETIME 06/15/19 20:51 Abdomen Pelvis w Cont [CT] Urgent - Assessment/Plan Last 24 Hours: My Active Orders 06/15/19 20:05 Blood Glucose Check, Bedside [RC] ONETIME 06/15/19 20:51 Abdomen Pelvis w Cont [CT] Urgent"
[2019-06-15 21:55] VITALS: BP 117/70; PULSE 117
[2019-06-15] MEDS ORDERED: 50% Dextrose in Water 50 ML Syringe IVPUSH ONE (22:49)
== END 2019-06-15 23:22 | disposition home or self-care (01) ==
LOC: DL.ED 19:55
DX: K59.01 Slow transit constipation (principal); E10.9 Type 1 diabetes mellitus without complications
CPT/HCPCS: 36415; 74177; 80053; 80305; 80320; 81001; 81025; 82150; 82962; 83605; 83690; 85025; 96361; 96374; 96375; 99284; J1815; J2405; J3490; J7030; Q9967; G0480; J7060

== ENCOUNTER 2020-03-27 01:03 | Inpatient (IN) | payer MEDICAID, OTHER, SELFPAY ==
[2020-03-27] MEDS ORDERED: Ondansetron 4 MG/2 ML SDV IV ONE (01:06)
[2020-03-27] MEDS ORDERED: Sodium Chloride 0.9% 1,000 ML IV ONE ×2 (01:06→01:54)
[2020-03-27] MEDS ORDERED: diphenhydrAMINE 50 MG/ML SDV IVPUSH ONE (01:11)
[2020-03-27] MEDS: Sodium Chloride 0.9% 10 ML Syringe FLUSH PRN ×2 (01:17→10:52)
[2020-03-27 01:20] LABS: BASE EXCESS VENOUS -20.5 mmol/l ((-2)-(+3)); BICARBONATE,VENOUS 7 mmol/l (19-25); O2 DELIVERY DEVICE ROOM AIR; PO2 VENOUS 50 mmHg (35-42)
[2020-03-27 01:22] LABS: PCO2 VENOUS 18 mmHg (41-51); PH,VENOUS 7.19 (7.31-7.41)
--- NOTE | 2020-03-27 01:49 | EDM.PDOC ---
ED HPI GENERAL MEDICAL PROBLEM - General Chief Complaint: Diabetic Complaint Stated Complaint: AMBULANCE Time Seen by Provider: 03/27/20 01:06 Source of Information: Reports: Patient, EMS History Limitations: Reports: No Limitations - History of Present Illness INITIAL COMMENTS - FREE TEXT/NARRATIVE: Patient comes emergency department today from home by ambulance with concerns of hyperglycemia nausea and vomiting. This patient is a type I diabetic who has not had her short acting insulin since Thursday. She has been taking her long- acting insulin. She was kicked out of her sister's house and she was unable to get her insulin. Over the past couple of days she has noticed generalized body aches nausea vomiting. She has tried to eat but she is unable to keep anything down. She is very thirsty. She has increased urination. She denies any chest pain shortness of breath or difficulty breathing. No fever no chills. No abdominal pain. Just nausea or vomiting. No hematuria dysuria or urinary frequency. She denies any recreational drug use or alcohol usage. She denies any diarrhea. She denies any fever chills COVID exposure COVID symptoms. - Related Data Allergies Allergy/AdvReac Type Severity Reaction Status Date / Time No Known Allergies Allergy Verified 03/27/20 01:04 Home Meds: Home Meds Escitalopram [Lexapro] 20 mg PO DAILY 03/27/20 [History] Insulin Glarg,Human.Rec.Analog [Lantus] 20 unit SUBCUT BID 03/27/20 [History] Insulin Lispro [HumaLOG] 20 unit SUBCUT QIDACANDBED 03/27/20 [History] Past Medical History - Past Health History Medical/Surgical History: Denies Medical/Surgical History HEENT History: Reports: Impaired Vision Other HEENT History: states has a cloud to the right side. States she is near sighted. 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, Recurrent DISH CARRIER History: Reports: Other Musculoskeletal History: fracture left foot one month ago, no surgery. 12/04/16 Bilateral ingrown toe nails leading to sepsis, IV vanco BID for 10 days Neurological History: Reports: Concussion, Seizure Psychiatric History: Reports: Addiction, Anxiety, Depression, Other (See Below) Other Psychiatric History: Medical non-complience Endocrine/Metabolic History: Reports: Diabetes, Type I Hematologic History: Reports: None Immunologic History: Reports: None Oncologic (Cancer) History: Reports: None Dermatologic History: Reports: None - Infectious Disease History Infectious Disease History: Reports: None - Past Surgical History Head Surgeries/Procedures: Reports: None Social & Family History - Family History Family Medical History: Noncontributory HEENT: Reports: None Oncologic: Reports: Breast, Other (See Below) Other Oncologic Family History: Stomach CA - Tobacco Use Smoking Status *Q: Never Smoker - Caffeine Use Caffeine Use: Reports: None Other Caffeine Use: pt. unable to answer - Recreational Drug Use Recreational Drug Use: Yes - Living Situation & Occupation Living situation: Reports: with Family ED ROS GENERAL - Review of Systems Review Of Systems: Comprehensive ROS is negative, except as noted in HPI. ED EXAM GENERAL NO PERIP PULSE - Physical Exam Exam: See Below Text/Narrative:: When I enter the room it is very obvious that I can smell ketones on the patient's breath. She is anxious with [place] respirations. Exam Limited By: No Limitations General Appearance: Alert, WD/WN, Anxious Eye Exam: Bilateral Eye: EOMI, PERRL Ears: Normal External Exam Nose: Normal Inspection Throat/Mouth: No: Normal Inspection (Oral mucosa is very dry) Head: Atraumatic, Normocephalic Neck: Normal Inspection, Supple Respiratory/Chest: No Respiratory Distress, Lungs Clear, Normal Breath Sounds, No Accessory Muscle Use, Chest Non-Tender, Other ([place] respirations) Cardiovascular: Normal Peripheral Pulses, Regular Rate, Rhythm, Tachycardia GI/Abdominal: Normal Bowel Sounds, Soft, Non-Tender, No Organomegaly (Female) Exam: Deferred Rectal (Female) Exam: Deferred Back Exam: Normal Inspection, Full Range of Motion Extremities: Normal Inspection, Normal Range of Motion Neurological: Alert, Oriented, Normal Cognition, No Motor/Sensory Deficits Psychiatric: Normal Affect, Normal Mood Skin Exam: Dry, Intact, Normal Color, Cool Lymphatic: No Adenopathy Course - Vital Signs Last Recorded V/S: Last Vital Signs Temp 97.7 F 03/27/20 01:06 Pulse 125 H 03/27/20 01:06 Resp 24 H 03/27/20 01:06 BP 119/94 H 03/27/20 01:06 Pulse Ox 100 03/27/20 01:06 - Orders/Labs/Meds Orders: Active Orders 24 hr Category Date Time Status Accu Check [Blood Glucose Check, Bedside] [] ONETIME Care 03/27/20 01:58 Active Peripheral IV Care [] . DIRECTED Care 03/27/20 01:06 Active DRUG SCREEN URINE BIORAD [URCHEM] Stat Lab 03/27/20 01:05 Ordered HCG QUALITATIVE,URINE [URCHEM] Stat Lab 03/27/20 01:05 Ordered UA RFX ULI AND CULT IF INDIC [URIN] Stat Lab 03/27/20 01:05 Ordered Insulin Regular, Human [HumuLIN R] 100 unit Med 03/27/20 02:00 Active Sodium Chloride 0.9% [Normal Saline] 99 ml IV TITRATE Sodium Chloride 0.9% [Normal Saline] 1,000 ml Med 03/27/20 01:54 Active IV .BOLUS Sodium Chloride 0.9% [Saline Flush] Med 03/27/20 01:06 Active 10 ml FLUSH ASDIRECTED PRN Sodium Chloride 0.9% with KCl [Normal Saline with 40 Med 03/27/20 02:00 Active mEq KCl] 1,000 ml IV ASDIRECTED Peripheral IV Insertion Adult [OM.PC] Stat Oth 03/27/20 01:05 Ordered Medication Orders Sodium Chloride (Normal Saline) 1,000 mls @ 999 mls/hr IV .BOLUS ONE Stop: 03/27/20 02:54 Last Admin: 03/27/20 01:56 Dose: 999 mls/hr Documented by: CHRISTINE Potassium Chloride/Sodium Chloride (Normal Saline With 40 Meq Kcl) 1,000 mls @ 250 mls/hr IV ASDIRECTED DONNIE Last Admin: 03/27/20 02:08 Dose: 250 mls/hr Documented by: MEGHAN Insulin Human Regular 100 unit (/ Sodium Chloride) 100 mls @ 5.398 mls/hr IV TITRATE DONNIE; Protocol Last Admin: 03/27/20 02:03 Dose: 0.1 units/kg/hr, 5.398 mls/hr Documented by: [email or web address] Cosigned by: CHRISTINE Sodium Chloride (Saline Flush) 10 ml FLUSH ASDIRECTED PRN PRN Reason: Keep Vein Open Last Admin: 03/27/20 01:17 Dose: 10 ml Documented by: [email or web address] Labs: Laboratory Tests 03/27/20 03/27/20 03/27/20 Range/Units 01:12 01:13 01:13 WBC 9.6 (5.0-10.0) 10^3/uL RBC 4.57 (4.2-5.4) 10^6/uL Hgb 13.8 D (12.0-16.0) g/dL Hct 42.9 (37.0-47.0) % MCV 93.9 (80-100) fL MCH 30.2 (27.0-34.0) pg MCHC 32.2 L (33.0-35.0) g/dL Plt Count 452 H D (150-450) 10^3/uL Neut % (Auto) 87.8 H (42.2-75.2) % Lymph % (Auto) 9.6 L (20.5-50.1) % [place] % (Auto) 2.1 (2-8) % Eos % (Auto) 0.2 L (1.0-3.0) % Baso % (Auto) 0.3 (0.0-1.0) % VBG pH (7.31-7.41) VBG pCO2 (41-51) mmHg VBG pO2 (35-42) mmHg VBG HCO3 (19-25) mmol/l VBG O2 Saturation (60-80) % VBG Base Excess ((-2)-(+3)) mmol/l O2 Delivery Device Sodium 132 L (136-145) mmol/L Potassium 5.1 (3.5-5.1) mmol/L Chloride 92 L (98-107) mmol/L Carbon Dioxide 9 L (21-32) mmol/L Anion Gap 36.1 H (7-13) mEq/L BUN 25 H (7-18) mg/dL Creatinine 1.62 H (0.55-1.02) mg/dL Est Cr Clr Drug Dosing 44.06 mL/min Estimated GFR (MDRD) 38 BUN/Creatinine Ratio 15.4 (No establ ref range) Glucose 623 H* (74-99) mg/dL POC Glucose > 500 H* (70-105) mg/dl Lactic Acid (0.4-2.0) mmol/L Calcium 9.6 (8.5-10.1) mg/dL Magnesium (1.8-2.4) mg/dL Total Bilirubin 0.7 (0.2-1.0) mg/dL AST 15 (15-37) U/L ALT 28 (14-59) U/L Alkaline Phosphatase 178 H (46-116) U/L C-Reactive Protein 1.4 H (0.0-0.9) mg/dL Total Protein 8.9 H (6.4-8.2) g/dL Albumin 4.3 (3.4-5.0) g/dL Globulin 4.6 Albumin/Globulin Ratio 0.9 Ketones Positive 03/27/20 03/27/20 03/27/20 Range/Units 01:13 01:13 01:13 WBC (5.0-10.0) 10^3/uL RBC (4.2-5.4) 10^6/uL Hgb (12.0-16.0) g/dL Hct (37.0-47.0) % MCV (80-100) fL MCH (27.0-34.0) pg MCHC (33.0-35.0) g/dL Plt Count (150-450) 10^3/uL Neut % (Auto) (42.2-75.2) % Lymph % (Auto) (20.5-50.1) % [place] % (Auto) (2-8) % Eos % (Auto) (1.0-3.0) % Baso % (Auto) (0.0-1.0) % VBG pH 7.19 L* (7.31-7.41) VBG pCO2 18 L* (41-51) mmHg VBG pO2 50 H (35-42) mmHg VBG HCO3 7 L (19-25) mmol/l VBG O2 Saturation 70.0 (60-80) % VBG Base Excess -20.5 L ((-2)-(+3)) mmol/l O2 Delivery Device Room air Sodium (136-145) mmol/L Potassium (3.5-5.1) mmol/L Chloride (98-107) mmol/L Carbon Dioxide (21-32) mmol/L Anion Gap (7-13) mEq/L BUN (7-18) mg/dL Creatinine (0.55-1.02) mg/dL Est Cr Clr Drug Dosing mL/min Estimated GFR (MDRD) BUN/Creatinine Ratio (No establ ref range) Glucose (74-99) mg/dL POC Glucose (70-105) mg/dl Lactic Acid 1.4 (0.4-2.0) mmol/L Calcium (8.5-10.1) mg/dL Magnesium 1.9 (1.8-2.4) mg/dL Total Bilirubin (0.2-1.0) mg/dL AST (15-37) U/L ALT (14-59) U/L Alkaline Phosphatase (46-116) U/L C-Reactive Protein (0.0-0.9) mg/dL Total Protein (6.4-8.2) g/dL Albumin (3.4-5.0) g/dL Globulin Albumin/Globulin Ratio Ketones Meds: Medications Generic Name Dose Route Start Last Admin Trade Name Freq PRN Reason Stop Dose Admin Sodium Chloride 1,000 mls @ 999 mls/hr 03/27/20 01:54 03/27/20 01:56 Normal Saline IV 03/27/20 02:54 999 mls/hr .BOLUS ONE Administration Potassium Chloride/Sodium Chloride 1,000 mls @ 250 mls/hr 03/27/20 02:00 03/27/20 02:08 Normal Saline With 40 Meq Kcl IV 250 mls/hr ASDIRECTED DONNIE Administration Insulin Human Regular 100 unit 100 mls @ 5.398 mls/hr 03/27/20 02:00 03/27/20 02:03 / Sodium Chloride IV 0.1 units/kg/hr TITRATE DONNIE 5.398 mls/hr Administration Protocol 0.1 UNITS/KG/HR Sodium Chloride 10 ml 03/27/20 01:06 03/27/20 01:17 Saline Flush FLUSH 10 ml ASDIRECTED PRN Administration Keep Vein Open Discontinued Medications Generic Name Dose Route Start Last Admin Trade Name Freq PRN Reason Stop Dose Admin Diphenhydramine HCl 25 mg 03/27/20 01:11 03/27/20 01:16 Benadryl IVPUSH 03/27/20 01:12 25 mg ONETIME ONE Administration Sodium Chloride 1,000 mls @ 999 mls/hr 03/27/20 01:06 03/27/20 01:16 Normal Saline IV 03/27/20 02:06 999 mls/hr .BOLUS ONE Administration Insulin Human Regular 10 unit 03/27/20 01:56 03/27/20 02:02 Humulin R IV 03/27/20 01:57 10 units ONETIME ONE Administration Ondansetron HCl 4 mg 03/27/20 01:06 03/27/20 01:16 Zofran IV 03/27/20 01:07 4 mg ONETIME ONE Administration - Re-Assessments/Exams Free Text/Narrative Re-Assessment/Exam: 03/27/20 02:34 Patient's pH is 7.19. Bicarb is 7 2 L normal saline bolus. Potassium is 5.1 with a blood sugar of just a little bit over 600. She was given Zofran and Benadryl for nausea with resolution 10 units of regular insulin bolus and then 0.1 units/kg/h initiated. After the second liter normal saline we will start normal saline with 40 of KCl at 250 mils an hour Spoke with Dr. Bradley, [facility] ER COURSE findings and concerns were relayed to him over the phone. He accepted the patient for inpatient here at [facility]. I discussed the plan of care with the patient. She is comfortable with this plan and her questions answered. Departure - Departure Time of Disposition: 02:10 Disposition: Admitted As Inpatient 67 Clinical Impression: CHANDLER (acute kidney injury) Diabetic ketoacidosis associated with type 1 diabetes mellitus Qualifiers: Diabetes mellitus complication detail: without coma Qualified Code(s): E10.10 - Type 1 diabetes mellitus with ketoacidosis without coma - Discharge Information Sepsis Event Note (ED) - Evaluation Sepsis Screening Result: No Definite Risk - Focused Exam Vital Signs: Vital Signs Temp Pulse Resp BP Pulse Ox 03/27/20 01:06 97.7 F 125 H 24 H 119/94 H 100 - My Orders Last 24 Hours: My Active Orders 03/27/20 01:05 DRUG SCREEN URINE BIORAD [URCHEM] Stat HCG QUALITATIVE,URINE [URCHEM] Stat UA RFX ULI AND CULT IF INDIC [URIN] Stat Peripheral IV Insertion Adult [OM.PC] Stat 03/27/20 01:06 Peripheral IV Care [RC] . DIRECTED Sodium Chloride 0.9% [Saline Flush] 10 ml FLUSH ASDIRECTED PRN 03/27/20 01:54 Sodium Chloride 0.9% [Normal Saline] 1,000 ml IV .BOLUS 03/27/20 01:58 Accu Check [Blood Glucose Check, Bedside] [RC] ONETIME 03/27/20 02:00 Insulin Regular, Human [HumuLIN R] 100 unit Sodium Chloride 0.9% [Normal Saline] 99 ml IV TITRATE Sodium Chloride 0.9% with KCl [Normal Saline with 40 mEq KCl] 1,000 ml IV ASDIRECTED - Assessment/Plan Last 24 Hours: My Active Orders 03/27/20 01:05 DRUG SCREEN URINE BIORAD [URCHEM] Stat HCG QUALITATIVE,URINE [URCHEM] Stat UA RFX ULI AND CULT IF INDIC [URIN] Stat Peripheral IV Insertion Adult [OM.PC] Stat 03/27/20 01:06 Peripheral IV Care [RC] . DIRECTED Sodium Chloride 0.9% [Saline Flush] 10 ml FLUSH ASDIRECTED PRN 03/27/20 01:54 Sodium Chloride 0.9% [Normal Saline] 1,000 ml IV .BOLUS 03/27/20 01:58 Accu Check [Blood Glucose Check, Bedside] [RC] ONETIME 03/27/20 02:00 Insulin Regular, Human [HumuLIN R] 100 unit Sodium Chloride 0.9% [Normal Saline] 99 ml IV TITRATE Sodium Chloride 0.9% with KCl [Normal Saline with 40 mEq KCl] 1,000 ml IV ASDIRECTED Assessment:: DKA with a Type 1 DM CHANDLER from DKA most likely. Plan: Admit inpatient here for further care and management.
[2020-03-27 01:53] LABS: ANION GAP 36.1 mEq/L (7-13); CHLORIDE,CL 92 mmol/L (98-107); SODIUM,NA 132 mmol/L (136-145)
[2020-03-27] MEDS ORDERED: Insulin Regular, Human 100 Units/ML 3 ML Vial IV ONE (01:56)
[2020-03-27] MEDS ORDERED: Sodium Chloride 0.9% with KCl 1,000 ML IV SCH (02:00)
[2020-03-27] MEDS ORDERED: Docusate Sodium 100 MG Cap PO PRN (03:11)
[2020-03-27] MEDS ORDERED: Acetaminophen/HYDROcodone 325-10 MG Tab PO PRN (03:11)
[2020-03-27] MEDS ORDERED: Zolpidem 5 MG Tab PO PRN (03:11)
[2020-03-27] MEDS ORDERED: Acetaminophen 325 MG Tab PO PRN (03:11)
[2020-03-27] MEDS ORDERED: Ondansetron 4 MG Tab.DIS PO PRN (03:11)
[2020-03-27] MEDS: Heparin Sodium 5,000 Units/ML Vial SUBCUT SCH ×3 (05:50→22:11)
[2020-03-27] MEDS ORDERED: Dextrose 5%-0.9% NaCl with KCl 1,000 ML IV SCH (06:00)
[2020-03-27 06:58] LABS: ANION GAP 20.1 mEq/L (7-13)
[2020-03-27] MEDS: Escitalopram 10 MG Tab PO SCH (09:54)
--- NOTE | 2020-03-27 10:42 | PCM.HP ---
H&P History of Present Illness - General Date of Service: 03/27/20 Admit Problem/Dx: Admission Diagnosis/Problem Admission Diagnosis/Problem Diabetic ketoacidosis Source of Information: Patient, Provider (ER) History Limitations: Reports: Uncooperative - History of Present Illness Initial Comments - Free Text/Narative: 29-year-old with a history of type 1 diabetes. The patient had difficulty access to insulin. She was using on a long acting insulin. She presented with a few days history of nausea, generalized muscle ache, polyuria, moderate to severe thirstiness. He was noted to have blood sugar above 600 with diabetic ketoacidosis and acute renal failure. She was given IV fluid bolus in the emergency room along with the IV insulin. - Related Data Allergies/Adverse Reactions: Allergies Allergy/AdvReac Type Severity Reaction Status Date / Time No Known Allergies Allergy Verified 03/27/20 01:04 Home Medications: Home Meds Escitalopram Oxalate 10 mg PO DAILY 03/27/20 [History] Insulin Aspart [Insulin Aspart Flexpen] 20 units SUBCUT TIDMEALS 03/27/20 [History] Insulin Detemir [Levemir Flextouch] 20 unit SQ BID 03/27/20 [History] Pnv No.95/Ferrous Fum/Folic AC [ Multivitamin Tablet] 1 each PO DAILY 03/27/20 [History] Past Medical History - Past Health History Medical/Surgical History: Denies Medical/Surgical History HEENT History: Reports: Impaired Vision Other HEENT History: states has a cloud to the right side. States she is near sighted. 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, Recurrent VISION REHABILITATION THERAPIST History: Reports: Other Musculoskeletal History: fracture left foot one month ago, no surgery. 12/04/16 Bilateral ingrown toe nails leading to sepsis, IV vanco BID for 10 days Neurological History: Reports: Concussion, Seizure Psychiatric History: Reports: Addiction, Anxiety, Depression, Other (See Below) Other Psychiatric History: Medical non-complience Endocrine/Metabolic History: Reports: Diabetes, Type I Hematologic History: Reports: None Immunologic History: Reports: None Oncologic (Cancer) History: Reports: None Dermatologic History: Reports: None - Infectious Disease History Infectious Disease History: Reports: None - Past Surgical History Head Surgeries/Procedures: Reports: None Social & Family History - Family History Family Medical History: Noncontributory HEENT: Reports: None Oncologic: Reports: Breast, Other (See Below) Other Oncologic Family History: Stomach CA - Tobacco Use Smoking Status *Q: Unknown Ever Smoked - Caffeine Use Caffeine Use: Reports: None Other Caffeine Use: pt. unable to answer - Recreational Drug Use Recreational Drug Use: Yes - Living Situation & Occupation Living situation: Reports: with Family H&P Review of Systems - Review of Systems: Review Of Systems: See Below General: Denies: Fever Pulmonary: Denies: Shortness of Breath Cardiovascular: Denies: Chest Pain, Edema Gastrointestinal: Reports: Decreased Appetite Neurological: Denies: Confusion Exam - Exam Exam: See Below - Vital Signs Vital Signs: Last Vital Signs Temp 99.1 F 03/27/20 08:00 Pulse 110 H 03/27/20 08:00 Resp 16 03/27/20 08:00 BP 109/68 03/27/20 08:00 Pulse Ox 98 03/27/20 08:00 Weight: 122 lb 12.8 oz - Exam General: Alert, Oriented, Other (Minimally cooperative) Neck: Supple Lungs: Clear to Auscultation, Normal Respiratory Effort Cardiovascular: Regular Rate, Regular Rhythm GI/Abdominal Exam: Normal Bowel Sounds, Soft, Non-Tender Extremities: No Pedal Edema - Patient Data Lab Results Last 24 hrs: Laboratory Results - last 24 hr 03/27/20 03/27/20 03/27/20 Range/Units 01:12 01:13 01:13 WBC 9.6 (5.0-10.0) 10^3/uL RBC 4.57 (4.2-5.4) 10^6/uL Hgb 13.8 D (12.0-16.0) g/dL Hct 42.9 (37.0-47.0) % MCV 93.9 (80-100) fL MCH 30.2 (27.0-34.0) pg MCHC 32.2 L (33.0-35.0) g/dL Plt Count 452 H D (150-450) 10^3/uL Neut % (Auto) 87.8 H (42.2-75.2) % Lymph % (Auto) 9.6 L (20.5-50.1) % [place] % (Auto) 2.1 (2-8) % Eos % (Auto) 0.2 L (1.0-3.0) % Baso % (Auto) 0.3 (0.0-1.0) % VBG pH (7.31-7.41) VBG pCO2 (41-51) mmHg VBG pO2 (35-42) mmHg VBG HCO3 (19-25) mmol/l VBG O2 Saturation (60-80) % VBG Base Excess ((-2)-(+3)) mmol/l O2 Delivery Device Sodium 132 L (136-145) mmol/L Potassium 5.1 (3.5-5.1) mmol/L Chloride 92 L (98-107) mmol/L Carbon Dioxide 9 L (21-32) mmol/L Anion Gap 36.1 H (7-13) mEq/L BUN 25 H (7-18) mg/dL Creatinine 1.62 H (0.55-1.02) mg/dL Est Cr Clr Drug Dosing 44.06 mL/min Estimated GFR (MDRD) 38 BUN/Creatinine Ratio 15.4 (No establ ref range) Glucose 623 H* (74-99) mg/dL POC Glucose > 500 H* (70-105) mg/dl Lactic Acid (0.4-2.0) mmol/L Calcium 9.6 (8.5-10.1) mg/dL Phosphorus (2.6-4.7) mg/dL Magnesium (1.8-2.4) mg/dL Total Bilirubin 0.7 (0.2-1.0) mg/dL AST 15 (15-37) U/L ALT 28 (14-59) U/L Alkaline Phosphatase 178 H (46-116) U/L C-Reactive Protein 1.4 H (0.0-0.9) mg/dL Total Protein 8.9 H (6.4-8.2) g/dL Albumin 4.3 (3.4-5.0) g/dL Globulin 4.6 Albumin/Globulin Ratio 0.9 Ketones Positive 03/27/20 03/27/20 03/27/20 Range/Units 01:13 01:13 01:13 WBC (5.0-10.0) 10^3/uL RBC (4.2-5.4) 10^6/uL Hgb (12.0-16.0) g/dL Hct (37.0-47.0) % MCV (80-100) fL MCH (27.0-34.0) pg MCHC (33.0-35.0) g/dL Plt Count (150-450) 10^3/uL Neut % (Auto) (42.2-75.2) % Lymph % (Auto) (20.5-50.1) % [place] % (Auto) (2-8) % Eos % (Auto) (1.0-3.0) % Baso % (Auto) (0.0-1.0) % VBG pH 7.19 L* (7.31-7.41) VBG pCO2 18 L* (41-51) mmHg VBG pO2 50 H (35-42) mmHg VBG HCO3 7 L (19-25) mmol/l VBG O2 Saturation 70.0 (60-80) % VBG Base Excess -20.5 L ((-2)-(+3)) mmol/l O2 Delivery Device Room air Sodium (136-145) mmol/L Potassium (3.5-5.1) mmol/L Chloride (98-107) mmol/L Carbon Dioxide (21-32) mmol/L Anion Gap (7-13) mEq/L BUN (7-18) mg/dL Creatinine (0.55-1.02) mg/dL Est Cr Clr Drug Dosing mL/min Estimated GFR (MDRD) BUN/Creatinine Ratio (No establ ref range) Glucose (74-99) mg/dL POC Glucose (70-105) mg/dl Lactic Acid 1.4 (0.4-2.0) mmol/L Calcium (8.5-10.1) mg/dL Phosphorus (2.6-4.7) mg/dL Magnesium 1.9 (1.8-2.4) mg/dL Total Bilirubin (0.2-1.0) mg/dL AST (15-37) U/L ALT (14-59) U/L Alkaline Phosphatase (46-116) U/L C-Reactive Protein (0.0-0.9) mg/dL Total Protein (6.4-8.2) g/dL Albumin (3.4-5.0) g/dL Globulin Albumin/Globulin Ratio Ketones 03/27/20 03/27/20 03/27/20 Range/Units 03:06 04:38 05:40 WBC (5.0-10.0) 10^3/uL RBC (4.2-5.4) 10^6/uL Hgb (12.0-16.0) g/dL Hct (37.0-47.0) % MCV (80-100) fL MCH (27.0-34.0) pg MCHC (33.0-35.0) g/dL Plt Count (150-450) 10^3/uL Neut % (Auto) (42.2-75.2) % Lymph % (Auto) (20.5-50.1) % [place] % (Auto) (2-8) % Eos % (Auto) (1.0-3.0) % Baso % (Auto) (0.0-1.0) % VBG pH (7.31-7.41) VBG pCO2 (41-51) mmHg VBG pO2 (35-42) mmHg VBG HCO3 (19-25) mmol/l VBG O2 Saturation (60-80) % VBG Base Excess ((-2)-(+3)) mmol/l O2 Delivery Device Sodium (136-145) mmol/L Potassium (3.5-5.1) mmol/L Chloride (98-107) mmol/L Carbon Dioxide (21-32) mmol/L Anion Gap (7-13) mEq/L BUN (7-18) mg/dL Creatinine (0.55-1.02) mg/dL Est Cr Clr Drug Dosing mL/min Estimated GFR (MDRD) BUN/Creatinine Ratio (No establ ref range) Glucose (74-99) mg/dL POC Glucose 384 H 251 H 152 H (70-105) mg/dl Lactic Acid (0.4-2.0) mmol/L Calcium (8.5-10.1) mg/dL Phosphorus (2.6-4.7) mg/dL Magnesium (1.8-2.4) mg/dL Total Bilirubin (0.2-1.0) mg/dL AST (15-37) U/L ALT (14-59) U/L Alkaline Phosphatase (46-116) U/L C-Reactive Protein (0.0-0.9) mg/dL Total Protein (6.4-8.2) g/dL Albumin (3.4-5.0) g/dL Globulin Albumin/Globulin Ratio Ketones 03/27/20 03/27/20 03/27/20 Range/Units 06:15 06:15 06:28 WBC 11.1 H (5.0-10.0) 10^3/uL RBC 3.81 L (4.2-5.4) 10^6/uL Hgb 11.4 L D (12.0-16.0) g/dL Hct 34.9 L (37.0-47.0) % MCV 91.6 (80-100) fL MCH 29.9 (27.0-34.0) pg MCHC 32.7 L (33.0-35.0) g/dL Plt Count 396 (150-450) 10^3/uL Neut % (Auto) 72.2 (42.2-75.2) % Lymph % (Auto) 22.3 (20.5-50.1) % [place] % (Auto) 5.2 (2-8) % Eos % (Auto) 0.1 L (1.0-3.0) % Baso % (Auto) 0.2 (0.0-1.0) % VBG pH (7.31-7.41) VBG pCO2 (41-51) mmHg VBG pO2 (35-42) mmHg VBG HCO3 (19-25) mmol/l VBG O2 Saturation (60-80) % VBG Base Excess ((-2)-(+3)) mmol/l O2 Delivery Device Sodium 141 (136-145) mmol/L Potassium 5.1 (3.5-5.1) mmol/L Chloride 111 H D (98-107) mmol/L Carbon Dioxide 15 L (21-32) mmol/L Anion Gap 20.1 H (7-13) mEq/L BUN 20 H (7-18) mg/dL Creatinine 1.27 H (0.55-1.02) mg/dL Est Cr Clr Drug Dosing 57.99 mL/min Estimated GFR (MDRD) 50 BUN/Creatinine Ratio (No establ ref range) Glucose 141 H (74-99) mg/dL POC Glucose 146 H (70-105) mg/dl Lactic Acid (0.4-2.0) mmol/L Calcium 7.7 L D (8.5-10.1) mg/dL Phosphorus 2.8 (2.6-4.7) mg/dL Magnesium 1.7 L (1.8-2.4) mg/dL Total Bilirubin (0.2-1.0) mg/dL AST (15-37) U/L ALT (14-59) U/L Alkaline Phosphatase (46-116) U/L C-Reactive Protein (0.0-0.9) mg/dL Total Protein (6.4-8.2) g/dL Albumin (3.4-5.0) g/dL Globulin Albumin/Globulin Ratio Ketones 03/27/20 03/27/20 Range/Units 07:37 08:36 WBC (5.0-10.0) 10^3/uL RBC (4.2-5.4) 10^6/uL Hgb (12.0-16.0) g/dL Hct (37.0-47.0) % MCV (80-100) fL MCH (27.0-34.0) pg MCHC (33.0-35.0) g/dL Plt Count (150-450) 10^3/uL Neut % (Auto) (42.2-75.2) % Lymph % (Auto) (20.5-50.1) % [place] % (Auto) (2-8) % Eos % (Auto) (1.0-3.0) % Baso % (Auto) (0.0-1.0) % VBG pH (7.31-7.41) VBG pCO2 (41-51) mmHg VBG pO2 (35-42) mmHg VBG HCO3 (19-25) mmol/l VBG O2 Saturation (60-80) % VBG Base Excess ((-2)-(+3)) mmol/l O2 Delivery Device Sodium (136-145) mmol/L Potassium (3.5-5.1) mmol/L Chloride (98-107) mmol/L Carbon Dioxide (21-32) mmol/L Anion Gap (7-13) mEq/L BUN (7-18) mg/dL Creatinine (0.55-1.02) mg/dL Est Cr Clr Drug Dosing mL/min Estimated GFR (MDRD) BUN/Creatinine Ratio (No establ ref range) Glucose (74-99) mg/dL POC Glucose 146 H 143 H (70-105) mg/dl Lactic Acid (0.4-2.0) mmol/L Calcium (8.5-10.1) mg/dL Phosphorus (2.6-4.7) mg/dL Magnesium (1.8-2.4) mg/dL Total Bilirubin (0.2-1.0) mg/dL AST (15-37) U/L ALT (14-59) U/L Alkaline Phosphatase (46-116) U/L C-Reactive Protein (0.0-0.9) mg/dL Total Protein (6.4-8.2) g/dL Albumin (3.4-5.0) g/dL Globulin Albumin/Globulin Ratio Ketones Result Diagrams: 03/27/20 06:15 03/27/20 06:15 - Problem List (1) CHANDLER (acute kidney injury) SNOMED Code(s): 52305390, 31652043 ICD Code: N17.9 - ACUTE KIDNEY FAILURE, UNSPECIFIED Status: Acute Current Visit: No (2) Diabetic ketoacidosis associated with type 1 diabetes mellitus SNOMED Code(s): 404344734, 845370923 ICD Code: E10.10 - TYPE 1 DIABETES MELLITUS WITH KETOACIDOSIS WITHOUT COMA Status: Acute Current Visit: No Qualifiers: Diabetes mellitus complication detail: without coma Qualified Code(s): E10.10 - Type 1 diabetes mellitus with ketoacidosis without coma (3) Hyponatremia SNOMED Code(s): 52920128 ICD Code: E87.1 - HYPO-OSMOLALITY AND HYPONATREMIA Status: Acute Current Visit: No Problem List Initiated/Reviewed/Updated: Yes Orders Last 24hrs: Active Orders 24 hr Category Date Time Status Admission Status [Patient Status] [ADT] Routine ADT 03/27/20 02:20 Active Accu Check [Blood Glucose Check, Bedside] [RC] 0430, Care 03/27/20 01:58 Active 0530,0630,0730,0830,0930,1030,1130,1230 Antiembolic Devices [RC] PER UNIT ROUTINE Care 03/27/20 03:13 Active Glucose [Blood Glucose Check, Bedside] [RC] QIDACANDBED Care 03/27/20 10:29 Ordered Oxygen Therapy [RC] PRN Care 03/27/20 03:11 Active Peripheral IV Care [RC] . DIRECTED Care 03/27/20 01:06 Active Up ad Jodee [RC] ASDIRECTED Care 03/27/20 03:11 Active VTE/DVT Education [RC] PER UNIT ROUTINE Care 03/27/20 03:11 Active Vital Signs [RC] 04,08,12,16,20,00 Care 03/27/20 03:11 Active Consistent Carbohydrate Diet [DIET] Diet 03/27/20 Breakfast Active BASIC METABOLIC PANEL,BMP [CHEM] AM Lab 03/28/20 05:11 Ordered CBC WITH AUTO DIFF [HEME] AM Lab 03/28/20 05:15 Ordered DRUG SCREEN URINE BIORAD [URCHEM] Stat Lab 03/27/20 01:05 Ordered HCG QUALITATIVE,URINE [URCHEM] Stat Lab 03/27/20 01:05 Ordered MAGNESIUM [CHEM] AM Lab 03/28/20 05:11 Ordered PHOSPHORUS [CHEM] AM Lab 03/28/20 05:11 Ordered UA RFX ULI AND CULT IF INDIC [URIN] Stat Lab 03/27/20 01:05 Ordered Acetaminophen [Tylenol] Med 03/27/20 03:11 Active 650 mg PO Q4H PRN Acetaminophen/HYDROcodone [[place] 325-10 MG] Med 03/27/20 03:11 Active 1 tab PO Q4H PRN Docusate Sodium [Colace] Med 03/27/20 03:11 Active 100 mg PO BID PRN Escitalopram [Lexapro] Med 03/27/20 09:00 Active 20 mg PO DAILY Heparin Sodium Med 03/27/20 06:00 Active 5,000 units SUBCUT Q8HR Insulin Glarg,Human.Rec.Analog [LantUS] Med 03/27/20 10:45 Ordered 20 unit SUBCUT BID Insulin Lispro [HumaLOG] Med 03/27/20 11:00 Ordered See Protocol SUBCUT ACBED Magnesium Oxide Med 03/27/20 18:00 Active 250 mg PO BIDMEALS Ondansetron [Zofran ODT] Med 03/27/20 03:11 Active 4 mg PO Q4H PRN Sodium Chloride 0.9% [Saline Flush] Med 03/27/20 01:06 Active 10 ml FLUSH ASDIRECTED PRN Zolpidem [Ambien] Med 03/27/20 03:11 Active 5 mg PO BEDTIME PRN Antiembolic Hose [OM.PC] Per Unit Routine Oth 03/27/20 03:12 Ordered Peripheral IV Insertion Adult [OM.PC] Stat Oth 03/27/20 01:05 Ordered Resuscitation Status Routine Resus Stat 03/27/20 03:11 Ordered Medication Orders Acetaminophen (Tylenol) 650 mg PO Q4H PRN PRN Reason: Pain (Mild 1-3)/fever Hydrocodone Bitart/Acetaminophen ([place] 325-10 Mg) 1 tab PO Q4H PRN PRN Reason: Pain (moderate 4-6) Docusate Sodium (Colace) 100 mg PO BID PRN PRN Reason: Constipation Escitalopram Oxalate (Lexapro) 20 mg PO DAILY [facility] Last Admin: 03/27/20 09:54 Dose: 20 mg Documented by: RYAN Cosigned by: KAREL Heparin Sodium (Porcine) (Heparin Sodium) 5,000 units SUBCUT Q8HR [facility] Last Admin: 03/27/20 05:50 Dose: Not Given Documented by: GERARD Insulin Glargine (Lantus) 20 unit SUBCUT BID [facility] Insulin Human Lispro (Humalog) 0 unit SUBCUT ACBED [facility]; Protocol Magnesium Oxide (Magnesium Oxide) 250 mg PO BIDMEALS [facility] Stop: 03/28/20 08:01 Ondansetron HCl (Zofran Odt) 4 mg PO Q4H PRN PRN Reason: nausea, able to take PO Sodium Chloride (Saline Flush) 10 ml FLUSH ASDIRECTED PRN PRN Reason: Keep Vein Open Last Admin: 03/27/20 01:17 Dose: 10 ml Documented by: CHRISTINE Zolpidem Tartrate (Ambien) 5 mg PO BEDTIME PRN PRN Reason: Sleep Assessment/Plan Comment:: 29-year-old lady presented with them limited access to insulin. Presented with signs and symptoms of polyuria, polydipsia, generalized muscle aches. Diabetic ketoacidosis Start the patient on insulin drip Monitor electrolytes and replace them as needed IV hydration Acute renal failure Secondary to hyperglycemia Hydrate well DVT prophylaxis with subcutaneous heparin
[2020-03-27] MEDS: Insulin Glarg,Human.Rec.Analog 100 Unit/ML SUBCUT SCH ×2 (11:06→20:59)
[2020-03-27] MEDS: Insulin Lispro 100 Units/ML 3 ML Vial SUBCUT SCH ×3 (12:12→20:55)
[2020-03-27] MEDS ORDERED: 50% Dextrose in Water 50 ML Syringe IVPUSH ONE (13:03)
[2020-03-28] MEDS: Heparin Sodium 5,000 Units/ML Vial SUBCUT SCH ×3 (05:55→21:52)
[2020-03-28 07:14] LABS: ANION GAP 11.2 mEq/L (7-13); CHLORIDE,CL 110 mmol/L (98-107); SODIUM,NA 142 mmol/L (136-145)
[2020-03-28] MEDS: Insulin Lispro 100 Units/ML 3 ML Vial SUBCUT SCH ×4 (08:18→21:49)
[2020-03-28] MEDS: Escitalopram 10 MG Tab PO SCH (08:56)
[2020-03-28] MEDS: Insulin Glarg,Human.Rec.Analog 100 Unit/ML SUBCUT SCH ×2 (08:57→21:51)
[2020-03-28] MEDS: Potassium Chloride 10 MEQ Tab.ER PO SCH ×3 (09:59→18:11)
[2020-03-28] MEDS ORDERED: 50% Dextrose in Water 50 ML Syringe IVPUSH PRN (10:53)
--- NOTE | 2020-03-28 11:16 | PN ---
DATE: 03/28/2020 SUBJECTIVE: Ms. Coleen Orantes is a 29-year-old female with a medical history significant for type 1 diabetes mellitus and got admitted with severe diabetic ketoacidosis. For the last 24 hours, she is off the insulin drip. She switched back to subcutaneous insulin. She had hypoglycemic episode this morning. She denies any chest pain. No shortness of breath. No abdominal pain. No nausea. No vomiting. No diarrhea. PHYSICAL EXAMINATION: Vital Signs: Temperature of 97.6, pulse of 87, blood pressure of 99/68, respiratory rate of 16, saturating at 99%. General Appearance: The patient is well oriented to time, place, and person. Follows commands spontaneously. Cardiovascular System: S1, S2 heard with normal intensity. No gallops. Respiratory System: Clear to auscultation bilaterally. No wheeze. No crepitations. Abdomen: Soft. Bowel sounds positive. Nontender. No rigidity. Extremities: No edema of bilateral lower extremities. LABORATORY DATA: WBC 7.4, hemoglobin 11.3, hematocrit 34.2, platelet count 371. Sodium 142, potassium 3.2, chloride 110, bicarb 24, BUN 11, creatinine 0.8, glucose 48, recheck glucose of 83. Urinalysis negative for nitrites, negative for leukocytes. Urine toxicology screen positive for methamphetamine. IMPRESSION: 1. Diabetic ketoacidosis, resolved. 2. Type 1 diabetes mellitus, uncontrolled. 3. Substance use with methamphetamine. 4. Acute renal failure. PLAN: 1. Acute renal failure. The patient had an elevated creatinine at the time of admission. This has much improved to 0.8. Avoid nephrotoxic agents. Dose adjust medications for renal function. Recheck a BMP in a.m. Keep her hydrated with IV fluids. 2. Diabetic ketoacidosis. The patient was admitted with severe DKA. This seems to be much improved. She will be switched back to subcutaneous insulin. Avoid any hypoglycemic episodes. Have her on hypoglycemic protocol. We will follow the hemoglobin A1c. The patient is educated about importance of diet, exercise, and compliance with medications for good control of her diabetes, which she understands and verbalized the same. [facility] /[id number]
[2020-03-29] MEDS: Heparin Sodium 5,000 Units/ML Vial SUBCUT SCH (06:17)
[2020-03-29 07:17] LABS: HEMOGLOBIN A1C 9.8 % (<5.7)
[2020-03-29 08:06] VITALS: BP 104/74; PULSE 88
[2020-03-29] MEDS: Escitalopram 10 MG Tab PO SCH (09:12)
[2020-03-29] MEDS: Insulin Lispro 100 Units/ML 3 ML Vial SUBCUT SCH (09:12)
[2020-03-29] MEDS: Potassium Chloride 10 MEQ Tab.ER PO SCH (09:12)
[2020-03-29] MEDS: Sodium Chloride 0.9% 10 ML Syringe FLUSH PRN (09:16)
[2020-03-29 09:52] LABS: ANION GAP 7.8 mEq/L (7-13); CHLORIDE,CL 107 mmol/L (98-107); SODIUM,NA 140 mmol/L (136-145)
[2020-03-29] MEDS: Insulin Glarg,Human.Rec.Analog 100 Unit/ML SUBCUT SCH (10:00)
--- NOTE | 2020-03-29 11:12 | PCM.DCSUM1 ---
Discharge Summary - Hospital Course Free Text/Narrative:: Presented with diabetic ketoacidosis The patient had difficulty accessing short-acting insulin. The patient was treated initially with insulin drip and transitioned to subcutaneous insulin regimen. The patient had difficult to control diabetes with episodes of hypoglycemia. Her oral intake was variable as well. Discussed importance of predictable oral intake, insulin regimen, risk of hypo- and hyperglycemia. The patient had a blood sugar of 27 and other than "feeling hungry" she did not have symptoms that alarmed her. We discussed the significant risks of hypoglycemia and complications of that. She will try to check blood sugars more frequently. Improve diet. Acute renal failure improved Diagnosis: Stroke: No - Discharge Data Discharge Date: 03/29/20 Discharge Disposition: Home, Self-Care 01 Condition: Good - Referral to Home Health Primary Care Physician: PCP Unobtainable - Discharge Diagnosis/Problem(s) (1) CHANDLER (acute kidney injury) SNOMED Code(s): 15172656, 68419036 ICD Code: N17.9 - ACUTE KIDNEY FAILURE, UNSPECIFIED Status: Acute Current Visit: No (2) Diabetic ketoacidosis associated with type 1 diabetes mellitus SNOMED Code(s): 237371979, 496692328 ICD Code: E10.10 - TYPE 1 DIABETES MELLITUS WITH KETOACIDOSIS WITHOUT COMA Status: Acute Current Visit: No Qualifiers: Diabetes mellitus complication detail: without coma Qualified Code(s): E10.10 - Type 1 diabetes mellitus with ketoacidosis without coma (3) Hyponatremia SNOMED Code(s): 85790779 ICD Code: E87.1 - HYPO-OSMOLALITY AND HYPONATREMIA Status: Acute Current Visit: No - Patient Instructions Diet: Diabetic Diet Activity: As Tolerated - Discharge Plan Home Medications: Home Meds Escitalopram Oxalate 10 mg PO DAILY 03/27/20 [History] Insulin Aspart [Insulin Aspart Flexpen] 20 units SUBCUT TIDMEALS 03/27/20 [History] Insulin Detemir [Levemir Flextouch] 20 unit SQ BID 03/27/20 [History] Pnv No.95/Ferrous Fum/Folic AC [ Multivitamin Tablet] 1 each PO DAILY 03/27/20 [History] Oxygen Therapy Mode: Room Air Forms: ED Department Discharge Referrals: PCP,Unobtain [Primary Care Provider] - - Discharge Summary/Plan Comment DC Time >30 min.: No - General Info Date of Service: 03/29/20 - Review of Systems General: Denies: Fever Pulmonary: Denies: Shortness of Breath Cardiovascular: Denies: Chest Pain Gastrointestinal: Denies: Abdominal Pain Genitourinary: Denies: Dysuria - Patient Data Vitals - Most Recent: Last Vital Signs Temp 98.6 F 03/29/20 08:00 Pulse 88 03/29/20 08:00 Resp 20 03/29/20 08:00 BP 104/74 03/29/20 08:00 Pulse Ox 97 03/29/20 08:00 Weight - Most Recent: 122 lb 12.8 oz I&O - Last 24 hours: Intake & Output 03/28/20 03/29/20 03/29/20 22:59 06:59 14:59 Intake Total 240 0 120 Balance 240 0 120 Lab Results - Last 24 hrs: Laboratory Results - last 24 hr 03/28/20 03/28/20 03/28/20 Range/Units 11:05 17:12 20:53 Sodium (136-145) mmol/L Potassium (3.5-5.1) mmol/L Chloride (98-107) mmol/L Carbon Dioxide (21-32) mmol/L Anion Gap (7-13) mEq/L BUN (7-18) mg/dL Creatinine (0.55-1.02) mg/dL Est Cr Clr Drug Dosing mL/min Estimated GFR (MDRD) Glucose (74-99) mg/dL POC Glucose 159 H 75 265 H (70-105) mg/dl Hemoglobin A1c (<5.7) % Calcium (8.5-10.1) mg/dL 03/29/20 03/29/20 03/29/20 Range/Units 06:19 06:19 07:36 Sodium 140 (136-145) mmol/L Potassium 3.8 (3.5-5.1) mmol/L Chloride 107 (98-107) mmol/L Carbon Dioxide 29 (21-32) mmol/L Anion Gap 7.8 (7-13) mEq/L BUN 8 (7-18) mg/dL Creatinine 0.60 (0.55-1.02) mg/dL Est Cr Clr Drug Dosing 122.75 mL/min Estimated GFR (MDRD) > 60 Glucose 55 L (74-99) mg/dL POC Glucose 27 L* (70-105) mg/dl Hemoglobin A1c 9.8 H (<5.7) % Calcium 8.3 L (8.5-10.1) mg/dL 03/29/20 Range/Units 08:14 Sodium (136-145) mmol/L Potassium (3.5-5.1) mmol/L Chloride (98-107) mmol/L Carbon Dioxide (21-32) mmol/L Anion Gap (7-13) mEq/L BUN (7-18) mg/dL Creatinine (0.55-1.02) mg/dL Est Cr Clr Drug Dosing mL/min Estimated GFR (MDRD) Glucose (74-99) mg/dL POC Glucose 131 H (70-105) mg/dl Hemoglobin A1c (<5.7) % Calcium (8.5-10.1) mg/dL Med Orders - Current: Current Medications Acetaminophen (Tylenol) 650 mg PO Q4H PRN PRN Reason: Pain (Mild 1-3)/fever Hydrocodone Bitart/Acetaminophen ([place] 325-10 Mg) 1 tab PO Q4H PRN PRN Reason: Pain (moderate 4-6) Dextrose/Water (Dextrose 50% In Water) 50 ml IVPUSH TID PRN PRN Reason: Hypoglycemia Last Admin: 03/29/20 07:40 Dose: 50 ml Documented by: Docusate Sodium (Colace) 100 mg PO BID PRN PRN Reason: Constipation Escitalopram Oxalate (Lexapro) 20 mg PO DAILY [facility] Last Admin: 03/29/20 09:12 Dose: 20 mg Documented by: Heparin Sodium (Porcine) (Heparin Sodium) 5,000 units SUBCUT Q8HR [facility] Last Admin: 03/29/20 06:17 Dose: 5,000 units Documented by: Insulin Glargine (Lantus) 20 unit SUBCUT BID [facility] Last Admin: 03/29/20 10:00 Dose: 20 units Documented by: Insulin Human Lispro (Humalog) 0 unit SUBCUT WITHMEALSANDBED [facility]; Protocol Last Admin: 03/29/20 09:12 Dose: Not Given Documented by: Magnesium Oxide (Magnesium Oxide) 250 mg PO BIDMEALS [facility] Last Admin: 03/29/20 09:13 Dose: 250 mg Documented by: Ondansetron HCl (Zofran Odt) 4 mg PO Q4H PRN PRN Reason: nausea, able to take PO Last Admin: 03/27/20 12:55 Dose: 4 mg Documented by: Potassium Chloride (Klor-Con 10) 20 meq PO TIDMEALS [facility] Last Admin: 03/29/20 09:12 Dose: 20 meq Documented by: Sodium Chloride (Saline Flush) 10 ml FLUSH ASDIRECTED PRN PRN Reason: Keep Vein Open Last Admin: 03/29/20 09:16 Dose: 10 ml Documented by: Zolpidem Tartrate (Ambien) 5 mg PO BEDTIME PRN PRN Reason: Sleep Discontinued Medications Dextrose/Water (Dextrose 50% In Water) 50 ml IVPUSH ONETIME ONE Stop: 03/27/20 13:04 Last Admin: 03/27/20 13:06 Dose: 50 ml Documented by: Diphenhydramine HCl (Benadryl) 25 mg IVPUSH ONETIME ONE Stop: 03/27/20 01:12 Last Admin: 03/27/20 01:16 Dose: 25 mg Documented by: Sodium Chloride (Normal Saline) 1,000 mls @ 999 mls/hr IV .BOLUS ONE Stop: 03/27/20 02:06 Last Admin: 03/27/20 01:16 Dose: 999 mls/hr Documented by: Sodium Chloride (Normal Saline) 1,000 mls @ 999 mls/hr IV .BOLUS ONE Stop: 03/27/20 02:54 Last Admin: 03/27/20 01:56 Dose: 999 mls/hr Documented by: Potassium Chloride/Sodium Chloride (Normal Saline With 40 Meq Kcl) 1,000 mls @ 250 mls/hr IV ASDIRECTED DONNIE Last Admin: 03/27/20 02:08 Dose: 250 mls/hr Documented by: Insulin Human Regular 100 unit (/ Sodium Chloride) 100 mls @ 5.398 mls/hr IV TITRATE DONNIE; Protocol Last Titration: 03/27/20 08:44 Dose: 0.13 units/kg/hr, 6.8 mls/hr Documented by: Potassium Chloride/Dextrose/Sod Cl (D5 Ns With 20 Meq Kcl) 1,000 mls @ 200 mls/hr IV ASDIRECTED DONNIE Last Admin: 03/27/20 05:56 Dose: 200 mls/hr Documented by: Insulin Human Regular (Humulin R) 10 unit IV ONETIME ONE Stop: 03/27/20 01:57 Last Admin: 03/27/20 02:02 Dose: 10 units Documented by: Magnesium Oxide (Magnesium Oxide) 250 mg PO BIDMEALS DONNIE Stop: 03/28/20 08:01 Last Admin: 03/28/20 08:54 Dose: 250 mg Documented by: Ondansetron HCl (Zofran) 4 mg IV ONETIME ONE Stop: 03/27/20 01:07 Last Admin: 03/27/20 01:16 Dose: 4 mg Documented by: - Exam General: Reports: Alert, Oriented Neck: Reports: Supple Lungs: Reports: Clear to Auscultation, Normal Respiratory Effort Cardiovascular: Reports: Regular Rate, Regular Rhythm GI/Abdominal Exam: Normal Bowel Sounds, Soft, Non-Tender Extremities: No Pedal Edema
== END 2020-03-29 11:40 | disposition home or self-care (01) | DRG 638 ==
LOC: DL.ED 01:03 → DL.MS 02:20
PROVIDERS: ADMIT Internal Medicine; ATTEND Internal Medicine
DX: E10.10 Type 1 diabetes mellitus with ketoacidosis without coma (principal); E87.1 Hypo-osmolality and hyponatremia; N17.9 Acute kidney failure, unspecified; F41.9 Anxiety disorder, unspecified; F32.9 Major depressive disorder, single episode, unspecified; F15.90 Other stimulant use, unspecified, uncomplicated; Z79.899 Other long term (current) drug therapy; Z87.442 Personal history of urinary calculi
CPT/HCPCS: 36415; 80048; 80053; 80305-QW; 81001; 81025; 82009; 82803; 82962; 83036; 83605; 83735; 84100; 85025; 86140; 96361; 96374; 96375; 99221; 99232; 99238; 99284; 99285-25; A9270-GY; J1200; J1644; J1815-GY; J2405; J3480; J7030

== ENCOUNTER 2020-05-05 19:49 | Observation (INO) | payer MEDICAID ==
[2020-05-05] MEDS ORDERED: LORazepam 2 MG/ML SDV IVPUSH ONE ×3 (19:58→21:09)
[2020-05-05] MEDS ORDERED: LORazepam 2 MG/ML SDV ONE (20:00)
--- NOTE | 2020-05-05 20:09 | EDM.PDOC ---
ED HPI GENERAL MEDICAL PROBLEM - General Chief Complaint: Diabetic Complaint Stated Complaint: AMUBLANCE Time Seen by Provider: 05/05/20 20:01 Source of Information: Reports: EMS History Limitations: Reports: Combative/Threatening - History of Present Illness INITIAL COMMENTS - FREE TEXT/NARRATIVE: EMS state called to scene of possible narcotic reaction, PT combative no drugs @ scene except of bottle of insulin. gluc given BS @ 70. PT arrived combative and screaming and kicking. - Related Data Allergies Allergy/AdvReac Type Severity Reaction Status Date / Time No Known Allergies Allergy Verified 03/27/20 01:04 Home Meds: Home Meds Escitalopram Oxalate 10 mg PO DAILY 03/27/20 [History] Pnv No.95/Ferrous Fum/Folic AC [ Multivitamin Tablet] 1 each PO DAILY 03/27/20 [History] Insulin Aspart [Insulin Aspart Flexpen] 10 units SUBCUT TIDMEALS #1 pen 03/29/20 [Rx] Insulin Detemir [Levemir Flextouch] 20 unit SQ BID #1 pen 03/29/20 [Rx] Past Medical History - Past Health History Medical/Surgical History: Denies Medical/Surgical History HEENT History: Reports: Impaired Vision Other HEENT History: states has a cloud to the right side. States she is near sighted. 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, Recurrent VISUAL ARTIST History: Reports: Other Musculoskeletal History: fracture left foot one month ago, no surgery. 12/04/16 Bilateral ingrown toe nails leading to sepsis, IV vanco BID for 10 days Neurological History: Reports: Concussion, Seizure Psychiatric History: Reports: Addiction, Anxiety, Depression, Other (See Below) Other Psychiatric History: Medical non-complience Endocrine/Metabolic History: Reports: Diabetes, Type I Hematologic History: Reports: None Immunologic History: Reports: None Oncologic (Cancer) History: Reports: None Dermatologic History: Reports: None - Infectious Disease History Infectious Disease History: Reports: None - Past Surgical History Head Surgeries/Procedures: Reports: None Social & Family History - Family History Family Medical History: Noncontributory HEENT: Reports: None Oncologic: Reports: Breast, Other (See Below) Other Oncologic Family History: Stomach CA - Caffeine Use Caffeine Use: Reports: None Other Caffeine Use: pt. unable to answer - Living Situation & Occupation Living situation: Reports: with Family ED ROS GENERAL - Review of Systems Review Of Systems: Comprehensive ROS is negative, except as noted in HPI. ED EXAM GENERAL NO PERIP PULSE - Physical Exam Exam: See Below Exam Limited By: Combative/Threatening General Appearance: Other (combative screaming and kicking.) Eye Exam: Bilateral Eye: PERRL (pupils ess ER @ 6mm) Ears: Hearing Grossly Normal Nose: Normal Inspection Throat/Mouth: Normal Voice, No Airway Compromise Head: Atraumatic Neck: Normal Inspection, Full Range of Motion Respiratory/Chest: No Respiratory Distress Cardiovascular: Regular Rate, Rhythm GI/Abdominal: Soft, Non-Tender Extremities: Normal Inspection, Normal Range of Motion, Other (kicking and thrasshing) Neurological: Other (combative) Psychiatric: Other (combative) Skin Exam: Warm, Dry, Normal Color Lymphatic: No Adenopathy Course - Vital Signs Last Recorded V/S: Last Vital Signs Temp 36.8 C 05/05/20 19:50 Pulse 138 H 05/05/20 19:50 Resp 18 05/05/20 19:50 BP 152/87 H 05/05/20 19:50 Pulse Ox 100 05/05/20 19:50 - Orders/Labs/Meds Orders: Active Orders 24 hr Category Date Time Status Blood Glucose Check, Bedside [RC] ONETIME Care 05/05/20 21:17 Active EKG 12 Lead [EKG Documentation Completion] [RC] ROUTINE Care 05/05/20 22:15 Active Initiate/Renew Violent-Self Destructive Restraints >/= Care 05/05/20 22:30 Ordered 19yo Q4H Insert Urinary Catheter [OM.PC] Stat Care 05/05/20 22:22 Ordered Nrsg Assess: Viol-S.Dest Rest [RC] Q1H Care 05/05/20 22:25 Active Urinary Catheter Assessment [RC] ASDIRECTED Care 05/05/20 22:23 Active CULTURE BLOOD [BC] Stat Lab 05/05/20 21:28 Received Labs: Laboratory Tests 05/05/20 05/05/20 05/05/20 Range/Units 19:50 19:50 19:50 WBC (5.0-10.0) 10^3/uL RBC (4.2-5.4) 10^6/uL Hgb (12.0-16.0) g/dL Hct (37.0-47.0) % MCV (80-100) fL MCH (27.0-34.0) pg MCHC (33.0-35.0) g/dL Plt Count (150-450) 10^3/uL Neut % (Auto) (42.2-75.2) % Lymph % (Auto) (20.5-50.1) % [place] % (Auto) (2-8) % Eos % (Auto) (1.0-3.0) % Baso % (Auto) (0.0-1.0) % Sodium (136-145) mmol/L Potassium (3.5-5.1) mmol/L Chloride (98-107) mmol/L Carbon Dioxide (21-32) mmol/L Anion Gap (7-13) mEq/L BUN (7-18) mg/dL Creatinine (0.55-1.02) mg/dL Est Cr Clr Drug Dosing Estimated GFR (MDRD) BUN/Creatinine Ratio (No establ ref range) Glucose (74-99) mg/dL Lactic Acid (0.4-2.0) mmol/L Calcium (8.5-10.1) mg/dL Total Bilirubin (0.2-1.0) mg/dL AST (15-37) U/L ALT (14-59) U/L Alkaline Phosphatase (46-116) U/L Total Protein (6.4-8.2) g/dL Albumin (3.4-5.0) g/dL Globulin Albumin/Globulin Ratio Urine Color Yellow (YELLOW) Urine Appearance Slightly cloudy (CLEAR) Urine pH 5.5 (5.0-9.0) Ur Specific [place] >= 1.030 (1.005-1.030) Urine Protein 100 H (NEGATIVE) Urine Glucose (UA) 500 H (NEGATIVE) Urine Ketones Trace H (NEGATIVE) Urine Occult Blood Moderate H (NEGATIVE) Urine Nitrite Negative (NEGATIVE) Urine Bilirubin Negative (NEGATIVE) Urine Urobilinogen 0.2 (0.2-1.0) mg/dL Ur Leukocyte Esterase Negative (NEGATIVE) Urine RBC 10-20 H /HPF Urine WBC 0-5 (0-5/HPF) /HPF Ur Epithelial Cells Few (NOT SEEN) /HPF Amorphous Sediment Few (NOT SEEN) /HPF Urine Bacteria Moderate H (0-FEW/HPF) /HPF Urine Mucus Few H (NOT SEEN) /LPF Urine Yeast Occasional H (NOT SEEN) /HPF Urine HCG, Qual Negative Urine Opiates Screen Negative (NEGATIVE) Ur Oxycodone Screen Negative (NEGATIVE) Urine Methadone Screen Negative (NEGATIVE) Ur Barbiturates Screen Negative (NEGATIVE) U Tricyclic Antidepress Negative (NEGATIVE) Ur Phencyclidine Scrn Negative (NEGATIVE) Ur Amphetamine Screen Positive H (NEGATIVE) U Methamphetamines Scrn Positive H (NEGATIVE) Urine MDMA Screen Positive H (NEGATIVE) U Benzodiazepines Scrn Negative (NEGATIVE) Urine Cocaine Screen Negative (NEGATIVE) U Marijuana (THC) Screen Negative (NEGATIVE) Ethyl Alcohol (0) mg/dL Ketones COVID-19 ([place]) (NEGATIVE) 05/05/20 05/05/20 05/05/20 Range/Units 20:19 20:19 21:28 WBC 19.5 H (5.0-10.0) 10^3/uL RBC 4.14 L (4.2-5.4) 10^6/uL Hgb 12.7 (12.0-16.0) g/dL Hct 37.3 (37.0-47.0) % MCV 90.1 (80-100) fL MCH 30.7 (27.0-34.0) pg MCHC 34.0 (33.0-35.0) g/dL Plt Count 363 (150-450) 10^3/uL Neut % (Auto) 92.4 H (42.2-75.2) % Lymph % (Auto) 3.6 L (20.5-50.1) % [place] % (Auto) 3.8 (2-8) % Eos % (Auto) 0.0 L (1.0-3.0) % Baso % (Auto) 0.2 (0.0-1.0) % Sodium 136 (136-145) mmol/L Potassium 4.4 (3.5-5.1) mmol/L Chloride 99 (98-107) mmol/L Carbon Dioxide 25 (21-32) mmol/L Anion Gap 16.4 H (7-13) mEq/L BUN 14 (7-18) mg/dL Creatinine 0.77 (0.55-1.02) mg/dL Est Cr Clr Drug Dosing TNP Estimated GFR (MDRD) > 60 BUN/Creatinine Ratio 18.2 (No establ ref range) Glucose 133 H (74-99) mg/dL Lactic Acid 1.2 (0.4-2.0) mmol/L Calcium 8.9 (8.5-10.1) mg/dL Total Bilirubin 0.4 (0.2-1.0) mg/dL AST 28 (15-37) U/L ALT 30 (14-59) U/L Alkaline Phosphatase 137 H (46-116) U/L Total Protein 8.3 H (6.4-8.2) g/dL Albumin 4.0 (3.4-5.0) g/dL Globulin 4.3 Albumin/Globulin Ratio 0.9 Urine Color (YELLOW) Urine Appearance (CLEAR) Urine pH (5.0-9.0) Ur Specific [place] (1.005-1.030) Urine Protein (NEGATIVE) Urine Glucose (UA) (NEGATIVE) Urine Ketones (NEGATIVE) Urine Occult Blood (NEGATIVE) Urine Nitrite (NEGATIVE) Urine Bilirubin (NEGATIVE) Urine Urobilinogen (0.2-1.0) mg/dL Ur Leukocyte Esterase (NEGATIVE) Urine RBC /HPF Urine WBC (0-5/HPF) /HPF Ur Epithelial Cells (NOT SEEN) /HPF Amorphous Sediment (NOT SEEN) /HPF Urine Bacteria (0-FEW/HPF) /HPF Urine Mucus (NOT SEEN) /LPF Urine Yeast (NOT SEEN) /HPF Urine HCG, Qual Urine Opiates Screen (NEGATIVE) Ur Oxycodone Screen (NEGATIVE) Urine Methadone Screen (NEGATIVE) Ur Barbiturates Screen (NEGATIVE) U Tricyclic Antidepress (NEGATIVE) Ur Phencyclidine Scrn (NEGATIVE) Ur Amphetamine Screen (NEGATIVE) U Methamphetamines Scrn (NEGATIVE) Urine MDMA Screen (NEGATIVE) U Benzodiazepines Scrn (NEGATIVE) Urine Cocaine Screen (NEGATIVE) U Marijuana (THC) Screen (NEGATIVE) Ethyl Alcohol < 3 (0) mg/dL Ketones COVID-19 ([place]) (NEGATIVE) 05/05/20 05/05/20 05/05/20 Range/Units 21:28 22:17 23:20 WBC 17.1 H (5.0-10.0) 10^3/uL RBC 3.89 L (4.2-5.4) 10^6/uL Hgb 11.9 L (12.0-16.0) g/dL Hct 34.8 L (37.0-47.0) % MCV 89.5 (80-100) fL MCH 30.6 (27.0-34.0) pg MCHC 34.2 (33.0-35.0) g/dL Plt Count 352 (150-450) 10^3/uL Neut % (Auto) 83.3 H (42.2-75.2) % Lymph % (Auto) 8.7 L (20.5-50.1) % [place] % (Auto) 7.7 (2-8) % Eos % (Auto) 0.1 L (1.0-3.0) % Baso % (Auto) 0.2 (0.0-1.0) % Sodium (136-145) mmol/L Potassium (3.5-5.1) mmol/L Chloride (98-107) mmol/L Carbon Dioxide (21-32) mmol/L Anion Gap (7-13) mEq/L BUN (7-18) mg/dL Creatinine (0.55-1.02) mg/dL Est Cr Clr Drug Dosing Estimated GFR (MDRD) BUN/Creatinine Ratio (No establ ref range) Glucose (74-99) mg/dL Lactic Acid (0.4-2.0) mmol/L Calcium (8.5-10.1) mg/dL Total Bilirubin (0.2-1.0) mg/dL AST (15-37) U/L ALT (14-59) U/L Alkaline Phosphatase (46-116) U/L Total Protein (6.4-8.2) g/dL Albumin (3.4-5.0) g/dL Globulin Albumin/Globulin Ratio Urine Color (YELLOW) Urine Appearance (CLEAR) Urine pH (5.0-9.0) Ur Specific [place] (1.005-1.030) Urine Protein (NEGATIVE) Urine Glucose (UA) (NEGATIVE) Urine Ketones (NEGATIVE) Urine Occult Blood (NEGATIVE) Urine Nitrite (NEGATIVE) Urine Bilirubin (NEGATIVE) Urine Urobilinogen (0.2-1.0) mg/dL Ur Leukocyte Esterase (NEGATIVE) Urine RBC /HPF Urine WBC (0-5/HPF) /HPF Ur Epithelial Cells (NOT SEEN) /HPF Amorphous Sediment (NOT SEEN) /HPF Urine Bacteria (0-FEW/HPF) /HPF Urine Mucus (NOT SEEN) /LPF Urine Yeast (NOT SEEN) /HPF Urine HCG, Qual Urine Opiates Screen (NEGATIVE) Ur Oxycodone Screen (NEGATIVE) Urine Methadone Screen (NEGATIVE) Ur Barbiturates Screen (NEGATIVE) U Tricyclic Antidepress (NEGATIVE) Ur Phencyclidine Scrn (NEGATIVE) Ur Amphetamine Screen (NEGATIVE) U Methamphetamines Scrn (NEGATIVE) Urine MDMA Screen (NEGATIVE) U Benzodiazepines Scrn (NEGATIVE) Urine Cocaine Screen (NEGATIVE) U Marijuana (THC) Screen (NEGATIVE) Ethyl Alcohol (0) mg/dL Ketones Negative COVID-19 ([place]) Negative (NEGATIVE) Meds: Medications Discontinued Medications Generic Name Dose Route Start Last Admin Trade Name Freq PRN Reason Stop Dose Admin Lorazepam 1 mg 05/05/20 19:58 05/05/20 19:58 Ativan IVPUSH 05/05/20 19:59 1 mg ONETIME ONE Administration Lorazepam Confirm 05/05/20 20:00 05/05/20 20:36 Ativan Administered 05/05/20 20:01 Not Given Dose 2 mg .ROUTE .STK-MED ONE Lorazepam 1 mg 05/05/20 20:25 05/05/20 20:25 Ativan IVPUSH 05/05/20 20:26 1 mg ONETIME ONE Administration Lorazepam 1 mg 05/05/20 21:09 05/05/20 21:15 Ativan IVPUSH 05/05/20 21:10 1 mg ONETIME ONE Administration - Re-Assessments/Exams Free Text/Narrative Re-Assessment/Exam: 05/05/20 23:[address] Canales who kindly admitted pt to observation. Departure - Departure Time of Disposition: 23:48 Disposition: Refer to Observation Condition: Good Clinical Impression: Methamphetamine abuse Altered mental status, unspecified Qualifiers: Altered mental status type: somnolence Qualified Code(s): R40.0 - Somnolence - Discharge Information Forms: ED Department Discharge Sepsis Event Note (ED) - Focused Exam Vital Signs: Vital Signs Temp Pulse Resp BP Pulse Ox 05/05/20 19:50 36.8 C 138 H 18 152/87 H 100 - My Orders Last 24 Hours: My Active Orders 05/05/20 21:17 Blood Glucose Check, Bedside [RC] ONETIME 05/05/20 21:28 CULTURE BLOOD [BC] Stat 05/05/20 22:15 EKG 12 Lead [EKG Documentation Completion] [RC] ROUTINE 05/05/20 22:22 Insert Urinary Catheter [OM.PC] Stat 05/05/20 22:23 Urinary Catheter Assessment [RC] ASDIRECTED 05/05/20 22:25 Nrsg Assess: Isi-S.Dest Rest [RC] Q1H 05/05/20 22:30 Initiate/Renew Violent-Self Destructive Restraints >/=18yo Q4H - Assessment/Plan Last 24 Hours: My Active Orders 05/05/20 21:17 Blood Glucose Check, Bedside [RC] ONETIME 05/05/20 21:28 CULTURE BLOOD [BC] Stat 05/05/20 22:15 EKG 12 Lead [EKG Documentation Completion] [RC] ROUTINE 05/05/20 22:22 Insert Urinary Catheter [OM.PC] Stat 05/05/20 22:23 Urinary Catheter Assessment [RC] ASDIRECTED 05/05/20 22:25 Nrsg Assess: Isi-S.Dest Rest [RC] Q1H 05/05/20 22:30 Initiate/Renew Violent-Self Destructive Restraints >/=18yo Q4H
[2020-05-05 20:47] LABS: ANION GAP 16.4 mEq/L (7-13); CHLORIDE,CL 99 mmol/L (98-107); SODIUM,NA 136 mmol/L (136-145)
--- NOTE | 2020-05-05 21:39 | CT ---
PROCEDURE INFORMATION: Exam: CT Head Without Contrast Exam date and time: 05/05/2020 9:29 PM Age: 29 years old Clinical indication: Other: Uncooperative--on meth and mdma; Additional info: Altered mental status TECHNIQUE: Imaging protocol: Computed tomography of the head without contrast. Radiation optimization: All CT scans at this facility use at least one of these dose optimization techniques: automated exposure control; mA and/or kV adjustment per patient size (includes targeted exams where dose is matched to clinical indication); or iterative reconstruction. COMPARISON: No relevant prior studies available. FINDINGS: Brain: Normal. No hemorrhage. Unremarkable white matter. No mass effect. Ventricles: Normal. No ventriculomegaly. Bones/joints: Unremarkable. No acute fracture. Sinuses: Visualized sinuses are unremarkable. No fluid levels. Mastoid air cells: Visualized mastoid air cells are well aerated. Soft tissues: Unremarkable. IMPRESSION: No acute intracranial abnormality.
--- NOTE | 2020-05-06 00:55 | PCM.HP ---
H&P History of Present Illness - General Date of Service: 05/06/20 Admit Problem/Dx: Admission Diagnosis/Problem Admission Diagnosis/Problem Altered mental status Source of Information: EMS, Old Records, Other (ER admission) History Limitations: Reports: Altered Mental Status, Intoxication - History of Present Illness Initial Comments - Free Text/Narative: This is a 29 Y/O F with history of Type I diabetes, history of anxiety, Depression, drug addiction, EMS called to scene of possible narcotic reaction, PT was combative no drugs at scene except of bottle of insulin. Pt arrived combative and screaming and kicking. Pt after arrival to ER had head CT and there was no acute Intracranial abnormality. Pt was tested for COVID-19 and it was negative. Pt's urine screen was positive for Amphetamine, MDMA and Methamphetamine. she was tachycardic and had afebrile in ER but upon arrival on floor Temp was 100.2. in ER she was given Ativan for combativeness and now sleeping. Onset of Symptoms: Reports: Unknown/Unsure - Related Data Allergies/Adverse Reactions: Allergies Allergy/AdvReac Type Severity Reaction Status Date / Time No Known Allergies Allergy Verified 03/27/20 01:04 Home Medications: Home Meds Escitalopram Oxalate 10 mg PO DAILY 03/27/20 [History] Pnv No.95/Ferrous Fum/Folic AC [ Multivitamin Tablet] 1 each PO DAILY 03/27/20 [History] Insulin Aspart [Insulin Aspart Flexpen] 10 units SUBCUT TIDMEALS #1 pen 03/29/20 [Rx] Insulin Detemir [Levemir Flextouch] 20 unit SQ BID #1 pen 03/29/20 [Rx] Past Medical History - Past Health History Medical/Surgical History: Denies Medical/Surgical History HEENT History: Reports: Impaired Vision Other HEENT History: states has a cloud to the right side. States she is near sighted. 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 12/04/16 Bilateral ingrown toe nails leading to sepsis, IV vanco BID for 10 days Neurological History: Reports: Concussion, Seizure Psychiatric History: Reports: Addiction, Anxiety, Depression, Other (See Below) Other Psychiatric History: Medical non-compliance Endocrine/Metabolic History: Reports: Diabetes, Type I Hematologic History: Reports: None Immunologic History: Reports: None Oncologic (Cancer) History: Reports: None Dermatologic History: Reports: None - Infectious Disease History Infectious Disease History: Reports: None - Past Surgical History Head Surgeries/Procedures: Reports: None Social & Family History - Family History Family Medical History: Noncontributory HEENT: Reports: None Oncologic: Reports: Breast, Other (See Below) Other Oncologic Family History: Stomach CA - Tobacco Use Smoking Status *Q: Unknown Ever Smoked - Caffeine Use Caffeine Use: Reports: None Other Caffeine Use: pt. unable to answer - Recreational Drug Use Recreational Drug Use: Yes Recreational Drug Type: Reports: Methamphetamine Recreational Drug Use Frequency: Patient Refuses To Answer - Living Situation & Occupation Living situation: Reports: with Family H&P Review of Systems - Review of Systems: Review Of Systems: Unable To Obtain Reason Not Obtained: Pt was combative on arrival and given Ativan in ER Exam - Exam Exam: See Below - Vital Signs Vital Signs: Last Vital Signs Temp 37.9 C 05/05/20 23:54 Pulse 135 H 05/05/20 23:54 Resp 16 05/05/20 23:54 BP 116/76 05/05/20 23:54 Pulse Ox 98 05/05/20 23:54 Weight: 59.285 kg - Exam Quality Assessment: DVT Prophylaxis. No: Supplemental Oxygen, Urinary Catheter General: Obtunded HEENT: Other (sleeping with eyes closed) Neck: Supple. No: Lymphadenopathy, Thyromegaly Lungs: Clear to Auscultation, Normal Respiratory Effort. No: Crackles, Wheezing Cardiovascular: Regular Rate, Regular Rhythm, Normal S1, Normal S2, Tachycardia (Female) Exam: Deferred Rectal (Female) Exam: Deferred Back Exam: Normal Inspection Extremities: Normal Inspection, No Pedal Edema Skin: Warm, Dry, Intact Neurological: Other (unable to evaluate, completely out at this time of examination) Neuro Extensive - Mental Status: Other (unable to evaluate at this time) Psychiatric: Other (after ativan, sleeping ) - Patient Data Lab Results Last 24 hrs: Laboratory Results - last 24 hr 05/05/20 05/05/20 05/05/20 Range/Units 19:50 19:50 19:50 WBC (5.0-10.0) 10^3/uL RBC (4.2-5.4) 10^6/uL Hgb (12.0-16.0) g/dL Hct (37.0-47.0) % MCV (80-100) fL MCH (27.0-34.0) pg MCHC (33.0-35.0) g/dL Plt Count (150-450) 10^3/uL Neut % (Auto) (42.2-75.2) % Lymph % (Auto) (20.5-50.1) % Baker % (Auto) (2-8) % Eos % (Auto) (1.0-3.0) % Baso % (Auto) (0.0-1.0) % Sodium (136-145) mmol/L Potassium (3.5-5.1) mmol/L Chloride (98-107) mmol/L Carbon Dioxide (21-32) mmol/L Anion Gap (7-13) mEq/L BUN (7-18) mg/dL Creatinine (0.55-1.02) mg/dL Est Cr Clr Drug Dosing Estimated GFR (MDRD) BUN/Creatinine Ratio (No establ ref range) Glucose (74-99) mg/dL Lactic Acid (0.4-2.0) mmol/L Calcium (8.5-10.1) mg/dL Total Bilirubin (0.2-1.0) mg/dL AST (15-37) U/L ALT (14-59) U/L Alkaline Phosphatase (46-116) U/L Total Protein (6.4-8.2) g/dL Albumin (3.4-5.0) g/dL Globulin Albumin/Globulin Ratio Urine Color Yellow (YELLOW) Urine Appearance Slightly cloudy (CLEAR) Urine pH 5.5 (5.0-9.0) Ur Specific [place] >= 1.030 (1.005-1.030) Urine Protein 100 H (NEGATIVE) Urine Glucose (UA) 500 H (NEGATIVE) Urine Ketones Trace H (NEGATIVE) Urine Occult Blood Moderate H (NEGATIVE) Urine Nitrite Negative (NEGATIVE) Urine Bilirubin Negative (NEGATIVE) Urine Urobilinogen 0.2 (0.2-1.0) mg/dL Ur Leukocyte Esterase Negative (NEGATIVE) Urine RBC 10-20 H /HPF Urine WBC 0-5 (0-5/HPF) /HPF Ur Epithelial Cells Few (NOT SEEN) /HPF Amorphous Sediment Few (NOT SEEN) /HPF Urine Bacteria Moderate H (0-FEW/HPF) /HPF Urine Mucus Few H (NOT SEEN) /LPF Urine Yeast Occasional H (NOT SEEN) /HPF Urine HCG, Qual Negative Urine Opiates Screen Negative (NEGATIVE) Ur Oxycodone Screen Negative (NEGATIVE) Urine Methadone Screen Negative (NEGATIVE) Ur Barbiturates Screen Negative (NEGATIVE) U Tricyclic Antidepress Negative (NEGATIVE) Ur Phencyclidine Scrn Negative (NEGATIVE) Ur Amphetamine Screen Positive H (NEGATIVE) U Methamphetamines Scrn Positive H (NEGATIVE) Urine MDMA Screen Positive H (NEGATIVE) U Benzodiazepines Scrn Negative (NEGATIVE) Urine Cocaine Screen Negative (NEGATIVE) U Marijuana (THC) Screen Negative (NEGATIVE) Ethyl Alcohol (0) mg/dL Ketones COVID-19 ([place]) (NEGATIVE) 05/05/20 05/05/20 05/05/20 Range/Units 20:19 20:19 21:28 WBC 19.5 H (5.0-10.0) 10^3/uL RBC 4.14 L (4.2-5.4) 10^6/uL Hgb 12.7 (12.0-16.0) g/dL Hct 37.3 (37.0-47.0) % MCV 90.1 (80-100) fL MCH 30.7 (27.0-34.0) pg MCHC 34.0 (33.0-35.0) g/dL Plt Count 363 (150-450) 10^3/uL Neut % (Auto) 92.4 H (42.2-75.2) % Lymph % (Auto) 3.6 L (20.5-50.1) % Baker % (Auto) 3.8 (2-8) % Eos % (Auto) 0.0 L (1.0-3.0) % Baso % (Auto) 0.2 (0.0-1.0) % Sodium 136 (136-145) mmol/L Potassium 4.4 (3.5-5.1) mmol/L Chloride 99 (98-107) mmol/L Carbon Dioxide 25 (21-32) mmol/L Anion Gap 16.4 H (7-13) mEq/L BUN 14 (7-18) mg/dL Creatinine 0.77 (0.55-1.02) mg/dL Est Cr Clr Drug Dosing TNP Estimated GFR (MDRD) > 60 BUN/Creatinine Ratio 18.2 (No establ ref range) Glucose 133 H (74-99) mg/dL Lactic Acid 1.2 (0.4-2.0) mmol/L Calcium 8.9 (8.5-10.1) mg/dL Total Bilirubin 0.4 (0.2-1.0) mg/dL AST 28 (15-37) U/L ALT 30 (14-59) U/L Alkaline Phosphatase 137 H (46-116) U/L Total Protein 8.3 H (6.4-8.2) g/dL Albumin 4.0 (3.4-5.0) g/dL Globulin 4.3 Albumin/Globulin Ratio 0.9 Urine Color (YELLOW) Urine Appearance (CLEAR) Urine pH (5.0-9.0) Ur Specific [place] (1.005-1.030) Urine Protein (NEGATIVE) Urine Glucose (UA) (NEGATIVE) Urine Ketones (NEGATIVE) Urine Occult Blood (NEGATIVE) Urine Nitrite (NEGATIVE) Urine Bilirubin (NEGATIVE) Urine Urobilinogen (0.2-1.0) mg/dL Ur Leukocyte Esterase (NEGATIVE) Urine RBC /HPF Urine WBC (0-5/HPF) /HPF Ur Epithelial Cells (NOT SEEN) /HPF Amorphous Sediment (NOT SEEN) /HPF Urine Bacteria (0-FEW/HPF) /HPF Urine Mucus (NOT SEEN) /LPF Urine Yeast (NOT SEEN) /HPF Urine HCG, Qual Urine Opiates Screen (NEGATIVE) Ur Oxycodone Screen (NEGATIVE) Urine Methadone Screen (NEGATIVE) Ur Barbiturates Screen (NEGATIVE) U Tricyclic Antidepress (NEGATIVE) Ur Phencyclidine Scrn (NEGATIVE) Ur Amphetamine Screen (NEGATIVE) U Methamphetamines Scrn (NEGATIVE) Urine MDMA Screen (NEGATIVE) U Benzodiazepines Scrn (NEGATIVE) Urine Cocaine Screen (NEGATIVE) U Marijuana (THC) Screen (NEGATIVE) Ethyl Alcohol < 3 (0) mg/dL Ketones COVID-19 ([place]) (NEGATIVE) 05/05/20 05/05/20 05/05/20 Range/Units 21:28 22:17 23:20 WBC 17.1 H (5.0-10.0) 10^3/uL RBC 3.89 L (4.2-5.4) 10^6/uL Hgb 11.9 L (12.0-16.0) g/dL Hct 34.8 L (37.0-47.0) % MCV 89.5 (80-100) fL MCH 30.6 (27.0-34.0) pg MCHC 34.2 (33.0-35.0) g/dL Plt Count 352 (150-450) 10^3/uL Neut % (Auto) 83.3 H (42.2-75.2) % Lymph % (Auto) 8.7 L (20.5-50.1) % Baker % (Auto) 7.7 (2-8) % Eos % (Auto) 0.1 L (1.0-3.0) % Baso % (Auto) 0.2 (0.0-1.0) % Sodium (136-145) mmol/L Potassium (3.5-5.1) mmol/L Chloride (98-107) mmol/L Carbon Dioxide (21-32) mmol/L Anion Gap (7-13) mEq/L BUN (7-18) mg/dL Creatinine (0.55-1.02) mg/dL Est Cr Clr Drug Dosing Estimated GFR (MDRD) BUN/Creatinine Ratio (No establ ref range) Glucose (74-99) mg/dL Lactic Acid (0.4-2.0) mmol/L Calcium (8.5-10.1) mg/dL Total Bilirubin (0.2-1.0) mg/dL AST (15-37) U/L ALT (14-59) U/L Alkaline Phosphatase (46-116) U/L Total Protein (6.4-8.2) g/dL Albumin (3.4-5.0) g/dL Globulin Albumin/Globulin Ratio Urine Color (YELLOW) Urine Appearance (CLEAR) Urine pH (5.0-9.0) Ur Specific [place] (1.005-1.030) Urine Protein (NEGATIVE) Urine Glucose (UA) (NEGATIVE) Urine Ketones (NEGATIVE) Urine Occult Blood (NEGATIVE) Urine Nitrite (NEGATIVE) Urine Bilirubin (NEGATIVE) Urine Urobilinogen (0.2-1.0) mg/dL Ur Leukocyte Esterase (NEGATIVE) Urine RBC /HPF Urine WBC (0-5/HPF) /HPF Ur Epithelial Cells (NOT SEEN) /HPF Amorphous Sediment (NOT SEEN) /HPF Urine Bacteria (0-FEW/HPF) /HPF Urine Mucus (NOT SEEN) /LPF Urine Yeast (NOT SEEN) /HPF Urine HCG, Qual Urine Opiates Screen (NEGATIVE) Ur Oxycodone Screen (NEGATIVE) Urine Methadone Screen (NEGATIVE) Ur Barbiturates Screen (NEGATIVE) U Tricyclic Antidepress (NEGATIVE) Ur Phencyclidine Scrn (NEGATIVE) Ur Amphetamine Screen (NEGATIVE) U Methamphetamines Scrn (NEGATIVE) Urine MDMA Screen (NEGATIVE) U Benzodiazepines Scrn (NEGATIVE) Urine Cocaine Screen (NEGATIVE) U Marijuana (THC) Screen (NEGATIVE) Ethyl Alcohol (0) mg/dL Ketones Negative COVID-19 ([place]) Negative (NEGATIVE) Result Diagrams: 05/05/20 23:20 05/05/20 20:19 - Problem List (1) Altered mental status, unspecified SNOMED Code(s): 426519690 ICD Code: R41.82 - ALTERED MENTAL STATUS, UNSPECIFIED Status: Acute Current Visit: No Qualifiers: Altered mental status type: somnolence Qualified Code(s): R40.0 - Somnolenc e (2) Hyperglycemia SNOMED Code(s): 01004813 ICD Code: R73.9 - HYPERGLYCEMIA, UNSPECIFIED Status: Acute Current Visit: No (3) IDDM (insulin dependent diabetes mellitus) SNOMED Code(s): 82503778 ICD Code: E11.9 - TYPE 2 DIABETES MELLITUS WITHOUT COMPLICATIONS; Z79.4 - USP (CURRENT) USE OF INSULIN Status: Acute Current Visit: No (4) Leukocytosis SNOMED Code(s): 254577858, 108877771 ICD Code: D72.829 - ELEVATED WHITE BLOOD CELL COUNT, UNSPECIFIED Status: Acute Current Visit: No Qualifiers: Leukocytosis type: unspecified Qualified Code(s): D72.829 - Elevated white blood cell count, unspecified Problem List Initiated/Reviewed/Updated: Yes Orders Last 24hrs: Active Orders 24 hr Category Date Time Status Admission Diagnosis [ADT] Stat ADT 05/05/20 23:49 Ordered Admission Status [Patient Status] [ADT] Routine ADT 05/05/20 23:49 Active Blood Glucose Check, Bedside [RC] ONETIME Care 05/05/20 21:17 Active Initiate/Renew Violent-Self Destructive Restraints >/= Care 05/05/20 22:30 Ordered 19yo Q4H Insert Urinary Catheter [OM.PC] Stat Care 05/05/20 22:22 Ordered Nrsg Assess: Viol-S.Dest Rest [RC] Q1H Care 05/05/20 22:25 Active Urinary Catheter Assessment [RC] ASDIRECTED Care 05/05/20 22:23 Active CULTURE BLOOD [BC] Stat Lab 05/05/20 21:28 Received GLUCOSE,POC [POC] Routine Lab 05/05/20 19:52 Received GLUCOSE,POC [POC] Routine Lab 05/05/20 21:05 Received Assessment/Plan Comment:: This is a 29 Y/O F with history of Type I diabetes, history of anxiety, Depression, drug addiction, EMS called to scene of possible narcotic reaction, PT was combative no drugs at scene except of bottle of insulin. Pt arrived combative and screaming and kicking. Pt after arrival to ER had head CT and there was no acute Intracranial abnormality. Pt was tested for COVID-19 and it was negative. Pt's urine screen was positive for Amphetamine, MDMA and Methamphetamine. she was tachycardic and had afebrile in ER but upon arrival on floor Temp was 100.2. in ER she was given Ativan for combativeness and now sleeping. Pt was admitted for altered Mental status Impression and plan: 1. Altered Mental status: This is secondary to drug overdose, Urine positive for Amphetamine, MDMA and Methamphetamine -Will start NS at 100 ml/hr -Will continue to give ativan PRN for agitation -Will also give Haldol PRN if needed for extreme combativeness 2. Drug Intoxication: pt urine tox analysis was positive for Amphetamine, MDMA and Methamphetamine -Will involve social services manager for discussion about drug rehab program -Continue now with IV fluids and PRN Ativan 3. Diabetes Type I: will hold regular dosing of insulin -Will place her of sliding scale coverage and check BS 4 times a day 4. Depression: will continue EScitalopram at 10 mg daily 5. DVT prophylaxis: continue enoxaparin 6. Leukocytosis: Likely reactive from drug overdoes, U/A negative for nitrite and Lek Esterase and will not start her on ay abx 7. Tachycardia: this is likely from Amphetamine and will continue IV fluids and telemonitoring Code Status: at this time I will keep her Full code, could not discuss, she is sleeping and will discuss in AM and change if pt wants differently
[2020-05-06] MEDS ORDERED: Docusate Sodium 100 MG Cap PO PRN (01:23)
[2020-05-06] MEDS ORDERED: LORazepam 2 MG/ML SDV IVPUSH PRN (01:30)
[2020-05-06] MEDS ORDERED: Haloperidol Lactate 5 MG/ML SDV IV PRN (01:31)
[2020-05-06] MEDS: Sodium Chloride 0.9% 1,000 ML IV SCH ×3 (01:58→22:49)
[2020-05-06] MEDS ORDERED: Insulin Lispro 100 Units/ML 3 ML Vial SUBCUT ONE (07:58)
[2020-05-06] MEDS: Insulin Lispro 100 Units/ML 3 ML Vial SUBCUT SCH ×4 (08:58→21:07)
[2020-05-06] MEDS: Prenatal Multivitamin with Calcium/Folic Acid/Iron Tab PO SCH (08:59)
[2020-05-06] MEDS: Enoxaparin 40 MG/0.4 ML Syringe SUBCUT SCH (08:59)
[2020-05-06] MEDS: Escitalopram 10 MG Tab PO SCH (08:59)
[2020-05-06 11:41] LABS: ANION GAP 20.1 mEq/L (7-13)
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
[2020-05-06] MEDS ORDERED: Insulin Glarg,Human.Rec.Analog 100 Unit/ML SUBCUT SCH (12:19)
[2020-05-06] MEDS ORDERED: Insulin Glarg,Human.Rec.Analog 100 Unit/ML SUBCUT ONE (21:13)
[2020-05-06] MEDS: Acetaminophen 325 MG Tab PO PRN (21:24)
[2020-05-07] MEDS: Insulin Lispro 100 Units/ML 3 ML Vial SUBCUT SCH ×4 (08:54→20:59)
[2020-05-07] MEDS: Enoxaparin 40 MG/0.4 ML Syringe SUBCUT SCH (08:55)
[2020-05-07] MEDS: Prenatal Multivitamin with Calcium/Folic Acid/Iron Tab PO SCH (08:55)
[2020-05-07] MEDS: Escitalopram 10 MG Tab PO SCH (08:55)
[2020-05-07] MEDS ORDERED: Insulin Glarg,Human.Rec.Analog 100 Unit/ML SUBCUT SCH ×2 (09:00→21:00)
[2020-05-07] MEDS: Acetaminophen 325 MG Tab PO PRN ×3 (12:06→20:52)
--- NOTE | 2020-05-07 12:11 | PN ---
DATE: 05/07/2020 SUBJECTIVE: The patient is a 29-year-old female with type 1 diabetes mellitus and anxiety and depression and drug addiction. She was admitted because of altered mental status secondary to drug overdose that is secondary to amphetamine, MDMA, and methamphetamine. She had a CAT scan of her head, which did not show any acute intracranial abnormality. The patient's blood sugar was also elevated on admission, but this has been slowly improving with sliding scale insulin. This morning, the patient is still albeit sleepy, but alert and oriented. She complains of some headache, but denies any chest pain, shortness of breath, nor any other complaints. OBJECTIVE: Vital Signs: Blood pressure is 127/86, pulse of 98, respirations 20, temperature of 98.2, and saturation is 98% on room air. Heart: Regular rate and rhythm. Normal S1 and S2. No gallops, no rubs. Lungs: Equal bilaterally. No crackles, no wheezing. Abdomen: Soft, nontender. Extremities: Negative for any pedal edema. No calf tenderness. Neurologic: Negative for any lateralizing signs. PLAN: We will restart her home insulin and continue the rest of her management. [facility] /[id number]
[2020-05-08 06:51] LABS: ANION GAP 13.7 mEq/L (7-13); CHLORIDE,CL 102 mmol/L (98-107); SODIUM,NA 138 mmol/L (136-145)
[2020-05-08] MEDS ORDERED: Insulin Lispro 100 Units/ML 3 ML Vial SUBCUT SCH (08:00)
[2020-05-08] MEDS: Insulin Lispro 100 Units/ML 3 ML Vial SUBCUT SCH (09:23)
[2020-05-08] MEDS: Prenatal Multivitamin with Calcium/Folic Acid/Iron Tab PO SCH (09:35)
[2020-05-08] MEDS: Enoxaparin 40 MG/0.4 ML Syringe SUBCUT SCH (09:35)
[2020-05-08] MEDS: Escitalopram 10 MG Tab PO SCH (09:35)
--- NOTE | 2020-05-08 10:23 | PN ---
DATE: 05/08/2020 SUBJECTIVE: The patient this morning is alert and oriented. She still complained of some mild headache, but she denies any chest pain, shortness of breath, fever, chills, abdominal pain, or any other complaints. LABORATORY WORKUP: This morning, CBC, WBC 6.5, hemoglobin is 10.9, hematocrit is 32.5, and platelets are 320. Chem-6: Glucose is 157. The rest of the panel unremarkable. OBJECTIVE: Vital Signs: Blood pressure is 128/83, pulse of 93, respirations 20, temperature of 98.5, saturation is 99%. Heart: Regular rate and rhythm. Normal S1 and S2. No gallops. No rubs. Lungs: Equal bilaterally. No crackles. No wheezing. Abdomen: Soft, nontender. Bowel sounds positive. Extremities: Negative for any pedal edema. No calf tenderness. Neurologic: Nonfocal. PLAN: We will discharge the patient home today and will have her follow up with her primary care provider in 1 week. We will resume her home medication. [facility] /[id number]
--- NOTE | 2020-05-08 10:23 | DISCH ---
FINAL DIAGNOSES: 1. Altered mental status secondary to drug overdose (amphetamine, methamphetamine). 2. Drug intoxication. 3. Type 1 diabetes mellitus. 4. Depression. BRIEF HISTORY OF PRESENT ILLNESS: Please see H and P. PERTINENT LABORATORY, X-RAY, AND OTHER TESTS ON ADMISSION: See H and P. CAT scan of the head is unremarkable, and no acute intracranial abnormality. HOSPITAL COURSE: The patient was admitted to General Medicine floor. She was started on IV fluids and was placed on sliding scale insulin as well as Lantus. She did well during the hospitalization, and she complained of some mild headache. Otherwise, hospital course was uncomplicated. Her blood sugar slowly improved after reintroduction of her home medication, and she was subsequently discharged. CONDITION ON DISCHARGE: Improved. The patient is to follow up with her primary care provider in 1 week. [facility] /[id number]
[2020-05-08 12:28] VITALS: BP 126/81; PULSE 91
== END 2020-05-08 13:15 | disposition home or self-care (01) ==
LOC: DL.ED 19:49 → DL.MS 23:49
PROVIDERS: ADMIT Internal Medicine Nephrology; ATTEND Internal Medicine
DX: T43.621A Poisoning by amphetamines, accidental (unintentional), initial encounter (principal); T43.641A Poisoning by ecstasy, accidental (unintentional), initial encounter; R41.82 Altered mental status, unspecified; F41.9 Anxiety disorder, unspecified; F32.9 Major depressive disorder, single episode, unspecified; D72.829 Elevated white blood cell count, unspecified; R00.0 Tachycardia, unspecified; E10.65 Type 1 diabetes mellitus with hyperglycemia; Z20.828 Contact with and (suspected) exposure to other viral communicable diseases; Z79.899 Other long term (current) drug therapy
CPT/HCPCS: 36415; 70450; 80048; 80053; 80305; 80307; 81001; 81025; 82009; 82947; 82962; 83605; 85025; 87040; 87635; 93005; 96361; 96372; 96374; 96376; 99284; 99285; A9270; G0378; J1650; J1815; J2060; J7030; U0002

== ENCOUNTER 2020-05-18 12:08 | Observation (INO) | payer MEDICAID ==
[2020-05-18] MEDS ORDERED: Sodium Chloride 0.9% 1,000 ML IV ONE (12:29)
--- NOTE | 2020-05-18 12:39 | EDM.PDOC ---
ED HPI GENERAL MEDICAL PROBLEM - General Chief Complaint: Diabetic Complaint Stated Complaint: IN BY AMBULANCE Time Seen by Provider: 05/18/20 12:10 Source of Information: Reports: Patient, RN History Limitations: Reports: No Limitations - History of Present Illness INITIAL COMMENTS - FREE TEXT/NARRATIVE: Seema 81-year-old female with a history of type 1 diabetes insulin-dependent for presents to the ER by ambulance for complaints of high blood sugar .BS was high on the EMS glucometer. Patient reports she started feeling weak and tired this morning and she has not taken her insulin for 48 hours. She has been seen in the clinic 6 months ago and has not been back for follow-up. She is out of insulin refills at a pharmacy Patient states she does not have a glucometer and has not been checking her sugars. She denies any recent drug use. Denies any dizziness, shortness of breath, chest pain palpitations at this time. Admits to increased thirst has been drinking a lot of water. - Related Data Allergies Allergy/AdvReac Type Severity Reaction Status Date / Time No Known Allergies Allergy Verified 05/18/20 12:19 Home Meds: Home Meds Escitalopram Oxalate 10 mg PO DAILY 03/27/20 [History] Pnv No.95/Ferrous Fum/Folic AC [ Multivitamin Tablet] 1 each PO DAILY 03/27/20 [History] Insulin Aspart [Insulin Aspart Flexpen] 10 units SUBCUT TIDMEALS #1 pen 03/29/20 [Rx] Insulin Detemir [Levemir Flextouch] 20 unit SQ BID #1 pen 03/29/20 [Rx] Past Medical History - Past Health History Medical/Surgical History: Denies Medical/Surgical History HEENT History: Reports: Impaired Vision Other HEENT History: states has a cloud to the right side. States she is near sighted. 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 Musculoskeletal History: 12/04/16 Bilateral ingrown toe nails leading to sepsis, IV vanco BID for 10 days Neurological History: Reports: Concussion, Seizure Psychiatric History: Reports: Addiction, Anxiety, Depression, Other (See Below) Other Psychiatric History: Medical non-compliance Endocrine/Metabolic History: Reports: Diabetes, Type I Hematologic History: Reports: None Immunologic History: Reports: None Oncologic (Cancer) History: Reports: None Dermatologic History: Reports: None - Infectious Disease History Infectious Disease History: Reports: None - Past Surgical History Head Surgeries/Procedures: Reports: None Social & Family History - Family History Family Medical History: Noncontributory HEENT: Reports: None Oncologic: Reports: Breast, Other (See Below) Other Oncologic Family History: Stomach CA - Tobacco Use Smoking Status *Q: Never Smoker - Caffeine Use Caffeine Use: Reports: None Other Caffeine Use: pt. unable to answer - Recreational Drug Use Recreational Drug Use: No - Living Situation & Occupation Living situation: Reports: with Family ED ROS GENERAL - Review of Systems Review Of Systems: Comprehensive ROS is negative, except as noted in HPI. ED EXAM GENERAL NO PERIP PULSE - Physical Exam Exam: See Below Exam Limited By: No Limitations General Appearance: Alert, No Apparent Distress Eye Exam: Bilateral Eye: PERRL Ears: Normal External Exam Nose: Normal Inspection Throat/Mouth: Normal Inspection, Normal Oropharynx, Normal Voice, No Airway Compromise Head: Atraumatic, Normocephalic Neck: Normal Inspection, Supple, Non-Tender, Full Range of Motion Respiratory/Chest: No Respiratory Distress, Lungs Clear, Normal Breath Sounds, No Accessory Muscle Use, Chest Non-Tender Cardiovascular: Normal Peripheral Pulses, Regular Rate, Rhythm, No Edema, No Gallop, No JVD, No Murmur, No Rub GI/Abdominal: Normal Bowel Sounds, Soft, Non-Tender, No Organomegaly, No Distention, No Abnormal Bruit, No Mass (Female) Exam: Deferred Rectal (Female) Exam: Deferred Neurological: Alert, Oriented, CN II-XII Intact, Normal Cognition, Normal Gait, No Motor/Sensory Deficits Psychiatric: Normal Affect, Normal Mood Skin Exam: Warm, Intact Lymphatic: No Adenopathy Course - Vital Signs Last Recorded V/S: Last Vital Signs Temp 96.2 F L 05/18/20 12:16 Pulse 119 H 05/18/20 12:16 Resp 16 05/18/20 12:16 BP 125/86 05/18/20 12:16 Pulse Ox 100 05/18/20 12:16 - Orders/Labs/Meds Orders: Active Orders 24 hr Category Date Time Status CBC WITH AUTO DIFF [HEME] Stat Lab 05/18/20 12:27 Ordered CMP [COMPREHENSIVE METABOLIC PN,CMP] [CHEM] Stat Lab 05/18/20 12:27 Ordered DRUG SCREEN URINE BIORAD [URCHEM] Stat Lab 05/18/20 12:27 Ordered URINALYSIS W/MICROSCOPIC [UA W/MICROSCOPIC] [URIN] Stat Lab 05/18/20 12:27 Ordered Sodium Chloride 0.9% [Normal Saline] 1,000 ml Med 05/18/20 12:29 Ordered IV .BOLUS - Re-Assessments/Exams Free Text/Narrative Re-Assessment/Exam: Review exam findings with patient. Normal saline bolus initiated. UA showed a glucose >1000 with ketones. Reviewed CMP, ABG with patient and Dr. Son who accepted patient for observation. Departure - Departure Time of Disposition: 13:34 Disposition: Admitted As Inpatient 67 Condition: Fair Clinical Impression: Diabetes type 1, uncontrolled Qualifiers: Glycemic state: with hyperglycemia Qualified Code(s): E10.65 - Type 1 diabetes mellitus with hyperglycemia - Discharge Information Sepsis Event Note (ED) - Evaluation Sepsis Screening Result: No Definite Risk - Focused Exam Vital Signs: Vital Signs Temp Pulse Resp BP Pulse Ox 05/18/20 12:16 96.2 F L 119 H 16 125/86 100 - My Orders Last 24 Hours: My Active Orders 05/18/20 12:27 CBC WITH AUTO DIFF [HEME] Stat CMP [COMPREHENSIVE METABOLIC PN,CMP] [CHEM] Stat DRUG SCREEN URINE BIORAD [URCHEM] Stat URINALYSIS W/MICROSCOPIC [UA W/MICROSCOPIC] [URIN] Stat 05/18/20 12:29 Sodium Chloride 0.9% [Normal Saline] 1,000 ml IV .BOLUS - Assessment/Plan Last 24 Hours: My Active Orders 05/18/20 12:27 CBC WITH AUTO DIFF [HEME] Stat CMP [COMPREHENSIVE METABOLIC PN,CMP] [CHEM] Stat DRUG SCREEN URINE BIORAD [URCHEM] Stat URINALYSIS W/MICROSCOPIC [UA W/MICROSCOPIC] [URIN] Stat 05/18/20 12:29 Sodium Chloride 0.9% [Normal Saline] 1,000 ml IV .BOLUS
[2020-05-18 13:09] LABS: BASE EXCESS ARTERIAL -7 mmol/L ((-2)-(+3)); BICARBONATE,ARTERIAL 17.3 mmol/L (22-26); O2 DELIVERY DEVICE ROOM AIR; O2 SATURATION ARTERIAL 99 % (95-100); PCO2 ARTERIAL 33 mmHg (35-45); PO2 ARTERIAL 118 mmHg (70-100)
[2020-05-18 13:13] LABS: ALLEN TEST LB; O2 FLOW RATE 0
[2020-05-18] MEDS ORDERED: Ondansetron 4 MG/2 ML SDV IVPUSH PRN (14:06)
[2020-05-18] MEDS ORDERED: Sodium Chloride 0.9% 1,000 ML IV SCH ×3 (14:15→22:00)
--- NOTE | 2020-05-18 14:20 | PCM.HP ---
H&P History of Present Illness - General Date of Service: 05/18/20 Admit Problem/Dx: Admission Diagnosis/Problem Admission Diagnosis/Problem Hyperglycemia Source of Information: Patient History Limitations: Reports: No Limitations - History of Present Illness Initial Comments - Free Text/Narative: Coleen is a 29-year-old female with past medical history significant for type 1 diabetes on insulin, history of medication noncompliance presented to the ED for evaluation of not feeling generally well, polyphagia, polydipsia, polyuria for the past few days. Per patient she is not taking her insulin for the past 3 days. She started having increased thirst. States she has been drinking a lot of water. She also reports polyuria. She notes generalized weakness and tired ness. She denies fever, chills. She has no abdominal pain, nausea, vomiting. No diarrhea. She denies dysuria. She has no chest pain or shortness of breath. No melena or hematochezia. Reports patient has not follow-up with PCP for over 6-month. She is run out of refills for insulin. She has not been checking her sugars at home. She denies alcohol use or recreational drug use. The ED vitals were stable. Labs significant for WBC 13.9, sodium 132, glucose 416, bicarb 17, anion gap 21, creatinine 1.3. ALT 78, alk phos 2 5. Urine positive for ketones. She was started on IV fluids. Admission requested for further management. Onset of Symptoms: Reports: Gradual Duration of Symptoms: Reports: Day(s): Location: Reports: Generalized Quality: Reports: Ache Improves with: Reports: None Worsens with: Reports: None Associated Symptoms: Reports: Loss of Appetite, Weakness (Neurolyse weakness and fatigue) - Related Data Allergies/Adverse Reactions: Allergies Allergy/AdvReac Type Severity Reaction Status Date / Time No Known Allergies Allergy Verified 05/18/20 12:19 Home Medications: Home Meds Escitalopram Oxalate 10 mg PO BID 03/27/20 [History] Pnv No.95/Ferrous Fum/Folic AC [ Multivitamin Tablet] 1 each PO DAILY 03/27/20 [History] Insulin Aspart [Insulin Aspart Flexpen] 10 units SUBCUT TIDMEALS #1 pen 03/29/20 [Rx] Insulin Detemir [Levemir Flextouch] 20 unit SQ BID #1 pen 03/29/20 [Rx] Past Medical History - Past Health History Medical/Surgical History: Denies Medical/Surgical History HEENT History: Reports: Impaired Vision Other HEENT History: states has a cloud to the right side. States she is near sighted. 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 Musculoskeletal History: 12/04/16 Bilateral ingrown toe nails leading to sepsis, IV vanco BID for 10 days Neurological History: Reports: Concussion, Seizure Psychiatric History: Reports: Addiction, Anxiety, Depression, Other (See Below) Other Psychiatric History: Medical non-compliance Endocrine/Metabolic History: Reports: Diabetes, Type I Hematologic History: Reports: None Immunologic History: Reports: None Oncologic (Cancer) History: Reports: None Dermatologic History: Reports: None - Infectious Disease History Infectious Disease History: Reports: None - Past Surgical History Head Surgeries/Procedures: Reports: None Social & Family History - Family History Family Medical History: Noncontributory HEENT: Reports: None Oncologic: Reports: Breast, Other (See Below) Other Oncologic Family History: Stomach CA - Tobacco Use Smoking Status *Q: Never Smoker - Caffeine Use Caffeine Use: Reports: None Other Caffeine Use: pt. unable to answer - Recreational Drug Use Recreational Drug Use: No - Living Situation & Occupation Living situation: Reports: with Family H&P Review of Systems - Review of Systems: Review Of Systems: See Below General: Reports: Malaise, Weakness HEENT: Reports: No Symptoms Pulmonary: Reports: No Symptoms Cardiovascular: Reports: No Symptoms Gastrointestinal: Reports: No Symptoms Genitourinary: Reports: Frequency Musculoskeletal: Reports: No Symptoms Skin: Reports: No Symptoms Psychiatric: Reports: No Symptoms Neurological: Reports: No Symptoms Hematologic/Lymphatic: Reports: Anemia Immunologic: Reports: No Symptoms Exam - Exam Exam: See Below - Vital Signs Vital Signs: Last Vital Signs Temp 98 F 05/18/20 13:47 Pulse 113 H 05/18/20 13:47 Resp 16 05/18/20 13:47 BP 119/75 05/18/20 13:47 Pulse Ox 99 05/18/20 13:47 Weight: 145 lb 6.4 oz - Exam Quality Assessment: DVT Prophylaxis General: Alert, Oriented, 4 HEENT: PERRLA, Hearing Intact, Mucosa Moist & [place], Nares Patent, Normal Nasal Septum, Posterior Pharynx Clear, Conjunctiva Clear, EOMI, EACs Clear, TMs Clear Neck: Supple, Trachea Midline, 2 Lungs: Clear to Auscultation, Normal Respiratory Effort Cardiovascular: Regular Rate, Regular Rhythm GI/Abdominal Exam: Normal Bowel Sounds, Soft, Non-Tender, No Organomegaly, No Distention, No Abnormal Bruit, No Mass, Pelvis Stable (Female) Exam: Normal External Exam, Normal Speculum Exam, Normal Bimanual Exam Rectal (Female) Exam: Deferred Back Exam: Normal Inspection, Full Range of Motion, NT Extremities: Normal Inspection, Normal Range of Motion, Non-Tender, No Pedal Edema, Normal Capillary Refill Skin: Warm, Dry, Intact Neurological: Cranial Nerves Intact, Reflexes Equal Bilateral Neuro Extensive - Mental Status: Alert, Oriented x3, Normal Mood/Affect, Normal Cognition Neuro Extensive - Motor, Sensory, Reflexes: CN II-XII Intact, Normal Gait, Normal Reflexes Psychiatric: Alert, Normal Affect, Normal Mood - Patient Data Lab Results Last 24 hrs: Laboratory Results - last 24 hr 05/18/20 05/18/20 05/18/20 Range/Units 12:10 12:10 12:40 WBC 13.9 H (5.0-10.0) 10^3/uL RBC 3.60 L (4.2-5.4) 10^6/uL Hgb 11.0 L (12.0-16.0) g/dL Hct 34.0 L (37.0-47.0) % MCV 94.4 D (80-100) fL MCH 30.6 (27.0-34.0) pg MCHC 32.4 L (33.0-35.0) g/dL Plt Count 434 D (150-450) 10^3/uL Neut % (Auto) 81.8 H (42.2-75.2) % Lymph % (Auto) 11.4 L (20.5-50.1) % [place] % (Auto) 5.0 (2-8) % Eos % (Auto) 1.6 (1.0-3.0) % Baso % (Auto) 0.2 (0.0-1.0) % ABG pH (7.35-7.45) ABG pCO2 (35-45) mmHg ABG pO2 (70-100) mmHg ABG HCO3 (22-26) mmol/L ABG O2 Saturation (95-100) % ABG Base Excess ((-2)-(+3)) mmol/L Aakash Test O2 Delivery Device Oxygen Flow Rate Sodium (136-145) mmol/L Potassium (3.5-5.1) mmol/L Chloride (98-107) mmol/L Carbon Dioxide (21-32) mmol/L Anion Gap (7-13) mEq/L BUN (7-18) mg/dL Creatinine (0.55-1.02) mg/dL Est Cr Clr Drug Dosing mL/min Estimated GFR (MDRD) BUN/Creatinine Ratio (No establ ref range) Glucose (74-99) mg/dL Calcium (8.5-10.1) mg/dL Total Bilirubin (0.2-1.0) mg/dL AST (15-37) U/L ALT (14-59) U/L Alkaline Phosphatase (46-116) U/L Total Protein (6.4-8.2) g/dL Albumin (3.4-5.0) g/dL Globulin Albumin/Globulin Ratio Urine Color Yellow (YELLOW) Urine Appearance Clear (CLEAR) Urine pH 6.0 (5.0-9.0) Ur Specific [place] 1.010 (1.005-1.030) Urine Protein Negative (NEGATIVE) Urine Glucose (UA) >=1000 H (NEGATIVE) Urine Ketones 40 H (NEGATIVE) Urine Occult Blood Trace-intact H (NEGATIVE) Urine Nitrite Negative (NEGATIVE) Urine Bilirubin Negative (NEGATIVE) Urine Urobilinogen 0.2 (0.2-1.0) mg/dL Ur Leukocyte Esterase Negative (NEGATIVE) Urine RBC 0-5 /HPF Urine WBC Not seen (0-5/HPF) /HPF Ur Epithelial Cells Rare (NOT SEEN) /HPF Urine Bacteria Not seen (0-FEW/HPF) /HPF Urine Mucus Not seen (NOT SEEN) /LPF Urine Opiates Screen Negative (NEGATIVE) Ur Oxycodone Screen Negative (NEGATIVE) Urine Methadone Screen Negative (NEGATIVE) Ur Barbiturates Screen Negative (NEGATIVE) U Tricyclic Antidepress Negative (NEGATIVE) Ur Phencyclidine Scrn Negative (NEGATIVE) Ur Amphetamine Screen Negative (NEGATIVE) U Methamphetamines Scrn Negative (NEGATIVE) Urine MDMA Screen Negative (NEGATIVE) U Benzodiazepines Scrn Negative (NEGATIVE) Urine Cocaine Screen Negative (NEGATIVE) U Marijuana (THC) Screen Negative (NEGATIVE) 05/18/20 05/18/20 Range/Units 12:40 13:05 WBC (5.0-10.0) 10^3/uL RBC (4.2-5.4) 10^6/uL Hgb (12.0-16.0) g/dL Hct (37.0-47.0) % MCV (80-100) fL MCH (27.0-34.0) pg MCHC (33.0-35.0) g/dL Plt Count (150-450) 10^3/uL Neut % (Auto) (42.2-75.2) % Lymph % (Auto) (20.5-50.1) % [place] % (Auto) (2-8) % Eos % (Auto) (1.0-3.0) % Baso % (Auto) (0.0-1.0) % ABG pH 7.34 L (7.35-7.45) ABG pCO2 33 L (35-45) mmHg ABG pO2 118 H (70-100) mmHg ABG HCO3 17.3 L (22-26) mmol/L ABG O2 Saturation 99 (95-100) % ABG Base Excess -7 L ((-2)-(+3)) mmol/L Aakash Test Lb O2 Delivery Device Room air Oxygen Flow Rate 0 Sodium 132 L (136-145) mmol/L Potassium 4.0 (3.5-5.1) mmol/L Chloride 95 L (98-107) mmol/L Carbon Dioxide 20 L (21-32) mmol/L Anion Gap 21.0 H (7-13) mEq/L BUN 22 H (7-18) mg/dL Creatinine 1.30 H (0.55-1.02) mg/dL Est Cr Clr Drug Dosing 62.65 mL/min Estimated GFR (MDRD) 49 BUN/Creatinine Ratio 16.9 (No establ ref range) Glucose 416 H* (74-99) mg/dL Calcium 7.9 L (8.5-10.1) mg/dL Total Bilirubin 0.1 L (0.2-1.0) mg/dL AST 23 (15-37) U/L ALT 78 H (14-59) U/L Alkaline Phosphatase 254 H (46-116) U/L Total Protein 6.9 (6.4-8.2) g/dL Albumin 3.1 L (3.4-5.0) g/dL Globulin 3.8 Albumin/Globulin Ratio 0.82 Urine Color (YELLOW) Urine Appearance (CLEAR) Urine pH (5.0-9.0) Ur Specific [place] (1.005-1.030) Urine Protein (NEGATIVE) Urine Glucose (UA) (NEGATIVE) Urine Ketones (NEGATIVE) Urine Occult Blood (NEGATIVE) Urine Nitrite (NEGATIVE) Urine Bilirubin (NEGATIVE) Urine Urobilinogen (0.2-1.0) mg/dL Ur Leukocyte Esterase (NEGATIVE) Urine RBC /HPF Urine WBC (0-5/HPF) /HPF Ur Epithelial Cells (NOT SEEN) /HPF Urine Bacteria (0-FEW/HPF) /HPF Urine Mucus (NOT SEEN) /LPF Urine Opiates Screen (NEGATIVE) Ur Oxycodone Screen (NEGATIVE) Urine Methadone Screen (NEGATIVE) Ur Barbiturates Screen (NEGATIVE) U Tricyclic Antidepress (NEGATIVE) Ur Phencyclidine Scrn (NEGATIVE) Ur Amphetamine Screen (NEGATIVE) U Methamphetamines Scrn (NEGATIVE) Urine MDMA Screen (NEGATIVE) U Benzodiazepines Scrn (NEGATIVE) Urine Cocaine Screen (NEGATIVE) U Marijuana (THC) Screen (NEGATIVE) Result Diagrams: 05/18/20 12:40 05/18/20 12:40 - Problem List (1) High anion gap metabolic acidosis SNOMED Code(s): 84199863 ICD Code: E87.2 - ACIDOSIS Status: Acute Current Visit: Yes (2) CHANDLER (acute kidney injury) SNOMED Code(s): 27527667, 08604243 ICD Code: N17.9 - ACUTE KIDNEY FAILURE, UNSPECIFIED Status: Acute Current Visit: No (3) Dehydration symptoms SNOMED Code(s): 456940871 ICD Code: R63.8 - OTHER SYMPTOMS AND SIGNS CONCERNING FOOD AND FLUID INTAKE Status: Acute Current Visit: No (4) Diabetes type 1, uncontrolled SNOMED Code(s): 34333511, 806353950 ICD Code: E10.65 - TYPE 1 DIABETES MELLITUS WITH HYPERGLYCEMIA Status: Acute Current Visit: No Qualifiers: Glycemic state: with hyperglycemia Qualified Code(s): E10.65 - Type 1 diabetes mellitus with hyperglycemia (5) Hyperglycemia SNOMED Code(s): 78593296 ICD Code: R73.9 - HYPERGLYCEMIA, UNSPECIFIED Status: Acute Current Visit: No (6) Leukocytosis SNOMED Code(s): 279617295, 473180290 ICD Code: D72.829 - ELEVATED WHITE BLOOD CELL COUNT, UNSPECIFIED Status: Acute Current Visit: No Qualifiers: Leukocytosis type: unspecified Qualified Code(s): D72.829 - Elevated white blood cell count, unspecified Problem List Initiated/Reviewed/Updated: Yes Orders Last 24hrs: Active Orders 24 hr Category Date Time Status Admission Diagnosis [ADT] Routine ADT 05/18/20 13:36 Ordered Admission Status [Patient Status] [ADT] Routine ADT 05/18/20 13:36 Active Ambulate [RC] ASDIRECTED Care 05/18/20 14:06 Ordered Blood Glucose Check, Bedside [RC] QIDACANDBED Care 05/18/20 14:06 Ordered Height and Weight [RC] DAILY Care 05/18/20 14:06 Ordered Intake and Output [RC] QSHIFT Care 05/18/20 14:07 Ordered Notify Provider Vital Signs [RC] ASDIRECTED Care 05/18/20 14:07 Ordered Oxygen Therapy [RC] PRN Care 05/18/20 14:07 Ordered VTE/DVT Education [RC] PER UNIT ROUTINE Care 05/18/20 14:07 Ordered Vital Signs [RC] Q4H Care 05/18/20 14:07 Ordered Consult to Case Management/Leading Firefighter [CONS] Cons 05/18/20 14:06 Ordered Routine Consult to Diabetic Nurse Specialist [CONS] Routine Cons 05/18/20 14:06 Ordered Consult to Marketing Technology Specialist [CONS] Routine Cons 05/18/20 14:06 Ordered Nothing per Oral Now Diet [DIET] Diet 05/18/20 Lunch Ordered BASIC METABOLIC PANEL,BMP [CHEM] Q4H Lab 05/18/20 18:00 Ordered BASIC METABOLIC PANEL,BMP [CHEM] Q4H Lab 05/18/20 22:00 Ordered BASIC METABOLIC PANEL,BMP [CHEM] Q4H Lab 05/19/20 02:00 Ordered BASIC METABOLIC PANEL,BMP [CHEM] Q4H Lab 05/19/20 06:00 Ordered BASIC METABOLIC PANEL,BMP [CHEM] Q4H Lab 05/19/20 10:00 Ordered BASIC METABOLIC PANEL,BMP [CHEM] Q4H Lab 05/19/20 14:00 Ordered CBC WITH AUTO DIFF [HEME] DAILY Lab 05/19/20 07:00 Ordered CBC WITH AUTO DIFF [HEME] DAILY Lab 05/20/20 07:00 Ordered CBC WITH AUTO DIFF [HEME] DAILY Lab 05/21/20 07:00 Ordered HEPATIC FUNCTION PANEL,HFP [CHEM] DAILY Lab 05/19/20 07:00 Ordered HEPATIC FUNCTION PANEL,HFP [CHEM] DAILY Lab 05/20/20 07:00 Ordered HEPATIC FUNCTION PANEL,HFP [CHEM] DAILY Lab 05/21/20 07:00 Ordered MAGNESIUM [CHEM] Routine Lab 05/18/20 14:06 Ordered PHOSPHORUS [CHEM] Routine Lab 05/18/20 14:06 Ordered Escitalopram [Lexapro] Med 05/18/20 21:00 Ordered 10 mg PO BID Heparin Sodium Med 05/18/20 21:00 Ordered 5,000 units SUBCUT Q12HR Ondansetron [Zofran] Med 05/18/20 14:06 Ordered 4 mg IVPUSH Q6H PRN Pantoprazole [ProTONIX IV] Med 05/18/20 14:06 Once 40 mg IVPUSH ONETIME ONE Regular Insulin,Human 100 Units in Normal Saline @ 0.1 Med 05/18/20 14:15 O rdered UNITS/KG/HR Insulin Regular, Human [HumuLIN R] 100 unit Sodium Chloride 0.9% [Normal Saline] 99 ml IV TITRATE Sodium Chloride 0.9% [Normal Saline] 1,000 ml Med 05/18/20 14:15 Ordered IV ASDIRECTED Resuscitation Status Routine Resus Stat 05/18/20 14:06 Ordered Medication Orders Escitalopram Oxalate (Lexapro) 10 mg PO BID DONNIE Heparin Sodium (Porcine) (Heparin Sodium) 5,000 units SUBCUT Q12HR DONNIE Insulin Human Regular 100 unit (/ Sodium Chloride) 100 mls @ 6.595 mls/hr IV TITRATE DONNIE; Protocol Sodium Chloride (Normal Saline) 1,000 mls @ 250 mls/hr IV ASDIRECTED DONNIE Ondansetron HCl (Zofran) 4 mg IVPUSH Q6H PRN PRN Reason: Nausea/Vomiting Pantoprazole Sodium (Protonix Iv) 40 mg IVPUSH ONETIME ONE Stop: 05/18/20 14:07 Assessment/Plan Comment:: #High anion gap metabolic acidosis. This is likely due to elderly DKA versus starvation ketosis -Patient presented to the ED for evaluation of polydipsia, polyuria, increased weakness -He has no nausea, vomiting, abdominal pain -She appears dehydrated on exam -Anion gap elevated, urine ketones positive, pH 7.32, glucose 416 -Admit to medical floor -Insulin drip -IV fluids -Serum glucose every hour -BMP every 4 hours -ABG every 4 hours -A1c -Keep n.p.o. -medical educator consult #Pseudohyponatremia due to hyperglycemia -I expect resolution after correction of hyperglycemia #Leukocytosis. Likely reactive -Repeat CBC in the a.m. #CHANDLER due to prerenal azotemia -IV fluids -Renal function closely #Poorly controlled type 1 diabetes due to noncompliance -Insulin drip for now #Abnormal LFT: ALT 78, alk phos 254 -Appears chronic -Monitor LFTs closely #Social work consult
[2020-05-18] MEDS ORDERED: Pantoprazole 40 MG Vial IVPUSH ONE (14:30)
[2020-05-18] MEDS ORDERED: Dextrose 5%-0.45% NaCl 1,000 ML IV SCH (15:15)
[2020-05-18 17:24] LABS: ANION GAP 12.6 mEq/L (7-13); CHLORIDE,CL 103 mmol/L (98-107); SODIUM,NA 139 mmol/L (136-145)
[2020-05-18] MEDS ORDERED: Insulin Lispro 100 Units/ML 3 ML Vial SUBCUT SCH (21:00)
[2020-05-18 21:43] LABS: ANION GAP 12.7 mEq/L (7-13); CHLORIDE,CL 96 mmol/L (98-107); SODIUM,NA 130 mmol/L (136-145)
[2020-05-18] MEDS ORDERED: Insulin Regular, Human 100 Units/ML 3 ML Vial IV ONE (21:55)
[2020-05-18] MEDS: Insulin Glarg,Human.Rec.Analog 100 Unit/ML SUBCUT SCH (22:32)
[2020-05-18] MEDS: Heparin Sodium 5,000 Units/ML Vial SUBCUT SCH (22:32)
[2020-05-18] MEDS: Escitalopram 10 MG Tab PO SCH (22:32)
[2020-05-19] MEDS: Insulin Lispro 100 Units/ML 3 ML Vial SUBCUT SCH ×9 (00:43→20:38)
[2020-05-19 02:21] LABS: ANION GAP 10.1 mEq/L (7-13); CHLORIDE,CL 101 mmol/L (98-107); SODIUM,NA 135 mmol/L (136-145)
[2020-05-19 06:35] LABS: ANION GAP 12.2 mEq/L (7-13); CHLORIDE,CL 103 mmol/L (98-107); SODIUM,NA 138 mmol/L (136-145)
[2020-05-19] MEDS ORDERED: Magnesium Sulfate/Water 2 GM in Premix Bag 1 BAG IV ONE (08:50)
[2020-05-19] MEDS: Escitalopram 10 MG Tab PO SCH ×2 (09:00→20:37)
[2020-05-19] MEDS: Heparin Sodium 5,000 Units/ML Vial SUBCUT SCH ×2 (09:00→20:37)
[2020-05-19] MEDS: Phosphorus #1 250 MG Tab PO SCH ×4 (09:38→20:37)
[2020-05-19] MEDS: Insulin Glarg,Human.Rec.Analog 100 Unit/ML SUBCUT SCH ×2 (09:39→20:39)
--- NOTE | 2020-05-19 09:48 | PCM.PN ---
- General Info Date of Service: 05/19/20 Admission Dx/Problem (Free Text): Admission Diagnosis/Problem Admission Diagnosis/Problem Hyperglycemia Functional Status: Reports: Pain Controlled - Review of Systems General: Reports: No Symptoms HEENT: Reports: No Symptoms Pulmonary: Reports: No Symptoms Cardiovascular: Reports: No Symptoms Gastrointestinal: Reports: No Symptoms Genitourinary: Reports: No Symptoms Musculoskeletal: Reports: No Symptoms Skin: Reports: No Symptoms Neurological: Reports: No Symptoms Psychiatric: Reports: No Symptoms - Patient Data Vitals - Most Recent: Last Vital Signs Temp 97.6 F 05/19/20 00:00 Pulse 109 H 05/19/20 00:00 Resp 16 05/19/20 00:00 BP 116/73 05/19/20 00:00 Pulse Ox 100 05/18/20 20:00 Weight - Most Recent: 145 lb 6.4 oz I&O - Last 24 Hours: Intake & Output 05/18/20 05/19/20 05/19/20 22:59 06:59 14:59 Intake Total 360 Balance 360 Lab Results Last 24 Hours: Laboratory Results - last 24 hr 05/18/20 05/18/20 05/18/20 Range/Units 12:10 12:10 12:40 WBC 13.9 H (5.0-10.0) 10^3/uL RBC 3.60 L (4.2-5.4) 10^6/uL Hgb 11.0 L (12.0-16.0) g/dL Hct 34.0 L (37.0-47.0) % MCV 94.4 D (80-100) fL MCH 30.6 (27.0-34.0) pg MCHC 32.4 L (33.0-35.0) g/dL Plt Count 434 D (150-450) 10^3/uL Neut % (Auto) 81.8 H (42.2-75.2) % Lymph % (Auto) 11.4 L (20.5-50.1) % [place] % (Auto) 5.0 (2-8) % Eos % (Auto) 1.6 (1.0-3.0) % Baso % (Auto) 0.2 (0.0-1.0) % ABG pH (7.35-7.45) ABG pCO2 (35-45) mmHg ABG pO2 (70-100) mmHg ABG HCO3 (22-26) mmol/L ABG O2 Saturation (95-100) % ABG Base Excess ((-2)-(+3)) mmol/L Aakash Test O2 Delivery Device Oxygen Flow Rate Sodium (136-145) mmol/L Potassium (3.5-5.1) mmol/L Chloride (98-107) mmol/L Carbon Dioxide (21-32) mmol/L Anion Gap (7-13) mEq/L BUN (7-18) mg/dL Creatinine (0.55-1.02) mg/dL Est Cr Clr Drug Dosing mL/min Estimated GFR (MDRD) BUN/Creatinine Ratio (No establ ref range) Glucose (74-99) mg/dL POC Glucose (70-105) mg/dl Calcium (8.5-10.1) mg/dL Phosphorus (2.6-4.7) mg/dL Magnesium (1.8-2.4) mg/dL Total Bilirubin (0.2-1.0) mg/dL Direct Bilirubin (0.0-0.2) mg/dL Indirect Bilirubin AST (15-37) U/L ALT (14-59) U/L Alkaline Phosphatase (46-116) U/L Total Protein (6.4-8.2) g/dL Albumin (3.4-5.0) g/dL Globulin Albumin/Globulin Ratio Urine Color Yellow (YELLOW) Urine Appearance Clear (CLEAR) Urine pH 6.0 (5.0-9.0) Ur Specific [place] 1.010 (1.005-1.030) Urine Protein Negative (NEGATIVE) Urine Glucose (UA) >=1000 H (NEGATIVE) Urine Ketones 40 H (NEGATIVE) Urine Occult Blood Trace-intact H (NEGATIVE) Urine Nitrite Negative (NEGATIVE) Urine Bilirubin Negative (NEGATIVE) Urine Urobilinogen 0.2 (0.2-1.0) mg/dL Ur Leukocyte Esterase Negative (NEGATIVE) Urine RBC 0-5 /HPF Urine WBC Not seen (0-5/HPF) /HPF Ur Epithelial Cells Rare (NOT SEEN) /HPF Urine Bacteria Not seen (0-FEW/HPF) /HPF Urine Mucus Not seen (NOT SEEN) /LPF Urine Opiates Screen Negative (NEGATIVE) Ur Oxycodone Screen Negative (NEGATIVE) Urine Methadone Screen Negative (NEGATIVE) Ur Barbiturates Screen Negative (NEGATIVE) U Tricyclic Antidepress Negative (NEGATIVE) Ur Phencyclidine Scrn Negative (NEGATIVE) Ur Amphetamine Screen Negative (NEGATIVE) U Methamphetamines Scrn Negative (NEGATIVE) Urine MDMA Screen Negative (NEGATIVE) U Benzodiazepines Scrn Negative (NEGATIVE) Urine Cocaine Screen Negative (NEGATIVE) U Marijuana (THC) Screen Negative (NEGATIVE) 05/18/20 05/18/20 05/18/20 Range/Units 12:40 12:40 13:05 WBC (5.0-10.0) 10^3/uL RBC (4.2-5.4) 10^6/uL Hgb (12.0-16.0) g/dL Hct (37.0-47.0) % MCV (80-100) fL MCH (27.0-34.0) pg MCHC (33.0-35.0) g/dL Plt Count (150-450) 10^3/uL Neut % (Auto) (42.2-75.2) % Lymph % (Auto) (20.5-50.1) % [place] % (Auto) (2-8) % Eos % (Auto) (1.0-3.0) % Baso % (Auto) (0.0-1.0) % ABG pH 7.34 L (7.35-7.45) ABG pCO2 33 L (35-45) mmHg ABG pO2 118 H (70-100) mmHg ABG HCO3 17.3 L (22-26) mmol/L ABG O2 Saturation 99 (95-100) % ABG Base Excess -7 L ((-2)-(+3)) mmol/L Aakash Test Lb O2 Delivery Device Room air Oxygen Flow Rate 0 Sodium 132 L (136-145) mmol/L Potassium 4.0 (3.5-5.1) mmol/L Chloride 95 L (98-107) mmol/L Carbon Dioxide 20 L (21-32) mmol/L Anion Gap 21.0 H (7-13) mEq/L BUN 22 H (7-18) mg/dL Creatinine 1.30 H (0.55-1.02) mg/dL Est Cr Clr Drug Dosing 62.65 mL/min Estimated GFR (MDRD) 49 BUN/Creatinine Ratio 16.9 (No establ ref range) Glucose 416 H* (74-99) mg/dL POC Glucose (70-105) mg/dl Calcium 7.9 L (8.5-10.1) mg/dL Phosphorus 1.5 L (2.6-4.7) mg/dL Magnesium 1.7 L (1.8-2.4) mg/dL Total Bilirubin 0.1 L (0.2-1.0) mg/dL Direct Bilirubin (0.0-0.2) mg/dL Indirect Bilirubin AST 23 (15-37) U/L ALT 78 H (14-59) U/L Alkaline Phosphatase 254 H (46-116) U/L Total Protein 6.9 (6.4-8.2) g/dL Albumin 3.1 L (3.4-5.0) g/dL Globulin 3.8 Albumin/Globulin Ratio 0.82 Urine Color (YELLOW) Urine Appearance (CLEAR) Urine pH (5.0-9.0) Ur Specific [place] (1.005-1.030) Urine Protein (NEGATIVE) Urine Glucose (UA) (NEGATIVE) Urine Ketones (NEGATIVE) Urine Occult Blood (NEGATIVE) Urine Nitrite (NEGATIVE) Urine Bilirubin (NEGATIVE) Urine Urobilinogen (0.2-1.0) mg/dL Ur Leukocyte Esterase (NEGATIVE) Urine RBC /HPF Urine WBC (0-5/HPF) /HPF Ur Epithelial Cells (NOT SEEN) /HPF Urine Bacteria (0-FEW/HPF) /HPF Urine Mucus (NOT SEEN) /LPF Urine Opiates Screen (NEGATIVE) Ur Oxycodone Screen (NEGATIVE) Urine Methadone Screen (NEGATIVE) Ur Barbiturates Screen (NEGATIVE) U Tricyclic Antidepress (NEGATIVE) Ur Phencyclidine Scrn (NEGATIVE) Ur Amphetamine Screen (NEGATIVE) U Methamphetamines Scrn (NEGATIVE) Urine MDMA Screen (NEGATIVE) U Benzodiazepines Scrn (NEGATIVE) Urine Cocaine Screen (NEGATIVE) U Marijuana (THC) Screen (NEGATIVE) 05/18/20 05/18/20 05/18/20 Range/Units 14:47 15:50 16:42 WBC (5.0-10.0) 10^3/uL RBC (4.2-5.4) 10^6/uL Hgb (12.0-16.0) g/dL Hct (37.0-47.0) % MCV (80-100) fL MCH (27.0-34.0) pg MCHC (33.0-35.0) g/dL Plt Count (150-450) 10^3/uL Neut % (Auto) (42.2-75.2) % Lymph % (Auto) (20.5-50.1) % [place] % (Auto) (2-8) % Eos % (Auto) (1.0-3.0) % Baso % (Auto) (0.0-1.0) % ABG pH (7.35-7.45) ABG pCO2 (35-45) mmHg ABG pO2 (70-100) mmHg ABG HCO3 (22-26) mmol/L ABG O2 Saturation (95-100) % ABG Base Excess ((-2)-(+3)) mmol/L Aakash Test O2 Delivery Device Oxygen Flow Rate Sodium (136-145) mmol/L Potassium (3.5-5.1) mmol/L Chloride (98-107) mmol/L Carbon Dioxide (21-32) mmol/L Anion Gap (7-13) mEq/L BUN (7-18) mg/dL Creatinine (0.55-1.02) mg/dL Est Cr Clr Drug Dosing mL/min Estimated GFR (MDRD) BUN/Creatinine Ratio (No establ ref range) Glucose (74-99) mg/dL POC Glucose 156 H 140 H 75 (70-105) mg/dl Calcium (8.5-10.1) mg/dL Phosphorus (2.6-4.7) mg/dL Magnesium (1.8-2.4) mg/dL Total Bilirubin (0.2-1.0) mg/dL Direct Bilirubin (0.0-0.2) mg/dL Indirect Bilirubin AST (15-37) U/L ALT (14-59) U/L Alkaline Phosphatase (46-116) U/L Total Protein (6.4-8.2) g/dL Albumin (3.4-5.0) g/dL Globulin Albumin/Globulin Ratio Urine Color (YELLOW) Urine Appearance (CLEAR) Urine pH (5.0-9.0) Ur Specific [place] (1.005-1.030) Urine Protein (NEGATIVE) Urine Glucose (UA) (NEGATIVE) Urine Ketones (NEGATIVE) Urine Occult Blood (NEGATIVE) Urine Nitrite (NEGATIVE) Urine Bilirubin (NEGATIVE) Urine Urobilinogen (0.2-1.0) mg/dL Ur Leukocyte Esterase (NEGATIVE) Urine RBC /HPF Urine WBC (0-5/HPF) /HPF Ur Epithelial Cells (NOT SEEN) /HPF Urine Bacteria (0-FEW/HPF) /HPF Urine Mucus (NOT SEEN) /LPF Urine Opiates Screen (NEGATIVE) Ur Oxycodone Screen (NEGATIVE) Urine Methadone Screen (NEGATIVE) Ur Barbiturates Screen (NEGATIVE) U Tricyclic Antidepress (NEGATIVE) Ur Phencyclidine Scrn (NEGATIVE) Ur Amphetamine Screen (NEGATIVE) U Methamphetamines Scrn (NEGATIVE) Urine MDMA Screen (NEGATIVE) U Benzodiazepines Scrn (NEGATIVE) Urine Cocaine Screen (NEGATIVE) U Marijuana (THC) Screen (NEGATIVE) 05/18/20 05/18/20 05/18/20 Range/Units 17:01 21:02 21:18 WBC (5.0-10.0) 10^3/uL RBC (4.2-5.4) 10^6/uL Hgb (12.0-16.0) g/dL Hct (37.0-47.0) % MCV (80-100) fL MCH (27.0-34.0) pg MCHC (33.0-35.0) g/dL Plt Count (150-450) 10^3/uL Neut % (Auto) (42.2-75.2) % Lymph % (Auto) (20.5-50.1) % [place] % (Auto) (2-8) % Eos % (Auto) (1.0-3.0) % Baso % (Auto) (0.0-1.0) % ABG pH (7.35-7.45) ABG pCO2 (35-45) mmHg ABG pO2 (70-100) mmHg ABG HCO3 (22-26) mmol/L ABG O2 Saturation (95-100) % ABG Base Excess ((-2)-(+3)) mmol/L Aakash Test O2 Delivery Device Oxygen Flow Rate Sodium 139 130 L (136-145) mmol/L Potassium 3.6 5.7 H D (3.5-5.1) mmol/L Chloride 103 96 L (98-107) mmol/L Carbon Dioxide 27 27 (21-32) mmol/L Anion Gap 12.6 12.7 (7-13) mEq/L BUN 14 16 (7-18) mg/dL Creatinine 0.70 0.95 (0.55-1.02) mg/dL Est Cr Clr Drug Dosing 116.35 85.74 mL/min Estimated GFR (MDRD) > 60 > 60 BUN/Creatinine Ratio (No establ ref range) Glucose 68 L 563 H* (74-99) mg/dL POC Glucose > 500 H* (70-105) mg/dl Calcium 7.5 L 8.1 L (8.5-10.1) mg/dL Phosphorus (2.6-4.7) mg/dL Magnesium (1.8-2.4) mg/dL Total Bilirubin (0.2-1.0) mg/dL Direct Bilirubin (0.0-0.2) mg/dL Indirect Bilirubin AST (15-37) U/L ALT (14-59) U/L Alkaline Phosphatase (46-116) U/L Total Protein (6.4-8.2) g/dL Albumin (3.4-5.0) g/dL Globulin Albumin/Globulin Ratio Urine Color (YELLOW) Urine Appearance (CLEAR) Urine pH (5.0-9.0) Ur Specific [place] (1.005-1.030) Urine Protein (NEGATIVE) Urine Glucose (UA) (NEGATIVE) Urine Ketones (NEGATIVE) Urine Occult Blood (NEGATIVE) Urine Nitrite (NEGATIVE) Urine Bilirubin (NEGATIVE) Urine Urobilinogen (0.2-1.0) mg/dL Ur Leukocyte Esterase (NEGATIVE) Urine RBC /HPF Urine WBC (0-5/HPF) /HPF Ur Epithelial Cells (NOT SEEN) /HPF Urine Bacteria (0-FEW/HPF) /HPF Urine Mucus (NOT SEEN) /LPF Urine Opiates Screen (NEGATIVE) Ur Oxycodone Screen (NEGATIVE) Urine Methadone Screen (NEGATIVE) Ur Barbiturates Screen (NEGATIVE) U Tricyclic Antidepress (NEGATIVE) Ur Phencyclidine Scrn (NEGATIVE) Ur Amphetamine Screen (NEGATIVE) U Methamphetamines Scrn (NEGATIVE) Urine MDMA Screen (NEGATIVE) U Benzodiazepines Scrn (NEGATIVE) Urine Cocaine Screen (NEGATIVE) U Marijuana (THC) Screen (NEGATIVE) 05/18/20 05/18/20 05/19/20 Range/Units 22:59 23:31 00:30 WBC (5.0-10.0) 10^3/uL RBC (4.2-5.4) 10^6/uL Hgb (12.0-16.0) g/dL Hct (37.0-47.0) % MCV (80-100) fL MCH (27.0-34.0) pg MCHC (33.0-35.0) g/dL Plt Count (150-450) 10^3/uL Neut % (Auto) (42.2-75.2) % Lymph % (Auto) (20.5-50.1) % [place] % (Auto) (2-8) % Eos % (Auto) (1.0-3.0) % Baso % (Auto) (0.0-1.0) % ABG pH (7.35-7.45) ABG pCO2 (35-45) mmHg ABG pO2 (70-100) mmHg ABG HCO3 (22-26) mmol/L ABG O2 Saturation (95-100) % ABG Base Excess ((-2)-(+3)) mmol/L Aakash Test O2 Delivery Device Oxygen Flow Rate Sodium (136-145) mmol/L Potassium (3.5-5.1) mmol/L Chloride (98-107) mmol/L Carbon Dioxide (21-32) mmol/L Anion Gap (7-13) mEq/L BUN (7-18) mg/dL Creatinine (0.55-1.02) mg/dL Est Cr Clr Drug Dosing mL/min Estimated GFR (MDRD) BUN/Creatinine Ratio (No establ ref range) Glucose (74-99) mg/dL POC Glucose > 500 H* 318 H 140 H (70-105) mg/dl Calcium (8.5-10.1) mg/dL Phosphorus (2.6-4.7) mg/dL Magnesium (1.8-2.4) mg/dL Total Bilirubin (0.2-1.0) mg/dL Direct Bilirubin (0.0-0.2) mg/dL Indirect Bilirubin AST (15-37) U/L ALT (14-59) U/L Alkaline Phosphatase (46-116) U/L Total Protein (6.4-8.2) g/dL Albumin (3.4-5.0) g/dL Globulin Albumin/Globulin Ratio Urine Color (YELLOW) Urine Appearance (CLEAR) Urine pH (5.0-9.0) Ur Specific [place] (1.005-1.030) Urine Protein (NEGATIVE) Urine Glucose (UA) (NEGATIVE) Urine Ketones (NEGATIVE) Urine Occult Blood (NEGATIVE) Urine Nitrite (NEGATIVE) Urine Bilirubin (NEGATIVE) Urine Urobilinogen (0.2-1.0) mg/dL Ur Leukocyte Esterase (NEGATIVE) Urine RBC /HPF Urine WBC (0-5/HPF) /HPF Ur Epithelial Cells (NOT SEEN) /HPF Urine Bacteria (0-FEW/HPF) /HPF Urine Mucus (NOT SEEN) /LPF Urine Opiates Screen (NEGATIVE) Ur Oxycodone Screen (NEGATIVE) Urine Methadone Screen (NEGATIVE) Ur Barbiturates Screen (NEGATIVE) U Tricyclic Antidepress (NEGATIVE) Ur Phencyclidine Scrn (NEGATIVE) Ur Amphetamine Screen (NEGATIVE) U Methamphetamines Scrn (NEGATIVE) Urine MDMA Screen (NEGATIVE) U Benzodiazepines Scrn (NEGATIVE) Urine Cocaine Screen (NEGATIVE) U Marijuana (THC) Screen (NEGATIVE) 05/19/20 05/19/20 05/19/20 Range/Units 02:00 04:32 06:07 WBC (5.0-10.0) 10^3/uL RBC (4.2-5.4) 10^6/uL Hgb (12.0-16.0) g/dL Hct (37.0-47.0) % MCV (80-100) fL MCH (27.0-34.0) pg MCHC (33.0-35.0) g/dL Plt Count (150-450) 10^3/uL Neut % (Auto) (42.2-75.2) % Lymph % (Auto) (20.5-50.1) % [place] % (Auto) (2-8) % Eos % (Auto) (1.0-3.0) % Baso % (Auto) (0.0-1.0) % ABG pH (7.35-7.45) ABG pCO2 (35-45) mmHg ABG pO2 (70-100) mmHg ABG HCO3 (22-26) mmol/L ABG O2 Saturation (95-100) % ABG Base Excess ((-2)-(+3)) mmol/L Aakash Test O2 Delivery Device Oxygen Flow Rate Sodium 135 L 138 (136-145) mmol/L Potassium 4.1 D 4.2 (3.5-5.1) mmol/L Chloride 101 103 (98-107) mmol/L Carbon Dioxide 28 27 (21-32) mmol/L Anion Gap 10.1 12.2 (7-13) mEq/L BUN 12 12 (7-18) mg/dL Creatinine 0.76 0.82 (0.55-1.02) mg/dL Est Cr Clr Drug Dosing 107.17 99.33 mL/min Estimated GFR (MDRD) > 60 > 60 BUN/Creatinine Ratio (No establ ref range) Glucose 107 H 110 H (74-99) mg/dL POC Glucose 195 H (70-105) mg/dl Calcium 7.7 L 7.8 L (8.5-10.1) mg/dL Phosphorus (2.6-4.7) mg/dL Magnesium (1.8-2.4) mg/dL Total Bilirubin (0.2-1.0) mg/dL Direct Bilirubin (0.0-0.2) mg/dL Indirect Bilirubin AST (15-37) U/L ALT (14-59) U/L Alkaline Phosphatase (46-116) U/L Total Protein (6.4-8.2) g/dL Albumin (3.4-5.0) g/dL Globulin Albumin/Globulin Ratio Urine Color (YELLOW) Urine Appearance (CLEAR) Urine pH (5.0-9.0) Ur Specific [place] (1.005-1.030) Urine Protein (NEGATIVE) Urine Glucose (UA) (NEGATIVE) Urine Ketones (NEGATIVE) Urine Occult Blood (NEGATIVE) Urine Nitrite (NEGATIVE) Urine Bilirubin (NEGATIVE) Urine Urobilinogen (0.2-1.0) mg/dL Ur Leukocyte Esterase (NEGATIVE) Urine RBC /HPF Urine WBC (0-5/HPF) /HPF Ur Epithelial Cells (NOT SEEN) /HPF Urine Bacteria (0-FEW/HPF) /HPF Urine Mucus (NOT SEEN) /LPF Urine Opiates Screen (NEGATIVE) Ur Oxycodone Screen (NEGATIVE) Urine Methadone Screen (NEGATIVE) Ur Barbiturates Screen (NEGATIVE) U Tricyclic Antidepress (NEGATIVE) Ur Phencyclidine Scrn (NEGATIVE) Ur Amphetamine Screen (NEGATIVE) U Methamphetamines Scrn (NEGATIVE) Urine MDMA Screen (NEGATIVE) U Benzodiazepines Scrn (NEGATIVE) Urine Cocaine Screen (NEGATIVE) U Marijuana (THC) Screen (NEGATIVE) 05/19/20 05/19/20 05/19/20 Range/Units 06:07 06:07 07:51 WBC 8.5 (5.0-10.0) 10^3/uL RBC 3.48 L (4.2-5.4) 10^6/uL Hgb 10.7 L (12.0-16.0) g/dL Hct 32.5 L (37.0-47.0) % MCV 93.4 (80-100) fL MCH 30.7 (27.0-34.0) pg MCHC 32.9 L (33.0-35.0) g/dL Plt Count 408 (150-450) 10^3/uL Neut % (Auto) 53.3 (42.2-75.2) % Lymph % (Auto) 36.7 (20.5-50.1) % [place] % (Auto) 5.8 (2-8) % Eos % (Auto) 4.0 H (1.0-3.0) % Baso % (Auto) 0.2 (0.0-1.0) % ABG pH (7.35-7.45) ABG pCO2 (35-45) mmHg ABG pO2 (70-100) mmHg ABG HCO3 (22-26) mmol/L ABG O2 Saturation (95-100) % ABG Base Excess ((-2)-(+3)) mmol/L Aakash Test O2 Delivery Device Oxygen Flow Rate Sodium (136-145) mmol/L Potassium (3.5-5.1) mmol/L Chloride (98-107) mmol/L Carbon Dioxide (21-32) mmol/L Anion Gap (7-13) mEq/L BUN (7-18) mg/dL Creatinine (0.55-1.02) mg/dL Est Cr Clr Drug Dosing mL/min Estimated GFR (MDRD) BUN/Creatinine Ratio (No establ ref range) Glucose (74-99) mg/dL POC Glucose 77 (70-105) mg/dl Calcium (8.5-10.1) mg/dL Phosphorus (2.6-4.7) mg/dL Magnesium (1.8-2.4) mg/dL Total Bilirubin 0.2 (0.2-1.0) mg/dL Direct Bilirubin 0.1 (0.0-0.2) mg/dL Indirect Bilirubin 0.1 AST 20 (15-37) U/L ALT 62 H (14-59) U/L Alkaline Phosphatase 148 H (46-116) U/L Total Protein 6.3 L (6.4-8.2) g/dL Albumin 2.7 L (3.4-5.0) g/dL Globulin 3.6 Albumin/Globulin Ratio 0.75 Urine Color (YELLOW) Urine Appearance (CLEAR) Urine pH (5.0-9.0) Ur Specific [place] (1.005-1.030) Urine Protein (NEGATIVE) Urine Glucose (UA) (NEGATIVE) Urine Ketones (NEGATIVE) Urine Occult Blood (NEGATIVE) Urine Nitrite (NEGATIVE) Urine Bilirubin (NEGATIVE) Urine Urobilinogen (0.2-1.0) mg/dL Ur Leukocyte Esterase (NEGATIVE) Urine RBC /HPF Urine WBC (0-5/HPF) /HPF Ur Epithelial Cells (NOT SEEN) /HPF Urine Bacteria (0-FEW/HPF) /HPF Urine Mucus (NOT SEEN) /LPF Urine Opiates Screen (NEGATIVE) Ur Oxycodone Screen (NEGATIVE) Urine Methadone Screen (NEGATIVE) Ur Barbiturates Screen (NEGATIVE) U Tricyclic Antidepress (NEGATIVE) Ur Phencyclidine Scrn (NEGATIVE) Ur Amphetamine Screen (NEGATIVE) U Methamphetamines Scrn (NEGATIVE) Urine MDMA Screen (NEGATIVE) U Benzodiazepines Scrn (NEGATIVE) Urine Cocaine Screen (NEGATIVE) U Marijuana (THC) Screen (NEGATIVE) 05/19/20 Range/Units 09:32 WBC (5.0-10.0) 10^3/uL RBC (4.2-5.4) 10^6/uL Hgb (12.0-16.0) g/dL Hct (37.0-47.0) % MCV (80-100) fL MCH (27.0-34.0) pg MCHC (33.0-35.0) g/dL Plt Count (150-450) 10^3/uL Neut % (Auto) (42.2-75.2) % Lymph % (Auto) (20.5-50.1) % [place] % (Auto) (2-8) % Eos % (Auto) (1.0-3.0) % Baso % (Auto) (0.0-1.0) % ABG pH (7.35-7.45) ABG pCO2 (35-45) mmHg ABG pO2 (70-100) mmHg ABG HCO3 (22-26) mmol/L ABG O2 Saturation (95-100) % ABG Base Excess ((-2)-(+3)) mmol/L Aakash Test O2 Delivery Device Oxygen Flow Rate Sodium (136-145) mmol/L Potassium (3.5-5.1) mmol/L Chloride (98-107) mmol/L Carbon Dioxide (21-32) mmol/L Anion Gap (7-13) mEq/L BUN (7-18) mg/dL Creatinine (0.55-1.02) mg/dL Est Cr Clr Drug Dosing mL/min Estimated GFR (MDRD) BUN/Creatinine Ratio (No establ ref range) Glucose (74-99) mg/dL POC Glucose 347 H (70-105) mg/dl Calcium (8.5-10.1) mg/dL Phosphorus (2.6-4.7) mg/dL Magnesium (1.8-2.4) mg/dL Total Bilirubin (0.2-1.0) mg/dL Direct Bilirubin (0.0-0.2) mg/dL Indirect Bilirubin AST (15-37) U/L ALT (14-59) U/L Alkaline Phosphatase (46-116) U/L Total Protein (6.4-8.2) g/dL Albumin (3.4-5.0) g/dL Globulin Albumin/Globulin Ratio Urine Color (YELLOW) Urine Appearance (CLEAR) Urine pH (5.0-9.0) Ur Specific [place] (1.005-1.030) Urine Protein (NEGATIVE) Urine Glucose (UA) (NEGATIVE) Urine Ketones (NEGATIVE) Urine Occult Blood (NEGATIVE) Urine Nitrite (NEGATIVE) Urine Bilirubin (NEGATIVE) Urine Urobilinogen (0.2-1.0) mg/dL Ur Leukocyte Esterase (NEGATIVE) Urine RBC /HPF Urine WBC (0-5/HPF) /HPF Ur Epithelial Cells (NOT SEEN) /HPF Urine Bacteria (0-FEW/HPF) /HPF Urine Mucus (NOT SEEN) /LPF Urine Opiates Screen (NEGATIVE) Ur Oxycodone Screen (NEGATIVE) Urine Methadone Screen (NEGATIVE) Ur Barbiturates Screen (NEGATIVE) U Tricyclic Antidepress (NEGATIVE) Ur Phencyclidine Scrn (NEGATIVE) Ur Amphetamine Screen (NEGATIVE) U Methamphetamines Scrn (NEGATIVE) Urine MDMA Screen (NEGATIVE) U Benzodiazepines Scrn (NEGATIVE) Urine Cocaine Screen (NEGATIVE) U Marijuana (THC) Screen (NEGATIVE) Med Orders - Current: Current Medications Escitalopram Oxalate (Lexapro) 10 mg PO BID [facility] Last Admin: 05/19/20 09:00 Dose: 10 mg Documented by: Heparin Sodium (Porcine) (Heparin Sodium) 5,000 units SUBCUT Q12HR [facility] Last Admin: 05/19/20 09:00 Dose: 5,000 units Documented by: Sodium Chloride (Normal Saline) 1,000 mls @ 150 mls/hr IV ASDIRECTED [facility]LY [facility] Last Admin: 05/19/20 04:42 Dose: 150 mls/hr Documented by: Insulin Human Regular 100 unit (/ Sodium Chloride) 100 mls @ 32.976 mls/hr IV TITRATE [facility]; Protocol Last Titration: 05/18/20 23:39 Dose: 0 units/kg/hr, 0 mls/hr Documented by: Magnesium Sulfate 2 gm/ Premix 50 mls @ 25 mls/hr IV ONETIME ONE Stop: 05/19/20 10:49 Last Admin: 05/19/20 09:36 Dose: 25 mls/hr Documented by: Insulin Glargine (Lantus) 20 unit SUBCUT BID [facility] Last Admin: 05/19/20 09:39 Dose: 20 units Documented by: Insulin Human Lispro (Humalog) 10 unit SUBCUT TIDMEALS [facility] Last Admin: 05/19/20 09:00 Dose: Not Given Documented by: Insulin Human Lispro (Humalog) 0 unit SUBCUT Q4H [facility]; Protocol Last Admin: 05/19/20 09:01 Dose: Not Given Documented by: Ondansetron HCl (Zofran) 4 mg IVPUSH Q6H PRN PRN Reason: Nausea/Vomiting Sodium Phosphate (Neutra-Phos) 250 mg PO QID [facility] Last Admin: 05/19/20 09:38 Dose: 250 mg Documented by: Discontinued Medications Sodium Chloride (Normal Saline) 1,000 mls @ 1,000 mls/hr IV .BOLUS ONE Stop: 05/18/20 13:28 Last Admin: 05/18/20 12:48 Dose: 1,000 mls/hr Documented by: Insulin Human Regular 100 unit (/ Sodium Chloride) 100 mls @ 6.332 mls/hr IV TITRATE [facility]; Protocol Last Titration: 05/18/20 16:46 Dose: 0 units/kg/hr, 0 mls/hr Documented by: Sodium Chloride (Normal Saline) 1,000 mls @ 250 mls/hr IV ASDIRECTED DONNIE Last Admin: 05/18/20 14:43 Dose: 250 mls/hr Documented by: Dextrose/Sodium Chloride (Dextrose 5%-1/2 Ns) 1,000 mls @ 250 mls/hr IV ASDIRECTED DONNIE Last Admin: 05/18/20 14:45 Dose: 250 mls/hr Documented by: Sodium Chloride (Normal Saline) 1,000 mls @ 75 mls/hr IV ASDIRECTED [facility] Last Infusion: 05/18/20 22:18 Dose: 150 mls/hr Documented by: Insulin Human Lispro (Humalog) 0 unit SUBCUT QID [facility]; Protocol Last Admin: 05/18/20 21:50 Dose: Not Given Documented by: Insulin Human Regular (Humulin R) 100 unit IV ONETIME ONE Stop: 05/18/20 21:56 Last Admin: 05/18/20 22:39 Dose: Not Given Documented by: Pantoprazole Sodium (Protonix Iv) 40 mg IVPUSH ONETIME ONE Stop: 05/18/20 14:31 Last Admin: 05/18/20 14:40 Dose: 40 mg Documented by: - Exam Quality Assessment: DVT Prophylaxis General: Alert, Oriented HEENT: Pupils Equal, Pupils Reactive, EOMI, Mucous Membr. Moist/[place] Neck: Supple Lungs: Clear to Auscultation, Normal Respiratory Effort Cardiovascular: Regular Rate, Regular Rhythm GI/Abdominal Exam: Normal Bowel Sounds, Soft, Non-Tender, No Organomegaly, No Distention, No Abnormal Bruit, No Mass, Pelvis Stable (Female) Exam: Normal External Exam, Normal Speculum Exam, Normal Bimanual Exam Back Exam: Normal Inspection, Full Range of Motion Extremities: Normal Inspection, Normal Range of Motion, Non-Tender, No Pedal Edema, Normal Capillary Refill Skin: Warm, Dry, Intact Wound/Incisions: Healing Well Neurological: No New Focal Deficit Psy/Mental Status: Alert, Normal Affect, Normal Mood Sepsis Event Note - Evaluation Sepsis Screening Result: No Definite Risk - Focused Exam Vital Signs: Vital Signs Temp Pulse Resp BP 05/19/20 00:00 97.6 F 109 H 16 116/73 - Problem List & Annotations (1) High anion gap metabolic acidosis SNOMED Code(s): 77744054 Code(s): E87.2 - ACIDOSIS Status: Acute Current Visit: Yes (2) CHANDLER (acute kidney injury) SNOMED Code(s): 21327477, 77343526 Code(s): N17.9 - ACUTE KIDNEY FAILURE, UNSPECIFIED Status: Acute Current Visit: No (3) Dehydration symptoms SNOMED Code(s): 186019012 Code(s): R63.8 - OTHER SYMPTOMS AND SIGNS CONCERNING FOOD AND FLUID INTAKE Status: Acute Current Visit: No (4) Diabetes type 1, uncontrolled SNOMED Code(s): 86060359, 514260880 Code(s): E10.65 - TYPE 1 DIABETES MELLITUS WITH HYPERGLYCEMIA Status: Acute Current Visit: No Qualifiers: Glycemic state: with hyperglycemia Qualified Code(s): E10.65 - Type 1 diabetes mellitus with hyperglycemia (5) Hyperglycemia SNOMED Code(s): 52379595 Code(s): R73.9 - HYPERGLYCEMIA, UNSPECIFIED Status: Acute Current Visit: No (6) Leukocytosis SNOMED Code(s): 159604005, 435116539 Code(s): D72.829 - ELEVATED WHITE BLOOD CELL COUNT, UNSPECIFIED Status: Acute Current Visit: No Qualifiers: Leukocytosis type: unspecified Qualified Code(s): D72.829 - Elevated white blood cell count, unspecified - Problem List Review Problem List Initiated/Reviewed/Updated: Yes - My Orders Last 24 Hours: My Active Orders 05/18/20 Lunch Nothing per Oral Now Diet [DIET] 05/18/20 14:06 Ambulate [RC] ASDIRECTED Height and Weight [RC] DAILY Consult to Case Management/Experimental Machinist [CONS] Routine Consult to Diabetic Nurse Specialist [CONS] Routine Consult to Chipper Feeder [CONS] Routine Ondansetron [Zofran] 4 mg IVPUSH Q6H PRN Resuscitation Status Routine 05/18/20 14:07 Intake and Output [RC] QSHIFT Notify Provider Vital Signs [RC] ASDIRECTED Oxygen Therapy [RC] PRN VTE/DVT Education [RC] PER UNIT ROUTINE Vital Signs [RC] 00,04,08,12,16,20 05/18/20 21:00 Escitalopram [Lexapro] 10 mg PO BID Heparin Sodium 5,000 units SUBCUT Q12HR Insulin Glarg,Human.Rec.Analog [LantUS] 20 unit SUBCUT BID 05/18/20 21:51 Blood Glucose Check, Bedside [RC] 00,04,08,12,16,20 05/18/20 21:57 Communication Order [RC] PRN 05/18/20 22:00 Sodium Chloride 0.9% [Normal Saline] 1,000 ml IV ASDIRECTED 05/18/20 22:30 Insulin Regular, Human [HumuLIN R] 100 unit Sodium Chloride 0.9% [Normal Saline] 99 ml IV TITRATE 05/18/20 23:37 Communication Order [RC] PRN 05/19/20 00:00 Insulin Lispro [HumaLOG] See Protocol SUBCUT Q4H 05/19/20 08:00 Insulin Lispro [HumaLOG] 10 unit SUBCUT TIDMEALS 05/19/20 08:50 Magnesium Sulfate/Water [Magnesium Sulfate in Water Premix] 2 gm Premix Bag 1 bag IV ONETIME 05/19/20 09:00 Phosphorus #1 [Neutra-Phos] 250 mg PO QID 05/19/20 10:00 BASIC METABOLIC PANEL,BMP [CHEM] Q4H 05/19/20 14:00 BASIC METABOLIC PANEL,BMP [CHEM] Q4H 05/20/20 07:00 CBC WITH AUTO DIFF [HEME] DAILY HEPATIC FUNCTION PANEL,HFP [CHEM] DAILY 05/21/20 07:00 CBC WITH AUTO DIFF [HEME] DAILY HEPATIC FUNCTION PANEL,HFP [CHEM] DAILY - Plan Plan:: #High anion gap metabolic acidosis. This is likely due to elderly DKA versus starvation ketosis -Resolved -D/c insulin drip -Resume home insulin regimen -Accu-cheks -Hypoglycemic protocol -A1c -nurse informatics educator consult #Poorly controlled type 1 diabetes due to noncompliance -Continue treatment as above #Pseudohyponatremia due to hyperglycemia -Resolved #Leukocytosis. Likely reactive -Resolved #CHANDLER due to prerenal azotemia -Resolved #Abnormal LFT: ALT 78, alk phos 254. Likley due to alcohol abuse -Appears chronic -Monitor LFTs closely #Social work consult #Full code
[2020-05-19 10:54] LABS: ANION GAP 14.1 mEq/L (7-13); CHLORIDE,CL 98 mmol/L (98-107); SODIUM,NA 132 mmol/L (136-145)
[2020-05-19 14:44] LABS: ANION GAP 14.5 mEq/L (7-13); CHLORIDE,CL 101 mmol/L (98-107); SODIUM,NA 137 mmol/L (136-145)
[2020-05-20] MEDS: Insulin Lispro 100 Units/ML 3 ML Vial SUBCUT SCH ×6 (00:17→13:38)
[2020-05-20] MEDS: Insulin Glarg,Human.Rec.Analog 100 Unit/ML SUBCUT SCH (09:03)
[2020-05-20] MEDS: Phosphorus #1 250 MG Tab PO SCH ×2 (09:03→13:35)
[2020-05-20] MEDS: Escitalopram 10 MG Tab PO SCH (09:03)
[2020-05-20] MEDS: Heparin Sodium 5,000 Units/ML Vial SUBCUT SCH (09:04)
[2020-05-20] MEDS ORDERED: Azithromycin 250 MG Tab PO ONE (10:16)
[2020-05-20] MEDS ORDERED: cefTRIAXone 250 MG Vial IM ONE (10:16)
--- NOTE | 2020-05-20 10:44 | PCM.DCSUM1 ---
Discharge Summary - Hospital Course HPI Initial Comments: Coleen is a 29-year-old female with past medical history significant for type 1 diabetes on insulin, history of medication noncompliance presented to the ED for evaluation of not feeling generally well, polyphagia, polydipsia, polyuria for the past few days. She was admitted for hyperglycemia due to uncontrolled diabetes with possible early onset DKA. She received IV fluids, insulin infusion. She responded to treatment. She was transitioned to her home dose of insulin. Patient reported his boyfriend tested positive for gonorrhea on day 2 of admission. She requested to be tested. She reported mild vaginal discharge. She denies lower abdominal pain, fever, chills. Urine was sent for gonorrhea and chlamydia. Reports still pending. She received empiric treatment with ceftriaxone 250 mg IM x1 and one-time dose of thousand milligrams of elsie thromycin. She was advised to follow-up with PCP for follow-up. Patient was offered discharge to [facility] but she declined the offer. She states that she is okay and wanted to be discharged to where she was living before she came. She denies depression, suicidal ideation at this time. Patient was safely discharged home. She was strongly advised on medication compliance and also advised to keep her follow-up appointment. She verbalized understanding. Diagnosis: Stroke: No - Discharge Data Discharge Date: 05/20/20 Discharge Disposition: Home, Self-Care 01 Condition: Good - Referral to Home Health Primary Care Physician: PCP None - Discharge Diagnosis/Problem(s) (1) High anion gap metabolic acidosis SNOMED Code(s): 92569275 ICD Code: E87.2 - ACIDOSIS Status: Acute Current Visit: Yes (2) CHANDLER (acute kidney injury) SNOMED Code(s): 66701069, 83295496 ICD Code: N17.9 - ACUTE KIDNEY FAILURE, UNSPECIFIED Status: Acute Current Visit: No (3) Dehydration symptoms SNOMED Code(s): 400990001 ICD Code: R63.8 - OTHER SYMPTOMS AND SIGNS CONCERNING FOOD AND FLUID INTAKE Status: Acute Current Visit: No (4) Diabetes type 1, uncontrolled SNOMED Code(s): 93027928, 837032261 ICD Code: E10.65 - TYPE 1 DIABETES MELLITUS WITH HYPERGLYCEMIA Status: Acute Current Visit: No Qualifiers: Glycemic state: with hyperglycemia Qualified Code(s): E10.65 - Type 1 diabetes mellitus with hyperglycemia (5) Hyperglycemia SNOMED Code(s): 62084516 ICD Code: R73.9 - HYPERGLYCEMIA, UNSPECIFIED Status: Acute Current Visit: No (6) Leukocytosis SNOMED Code(s): 210247420, 552777582 ICD Code: D72.829 - ELEVATED WHITE BLOOD CELL COUNT, UNSPECIFIED Status: Acute Current Visit: No Qualifiers: Leukocytosis type: unspecified Qualified Code(s): D72.829 - Elevated white blood cell count, unspecified - Patient Summary/Data Consults: Consultations 05/18/20 14:06 Consult to Case Management/Electronic Test Technician [CONS] Routine Consult to Diabetic Nurse Specialist [CONS] Routine Consult to Stull Hewer [CONS] Routine - Patient Instructions Diet: Diabetic Diet Activity: As Tolerated Driving: May Drive Today Showering/Bathing: May Shower Notify Provider of: Fever, Nausea and/or Vomiting - Discharge Plan *PRESCRIPTION DRUG MONITORING PROGRAM REVIEWED*: No *COPY OF PRESCRIPTION DRUG MONITORING REPORT IN PATIENT LEOLA: No Prescriptions/Med Rec: Insulin Aspart [Insulin Aspart Flexpen] 10 units SUBCUT TIDMEALS 30 Days #1 pen Insulin Detemir [Levemir Flextouch] 20 unit SQ BID 30 Days #1 pen Phosphorus #1 [Neutra-Phos] 250 mg PO QID 5 Days tablet Home Medications: Home Meds Escitalopram Oxalate 10 mg PO BID 03/27/20 [History] Pnv No.95/Ferrous Fum/Folic AC [ Multivitamin Tablet] 1 each PO DAILY 03/27/20 [History] Insulin Aspart [Insulin Aspart Flexpen] 10 units SUBCUT TIDMEALS 30 Days #1 pen 05/20/20 [Rx] Insulin Detemir [Levemir Flextouch] 20 unit SQ BID 30 Days #1 pen 05/20/20 [Rx] Phosphorus #1 [Neutra-Phos] 250 mg PO QID 5 Days tablet 05/20/20 [Rx] Patient Handouts: Hyperglycemia, [id number], Preventing Sexually Transmitted Infections, Adult, Gonorrhea - Discharge Summary/Plan Comment DC Time >30 min.: Yes Discharge Summary/Plan Comment: Keep up follow-up appointments. - General Info Date of Service: 05/20/20 Admission Dx/Problem (Free Text: Admission Diagnosis/Problem Admission Diagnosis/Problem Hyperglycemia Functional Status: Reports: Pain Controlled - Review of Systems General: Reports: No Symptoms HEENT: Reports: No Symptoms Pulmonary: Reports: No Symptoms Cardiovascular: Reports: No Symptoms Gastrointestinal: Reports: No Symptoms Genitourinary: Reports: No Symptoms Musculoskeletal: Reports: No Symptoms Skin: Reports: No Symptoms Neurological: Reports: No Symptoms Psychiatric: Reports: No Symptoms - Patient Data Vitals - Most Recent: Last Vital Signs Temp 97.8 F 05/20/20 08:00 Pulse 104 H 05/20/20 08:00 Resp 18 05/20/20 08:00 BP 134/91 H 05/20/20 08:00 Pulse Ox 98 05/20/20 08:00 Weight - Most Recent: 145 lb 6.4 oz I&O - Last 24 hours: Intake & Output 05/19/20 05/20/20 05/20/20 22:59 06:59 14:59 Intake Total 240 Balance 240 Lab Results - Last 24 hrs: Laboratory Results - last 24 hr 05/19/20 05/19/20 05/19/20 Range/Units 10:17 10:17 11:36 WBC (5.0-10.0) 10^3/uL RBC (4.2-5.4) 10^6/uL Hgb (12.0-16.0) g/dL Hct (37.0-47.0) % MCV (80-100) fL MCH (27.0-34.0) pg MCHC (33.0-35.0) g/dL Plt Count (150-450) 10^3/uL Neut % (Auto) (42.2-75.2) % Lymph % (Auto) (20.5-50.1) % [place] % (Auto) (2-8) % Eos % (Auto) (1.0-3.0) % Baso % (Auto) (0.0-1.0) % Sodium 132 L (136-145) mmol/L Potassium 5.1 (3.5-5.1) mmol/L Chloride 98 (98-107) mmol/L Carbon Dioxide 25 (21-32) mmol/L Anion Gap 14.1 H (7-13) mEq/L BUN 11 (7-18) mg/dL Creatinine 0.86 (0.55-1.02) mg/dL Est Cr Clr Drug Dosing 94.71 mL/min Estimated GFR (MDRD) > 60 Glucose 358 H (74-99) mg/dL POC Glucose 305 H (70-105) mg/dl Calcium 8.0 L (8.5-10.1) mg/dL Phosphorus 2.8 (2.6-4.7) mg/dL Magnesium 2.4 (1.8-2.4) mg/dL Total Bilirubin (0.2-1.0) mg/dL Direct Bilirubin (0.0-0.2) mg/dL Indirect Bilirubin AST (15-37) U/L ALT (14-59) U/L Alkaline Phosphatase (46-116) U/L Total Protein (6.4-8.2) g/dL Albumin (3.4-5.0) g/dL Globulin Albumin/Globulin Ratio 05/19/20 05/19/20 05/19/20 Range/Units 14:24 16:37 20:36 WBC (5.0-10.0) 10^3/uL RBC (4.2-5.4) 10^6/uL Hgb (12.0-16.0) g/dL Hct (37.0-47.0) % MCV (80-100) fL MCH (27.0-34.0) pg MCHC (33.0-35.0) g/dL Plt Count (150-450) 10^3/uL Neut % (Auto) (42.2-75.2) % Lymph % (Auto) (20.5-50.1) % [place] % (Auto) (2-8) % Eos % (Auto) (1.0-3.0) % Baso % (Auto) (0.0-1.0) % Sodium 137 (136-145) mmol/L Potassium 4.5 (3.5-5.1) mmol/L Chloride 101 (98-107) mmol/L Carbon Dioxide 26 (21-32) mmol/L Anion Gap 14.5 H (7-13) mEq/L BUN 8 (7-18) mg/dL Creatinine 0.72 (0.55-1.02) mg/dL Est Cr Clr Drug Dosing 113.12 mL/min Estimated GFR (MDRD) > 60 Glucose 148 H (74-99) mg/dL POC Glucose 84 132 H (70-105) mg/dl Calcium 8.2 L (8.5-10.1) mg/dL Phosphorus (2.6-4.7) mg/dL Magnesium (1.8-2.4) mg/dL Total Bilirubin (0.2-1.0) mg/dL Direct Bilirubin (0.0-0.2) mg/dL Indirect Bilirubin AST (15-37) U/L ALT (14-59) U/L Alkaline Phosphatase (46-116) U/L Total Protein (6.4-8.2) g/dL Albumin (3.4-5.0) g/dL Globulin Albumin/Globulin Ratio 05/20/20 05/20/20 05/20/20 Range/Units 00:14 04:09 05:55 WBC 6.3 (5.0-10.0) 10^3/uL RBC 3.56 L (4.2-5.4) 10^6/uL Hgb 10.8 L (12.0-16.0) g/dL Hct 33.3 L (37.0-47.0) % MCV 93.5 (80-100) fL MCH 30.3 (27.0-34.0) pg MCHC 32.4 L (33.0-35.0) g/dL Plt Count 433 (150-450) 10^3/uL Neut % (Auto) 39.1 L (42.2-75.2) % Lymph % (Auto) 48.6 (20.5-50.1) % [place] % (Auto) 6.4 (2-8) % Eos % (Auto) 5.4 H (1.0-3.0) % Baso % (Auto) 0.5 (0.0-1.0) % Sodium (136-145) mmol/L Potassium (3.5-5.1) mmol/L Chloride (98-107) mmol/L Carbon Dioxide (21-32) mmol/L Anion Gap (7-13) mEq/L BUN (7-18) mg/dL Creatinine (0.55-1.02) mg/dL Est Cr Clr Drug Dosing mL/min Estimated GFR (MDRD) Glucose (74-99) mg/dL POC Glucose 202 H 95 (70-105) mg/dl Calcium (8.5-10.1) mg/dL Phosphorus (2.6-4.7) mg/dL Magnesium (1.8-2.4) mg/dL Total Bilirubin (0.2-1.0) mg/dL Direct Bilirubin (0.0-0.2) mg/dL Indirect Bilirubin AST (15-37) U/L ALT (14-59) U/L Alkaline Phosphatase (46-116) U/L Total Protein (6.4-8.2) g/dL Albumin (3.4-5.0) g/dL Globulin Albumin/Globulin Ratio 05/20/20 05/20/20 05/20/20 Range/Units 05:55 07:36 08:00 WBC (5.0-10.0) 10^3/uL RBC (4.2-5.4) 10^6/uL Hgb (12.0-16.0) g/dL Hct (37.0-47.0) % MCV (80-100) fL MCH (27.0-34.0) pg MCHC (33.0-35.0) g/dL Plt Count (150-450) 10^3/uL Neut % (Auto) (42.2-75.2) % Lymph % (Auto) (20.5-50.1) % [place] % (Auto) (2-8) % Eos % (Auto) (1.0-3.0) % Baso % (Auto) (0.0-1.0) % Sodium (136-145) mmol/L Potassium (3.5-5.1) mmol/L Chloride (98-107) mmol/L Carbon Dioxide (21-32) mmol/L Anion Gap (7-13) mEq/L BUN (7-18) mg/dL Creatinine (0.55-1.02) mg/dL Est Cr Clr Drug Dosing mL/min Estimated GFR (MDRD) Glucose (74-99) mg/dL POC Glucose 54 L 92 (70-105) mg/dl Calcium (8.5-10.1) mg/dL Phosphorus (2.6-4.7) mg/dL Magnesium (1.8-2.4) mg/dL Total Bilirubin 0.2 (0.2-1.0) mg/dL Direct Bilirubin 0.1 (0.0-0.2) mg/dL Indirect Bilirubin 0.1 AST 20 (15-37) U/L ALT 53 (14-59) U/L Alkaline Phosphatase 144 H (46-116) U/L Total Protein 6.5 (6.4-8.2) g/dL Albumin 2.8 L (3.4-5.0) g/dL Globulin 3.7 Albumin/Globulin Ratio 0.76 08/30/20 Range/Units 10:27 WBC (5.0-10.0) 10^3/uL RBC (4.2-5.4) 10^6/uL Hgb (12.0-16.0) g/dL Hct (37.0-47.0) % MCV (80-100) fL MCH (27.0-34.0) pg MCHC (33.0-35.0) g/dL Plt Count (150-450) 10^3/uL Neut % (Auto) (42.2-75.2) % Lymph % (Auto) (20.5-50.1) % [place] % (Auto) (2-8) % Eos % (Auto) (1.0-3.0) % Baso % (Auto) (0.0-1.0) % Sodium (136-145) mmol/L Potassium (3.5-5.1) mmol/L Chloride (98-107) mmol/L Carbon Dioxide (21-32) mmol/L Anion Gap (7-13) mEq/L BUN (7-18) mg/dL Creatinine (0.55-1.02) mg/dL Est Cr Clr Drug Dosing mL/min Estimated GFR (MDRD) Glucose (74-99) mg/dL POC Glucose 111 H (70-105) mg/dl Calcium (8.5-10.1) mg/dL Phosphorus (2.6-4.7) mg/dL Magnesium (1.8-2.4) mg/dL Total Bilirubin (0.2-1.0) mg/dL Direct Bilirubin (0.0-0.2) mg/dL Indirect Bilirubin AST (15-37) U/L ALT (14-59) U/L Alkaline Phosphatase (46-116) U/L Total Protein (6.4-8.2) g/dL Albumin (3.4-5.0) g/dL Globulin Albumin/Globulin Ratio Med Orders - Current: Current Medications Escitalopram Oxalate (Lexapro) 10 mg PO BID [facility] Last Admin: 05/20/20 09:03 Dose: 10 mg Documented by: Heparin Sodium (Porcine) (Heparin Sodium) 5,000 units SUBCUT Q12HR [facility] Last Admin: 05/20/20 09:04 Dose: 5,000 units Documented by: Sodium Chloride (Normal Saline) 1,000 mls @ 150 mls/hr IV ASDIRECTED [facility] Last Admin: 05/19/20 04:42 Dose: 150 mls/hr Documented by: Insulin Human Regular 100 unit (/ Sodium Chloride) 100 mls @ 32.976 mls/hr IV TITRATE [facility]; Protocol Last Titration: 05/18/20 23:39 Dose: 0 units/kg/hr, 0 mls/hr Documented by: Insulin Glargine (Lantus) 20 unit SUBCUT BID [facility] Last Admin: 05/20/20 09:03 Dose: 20 units Documented by: Insulin Human Lispro (Humalog) 10 unit SUBCUT TIDMEALS [facility] Last Admin: 05/20/20 09:04 Dose: 10 units Documented by: Insulin Human Lispro (Humalog) 0 unit SUBCUT Q4H [facility]; Protocol Last Admin: 05/20/20 09:05 Dose: Not Given Documented by: Ondansetron HCl (Zofran) 4 mg IVPUSH Q6H PRN PRN Reason: Nausea/Vomiting Sodium Phosphate (Neutra-Phos) 250 mg PO QID [facility] Last Admin: 05/20/20 09:03 Dose: 250 mg Documented by: Discontinued Medications Azithromycin (Zithromax) 1,000 mg PO ONETIME ONE Stop: 05/20/20 10:17 Ceftriaxone Sodium (Rocephin) 250 mg IM ONETIME ONE Stop: 05/20/20 10:17 Sodium Chloride (Normal Saline) 1,000 mls @ 1,000 mls/hr IV .BOLUS ONE Stop: 05/18/20 13:28 Last Admin: 05/18/20 12:48 Dose: 1,000 mls/hr Documented by: Insulin Human Regular 100 unit (/ Sodium Chloride) 100 mls @ 6.332 mls/hr IV TITRATE [facility]; Protocol Last Titration: 05/18/20 16:46 Dose: 0 units/kg/hr, 0 mls/hr Documented by: Sodium Chloride (Normal Saline) 1,000 mls @ 250 mls/hr IV ASDIRECTED [facility] Last Admin: 05/18/20 14:43 Dose: 250 mls/hr Documented by: Dextrose/Sodium Chloride (Dextrose 5%-1/2 Ns) 1,000 mls @ 250 mls/hr IV ASD IRECTED [facility] Last Admin: 05/18/20 14:45 Dose: 250 mls/hr Documented by: Sodium Chloride (Normal Saline) 1,000 mls @ 75 mls/hr IV ASDIRECTED [facility] Last Infusion: 05/18/20 22:18 Dose: 150 mls/hr Documented by: Magnesium Sulfate 2 gm/ Premix 50 mls @ 25 mls/hr IV ONETIME ONE Stop: 05/19/20 10:49 Last Admin: 05/19/20 09:36 Dose: 25 mls/hr Documented by: Insulin Human Lispro (Humalog) 0 unit SUBCUT QID [facility]; Protocol Last Admin: 05/18/20 21:50 Dose: Not Given Documented by: Insulin Human Regular (Humulin R) 100 unit IV ONETIME ONE Stop: 05/18/20 21:56 Last Admin: 05/18/20 22:39 Dose: Not Given Documented by: Pantoprazole Sodium (Protonix Iv) 40 mg IVPUSH ONETIME ONE Stop: 05/18/20 14:31 Last Admin: 05/18/20 14:40 Dose: 40 mg Documented by: - Exam Quality Assessment: Reports: DVT Prophylaxis General: Reports: Alert, Oriented HEENT: Reports: Pupils Equal, Pupils Reactive, EOMI, Mucous Membr. Moist/[place] Neck: Reports: Supple Lungs: Reports: Clear to Auscultation, Normal Respiratory Effort Cardiovascular: Reports: Regular Rate, Regular Rhythm GI/Abdominal Exam: Normal Bowel Sounds, Soft, Non-Tender, No Organomegaly, No Distention, No Abnormal Bruit, No Mass, Pelvis Stable (Female) Exam: Normal External Exam, Normal Speculum Exam, Normal Bimanual Exam Rectal (Female) Exam: Normal Exam, Normal Rectal Tone Back Exam: Reports: Normal Inspection, Full Range of Motion Extremities: Normal Inspection, Normal Range of Motion, Non-Tender, No Pedal Edema, Normal Capillary Refill Skin: Reports: Warm, Dry, Intact Wound/Incisions: Reports: Healing Well Neurological: Reports: No New Focal Deficit Psy/Mental Status: Reports: Alert, Normal Affect, Normal Mood
[2020-05-20 15:18] VITALS: BP 122/80; PULSE 100
== END 2020-05-20 14:55 | disposition home or self-care (01) ==
LOC: DL.ED 12:08 → DL.MS 13:36 → DL.ED 13:43
PROVIDERS: ADMIT Student in an Organized Health Care Education/Training Program; ATTEND Student in an Organized Health Care Education/Training Program
DX: E10.65 Type 1 diabetes mellitus with hyperglycemia (principal); N17.9 Acute kidney failure, unspecified; D72.829 Elevated white blood cell count, unspecified; F41.9 Anxiety disorder, unspecified; F32.9 Major depressive disorder, single episode, unspecified; R63.8 Other symptoms and signs concerning food and fluid intake; R94.5 Abnormal results of liver function studies; Z91.14 Patient's other noncompliance with medication regimen; Z79.899 Other long term (current) drug therapy
CPT/HCPCS: 36415; 36600; 80048; 80053; 80076; 80305; 81001; 82803; 82962; 83735; 84100; 85025; 87491; 87591; 96361; 96365; 96366; 96372; 96375; 99285; A9270; C9113; G0378; J0696; J1644; J1815; J3475; J7030; J7042; J7050; 96360; 99283

== ENCOUNTER 2020-06-27 14:03 | Emergency (ER) | payer MEDICAID ==
--- NOTE | 2020-06-27 14:20 | EDM.PDOCBH ---
ED HPI GENERAL MEDICAL PROBLEM - General Chief Complaint: Drug or Alcohol Abuse Stated Complaint: MEDICAL CLEARANCE, CRISIS CENTER Time Seen by Provider: 06/27/20 14:15 Source of Information: Reports: Patient, Old Records, RN, RN Notes Reviewed, Other (Nereida Vick, Vi Call from the [facility]) History Limitations: Reports: No Limitations - History of Present Illness INITIAL COMMENTS - FREE TEXT/NARRATIVE: Pt brought from the [facility] to ER with request of medical screening exam before being admitted to the [facility]. Pt had voiced suicidal thoughts and has Hx of residential substance abuse. Pt's sister recently committed suicide by hanging. Pt became ill about 2.5 weeks ago and tested COVID positive on 06/13/20. She has now completed her 14 day quarantine. She denies any complaints of pain, injury, or illness. Onset: Unknown/Unsure Duration: Constant Location: Reports: Generalized Severity: Severe Associated Symptoms: Reports: No Other Symptoms - Related Data Allergies Allergy/AdvReac Type Severity Reaction Status Date / Time No Known Allergies Allergy Verified 06/27/20 14:11 Home Meds: Home Meds Insulin Aspart [Insulin Aspart Flexpen] 10 units SUBCUT TIDMEALS 30 Days #1 pen 05/20/20 [Rx] Insulin Detemir [Levemir Flextouch] 20 unit SQ BID 30 Days #1 pen 05/20/20 [Rx] Past Medical History - Past Health History Medical/Surgical History: Denies Medical/Surgical History HEENT History: Reports: Impaired Vision Other HEENT History: states has a cloud to the right side. States she is near sighted. 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 History: Reports: Other Musculoskeletal History: 12/04/16 Bilateral ingrown toe nails leading to sepsis, IV vanco BID for 10 days Neurological History: Reports: Concussion, Seizure Psychiatric History: Reports: Addiction, Anxiety, Depression, Other (See Below) Other Psychiatric History: Medical non-compliance Endocrine/Metabolic History: Reports: Diabetes, Type I Hematologic History: Reports: None Immunologic History: Reports: None Oncologic (Cancer) History: Reports: None Dermatologic History: Reports: None - Infectious Disease History Infectious Disease History: Reports: None - Past Surgical History Head Surgeries/Procedures: Reports: None Social & Family History - Family History Family Medical History: Noncontributory HEENT: Reports: None Oncologic: Reports: Breast, Other (See Below) Other Oncologic Family History: Stomach CA - Caffeine Use Caffeine Use: Reports: None Other Caffeine Use: pt. unable to answer - Living Situation & Occupation Living situation: Reports: with Family ED ROS GENERAL - Review of Systems Review Of Systems: Comprehensive ROS is negative, except as noted in HPI. ED EXAM, BEHAVIORAL HEALTH - Physical Exam Exam: See Below Exam Limited By: No Limitations General Appearance: Alert, WD/WN, No Apparent Distress Eye Exam: Bilateral Eye: EOMI, Normal Inspection, PERRL Ears: Normal External Exam, Normal Canal, Hearing Grossly Normal, Normal TMs Nose: Normal Inspection, Normal Mucosa, No Blood Throat/Mouth: Normal Inspection, Normal Lips, Normal Oropharynx, Normal Voice, No Airway Compromise Head: Atraumatic, Normocephalic Neck: Normal Inspection, Supple, Non-Tender, Full Range of Motion Respiratory/Chest: No Respiratory Distress, Lungs Clear, Normal Breath Sounds, No Accessory Muscle Use, Chest Non-Tender Cardiovascular: Regular Rate, Rhythm, No Edema GI/Abdominal: Normal Bowel Sounds, Soft, Non-Tender (Female) Exam: Deferred Rectal (Female) Exam: Deferred Back Exam: Normal Inspection Extremities: Normal Inspection Neurological: Alert, CN II-XII Intact, Normal Cognition, No Motor/Sensory Deficits, Oriented x 3 Psychiatric: Tearful, Agitated, Suicidal Thoughts Skin Exam: Warm, Dry, Intact, Normal color, No rash COURSE, BEHAVIORAL HEALTH COMP - Course Vital Signs: Last Vital Signs Temp 97.9 F 06/27/20 14:08 Pulse 112 H 06/27/20 14:08 Resp 16 06/27/20 14:08 BP 120/87 06/27/20 14:08 Pulse Ox 97 06/27/20 14:08 Orders, Labs, Meds: Active Orders 24 hr Category Date Time Status Blood Glucose Check, Bedside [RC] ONETIME Care 06/27/20 14:07 Active CHLAMYDIA AND GONORRHEA BY TMA Routine Lab 06/27/20 14:32 Received Laboratory Tests 06/27/20 06/27/20 06/27/20 Range/Units 14:22 14:22 14:22 WBC 7.4 (5.0-10.0) 10^3/uL RBC 4.14 L (4.2-5.4) 10^6/uL Hgb 12.8 D (12.0-16.0) g/dL Hct 37.1 (37.0-47.0) % MCV 89.6 D (80-100) fL MCH 30.9 (27.0-34.0) pg MCHC 34.5 (33.0-35.0) g/dL Plt Count 457 H (150-450) 10^3/uL Neut % (Auto) 66.0 (42.2-75.2) % Lymph % (Auto) 25.6 (20.5-50.1) % [place] % (Auto) 5.7 (2-8) % Eos % (Auto) 1.9 (1.0-3.0) % Baso % (Auto) 0.8 (0.0-1.0) % Sodium 135 L (136-145) mmol/L Potassium 4.3 (3.5-5.1) mmol/L Chloride 96 L (98-107) mmol/L Carbon Dioxide 27 (21-32) mmol/L Anion Gap 16.3 H (7-13) mEq/L BUN 17 (7-18) mg/dL Creatinine 0.87 (0.55-1.02) mg/dL Est Cr Clr Drug Dosing 92.23 mL/min Estimated GFR (MDRD) > 60 BUN/Creatinine Ratio 19.5 (No establ ref range) Glucose 177 H (74-99) mg/dL Calcium 10.0 D (8.5-10.1) mg/dL Magnesium 2.0 (1.8-2.4) mg/dL Total Bilirubin 0.2 (0.2-1.0) mg/dL AST 30 (15-37) U/L ALT 68 H (14-59) U/L Alkaline Phosphatase 197 H (46-116) U/L Total Protein 8.3 H (6.4-8.2) g/dL Albumin 3.6 (3.4-5.0) g/dL Globulin 4.7 Albumin/Globulin Ratio 0.8 TSH, Ultra Sensitive 1.69 (0.36-3.74) uIU/mL Urine Color (YELLOW) Urine Appearance (CLEAR) Urine pH (5.0-9.0) Ur Specific [place] (1.005-1.030) Urine Protein (NEGATIVE) Urine Glucose (UA) (NEGATIVE) Urine Ketones (NEGATIVE) Urine Occult Blood (NEGATIVE) Urine Nitrite (NEGATIVE) Urine Bilirubin (NEGATIVE) Urine Urobilinogen (0.2-1.0) mg/dL Ur Leukocyte Esterase (NEGATIVE) Urine RBC /HPF Urine WBC (0-5/HPF) /HPF Ur Epithelial Cells (NOT SEEN) /HPF Amorphous Sediment (NOT SEEN) /HPF Urine Bacteria (0-FEW/HPF) /HPF Urine Mucus (NOT SEEN) /LPF Urine HCG, Qual Salicylates < 2.8 L (2.8-20(Therapeutic)) mg/dL Urine Opiates Screen (NEGATIVE) Ur Oxycodone Screen (NEGATIVE) Urine Methadone Screen (NEGATIVE) Acetaminophen 0 L (10-30 (Therapeutic)) ug/mL Ur Barbiturates Screen (NEGATIVE) U Tricyclic Antidepress (NEGATIVE) Ur Phencyclidine Scrn (NEGATIVE) Ur Amphetamine Screen (NEGATIVE) U Methamphetamines Scrn (NEGATIVE) Urine MDMA Screen (NEGATIVE) U Benzodiazepines Scrn (NEGATIVE) Urine Cocaine Screen (NEGATIVE) U Marijuana (THC) Screen (NEGATIVE) Ethyl Alcohol < 3 (0) mg/dL Ketones Negative 06/27/20 06/27/20 06/27/20 Range/Units 14:32 14:32 14:32 WBC (5.0-10.0) 10^3/uL RBC (4.2-5.4) 10^6/uL Hgb (12.0-16.0) g/dL Hct (37.0-47.0) % MCV (80-100) fL MCH (27.0-34.0) pg MCHC (33.0-35.0) g/dL Plt Count (150-450) 10^3/uL Neut % (Auto) (42.2-75.2) % Lymph % (Auto) (20.5-50.1) % [place] % (Auto) (2-8) % Eos % (Auto) (1.0-3.0) % Baso % (Auto) (0.0-1.0) % Sodium (136-145) mmol/L Potassium (3.5-5.1) mmol/L Chloride (98-107) mmol/L Carbon Dioxide (21-32) mmol/L Anion Gap (7-13) mEq/L BUN (7-18) mg/dL Creatinine (0.55-1.02) mg/dL Est Cr Clr Drug Dosing mL/min Estimated GFR (MDRD) BUN/Creatinine Ratio (No establ ref range) Glucose (74-99) mg/dL Calcium (8.5-10.1) mg/dL Magnesium (1.8-2.4) mg/dL Total Bilirubin (0.2-1.0) mg/dL AST (15-37) U/L ALT (14-59) U/L Alkaline Phosphatase (46-116) U/L Total Protein (6.4-8.2) g/dL Albumin (3.4-5.0) g/dL Globulin Albumin/Globulin Ratio TSH, Ultra Sensitive (0.36-3.74) uIU/mL Urine Color Yellow (YELLOW) Urine Appearance Slightly cloudy (CLEAR) Urine pH 6.0 (5.0-9.0) Ur Specific [place] 1.025 (1.005-1.030) Urine Protein 30 H (NEGATIVE) Urine Glucose (UA) 500 H (NEGATIVE) Urine Ketones Negative (NEGATIVE) Urine Occult Blood Negative (NEGATIVE) Urine Nitrite Negative (NEGATIVE) Urine Bilirubin Negative (NEGATIVE) Urine Urobilinogen 0.2 (0.2-1.0) mg/dL Ur Leukocyte Esterase Negative (NEGATIVE) Urine RBC Not seen /HPF Urine WBC 0-5 (0-5/HPF) /HPF Ur Epithelial Cells Many H (NOT SEEN) /HPF Amorphous Sediment Not seen (NOT SEEN) /HPF Urine Bacteria Few (0-FEW/HPF) /HPF Urine Mucus Few H (NOT SEEN) /LPF Urine HCG, Qual Negative Salicylates (2.8-20(Therapeutic)) mg/dL Urine Opiates Screen Negative (NEGATIVE) Ur Oxycodone Screen Negative (NEGATIVE) Urine Methadone Screen Negative (NEGATIVE) Acetaminophen (10-30 (Therapeutic)) ug/mL Ur Barbiturates Screen Negative (NEGATIVE) U Tricyclic Antidepress Negative (NEGATIVE) Ur Phencyclidine Scrn Negative (NEGATIVE) Ur Amphetamine Screen Negative (NEGATIVE) U Methamphetamines Scrn Negative (NEGATIVE) Urine MDMA Screen Negative (NEGATIVE) U Benzodiazepines Scrn Negative (NEGATIVE) Urine Cocaine Screen Negative (NEGATIVE) U Marijuana (THC) Screen Negative (NEGATIVE) Ethyl Alcohol (0) mg/dL Ketones Medical Clearance: 06/27/20 14:54 Medically cleared for entrance into the [facility]U. Departure - Departure Time of Disposition: 15:09 Disposition: DC/Tfer to Psych Hosp/Unit 65 Condition: Good Clinical Impression: Substance abuse, Diabetes mellitus, insulin dependent (IDDM), uncontrolled - Discharge Information *PRESCRIPTION DRUG MONITORING PROGRAM REVIEWED*: Not Applicable *COPY OF PRESCRIPTION DRUG MONITORING REPORT IN PATIENT LEOLA: Not Applicable Instructions: Substance Use Disorder Forms: ED Department Discharge Additional Instructions: Abstain from substance use. Go to a detox or substance treatment program if you are unable to quit on your own. Obtain your Insulin refills from your pharmacy and use exactly as prescribed. Sepsis Event Note (ED) - Focused Exam Vital Signs: Vital Signs Temp Pulse Resp BP Pulse Ox 06/27/20 14:08 97.9 F 112 H 16 120/87 97 - My Orders Last 24 Hours: My Active Orders 06/27/20 14:07 Blood Glucose Check, Bedside [RC] ONETIME 06/27/20 14:32 CHLAMYDIA AND GONORRHEA BY TMA Routine - Assessment/Plan Last 24 Hours: My Active Orders 06/27/20 14:07 Blood Glucose Check, Bedside [RC] ONETIME 06/27/20 14:32 CHLAMYDIA AND GONORRHEA BY TMA Routine
[2020-06-27 14:23] VITALS: BP 120/87; PULSE 112
[2020-06-27 15:03] LABS: ANION GAP 16.3 mEq/L (7-13); CHLORIDE,CL 96 mmol/L (98-107); SODIUM,NA 135 mmol/L (136-145)
[2020-06-27 15:04] LABS: ACETAMINOPHEN 0 ug/mL (10-30 (Therapeutic))
[2020-07-02 16:02] LABS: C.TRACHOMATIS BY TMA Negative (Negative); N.GONORRHOEAE BY TMA Negative (Negative)
== END 2020-06-27 15:09 ==
LOC: DL.ED 14:03
DX: E10.65 Type 1 diabetes mellitus with hyperglycemia (principal); F19.10 Other psychoactive substance abuse, uncomplicated
CPT/HCPCS: 36415; 80053; 80305-QW; 80307; 81001; 81025; 82009; 83735; 84443; 85025; 87491; 87591; 99284

== ENCOUNTER 2020-09-28 21:13 | Emergency (ER) | payer MEDICAID ==
[2020-09-28] MEDS ORDERED: Ondansetron 4 MG Tab.DIS PO ONE (21:14)
[2020-09-28] MEDS ORDERED: Sodium Chloride 0.9% 1,000 ML IV ONE (21:31)
[2020-09-28] MEDS ORDERED: Ondansetron 4 MG/2 ML SDV IVPUSH ONE (21:31)
[2020-09-28 21:33] VITALS: BP 155/121; PULSE 105
--- NOTE | 2020-09-28 21:37 | EDM.PDOC ---
ED HPI GENERAL MEDICAL PROBLEM - General Chief Complaint: Diabetic Complaint Stated Complaint: METER UNABLE TO READ SUGAR LEVEL Time Seen by Provider: 09/28/20 21:28 Source of Information: Reports: Patient History Limitations: Reports: No Limitations - History of Present Illness INITIAL COMMENTS - FREE TEXT/NARRATIVE: This 30 yo female patient reports to the ED due to high blood sugar levels. The patient reports her glucometer would not read her blood sugar levels tonight. The patient reports she was discharged from the [facility] this afternoon due to hyperglycemia. The patient reports she has taken her long acting insulin, but forgot her short acting insulin in [place]. The patient reports she will go back to [place] tomorrow to get her medications. The patient also reports she started to get nauseated this evening at about 1800. 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 States she is near sighted. 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: Musculoskeletal History: Reports: Other (See Below) Other Musculoskeletal History: 12/04/16 Bilateral ingrown toe nails leading to sepsis, IV vanco BID for 10 days Neurological History: Reports: Concussion, Seizure Psychiatric History: Reports: Addiction, Anxiety, Depression, Other (See Below) Other Psychiatric History: Medical non-compliance Endocrine/Metabolic History: Reports: Diabetes, Type I Hematologic History: Reports: None Immunologic History: Reports: None Oncologic (Cancer) History: Reports: None Dermatologic History: Reports: None - Infectious Disease History Infectious Disease History: Reports: None - Past Surgical History Head Surgeries/Procedures: Reports: None Social & Family History - Family History Family Medical History: No Pertinent Family History HEENT: Reports: None Oncologic: Reports: Breast, Other (See Below) Other Oncologic Family History: Stomach CA - Caffeine Use Caffeine Use: Reports: None Other Caffeine Use: pt. unable to answer - Living Situation & Occupation Living situation: Reports: with Family ED ROS GENERAL - Review of Systems Review Of Systems: Comprehensive ROS is negative, except as noted in HPI. ED EXAM GENERAL NO PERIP PULSE - Physical Exam Exam: See Below Exam Limited By: No Limitations General Appearance: Alert, WD/WN, Mild Distress Eye Exam: Bilateral Eye: EOMI, Normal Inspection, PERRL Ears: Normal External Exam, Normal Canal, Hearing Grossly Normal, Normal TMs Nose: Normal Inspection, Normal Mucosa, No Blood Throat/Mouth: Normal Inspection, Normal Lips, Normal Teeth, Normal Gums, Normal Oropharynx, Normal Voice, No Airway Compromise Head: Atraumatic, Normocephalic Neck: Normal Inspection, Supple, Non-Tender, Full Range of Motion Respiratory/Chest: No Respiratory Distress, Lungs Clear, Normal Breath Sounds, No Accessory Muscle Use, Chest Non-Tender Cardiovascular: Normal Peripheral Pulses, Regular Rate, Rhythm, No Edema, No Gallop, No JVD, No Murmur, No Rub GI/Abdominal: Normal Bowel Sounds, Soft, Non-Tender, No Organomegaly, No Distention, No Abnormal Bruit, No Mass (Female) Exam: Deferred Rectal (Female) Exam: Deferred Back Exam: Normal Inspection, Full Range of Motion, NT Extremities: Normal Inspection, Normal Range of Motion, Non-Tender, Normal Capil vasquez Refill, No Pedal Edema Neurological: Alert, Oriented, CN II-XII Intact, Normal Cognition, Normal Gait, Normal Reflexes, No Motor/Sensory Deficits Psychiatric: Normal Affect, Normal Mood Skin Exam: Warm, Dry, Intact, Normal Color, No Rash Lymphatic: No Adenopathy Course - Vital Signs Last Recorded V/S: Last Vital Signs Temp 36.8 C 09/28/20 21:28 Pulse 105 H 09/28/20 21:28 Resp 26 H 09/28/20 21:28 BP 155/121 H 09/28/20 21:28 Pulse Ox 100 01/08/21 21:28 - Orders/Labs/Meds Orders: Active Orders 24 hr Category Date Time Status Blood Glucose Check, Bedside [RC] ONETIME Care 09/28/20 22:15 Active Dextrose 50% in Water Med 09/28/20 22:15 Active 50 ml IV ASDIRECTED PRN Glucagon,Human Recombinant [GlucaGen] Med 09/28/20 22:15 Active 1 mg IM ASDIRECTED PRN Medication Orders Dextrose/Water (Dextrose 50% In Water) 50 ml IV ASDIRECTED PRN PRN Reason: Hypoglycemia Glucagon (Glucagen) 1 mg IM ASDIRECTED PRN PRN Reason: Hypoglycemia Labs: Laboratory Tests 09/28/20 09/28/20 09/28/20 Range/Units 21:40 21:40 22:46 WBC 8.9 (5.0-10.0) 10^3/uL RBC 4.45 (4.2-5.4) 10^6/uL Hgb 13.5 (12.0-16.0) g/dL Hct 39.0 (37.0-47.0) % MCV 87.6 (80-100) fL MCH 30.3 (27.0-34.0) pg MCHC 34.6 (33.0-35.0) g/dL Plt Count 381 D (150-450) 10^3/uL Neut % (Auto) 66.6 (42.2-75.2) % Lymph % (Auto) 23.5 (20.5-50.1) % [place] % (Auto) 7.8 (2-8) % Eos % (Auto) 1.7 (1.0-3.0) % Baso % (Auto) 0.4 (0.0-1.0) % Sodium 133 L (136-145) mmol/L Potassium 4.4 (3.5-5.1) mmol/L Chloride 93 L (98-107) mmol/L Carbon Dioxide 25 (21-32) mmol/L Anion Gap 19.4 H (7-13) mEq/L BUN 11 (7-18) mg/dL Creatinine 0.99 (0.55-1.02) mg/dL Est Cr Clr Drug Dosing 81.54 mL/min Estimated GFR (MDRD) > 60 BUN/Creatinine Ratio 11.1 (No establ ref range) Glucose 408 H* (74-99) mg/dL POC Glucose (70-105) mg/dl Calcium 10.0 (8.5-10.1) mg/dL Total Bilirubin 0.2 (0.2-1.0) mg/dL AST 31 (15-37) U/L ALT 58 (14-59) U/L Alkaline Phosphatase 151 H (46-116) U/L Total Protein 8.5 H (6.4-8.2) g/dL Albumin 4.5 (3.4-5.0) g/dL Globulin 4.0 Albumin/Globulin Ratio 1.1 Urine Color Yellow (YELLOW) Urine Appearance Clear (CLEAR) Urine pH 8.5 (5.0-9.0) Ur Specific [place] 1.020 (1.005-1.030) Urine Protein Negative (NEGATIVE) Urine Glucose (UA) 500 H (NEGATIVE) Urine Ketones 15 H (NEGATIVE) Urine Occult Blood Negative (NEGATIVE) Urine Nitrite Negative (NEGATIVE) Urine Bilirubin Negative (NEGATIVE) Urine Urobilinogen 0.2 (0.2-1.0) mg/dL Ur Leukocyte Esterase Negative (NEGATIVE) Urine HCG, Qual Urine Opiates Screen (NEGATIVE) Ur Oxycodone Screen (NEGATIVE) Urine Methadone Screen (NEGATIVE) Ur Barbiturates Screen (NEGATIVE) U Tricyclic Antidepress (NEGATIVE) Ur Phencyclidine Scrn (NEGATIVE) Ur Amphetamine Screen (NEGATIVE) U Methamphetamines Scrn (NEGATIVE) Urine MDMA Screen (NEGATIVE) U Benzodiazepines Scrn (NEGATIVE) Urine Cocaine Screen (NEGATIVE) U Marijuana (THC) Screen (NEGATIVE) Ketones Small-20 mg/dl 09/28/20 09/28/20 09/28/20 Range/Units 22:46 22:46 23:04 WBC (5.0-10.0) 10^3/uL RBC (4.2-5.4) 10^6/uL Hgb (12.0-16.0) g/dL Hct (37.0-47.0) % MCV (80-100) fL MCH (27.0-34.0) pg MCHC (33.0-35.0) g/dL Plt Count (150-450) 10^3/uL Neut % (Auto) (42.2-75.2) % Lymph % (Auto) (20.5-50.1) % [place] % (Auto) (2-8) % Eos % (Auto) (1.0-3.0) % Baso % (Auto) (0.0-1.0) % Sodium (136-145) mmol/L Potassium (3.5-5.1) mmol/L Chloride (98-107) mmol/L Carbon Dioxide (21-32) mmol/L Anion Gap (7-13) mEq/L BUN (7-18) mg/dL Creatinine (0.55-1.02) mg/dL Est Cr Clr Drug Dosing mL/min Estimated GFR (MDRD) BUN/Creatinine Ratio (No establ ref range) Glucose (74-99) mg/dL POC Glucose 306 H (70-105) mg/dl Calcium (8.5-10.1) mg/dL Total Bilirubin (0.2-1.0) mg/dL AST (15-37) U/L ALT (14-59) U/L Alkaline Phosphatase (46-116) U/L Total Protein (6.4-8.2) g/dL Albumin (3.4-5.0) g/dL Globulin Albumin/Globulin Ratio Urine Color (YELLOW) Urine Appearance (CLEAR) Urine pH (5.0-9.0) Ur Specific [place] (1.005-1.030) Urine Protein (NEGATIVE) Urine Glucose (UA) (NEGATIVE) Urine Ketones (NEGATIVE) Urine Occult Blood (NEGATIVE) Urine Nitrite (NEGATIVE) Urine Bilirubin (NEGATIVE) Urine Urobilinogen (0.2-1.0) mg/dL Ur Leukocyte Esterase (NEGATIVE) Urine HCG, Qual Negative Urine Opiates Screen Negative (NEGATIVE) Ur Oxycodone Screen Negative (NEGATIVE) Urine Methadone Screen Negative (NEGATIVE) Ur Barbiturates Screen Negative (NEGATIVE) U Tricyclic Antidepress Negative (NEGATIVE) Ur Phencyclidine Scrn Negative (NEGATIVE) Ur Amphetamine Screen Negative (NEGATIVE) U Methamphetamines Scrn Negative (NEGATIVE) Urine MDMA Screen Negative (NEGATIVE) U Benzodiazepines Scrn Negative (NEGATIVE) Urine Cocaine Screen Negative (NEGATIVE) U Marijuana (THC) Screen Negative (NEGATIVE) Ketones Meds: Medications Generic Name Dose Route Start Last Admin Trade Name Freq PRN Reason Stop Dose Admin Dextrose/Water 50 ml 09/28/20 22:15 Dextrose 50% In Water IV ASDIRECTED PRN Hypoglycemia Glucagon 1 mg 09/28/20 22:15 Glucagen IM ASDIRECTED PRN Hypoglycemia Discontinued Medications Generic Name Dose Route Start Last Admin Trade Name Mihaela PRN Reason Stop Dose Admin Sodium Chloride 1,000 mls @ 999 mls/hr 09/28/20 21:31 09/28/20 21:48 Normal Saline IV 09/28/20 22:31 999 mls/hr .BOLUS ONE Administration Insulin Human Regular Confirm 09/28/20 22:25 09/28/20 22:27 Humulin R Administered 09/28/20 22:26 Not Given Dose 300 unit .ROUTE .STK-MED ONE Insulin NPH Beef/Pork 15 unit 09/28/20 22:15 09/28/20 22:30 Humulin 70-30 SQ 09/28/20 22:16 15 unit ONETIME ONE Administration Metoclopramide HCl 10 mg 09/28/20 22:06 09/28/20 22:10 Reglan IVPUSH 09/28/20 22:07 10 mg ONETIME ONE Administration Ondansetron HCl 4 mg 09/28/20 21:31 09/28/20 21:47 Zofran IVPUSH 09/28/20 21:32 4 mg ONETIME ONE Administration Departure - Departure Time of Disposition: 23:10 Disposition: Home, Self-Care 01 Condition: Fair Clinical Impression: Hyperglycemia, Noncompliance with diabetes treatment Diabetes type 1, uncontrolled Qualifiers: Glycemic state: with hyperglycemia Qualified Code(s): E10.65 - Type 1 diabetes mellitus with hyperglycemia - Discharge Information *PRESCRIPTION DRUG MONITORING PROGRAM REVIEWED*: No *COPY OF PRESCRIPTION DRUG MONITORING REPORT IN PATIENT LEOLA: No Instructions: Type 1 Diabetes Mellitus, Self Care, Adult, [id number], Hyperglycemia, [id number] Forms: ED Department Discharge Care Plan Goals: The patient was advised of the examination and lab results during the visit. The patient was given IV fluids, IV Zofran, IV Reglan and an injection of insulin while in the ED. The patient was discharged with Zofran ODT (4 mg) #2 to take 1 by mouth every 6 hours as needed for nausea. The patient was encouraged to take her medications as prescribed. The patient was encouraged to stick to a BRAT diet due to the nausea/vomiting. If the patient has any additional symptoms or concerns, the patient should either return to the emergency department or visit her primary care facility. Sepsis Event Note (ED) - Focused Exam Vital Signs: Vital Signs Temp Pulse Resp BP Pulse Ox 09/28/20 21:28 36.8 C 105 H 26 H 155/121 H 100 - My Orders Last 24 Hours: My Active Orders 09/28/20 22:15 Blood Glucose Check, Bedside [RC] ONETIME Dextrose 50% in Water 50 ml IV ASDIRECTED PRN Glucagon,Human Recombinant [GlucaGen] 1 mg IM ASDIRECTED PRN - Assessment/Plan Last 24 Hours: My Active Orders 09/28/20 22:15 Blood Glucose Check, Bedside [RC] ONETIME Dextrose 50% in Water 50 ml IV ASDIRECTED PRN Glucagon,Human Recombinant [GlucaGen] 1 mg IM ASDIRECTED PRN
[2020-09-28] MEDS ORDERED: Metoclopramide 10 MG/2 ML SDV IVPUSH ONE (22:06)
[2020-09-28 22:08] LABS: ANION GAP 19.4 mEq/L (7-13); CHLORIDE,CL 93 mmol/L (98-107); SODIUM,NA 133 mmol/L (136-145)
[2020-09-28] MEDS ORDERED: 50% Dextrose in Water 50 ML Syringe IV PRN (22:15)
[2020-09-28] MEDS ORDERED: Insulin NPH HUM/REG Insulin HM 100 UNIT/ML 3 ML Vial SQ ONE (22:15)
[2020-09-28] MEDS ORDERED: Glucagon,Human Recombinant 1 MG Vial IM PRN (22:15)
[2020-09-28] MEDS ORDERED: Insulin Regular, Human 100 Units/ML 3 ML Vial ONE (22:25)
[2020-09-28] MEDS ORDERED: Ondansetron 4 MG Tab.DIS ONE (23:19)
== END 2020-09-28 23:25 | disposition home or self-care (01) ==
LOC: DL.ED 21:13
DX: E10.65 Type 1 diabetes mellitus with hyperglycemia (principal); Z91.14 Patient's other noncompliance with medication regimen
CPT/HCPCS: 36415; 80053; 80305; 81003; 81025; 82009; 82962; 85025; 96374; 99284; A9270; J1815; J2405; J2765; J7030; 96375

== ENCOUNTER 2020-09-30 11:37 | Emergency (ER) | payer MEDICAID ==
[2020-09-30] MEDS ORDERED: diphenhydrAMINE 50 MG/ML SDV IVPUSH ONE (11:52)
[2020-09-30] MEDS ORDERED: Sodium Chloride 0.9% 1,000 ML IV ONE ×2 (11:52→13:29)
[2020-09-30] MEDS ORDERED: Metoclopramide 10 MG/2 ML SDV IVPUSH ONE (11:52)
[2020-09-30] MEDS ORDERED: Sodium Chloride 0.9% 10 ML Syringe FLUSH PRN (11:52)
[2020-09-30] MEDS ORDERED: LORazepam 2 MG/ML SDV IVPUSH ONE (11:53)
[2020-09-30 12:27] LABS: ANION GAP 19.4 mEq/L (7-13); CHLORIDE,CL 96 mmol/L (98-107); SODIUM,NA 139 mmol/L (136-145)
--- NOTE | 2020-09-30 14:29 | CT ---
PROCEDURE INFORMATION: Exam: CT Abdomen And Pelvis Without Contrast Exam date and time: 09/30/2020 2:07 PM Age: 30 years old Clinical indication: Other: Pain; Additional info: RT flank pain, hematuria, HX of kidney stones TECHNIQUE: Imaging protocol: Computed tomography of the abdomen and pelvis without contrast. Radiation optimization: All CT scans at this facility use at least one of these dose optimization techniques: automated exposure control; mA and/or kV adjustment per patient size (includes targeted exams where dose is matched to clinical indication); or iterative reconstruction. COMPARISON: CT Abdomen Pelvis w Cont 06/15/2019 9:31 PM FINDINGS: Liver: Normal. No mass. Gallbladder and bile ducts: Normal. No calcified stones. No ductal dilation. Pancreas: Normal. No ductal dilation. Spleen: Normal. No splenomegaly. Adrenal glands: Normal. No mass. Kidneys and ureters: No evidence of renal calcifications or obstructive uropathy. Stomach and bowel: A large amount of stool is noted throughout the colon. Appendix: No evidence of appendicitis. Intraperitoneal space: Normal. No significant fluid collection. Vasculature: Unremarkable. No abdominal aortic aneurysm. Lymph nodes: Unremarkable. No enlarged lymph nodes. Urinary bladder: Unremarkable as visualized. Reproductive: Unremarkable as visualized. Bones/joints: Unremarkable. No acute fracture. Soft tissues: A multiple nodules present within the within the anterior posterior soft tissues bilaterally measuring up to 1.3 cm. IMPRESSION: 1. A multiple nodules present within the within the anterior posterior soft tissues bilaterally measuring up to 1.3 cm. 2. No evidence of renal calcifications or obstructive uropathy. 3. A large amount of stool is noted throughout the colon. 4. No evidence of appendicitis.
[2020-09-30] MEDS ORDERED: Lactulose Soln 10 GM/15 ML 30 ML UD Cup PO ONE (14:46)
[2020-09-30] MEDS ORDERED: Ondansetron 4 MG/2 ML SDV IV ONE (14:46)
--- NOTE | 2020-09-30 14:56 | EDM.PDOC ---
Scribed by Gracie Gonzalez 09/30/20 [id number] for Clint Carl MD ED HPI GENERAL MEDICAL PROBLEM - General Chief Complaint: Diabetic Complaint Stated Complaint: VOMITING, DIABETIC, BLOOD SUGAR CHECKED Time Seen by Provider: 09/30/20 11:46 - History of Present Illness INITIAL COMMENTS - FREE TEXT/NARRATIVE: 30 y/o F c/o nausea vomiting, abd pn, and R flank pain today. Seen at [facility] for high blood sugars 3 days ago. Pt then was discharged and came to [place] where she was seen at the ER 2 days ago again for high blood sugars and nausea vomiting. [place] [facility] gave pt 2 zofran and a prescription for her short acting insulin. Pt is a non compliant diabetic but reports she took her [place] today. Pts nausea and vomiting started last night when she ran out of zofran. Vomiting normal food particles with no reported blood in emesis. Denies leon, vision prob, cp, diff voiding, , recent trauma. - Related Data Allergies Allergy/AdvReac Type Severity Reaction Status Date / Time No Known Allergies Allergy Verified 09/28/20 21:57 Home Meds: Home Meds Insulin Aspart [Insulin Aspart Flexpen] 10 units SUBCUT TIDMEALS 30 Days #1 pen 05/20/20 [Rx] Insulin Detemir [Levemir Flextouch] 20 unit SQ BID 30 Days #1 pen 05/20/20 [Rx] Past Medical History - Past Health History Medical/Surgical History: Denies Medical/Surgical History HEENT History: Reports: Impaired Vision Other HEENT History: states has a cloud to the right side. States she is near sighted. 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: Reports: Musculoskeletal History: Reports: Other (See Below) Other Musculoskeletal History: 12/04/16 Bilateral ingrown toe nails leading to sepsis, IV vanco BID for 10 days Neurological History: Reports: Concussion, Seizure Psychiatric History: Reports: Addiction, Anxiety, Depression, Other (See Below) Other Psychiatric History: Medical non-compliance Endocrine/Metabolic History: Reports: Diabetes, Type I Hematologic History: Reports: None Immunologic History: Reports: None Oncologic (Cancer) History: Reports: None Dermatologic History: Reports: None - Infectious Disease History Infectious Disease History: Reports: None - Past Surgical History Head Surgeries/Procedures: Reports: None Social & Family History - Family History Family Medical History: No Pertinent Family History HEENT: Reports: None Oncologic: Reports: Breast, Other (See Below) Other Oncologic Family History: Stomach CA - Caffeine Use Caffeine Use: Reports: None Other Caffeine Use: pt. unable to answer - Living Situation & Occupation Living situation: Reports: with Family ED ROS GENERAL - Review of Systems Review Of Systems: Comprehensive ROS is negative, except as noted in HPI. ED EXAM GENERAL NO PERIP PULSE - Physical Exam Exam: See Below Exam Limited By: No Limitations General Appearance: Alert, WD/WN, Anxious Throat/Mouth: Normal Inspection, Normal Lips, Normal Teeth, Normal Gums, Normal Oropharynx, Normal Voice, No Airway Compromise Head: Atraumatic, Normocephalic Neck: Normal Inspection, Supple, Non-Tender, Full Range of Motion Respiratory/Chest: Lungs Clear, Normal Breath Sounds Cardiovascular: Normal Peripheral Pulses, Regular Rate, Rhythm GI/Abdominal: Soft, Tender (Female) Exam: Deferred Rectal (Female) Exam: Deferred Back Exam: Normal Inspection, Full Range of Motion, NT Psychiatric: Normal Affect, Normal Mood Skin Exam: Warm, Dry, Intact, Normal Color Course - Vital Signs Last Recorded V/S: Last Vital Signs Temp 97.5 F 09/30/20 12:00 Pulse 74 09/30/20 12:00 Resp 20 09/30/20 12:00 BP 162/79 H 09/30/20 12:00 Pulse Ox 99 09/30/20 12:00 - Orders/Labs/Meds Orders: Active Orders 24 hr Category Date Time Status Blood Glucose Check, Bedside [RC] ONETIME Care 09/30/20 11:51 Active EKG 12 Lead [EKG Documentation Completion] [RC] STAT Care 09/30/20 11:51 Active Peripheral IV Care [RC] . DIRECTED Care 09/30/20 11:52 Active Lactulose [Cephulac] Med 09/30/20 14:46 Once 40 gm PO ONETIME ONE Ondansetron [Zofran] Med 09/30/20 14:46 Once 4 mg IV ONETIME ONE Sodium Chloride 0.9% [Saline Flush] Med 09/30/20 11:52 Active 10 ml FLUSH ASDIRECTED PRN Peripheral IV Insertion Adult [OM.PC] Stat Oth 09/30/20 11:51 Ordered Medication Orders Sodium Chloride (Saline Flush) 10 ml FLUSH ASDIRECTED PRN PRN Reason: Keep Vein Open Last Admin: 09/30/20 12:01 Dose: 10 ml Documented by: KARRIE Labs: Laboratory Tests 09/30/20 09/30/20 09/30/20 Range/Units 11:48 11:56 11:56 WBC 9.7 (5.0-10.0) 10^3/uL RBC 4.82 (4.2-5.4) 10^6/uL Hgb 14.6 (12.0-16.0) g/dL Hct 41.4 (37.0-47.0) % MCV 85.9 (80-100) fL MCH 30.3 (27.0-34.0) pg MCHC 35.3 H (33.0-35.0) g/dL Plt Count 229 D (150-450) 10^3/uL Neut % (Auto) 68.5 (42.2-75.2) % Lymph % (Auto) 23.8 (20.5-50.1) % [place] % (Auto) 6.4 (2-8) % Eos % (Auto) 0.9 L (1.0-3.0) % Baso % (Auto) 0.4 (0.0-1.0) % Sodium 139 (136-145) mmol/L Potassium 3.4 L (3.5-5.1) mmol/L Chloride 96 L (98-107) mmol/L Carbon Dioxide 27 (21-32) mmol/L Anion Gap 19.4 H (7-13) mEq/L BUN 15 (7-18) mg/dL Creatinine 0.99 (0.55-1.02) mg/dL Est Cr Clr Drug Dosing TNP Estimated GFR (MDRD) > 60 BUN/Creatinine Ratio 15.2 (No establ ref range) Glucose 139 H (74-99) mg/dL POC Glucose 141 H (70-105) mg/dl Lactic Acid (0.4-2.0) mmol/L Calcium 9.7 (8.5-10.1) mg/dL Magnesium 1.6 L (1.8-2.4) mg/dL Total Bilirubin 0.4 (0.2-1.0) mg/dL AST 37 (15-37) U/L ALT 53 (14-59) U/L Alkaline Phosphatase 117 H (46-116) U/L Troponin I 0.017 (0.000-0.056) ng/mL C-Reactive Protein 1.3 H (0.0-0.9) mg/dL Total Protein 9.1 H (6.4-8.2) g/dL Albumin 4.6 (3.4-5.0) g/dL Globulin 4.5 Albumin/Globulin Ratio 1.0 Amylase 124 H (25-115) U/L Lipase 110 (73-393) U/L Urine Color (YELLOW) Urine Appearance (CLEAR) Urine pH (5.0-9.0) Ur Specific [place] (1.005-1.030) Urine Protein (NEGATIVE) Urine Glucose (UA) (NEGATIVE) Urine Ketones (NEGATIVE) Urine Occult Blood (NEGATIVE) Urine Nitrite (NEGATIVE) Urine Bilirubin (NEGATIVE) Urine Urobilinogen (0.2-1.0) mg/dL Ur Leukocyte Esterase (NEGATIVE) Urine RBC /HPF Urine WBC (0-5/HPF) /HPF Ur Epithelial Cells (NOT SEEN) /HPF Amorphous Sediment (NOT SEEN) /HPF Urine Bacteria (0-FEW/HPF) /HPF Urine HCG, Qual Urine Opiates Screen (NEGATIVE) Ur Oxycodone Screen (NEGATIVE) Urine Methadone Screen (NEGATIVE) Ur Barbiturates Screen (NEGATIVE) U Tricyclic Antidepress (NEGATIVE) Ur Phencyclidine Scrn (NEGATIVE) Ur Amphetamine Screen (NEGATIVE) U Methamphetamines Scrn (NEGATIVE) Urine MDMA Screen (NEGATIVE) U Benzodiazepines Scrn (NEGATIVE) Urine Cocaine Screen (NEGATIVE) U Marijuana (THC) Screen (NEGATIVE) Ethyl Alcohol < 3 (0) mg/dL Ketones Negative 09/30/20 09/30/20 09/30/20 Range/Units 11:56 13:32 13:32 WBC (5.0-10.0) 10^3/uL RBC (4.2-5.4) 10^6/uL Hgb (12.0-16.0) g/dL Hct (37.0-47.0) % MCV (80-100) fL MCH (27.0-34.0) pg MCHC (33.0-35.0) g/dL Plt Count (150-450) 10^3/uL Neut % (Auto) (42.2-75.2) % Lymph % (Auto) (20.5-50.1) % [place] % (Auto) (2-8) % Eos % (Auto) (1.0-3.0) % Baso % (Auto) (0.0-1.0) % Sodium (136-145) mmol/L Potassium (3.5-5.1) mmol/L Chloride (98-107) mmol/L Carbon Dioxide (21-32) mmol/L Anion Gap (7-13) mEq/L BUN (7-18) mg/dL Creatinine (0.55-1.02) mg/dL Est Cr Clr Drug Dosing Estimated GFR (MDRD) BUN/Creatinine Ratio (No establ ref range) Glucose (74-99) mg/dL POC Glucose (70-105) mg/dl Lactic Acid 2.8 H* (0.4-2.0) mmol/L Calcium (8.5-10.1) mg/dL Magnesium (1.8-2.4) mg/dL Total Bilirubin (0.2-1.0) mg/dL AST (15-37) U/L ALT (14-59) U/L Alkaline Phosphatase (46-116) U/L Troponin I (0.000-0.056) ng/mL C-Reactive Protein (0.0-0.9) mg/dL Total Protein (6.4-8.2) g/dL Albumin (3.4-5.0) g/dL Globulin Albumin/Globulin Ratio Amylase (25-115) U/L Lipase (73-393) U/L Urine Color Yellow (YELLOW) Urine Appearance Cloudy (CLEAR) Urine pH 8.5 (5.0-9.0) Ur Specific [place] 1.025 (1.005-1.030) Urine Protein 100 H (NEGATIVE) Urine Glucose (UA) 250 H (NEGATIVE) Urine Ketones 80 H (NEGATIVE) Urine Occult Blood Trace-intact H (NEGATIVE) Urine Nitrite Negative (NEGATIVE) Urine Bilirubin Negative (NEGATIVE) Urine Urobilinogen 0.2 (0.2-1.0) mg/dL Ur Leukocyte Esterase Negative (NEGATIVE) Urine RBC 0-5 /HPF Urine WBC 0-5 (0-5/HPF) /HPF Ur Epithelial Cells Few (NOT SEEN) /HPF Amorphous Sediment Many H (NOT SEEN) /HPF Urine Bacteria Few (0-FEW/HPF) /HPF Urine HCG, Qual Negative Urine Opiates Screen (NEGATIVE) Ur Oxycodone Screen (NEGATIVE) Urine Methadone Screen (NEGATIVE) Ur Barbiturates Screen (NEGATIVE) U Tricyclic Antidepress (NEGATIVE) Ur Phencyclidine Scrn (NEGATIVE) Ur Amphetamine Screen (NEGATIVE) U Methamphetamines Scrn (NEGATIVE) Urine MDMA Screen (NEGATIVE) U Benzodiazepines Scrn (NEGATIVE) Urine Cocaine Screen (NEGATIVE) U Marijuana (THC) Screen (NEGATIVE) Ethyl Alcohol (0) mg/dL Ketones 09/30/20 Range/Units 13:32 WBC (5.0-10.0) 10^3/uL RBC (4.2-5.4) 10^6/uL Hgb (12.0-16.0) g/dL Hct (37.0-47.0) % MCV (80-100) fL MCH (27.0-34.0) pg MCHC (33.0-35.0) g/dL Plt Count (150-450) 10^3/uL Neut % (Auto) (42.2-75.2) % Lymph % (Auto) (20.5-50.1) % [place] % (Auto) (2-8) % Eos % (Auto) (1.0-3.0) % Baso % (Auto) (0.0-1.0) % Sodium (136-145) mmol/L Potassium (3.5-5.1) mmol/L Chloride (98-107) mmol/L Carbon Dioxide (21-32) mmol/L Anion Gap (7-13) mEq/L BUN (7-18) mg/dL Creatinine (0.55-1.02) mg/dL Est Cr Clr Drug Dosing Estimated GFR (MDRD) BUN/Creatinine Ratio (No establ ref range) Glucose (74-99) mg/dL POC Glucose (70-105) mg/dl Lactic Acid (0.4-2.0) mmol/L Calcium (8.5-10.1) mg/dL Magnesium (1.8-2.4) mg/dL Total Bilirubin (0.2-1.0) mg/dL AST (15-37) U/L ALT (14-59) U/L Alkaline Phosphatase (46-116) U/L Troponin I (0.000-0.056) ng/mL C-Reactive Protein (0.0-0.9) mg/dL Total Protein (6.4-8.2) g/dL Albumin (3.4-5.0) g/dL Globulin Albumin/Globulin Ratio Amylase (25-115) U/L Lipase (73-393) U/L Urine Color (YELLOW) Urine Appearance (CLEAR) Urine pH (5.0-9.0) Ur Specific [place] (1.005-1.030) Urine Protein (NEGATIVE) Urine Glucose (UA) (NEGATIVE) Urine Ketones (NEGATIVE) Urine Occult Blood (NEGATIVE) Urine Nitrite (NEGATIVE) Urine Bilirubin (NEGATIVE) Urine Urobilinogen (0.2-1.0) mg/dL Ur Leukocyte Esterase (NEGATIVE) Urine RBC /HPF Urine WBC (0-5/HPF) /HPF Ur Epithelial Cells (NOT SEEN) /HPF Amorphous Sediment (NOT SEEN) /HPF Urine Bacteria (0-FEW/HPF) /HPF Urine HCG, Qual Urine Opiates Screen Negative (NEGATIVE) Ur Oxycodone Screen Negative (NEGATIVE) Urine Methadone Screen Negative (NEGATIVE) Ur Barbiturates Screen Negative (NEGATIVE) U Tricyclic Antidepress Negative (NEGATIVE) Ur Phencyclidine Scrn Negative (NEGATIVE) Ur Amphetamine Screen Negative (NEGATIVE) U Methamphetamines Scrn Negative (NEGATIVE) Urine MDMA Screen Negative (NEGATIVE) U Benzodiazepines Scrn Negative (NEGATIVE) Urine Cocaine Screen Negative (NEGATIVE) U Marijuana (THC) Screen Negative (NEGATIVE) Ethyl Alcohol (0) mg/dL Ketones Meds: Medications Generic Name Dose Route Start Last Admin Trade Name Freq PRN Reason Stop Dose Admin Sodium Chloride 10 ml 09/30/20 11:52 09/30/20 12:01 Saline Flush FLUSH 10 ml ASDIRECTED PRN Administration Keep Vein Open Discontinued Medications Generic Name Dose Route Start Last Admin Trade Name Freq PRN Reason Stop Dose Admin Diphenhydramine HCl 25 mg 09/30/20 11:52 09/30/20 12:01 Benadryl IVPUSH 09/30/20 11:53 25 mg ONETIME ONE Administration Sodium Chloride 1,000 mls @ 999 mls/hr 09/30/20 11:52 09/30/20 12:01 Normal Saline IV 09/30/20 12:52 999 mls/hr .BOLUS ONE Administration Sodium Chloride 1,000 mls @ 999 mls/hr 09/30/20 13:29 Normal Saline IV 09/30/20 14:29 .BOLUS ONE Lorazepam 0.5 mg 09/30/20 11:53 09/30/20 12:14 Ativan IVPUSH 09/30/20 11:54 Not Given ONETIME ONE Metoclopramide HCl 10 mg 09/30/20 11:52 09/30/20 12:01 Reglan IVPUSH 09/30/20 11:53 10 mg ONETIME ONE Administration Departure - Departure Time of Disposition: 14:54 Disposition: Home, Self-Care 01 Condition: Good Clinical Impression: Gastroparesis due to DM Constipation Qualifiers: Constipation type: slow transit constipation Qualified Code(s): K59.01 - Slow transit constipation - Discharge Information *PRESCRIPTION DRUG MONITORING PROGRAM REVIEWED*: Not Applicable *COPY OF PRESCRIPTION DRUG MONITORING REPORT IN PATIENT [place]: Not Applicable Instructions: Gastroparesis, Constipation, Adult, [id number] Forms: ED Department Discharge Additional Instructions: Rx: Reglan 10mg Rx: Lactulose Syrup Use your insulin exactly as prescribed, and monitor your blood sugar closely. Follow up in clinic in 1 week for recheck. Sepsis Event Note (ED) - Focused Exam Vital Signs: Vital Signs Temp Pulse Resp BP Pulse Ox 09/30/20 12:00 97.5 F 74 20 162/79 H 99 - My Orders Last 24 Hours: My Active Orders 09/30/20 11:51 Blood Glucose Check, Bedside [RC] ONETIME EKG 12 Lead [EKG Documentation Completion] [RC] STAT Peripheral IV Insertion Adult [OM.PC] Stat 09/30/20 11:52 Peripheral IV Care [RC] . DIRECTED Sodium Chloride 0.9% [Saline Flush] 10 ml FLUSH ASDIRECTED PRN 09/30/20 14:46 Lactulose [Cephulac] 40 gm PO ONETIME ONE Ondansetron [Zofran] 4 mg IV ONETIME ONE - Assessment/Plan Last 24 Hours: My Active Orders 09/30/20 11:51 Blood Glucose Check, Bedside [RC] ONETIME EKG 12 Lead [EKG Documentation Completion] [RC] STAT Peripheral IV Insertion Adult [OM.PC] Stat 09/30/20 11:52 Peripheral IV Care [RC] . DIRECTED Sodium Chloride 0.9% [Saline Flush] 10 ml FLUSH ASDIRECTED PRN 09/30/20 14:46 Lactulose [Cephulac] 40 gm PO ONETIME ONE Ondansetron [Zofran] 4 mg IV ONETIME ONE I have read and agree with the documentation that has been completed regarding this visit. By signing this record, I attest that the documentation was completed in my physical presence and is an accurate record of the encounter.
[2020-09-30 15:10] VITALS: BP 109/63; PULSE 77
== END 2020-09-30 15:07 | disposition home or self-care (01) ==
LOC: DL.ED 11:37
DX: E10.43 Type 1 diabetes mellitus with diabetic autonomic (poly)neuropathy (principal); K31.84 Gastroparesis; K59.01 Slow transit constipation
CPT/HCPCS: 36415; 74176; 80053; 80305-QW; 80307; 81001; 81025; 82009; 82150; 82962; 83605; 83690; 83735; 84484; 85025; 86140; 93005; 96374; 96375; 99283; 99284-25; A9270-GY; J1200; J2405; J2765; J7030

== ENCOUNTER 2020-10-20 10:09 | Inpatient (IN) | payer MEDICAID ==
[2020-10-20] MEDS ORDERED: Ondansetron 4 MG/2 ML SDV IVPUSH ONE (10:39)
[2020-10-20] MEDS ORDERED: Sodium Chloride 0.9% 3,000 ML IV ONE (10:44)
[2020-10-20] MEDS ORDERED: Insulin Regular, Human 100 Units/ML 3 ML Vial IV ONE (10:46)
[2020-10-20] MEDS ORDERED: 50% Dextrose in Water 50 ML Syringe IV PRN (10:46)
[2020-10-20] MEDS ORDERED: Glucagon,Human Recombinant 1 MG Vial IM PRN (10:46)
--- NOTE | 2020-10-20 10:51 | EDM.PDOC ---
<Nicholas Tafoya C - Last Filed: 10/20/20 11:49> ED HPI GENERAL MEDICAL PROBLEM - General Chief Complaint: Diabetic Complaint Stated Complaint: AMBULANCE Time Seen by Provider: 10/20/20 10:20 - History of Present Illness INITIAL COMMENTS - FREE TEXT/NARRATIVE: 30 y/o F non compliant diabetic c/o being in DKA and CP from vomiting. Pt has been vomiting since last night and took her regualr insulin last eveing but has not been checking her blood sugar since last month because she no longer has a glucose meter. Pt has been vomiting normal food particles since last night. Denies leon, vision prob, difficulty voiding, fever, cough, chills. Duration: Hour(s): Location: Reports: Generalized Quality: Reports: Sharp Severity: Mild Improves with: Reports: None Worsens with: Reports: None Associated Symptoms: Reports: Chest Pain, Nausea/Vomiting Chest Pain Score (Numeric/FACES): 6 - Related Data Allergies Allergy/AdvReac Type Severity Reaction Status Date / Time No Known Allergies Allergy Verified 10/20/20 10:25 Home Meds: Home Meds Insulin Aspart [Insulin Aspart Flexpen] 10 units SUBCUT TIDMEALS 30 Days #1 pen 05/20/20 [Rx] Insulin Detemir [Levemir Flextouch] 20 unit SQ BID 30 Days #1 pen 05/20/20 [Rx] Past Medical History - Past Health History Medical/Surgical History: Denies Medical/Surgical History HEENT History: Reports: Impaired Vision Other HEENT History: states has a cloud to the right side. States she is near sighted. 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, Recurrent [employer] History: Reports: Musculoskeletal History: Reports: Other (See Below) Other Musculoskeletal History: 12/04/16 Bilateral ingrown toe nails leading to sepsis, IV vanco BID for 10 days Neurological History: Reports: Concussion, Seizure Psychiatric History: Reports: Addiction, Anxiety, Depression, Other (See Below) Other Psychiatric History: Medical non-compliance Endocrine/Metabolic History: Reports: Diabetes, Type I Hematologic History: Reports: None Immunologic History: Reports: None Oncologic (Cancer) History: Reports: None Dermatologic History: Reports: None - Infectious Disease History Infectious Disease History: Reports: None - Past Surgical History Head Surgeries/Procedures: Reports: None Social & Family History - Family History Family Medical History: No Pertinent Family History HEENT: Reports: None Oncologic: Reports: Breast, Other (See Below) Other Oncologic Family History: Stomach CA - Tobacco Use Tobacco Use Status *Q: Never Tobacco User - Caffeine Use Caffeine Use: Reports: None Other Caffeine Use: pt. unable to answer - Recreational Drug Use Recreational Drug Use: Yes Drug Use in Last 12 Months: Yes Recreational Drug Type: Reports: Methamphetamine Recreational Drug Use Frequency: Daily - Living Situation & Occupation Living situation: Reports: with Family ED ROS GENERAL - Review of Systems Review Of Systems: Comprehensive ROS is negative, except as noted in HPI. ED EXAM GENERAL NO PERIP PULSE - Physical Exam Exam: See Below Exam Limited By: No Limitations General Appearance: Alert, WD/WN, No Apparent Distress Eye Exam: Bilateral Eye: PERRL Nose: Normal Inspection, Normal Mucosa, No Blood Throat/Mouth: Normal Inspection, Normal Lips, Normal Teeth, Normal Gums, Normal Oropharynx, Normal Voice, No Airway Compromise Head: Atraumatic, Normocephalic Neck: Normal Inspection, Supple, Non-Tender, Full Range of Motion Respiratory/Chest: Lungs Clear, Other (tachypnea) Cardiovascular: Normal Peripheral Pulses, Regular Rate, Rhythm, No Edema, No Gallop, No JVD, No Murmur, No Rub GI/Abdominal: Soft, Non-Tender (Female) Exam: Deferred Rectal (Female) Exam: Deferred Back Exam: Normal Inspection, Full Range of Motion Extremities: Normal Inspection, Normal Range of Motion, Non-Tender, Normal Capillary Refill, No Pedal Edema Neurological: Alert, Oriented, CN II-XII Intact, Normal Cognition, Normal Gait, Normal Reflexes, No Motor/Sensory Deficits Psychiatric: Normal Affect, Normal Mood Skin Exam: Warm, Dry, Intact #1 Interpretation EKG Date: 10/20/20 Time: 10:50 Rhythm: Other (sinus tach) Rate (Beats/Min): 134 [place]: LAD-Left [place] Deviation P-Wave: Present QRS: Normal ST-T: Normal QT: Prolonged EKG Interpretation Comments: sinus tach left axis deviation, borderline T wave abnormalities in inferior leads. Prolonged QT interval 556 Departure - Departure Time of Disposition: 11:47 (Admited to Dr. Son) Disposition: Admitted As Inpatient 67 Condition: Serious Clinical Impression: Methamphetamine abuse, Dehydration symptoms Diabetic ketoacidosis Qualifiers: Diabetes mellitus type: type 1 Diabetes mellitus complication detail: without coma Qualified Code(s): E10.10 - Type 1 diabetes mellitus with ketoacidosis without coma Vomiting Qualifiers: Vomiting type: bilious vomiting Nausea presence: with nausea Qualified Code(s): R11.14 - Bilious vomiting - Discharge Information *PRESCRIPTION DRUG MONITORING PROGRAM REVIEWED*: Not Applicable *COPY OF PRESCRIPTION DRUG MONITORING REPORT IN PATIENT LEOLA: Not Applicable Forms: ED Department Discharge Sepsis Event Note (ED) - Evaluation Sepsis Screening Result: No Definite Risk <Dolores Carl - Last Filed: 10/20/20 11:53> Course - Vital Signs Last Recorded V/S: Last Vital Signs Temp 98 F 10/20/20 11:38 Pulse 136 H 10/20/20 11:38 Resp 26 H 10/20/20 11:38 BP 139/82 10/20/20 11:38 Pulse Ox 100 10/20/20 11:38 - Orders/Labs/Meds Orders: Active Orders 24 hr Category Date Time Status Admission Diagnosis [ADT] Routine ADT 10/20/20 11:48 Ordered Admission Status [Patient Status] [ADT] Routine ADT 10/20/20 11:48 Active Blood Glucose Check, Bedside [RC] ONETIME Care 10/20/20 11:36 Active EKG Documentation Completion [RC] STAT Care 10/20/20 10:43 Active Peripheral IV Care [RC] . DIRECTED Care 10/20/20 10:44 Active AMYLASE [CHEM] Stat Lab 10/20/20 10:40 Received COVID-19/FLU A+B [MOLEC] Stat Lab 10/20/20 11:24 Received CULTURE BLOOD [BC] Stat Lab 10/20/20 10:40 Received CULTURE BLOOD [BC] Stat Lab 10/20/20 11:05 Received DRUG SCREEN URINE BIORAD [URCHEM] Stat Lab 10/20/20 11:36 Ordered ETHANOL BLOOD MEDICAL [CHEM] Stat Lab 10/20/20 10:40 Received HCG QUALITATIVE,URINE [URCHEM] Stat Lab 10/20/20 11:36 Ordered UA W/ULI RFLX IF INDICATED [URIN] Stat Lab 10/20/20 10:41 Ordered Dextrose 50% in Water Med 10/20/20 10:46 Active 50 ml IV ASDIRECTED PRN Glucagon,Human Recombinant [GlucaGen] Med 10/20/20 10:46 Active 1 mg IM ASDIRECTED PRN Insulin Regular in 0.9 % NACL [Myxredlin in NS 100 UNIT Med 10/20/20 11:00 Active /100 ML] 100 unit in 100 ml IV TITRATE Sodium Chloride 0.9% [Normal Saline] 3,000 ml Med 10/20/20 10:44 Active IV .BOLUS Sodium Chloride 0.9% [Saline Flush] Med 10/20/20 10:43 Active 10 ml FLUSH ASDIRECTED PRN Sodium Chloride 0.9% with KCl [Normal Saline with 40 Med 10/20/20 11:30 Active mEq KCl] 1,000 ml IV ASDIRECTED Blood Culture x2 Reflex Set [OM.PC] Stat Oth 10/20/20 10:42 Ordered Peripheral IV Insertion Adult [OM.PC] Routine Oth 10/20/20 10:43 Ordered Medication Orders Dextrose/Water (Dextrose 50% In Water) 50 ml IV ASDIRECTED PRN PRN Reason: Hypoglycemia Glucagon (Glucagen) 1 mg IM ASDIRECTED PRN PRN Reason: Hypoglycemia Sodium Chloride (Normal Saline) 3,000 mls @ 999 mls/hr IV .BOLUS ONE Stop: 10/20/20 13:44 Last Admin: 10/20/20 10:55 Dose: 999 mls/hr Documented by: SUHAS Insulin Regular in 0.9 % NACL (Myxredlin In Ns 100 Unit/100 Ml) 100 unit in 100 mls @ 6.273 mls/hr IV TITRATE DONNIE; Protocol Last Admin: 10/20/20 10:55 Dose: 0.1 units/kg/hr, 6.273 mls/hr Documented by: SHUAS Cosigned by: MEDINA Potassium Chloride/Sodium Chloride (Normal Saline With 40 Meq Kcl) 1,000 mls @ 200 mls/hr IV ASDIRECTED DONNIE Last Admin: 10/20/20 11:34 Dose: 200 mls/hr Documented by: SUHAS Sodium Chloride (Saline Flush) 10 ml FLUSH ASDIRECTED PRN PRN Reason: Keep Vein Open Labs: Laboratory Tests 10/20/20 10/20/20 10/20/20 Range/Units 10:32 10:40 10:40 WBC 21.4 H (5.0-10.0) 10^3/uL RBC 4.55 (4.2-5.4) 10^6/uL Hgb 13.8 (12.0-16.0) g/dL Hct 39.8 (37.0-47.0) % MCV 87.5 (80-100) fL MCH 30.3 (27.0-34.0) pg MCHC 34.7 (33.0-35.0) g/dL Plt Count 408 D (150-450) 10^3/uL Neut % (Auto) 93.6 H (42.2-75.2) % Lymph % (Auto) 3.9 L (20.5-50.1) % [place] % (Auto) 2.4 (2-8) % Eos % (Auto) 0.0 L (1.0-3.0) % Baso % (Auto) 0.1 (0.0-1.0) % ABG pH (7.35-7.45) ABG pCO2 (35-45) mmHg ABG pO2 (70-100) mmHg ABG HCO3 (22-26) mmol/L ABG O2 Saturation (95-100) % ABG Base Excess ((-2)-(+3)) mmol/L Aakash Test O2 Delivery Device Sodium 136 (136-145) mmol/L Potassium 4.3 (3.5-5.1) mmol/L Chloride 95 L (98-107) mmol/L Carbon Dioxide 8 L* D (21-32) mmol/L Anion Gap 37.3 H (7-13) mEq/L BUN 30 H (7-18) mg/dL Creatinine 1.64 H (0.55-1.02) mg/dL Est Cr Clr Drug Dosing TNP Estimated GFR (MDRD) 37 BUN/Creatinine Ratio 18.3 (No establ ref range) Glucose 508 H* (74-99) mg/dL POC Glucose 500 H* (70-105) mg/dl Lactic Acid (0.4-2.0) mmol/L Calcium 9.1 (8.5-10.1) mg/dL Magnesium (1.8-2.4) mg/dL Total Bilirubin 0.9 (0.2-1.0) mg/dL AST 10 L (15-37) U/L ALT 24 (14-59) U/L Alkaline Phosphatase 104 (46-116) U/L Troponin I < 0.017 (0.000-0.056) ng/mL Total Protein 8.5 H (6.4-8.2) g/dL Albumin 4.6 (3.4-5.0) g/dL Globulin 3.9 Albumin/Globulin Ratio 1.2 Ketones Positive 10/20/20 10/20/20 10/20/20 Range/Units 10:40 10:40 10:58 WBC (5.0-10.0) 10^3/uL RBC (4.2-5.4) 10^6/uL Hgb (12.0-16.0) g/dL Hct (37.0-47.0) % MCV (80-100) fL MCH (27.0-34.0) pg MCHC (33.0-35.0) g/dL Plt Count (150-450) 10^3/uL Neut % (Auto) (42.2-75.2) % Lymph % (Auto) (20.5-50.1) % [place] % (Auto) (2-8) % Eos % (Auto) (1.0-3.0) % Baso % (Auto) (0.0-1.0) % ABG pH 7.13 L* (7.35-7.45) ABG pCO2 15 L* (35-45) mmHg ABG pO2 130 H (70-100) mmHg ABG HCO3 4.9 L (22-26) mmol/L ABG O2 Saturation 98 (95-100) % ABG Base Excess -23 L ((-2)-(+3)) mmol/L Aakash Test Performed O2 Delivery Device Room air Sodium (136-145) mmol/L Potassium (3.5-5.1) mmol/L Chloride (98-107) mmol/L Carbon Dioxide (21-32) mmol/L Anion Gap (7-13) mEq/L BUN (7-18) mg/dL Creatinine (0.55-1.02) mg/dL Est Cr Clr Drug Dosing Estimated GFR (MDRD) BUN/Creatinine Ratio (No establ ref range) Glucose (74-99) mg/dL POC Glucose (70-105) mg/dl Lactic Acid 1.7 (0.4-2.0) mmol/L Calcium (8.5-10.1) mg/dL Magnesium 1.8 (1.8-2.4) mg/dL Total Bilirubin (0.2-1.0) mg/dL AST (15-37) U/L ALT (14-59) U/L Alkaline Phosphatase (46-116) U/L Troponin I (0.000-0.056) ng/mL Total Protein (6.4-8.2) g/dL Albumin (3.4-5.0) g/dL Globulin Albumin/Globulin Ratio Ketones Meds: Medications Generic Name Dose Route Start Last Admin Trade Name Freq PRN Reason Stop Dose Admin Dextrose/Water 50 ml 10/20/20 10:46 Dextrose 50% In Water IV ASDIRECTED PRN Hypoglycemia Glucagon 1 mg 10/20/20 10:46 Glucagen IM ASDIRECTED PRN Hypoglycemia Sodium Chloride 3,000 mls @ 999 mls/hr 10/20/20 10:44 10/20/20 10:55 Normal Saline IV 10/20/20 13:44 999 mls/hr .BOLUS ONE Administration Insulin Regular in 0.9 % NACL 100 unit in 100 mls @ 6.273 mls/hr 10/20/20 11:00 10/20/20 10:55 Myxredlin In Ns 100 Unit/100 Ml IV 0.1 units/kg/hr TITRATE DONNIE 6.273 mls/hr Administration Protocol 0.1 UNITS/KG/HR Potassium Chloride/Sodium Chloride 1,000 mls @ 200 mls/hr 10/20/20 11:30 10/20/20 11:34 Normal Saline With 40 Meq Kcl IV 200 mls/hr ASDIRECTED DONNIE Administration Sodium Chloride 10 ml 10/20/20 10:43 Saline Flush FLUSH ASDIRECTED PRN Keep Vein Open Discontinued Medications Generic Name Dose Route Start Last Admin Trade Name Freq PRN Reason Stop Dose Admin Insulin Human Regular 10 unit 10/20/20 10:46 10/20/20 10:54 Humulin R IV 10/20/20 10:47 10 units ONETIME ONE Administration Ondansetron HCl 4 mg 10/20/20 10:39 10/20/20 10:44 Zofran IVPUSH 10/20/20 10:40 4 mg ONETIME ONE Administration Sodium Bicarbonate 12 meq 10/20/20 11:06 10/20/20 11:15 Sodium Bicarbonate 8.4% IVPUSH 10/20/20 11:07 12 meq ONETIME ONE Administration - Radiology Interpretation Free Text/Narrative:: [facility] [place] [facility] Final Radiology Report Call: [phone] assistance Online chat: [email or web address] Name: PARAMJIT ROSS Age: 30Years F Date: 10/20/2020 SSN: -- : 1990 Study: CR CHEST 1V FRONTAL Requesting Physician: DOLORES CARL Images: 1 Addl Studies: Provided Clinical History: DKA, poss. aspiration Contrast: Contrast Medium: Contrast Amount: Contrast Method: CONFIDENTIALITY STATEMENT This report is intended only for use by the referring physician, and only in accordance with law. If you received this in error, call [phone]. Page 1 of 1 PROCEDURE INFORMATION: Exam: XR Chest, 1 View Exam date and time: 10/20/2020 11:35 AM Age: 30 years old Clinical indication: Other: Dka, poss. Aspiration TECHNIQUE: Imaging protocol: XR of the chest Views: 1 view. COMPARISON: CR Chest 1V Frontal 02/05/2019 4:35 PM FINDINGS: Lungs: Unremarkable. No consolidation. Pleural spaces: Unremarkable. No pleural effusion. No pneumothorax. Heart/Mediastinum: Unremarkable. No cardiomegaly. Bones/joints: Unremarkable. IMPRESSION: No acute findings. Thank you for allowing us to participate in the care of your patient. Dictated and Authenticated by: Connie Goodrich MD 10/20/2020 11:50 AM Central Time ([place] & [place]) - Re-Assessments/Exams Free Text/Narrative Re-Assessment/Exam: 10/20/20 10:56 I personally performed or re-performed the physical examination and medical decision making. I directly supervised the student in placement of a 14g IV in t he left EJ. I have verified all student documentation or findings, including history, physical exam and/or medical decision making. Sepsis Event Note (ED) - Focused Exam Vital Signs: Vital Signs Temp Pulse Resp BP Pulse Ox 10/20/20 11:38 98 F 136 H 26 H 139/82 100 10/20/20 10:25 96.7 F L 133 H 32 H 152/98 H 100 - My Orders Last 24 Hours: My Active Orders 10/20/20 10:40 AMYLASE [CHEM] Stat ETHANOL BLOOD MEDICAL [CHEM] Stat 10/20/20 11:24 COVID-19/FLU A+B [MOLEC] Stat 10/20/20 11:36 Blood Glucose Check, Bedside [RC] ONETIME DRUG SCREEN URINE BIORAD [URCHEM] Stat HCG QUALITATIVE,URINE [URCHEM] Stat 10/20/20 11:48 Admission Diagnosis [ADT] Routine Admission Status [Patient Status] [ADT] Routine - Assessment/Plan Last 24 Hours: My Active Orders 10/20/20 10:40 AMYLASE [CHEM] Stat ETHANOL BLOOD MEDICAL [CHEM] Stat 10/20/20 11:24 COVID-19/FLU A+B [MOLEC] Stat 10/20/20 11:36 Blood Glucose Check, Bedside [RC] ONETIME DRUG SCREEN URINE BIORAD [URCHEM] Stat HCG QUALITATIVE,URINE [URCHEM] Stat 10/20/20 11:48 Admission Diagnosis [ADT] Routine Admission Status [Patient Status] [ADT] Routine
[2020-10-20 11:01] LABS: BASE EXCESS ARTERIAL -23 mmol/L ((-2)-(+3)); BICARBONATE,ARTERIAL 4.9 mmol/L (22-26); O2 DELIVERY DEVICE ROOM AIR; O2 SATURATION ARTERIAL 98 % (95-100); PO2 ARTERIAL 130 mmHg (70-100)
[2020-10-20 11:02] LABS: ALLEN TEST PERFORMED; PCO2 ARTERIAL 15 mmHg (35-45)
[2020-10-20] MEDS ORDERED: Sodium Bicarbonate 8.4% 50 MEQ/50 ML SDV IVPUSH ONE (11:06)
[2020-10-20 11:17] LABS: ANION GAP 37.3 mEq/L (7-13); CHLORIDE,CL 95 mmol/L (98-107); SODIUM,NA 136 mmol/L (136-145)
[2020-10-20] MEDS: Sodium Chloride 0.9% with KCl 1,000 ML IV SCH ×2 (11:34→17:22)
--- NOTE | 2020-10-20 11:50 | CR ---
PROCEDURE INFORMATION: Exam: XR Chest, 1 View Exam date and time: 10/20/2020 11:35 AM Age: 30 years old Clinical indication: Other: Dka, poss. Aspiration TECHNIQUE: Imaging protocol: XR of the chest Views: 1 view. COMPARISON: CR Chest 1V Frontal 02/05/2019 4:35 PM FINDINGS: Lungs: Unremarkable. No consolidation. Pleural spaces: Unremarkable. No pleural effusion. No pneumothorax. Heart/Mediastinum: Unremarkable. No cardiomegaly. Bones/joints: Unremarkable. IMPRESSION: No acute findings.
[2020-10-20 12:11] LABS: CORONAVIRUS COVID-19 NAA NEGATIVE (NEGATIVE)
--- NOTE | 2020-10-20 13:02 | PCM.HP ---
H&P History of Present Illness - General Date of Service: 10/20/20 Admit Problem/Dx: Admission Diagnosis/Problem Admission Diagnosis/Problem Diabetic ketoacidosis Source of Information: Patient History Limitations: Reports: No Limitations - History of Present Illness Initial Comments - Free Text/Narative: Patient is a 30-year-old female with a medical history of type 1 diabetes mellitus who presented with complaints of chest pain, nausea and vomiting. Her symptoms started last night as she has has multiple episodes of nausea and vomiting which associated with retching and gagging but resolving chest pain. She reports that she has been taking insulin as prescribed. She takes 35 units of long-acting insulin at night and surface of short-acting insulin with meals. However, she does not have a glucometer and has been able to check her blood sugar. She denies any fever, abdominal pain, headache, dysuria. In the ER, patient's blood sugar was found to be elevated at 508. Blood was positive for ketones. ABG had a pH of 7.13. She had leukocytosis of 21.4. Patient was started on DKA protocol. Chest Pain Score (Numeric/FACES): 6 - Related Data Allergies/Adverse Reactions: Allergies Allergy/AdvReac Type Severity Reaction Status Date / Time No Known Allergies Allergy Verified 10/20/20 10:25 Home Medications: Home Meds Insulin Aspart [Insulin Aspart Flexpen] 10 units SUBCUT TIDMEALS 30 Days #1 pen 05/20/20 [Rx] Insulin Detemir [Levemir Flextouch] 20 unit SQ BID 30 Days #1 pen 05/20/20 [Rx] Past Medical History - Past Health History Medical/Surgical History: Denies Medical/Surgical History HEENT History: Reports: Impaired Vision Other HEENT History: states has a cloud to the right side. States she is near sighted. 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: Musculoskeletal History: Reports: Other (See Below) Other Musculoskeletal History: 12/04/16 Bilateral ingrown toe nails leading to sepsis, IV vanco BID for 10 days Neurological History: Reports: Concussion, Seizure Psychiatric History: Reports: Addiction, Anxiety, Depression, Other (See Below) Other Psychiatric History: Medical non-compliance Endocrine/Metabolic History: Reports: Diabetes, Type I Hematologic History: Reports: None Immunologic History: Reports: None Oncologic (Cancer) History: Reports: None Dermatologic History: Reports: None - Infectious Disease History Infectious Disease History: Reports: None - Past Surgical History Head Surgeries/Procedures: Reports: None Social & Family History - Family History Family Medical History: No Pertinent Family History HEENT: Reports: None Oncologic: Reports: Breast, Other (See Below) Other Oncologic Family History: Stomach CA - Tobacco Use Tobacco Use Status *Q: Never Tobacco User - Caffeine Use Caffeine Use: Reports: None Other Caffeine Use: pt. unable to answer - Recreational Drug Use Recreational Drug Use: Yes Drug Use in Last 12 Months: Yes Recreational Drug Type: Reports: Methamphetamine Recreational Drug Use Frequency: Daily - Living Situation & Occupation Living situation: Reports: with Family H&P Review of Systems - Review of Systems: Review Of Systems: See Below General: Reports: Fatigue HEENT: Reports: No Symptoms Pulmonary: Reports: No Symptoms Cardiovascular: Reports: Chest Pain Gastrointestinal: Reports: Nausea, Vomiting Genitourinary: Reports: No Symptoms Musculoskeletal: Reports: No Symptoms Skin: Reports: No Symptoms Psychiatric: Reports: No Symptoms Neurological: Reports: No Symptoms Hematologic/Lymphatic: Reports: No Symptoms Immunologic: Reports: No Symptoms Exam - Exam Exam: See Below - Vital Signs Vital Signs: Last Vital Signs Temp 98 F 10/20/20 11:38 Pulse 136 H 10/20/20 11:38 Resp 26 H 10/20/20 11:38 BP 139/82 10/20/20 11:38 Pulse Ox 100 10/20/20 11:38 Weight: 138 lb 4.8 oz - Exam General: Alert, Oriented, 4 HEENT: PERRLA, Hearing Intact, Mucosa Moist & [place], Nares Patent, Normal Nasal Septum, Posterior Pharynx Clear, Conjunctiva Clear, EOMI, EACs Clear, TMs Clear Neck: Supple, Trachea Midline, 2 Lungs: Clear to Auscultation, Normal Respiratory Effort Cardiovascular: Regular Rate, Regular Rhythm GI/Abdominal Exam: Normal Bowel Sounds, Soft, Non-Tender, No Organomegaly, No Distention, No Abnormal Bruit, No Mass, Pelvis Stable Back Exam: Normal Inspection, Full Range of Motion, NT Extremities: Normal Inspection, Normal Range of Motion, Non-Tender, No Pedal Edema, Normal Capillary Refill Skin: Warm, Dry, Intact Neurological: Cranial Nerves Intact, Reflexes Equal Bilateral Neuro Extensive - Mental Status: Alert, Oriented x3, Normal Mood/Affect, Normal Cognition Neuro Extensive - Motor, Sensory, Reflexes: CN II-XII Intact, Normal Gait, Normal Reflexes Psychiatric: Alert, Normal Affect, Normal Mood - Patient Data Lab Results Last 24 hrs: Laboratory Results - last 24 hr 10/20/20 10/20/20 10/20/20 Range/Units 10:32 10:40 10:40 WBC 21.4 H (5.0-10.0) 10^3/uL RBC 4.55 (4.2-5.4) 10^6/uL Hgb 13.8 (12.0-16.0) g/dL Hct 39.8 (37.0-47.0) % MCV 87.5 (80-100) fL MCH 30.3 (27.0-34.0) pg MCHC 34.7 (33.0-35.0) g/dL Plt Count 408 D (150-450) 10^3/uL Neut % (Auto) 93.6 H (42.2-75.2) % Lymph % (Auto) 3.9 L (20.5-50.1) % [place] % (Auto) 2.4 (2-8) % Eos % (Auto) 0.0 L (1.0-3.0) % Baso % (Auto) 0.1 (0.0-1.0) % ABG pH (7.35-7.45) ABG pCO2 (35-45) mmHg ABG pO2 (70-100) mmHg ABG HCO3 (22-26) mmol/L ABG O2 Saturation (95-100) % ABG Base Excess ((-2)-(+3)) mmol/L Aakash Test O2 Delivery Device Sodium 136 (136-145) mmol/L Potassium 4.3 (3.5-5.1) mmol/L Chloride 95 L (98-107) mmol/L Carbon Dioxide 8 L* D (21-32) mmol/L Anion Gap 37.3 H (7-13) mEq/L BUN 30 H (7-18) mg/dL Creatinine 1.64 H (0.55-1.02) mg/dL Est Cr Clr Drug Dosing TNP Estimated GFR (MDRD) 37 BUN/Creatinine Ratio 18.3 (No establ ref range) Glucose 508 H* (74-99) mg/dL POC Glucose 500 H* (70-105) mg/dl Lactic Acid (0.4-2.0) mmol/L Calcium 9.1 (8.5-10.1) mg/dL Magnesium (1.8-2.4) mg/dL Total Bilirubin 0.9 (0.2-1.0) mg/dL AST 10 L (15-37) U/L ALT 24 (14-59) U/L Alkaline Phosphatase 104 (46-116) U/L Troponin I < 0.017 (0.000-0.056) ng/mL Total Protein 8.5 H (6.4-8.2) g/dL Albumin 4.6 (3.4-5.0) g/dL Globulin 3.9 Albumin/Globulin Ratio 1.2 Amylase (25-115) U/L Ethyl Alcohol (0) mg/dL Ketones Positive Influenza Type A RNA (NEGATIVE) Influenza Type B RNA (NEGATIVE) SARS-CoV-2 RNA ([place]) (NEGATIVE) 10/20/20 10/20/20 10/20/20 Range/Units 10:40 10:40 10:40 WBC (5.0-10.0) 10^3/uL RBC (4.2-5.4) 10^6/uL Hgb (12.0-16.0) g/dL Hct (37.0-47.0) % MCV (80-100) fL MCH (27.0-34.0) pg MCHC (33.0-35.0) g/dL Plt Count (150-450) 10^3/uL Neut % (Auto) (42.2-75.2) % Lymph % (Auto) (20.5-50.1) % [place] % (Auto) (2-8) % Eos % (Auto) (1.0-3.0) % Baso % (Auto) (0.0-1.0) % ABG pH (7.35-7.45) ABG pCO2 (35-45) mmHg ABG pO2 (70-100) mmHg ABG HCO3 (22-26) mmol/L ABG O2 Saturation (95-100) % ABG Base Excess ((-2)-(+3)) mmol/L Aakash Test O2 Delivery Device Sodium (136-145) mmol/L Potassium (3.5-5.1) mmol/L Chloride (98-107) mmol/L Carbon Dioxide (21-32) mmol/L Anion Gap (7-13) mEq/L BUN (7-18) mg/dL Creatinine (0.55-1.02) mg/dL Est Cr Clr Drug Dosing Estimated GFR (MDRD) BUN/Creatinine Ratio (No establ ref range) Glucose (74-99) mg/dL POC Glucose (70-105) mg/dl Lactic Acid 1.7 (0.4-2.0) mmol/L Calcium (8.5-10.1) mg/dL Magnesium 1.8 (1.8-2.4) mg/dL Total Bilirubin (0.2-1.0) mg/dL AST (15-37) U/L ALT (14-59) U/L Alkaline Phosphatase (46-116) U/L Troponin I (0.000-0.056) ng/mL Total Protein (6.4-8.2) g/dL Albumin (3.4-5.0) g/dL Globulin Albumin/Globulin Ratio Amylase 118 H (25-115) U/L Ethyl Alcohol < 3 (0) mg/dL Ketones Influenza Type A RNA (NEGATIVE) Influenza Type B RNA (NEGATIVE) SARS-CoV-2 RNA ([place]) (NEGATIVE) 10/20/20 10/20/20 10/20/20 Range/Units 10:58 11:24 12:27 WBC (5.0-10.0) 10^3/uL RBC (4.2-5.4) 10^6/uL Hgb (12.0-16.0) g/dL Hct (37.0-47.0) % MCV (80-100) fL MCH (27.0-34.0) pg MCHC (33.0-35.0) g/dL Plt Count (150-450) 10^3/uL Neut % (Auto) (42.2-75.2) % Lymph % (Auto) (20.5-50.1) % [place] % (Auto) (2-8) % Eos % (Auto) (1.0-3.0) % Baso % (Auto) (0.0-1.0) % ABG pH 7.13 L* (7.35-7.45) ABG pCO2 15 L* (35-45) mmHg ABG pO2 130 H (70-100) mmHg ABG HCO3 4.9 L (22-26) mmol/L ABG O2 Saturation 98 (95-100) % ABG Base Excess -23 L ((-2)-(+3)) mmol/L Aakash Test Performed O2 Delivery Device Room air Sodium (136-145) mmol/L Potassium (3.5-5.1) mmol/L Chloride (98-107) mmol/L Carbon Dioxide (21-32) mmol/L Anion Gap (7-13) mEq/L BUN (7-18) mg/dL Creatinine (0.55-1.02) mg/dL Est Cr Clr Drug Dosing Estimated GFR (MDRD) BUN/Creatinine Ratio (No establ ref range) Glucose (74-99) mg/dL POC Glucose 361 H (70-105) mg/dl Lactic Acid (0.4-2.0) mmol/L Calcium (8.5-10.1) mg/dL Magnesium (1.8-2.4) mg/dL Total Bilirubin (0.2-1.0) mg/dL AST (15-37) U/L ALT (14-59) U/L Alkaline Phosphatase (46-116) U/L Troponin I (0.000-0.056) ng/mL Total Protein (6.4-8.2) g/dL Albumin (3.4-5.0) g/dL Globulin Albumin/Globulin Ratio Amylase (25-115) U/L Ethyl Alcohol (0) mg/dL Ketones Influenza Type A RNA Negative (NEGATIVE) Influenza Type B RNA Negative (NEGATIVE) SARS-CoV-2 RNA ([place]) Negative (NEGATIVE) Result Diagrams: 10/20/20 10:40 10/20/20 10:40 Problem List Initiated/Reviewed/Updated: Yes Orders Last 24hrs: Active Orders 24 hr Category Date Time Status Admission Diagnosis [ADT] Routine ADT 10/20/20 11:48 Ordered Admission Status [Patient Status] [ADT] Routine ADT 10/20/20 11:48 Active Blood Glucose Check, Bedside [RC] ONETIME Care 10/20/20 11:36 Active Communication Order [RC] DAILY Care 10/20/20 12:45 Active EKG Documentation Completion [RC] STAT Care 10/20/20 10:43 Active Oxygen Therapy [RC] PRN Care 10/20/20 11:55 Active Peripheral IV Care [RC] . DIRECTED Care 10/20/20 10:44 Active Up ad Jodee [RC] ASDIRECTED Care 10/20/20 11:55 Active VTE/DVT Education [RC] PER UNIT ROUTINE Care 10/20/20 11:55 Active Vital Signs [RC] Q4H Care 10/20/20 11:55 Active Nothing per Oral Now Diet [DIET] Diet 10/20/20 Lunch Active BASIC METABOLIC PANEL,BMP [CHEM] Q4 Lab 10/20/20 12:34 Ordered BASIC METABOLIC PANEL,BMP [CHEM] Q4 Lab 10/20/20 16:34 Ordered BASIC METABOLIC PANEL,BMP [CHEM] Q4 Lab 10/20/20 20:34 Ordered BASIC METABOLIC PANEL,BMP [CHEM] Q4 Lab 10/21/20 00:34 Ordered CULTURE BLOOD [BC] Stat Lab 10/20/20 10:40 Received CULTURE BLOOD [BC] Stat Lab 10/20/20 11:05 Received DRUG SCREEN URINE BIORAD [URCHEM] Stat Lab 10/20/20 11:36 Ordered HCG QUALITATIVE,URINE [URCHEM] Stat Lab 10/20/20 11:36 Ordered MAGNESIUM [CHEM] Q4 Lab 10/20/20 12:34 Ordered MAGNESIUM [CHEM] Q4 Lab 10/20/20 16:34 Ordered MAGNESIUM [CHEM] Q4 Lab 10/20/20 20:34 Ordered MAGNESIUM [CHEM] Q4 Lab 10/21/20 00:35 Ordered PHOSPHORUS [CHEM] Q4 Lab 10/20/20 12:34 Ordered PHOSPHORUS [CHEM] Q4 Lab 10/20/20 16:34 Ordered PHOSPHORUS [CHEM] Q4 Lab 10/20/20 20:34 Ordered PHOSPHORUS [CHEM] Q4 Lab 10/21/20 00:35 Ordered UA W/ULI RFLX IF INDICATED [URIN] Stat Lab 10/20/20 10:41 Ordered Dextrose 50% in Water Med 10/20/20 10:46 Active 50 ml IV ASDIRECTED PRN Glucagon,Human Recombinant [GlucaGen] Med 10/20/20 10:46 Active 1 mg IM ASDIRECTED PRN Heparin Sodium Med 10/20/20 14:00 Active 5,000 units SUBCUT Q8HR Insulin Regular in 0.9 % NACL [Myxredlin in NS 100 UNIT Med 10/20/20 11:00 Active /100 ML] 100 unit in 100 ml IV TITRATE Sodium Chloride 0.9% [Normal Saline] 3,000 ml Med 10/20/20 10:44 Active IV .BOLUS Sodium Chloride 0.9% [Saline Flush] Med 10/20/20 10:43 Active 10 ml FLUSH ASDIRECTED PRN Sodium Chloride 0.9% with KCl [Normal Saline with 40 Med 10/20/20 11:30 Active mEq KCl] 1,000 ml IV ASDIRECTED Blood Culture x2 Reflex Set [OM.PC] Stat Oth 10/20/20 10:42 Ordered Peripheral IV Insertion Adult [OM.PC] Routine Oth 10/20/20 10:43 Ordered Resuscitation Status Routine Resus Stat 10/20/20 11:55 Ordered Medication Orders Dextrose/Water (Dextrose 50% In Water) 50 ml IV ASDIRECTED PRN PRN Reason: Hypoglycemia Glucagon (Glucagen) 1 mg IM ASDIRECTED PRN PRN Reason: Hypoglycemia Heparin Sodium (Porcine) (Heparin Sodium) 5,000 units SUBCUT Q8HR DONNIE Sodium Chloride (Normal Saline) 3,000 mls @ 999 mls/hr IV .BOLUS ONE Stop: 10/20/20 13:44 Last Admin: 10/20/20 10:55 Dose: 999 mls/hr Documented by: SUHAS Insulin Regular in 0.9 % NACL (Myxredlin In Ns 100 Unit/100 Ml) 100 unit in 100 mls @ 6.273 mls/hr IV TITRATE DONNIE; Protocol Last Admin: 10/20/20 10:55 Dose: 0.1 units/kg/hr, 6.273 mls/hr Documented by: SUHAS Cosigned by: MEDINA Potassium Chloride/Sodium Chloride (Normal Saline With 40 Meq Kcl) 1,000 mls @ 200 mls/hr IV ASDIRECTED DONNIE Last Admin: 10/20/20 11:34 Dose: 200 mls/hr Documented by: SUHAS Sodium Chloride (Saline Flush) 10 ml FLUSH ASDIRECTED PRN PRN Reason: Keep Vein Open Assessment/Plan Comment:: Diabetic ketoacidosis History of type 1 diabetes mellitus Continue DKA protocol Monitor replace electrolytes [magnesium, potassium, phosphorus] CHANDLER High anion gap metabolic acidosis Creatinine of 1.64. Anion gap of 37. Continue IV fluids and monitor Repeat bicarb infusions Leukocytosis WBC of 21.4. Likely due to dehydration and stress reaction. Chest x-ray unremarkable Urinalysis pending Prolonged QTC QTC of 556 Avoid QT prolonging medications including antiemetics for now Maintain potassium above 4 and magnesium above 2
[2020-10-20] MEDS ORDERED: Sodium Bicarbonate 8.4% 50 MEQ/50 ML Syringe IVPUSH SCH (13:15)
[2020-10-20 13:28] LABS: ANION GAP 33.4 mEq/L (7-13)
[2020-10-20] MEDS ORDERED: SODIUM BICARBONATE IV SCH (13:30)
[2020-10-20] MEDS ORDERED: SODIUM CHLORIDE 0.9% IV SCH (13:30)
[2020-10-20] MEDS: Heparin Sodium 5,000 Units/ML Vial SUBCUT SCH (13:31)
[2020-10-20] MEDS ORDERED: Potassium Chloride 10 MEQ Tab.ER PO ONE (14:00)
[2020-10-20] MEDS ORDERED: Magnesium Sulfate/D5W 1 GM/100 ML BAG IV ONE ×2 (14:15→16:45)
[2020-10-20] MEDS: SODIUM BICARBONATE IV SCH ×2 (14:28→19:32)
[2020-10-20] MEDS: SODIUM CHLORIDE 0.9% IV SCH ×2 (14:28→19:32)
[2020-10-20] MEDS ORDERED: Pantoprazole 40 MG Vial IVPUSH ONE (15:59)
[2020-10-20] MEDS ORDERED: Pantoprazole 40 MG in Sodium Chloride 0.9% 100 ML IV SCH (16:00)
[2020-10-20 17:04] LABS: ANION GAP 30.7 mEq/L (7-13); CHLORIDE,CL 108 mmol/L (98-107); SODIUM,NA 143 mmol/L (136-145)
[2020-10-20] MEDS: Insulin Lispro 100 Units/ML 3 ML Vial SUBCUT SCH (18:24)
[2020-10-20] MEDS ORDERED: LORazepam 0.5 MG Tab PO PRN (20:22)
[2020-10-20] MEDS ORDERED: amLODIPine 5 MG Tab PO ONE (20:27)
[2020-10-20] MEDS: LORazepam 2 MG/ML SDV IV PRN (20:42)
[2020-10-20 21:04] LABS: ANION GAP 32.3 mEq/L (7-13); CHLORIDE,CL 105 mmol/L (98-107); SODIUM,NA 141 mmol/L (136-145)
[2020-10-20 21:19] LABS: BASE EXCESS ARTERIAL -16 mmol/L ((-2)-(+3)); BICARBONATE,ARTERIAL 9.7 mmol/L (22-26); O2 DELIVERY DEVICE ROOM AIR; O2 SATURATION ARTERIAL 98 % (95-100); PCO2 ARTERIAL 23 mmHg (35-45); PO2 ARTERIAL 109 mmHg (70-100)
[2020-10-20 21:20] LABS: ALLEN TEST PERFORMED
[2020-10-20] MEDS ORDERED: Sodium Chloride 0.9% 1,000 ML IV SCH (21:45)
[2020-10-20] MEDS: Insulin Glarg,Human.Rec.Analog 100 Unit/ML SUBCUT SCH (22:20)
[2020-10-20] MEDS: Sodium Bicarbonate 650 MG Tab PO SCH (22:21)
[2020-10-21] MEDS: SODIUM CHLORIDE 0.9% IV SCH ×5 (00:21→14:25)
[2020-10-21] MEDS: SODIUM BICARBONATE IV SCH ×5 (00:21→14:25)
[2020-10-21] MEDS: Heparin Sodium 5,000 Units/ML Vial SUBCUT SCH ×4 (00:22→22:33)
[2020-10-21 01:42] LABS: ANION GAP 17.4 mEq/L (7-13); CHLORIDE,CL 114 mmol/L (98-107); SODIUM,NA 150 mmol/L (136-145)
[2020-10-21] MEDS: D5 1/2 NS w/ 20 mEq/L KCl 1,000 ML IV SCH ×2 (02:19→10:27)
[2020-10-21 07:21] LABS: ANION GAP 19.2 mEq/L (7-13); CHLORIDE,CL 109 mmol/L (98-107); SODIUM,NA 147 mmol/L (136-145)
[2020-10-21] MEDS ORDERED: Potassium Chloride 10 MEQ Tab.ER PO ONE (07:55)
--- NOTE | 2020-10-21 10:11 | PCM.PN ---
- General Info Date of Service: 10/21/20 Admission Dx/Problem (Free Text): Admission Diagnosis/Problem Admission Diagnosis/Problem Diabetic ketoacidosis Subjective Update: patient seen and examined today. Having severe nausea and emesis. Functional Status: Reports: Pain Controlled - Review of Systems General: Reports: Fatigue HEENT: Reports: No Symptoms Pulmonary: Reports: No Symptoms Cardiovascular: Reports: No Symptoms Gastrointestinal: Reports: Nausea, Vomiting Genitourinary: Reports: No Symptoms Musculoskeletal: Reports: No Symptoms Skin: Reports: No Symptoms Neurological: Reports: No Symptoms Psychiatric: Reports: No Symptoms - Patient Data Vitals - Most Recent: Last Vital Signs Temp 99.3 F 10/21/20 08:13 Pulse 117 H 10/21/20 08:13 Resp 20 10/21/20 08:13 BP 121/75 10/21/20 08:13 Pulse Ox 99 10/21/20 08:13 Weight - Most Recent: 138 lb 3.677 oz I&O - Last 24 Hours: Intake & Output 10/20/20 10/21/20 10/21/20 22:59 06:59 14:59 Intake Total 3200 600 580 Output Total 2250 800 1400 Balance 950 -200 -820 Lab Results Last 24 Hours: Laboratory Results - last 24 hr 10/20/20 10/20/20 10/20/20 Range/Units 10:32 10:40 10:40 WBC 21.4 H (5.0-10.0) 10^3/uL RBC 4.55 (4.2-5.4) 10^6/uL Hgb 13.8 (12.0-16.0) g/dL Hct 39.8 (37.0-47.0) % MCV 87.5 (80-100) fL MCH 30.3 (27.0-34.0) pg MCHC 34.7 (33.0-35.0) g/dL Plt Count 408 D (150-450) 10^3/uL Neut % (Auto) 93.6 H (42.2-75.2) % Lymph % (Auto) 3.9 L (20.5-50.1) % [place] % (Auto) 2.4 (2-8) % Eos % (Auto) 0.0 L (1.0-3.0) % Baso % (Auto) 0.1 (0.0-1.0) % ABG pH (7.35-7.45) ABG pCO2 (35-45) mmHg ABG pO2 (70-100) mmHg ABG HCO3 (22-26) mmol/L ABG O2 Saturation (95-100) % ABG Base Excess ((-2)-(+3)) mmol/L Aakash Test O2 Delivery Device Sodium 136 (136-145) mmol/L Potassium 4.3 (3.5-5.1) mmol/L Chloride 95 L (98-107) mmol/L Carbon Dioxide 8 L* D (21-32) mmol/L Anion Gap 37.3 H (7-13) mEq/L BUN 30 H (7-18) mg/dL Creatinine 1.64 H (0.55-1.02) mg/dL Est Cr Clr Drug Dosing TNP Estimated GFR (MDRD) 37 BUN/Creatinine Ratio 18.3 (No establ ref range) Glucose 508 H* (74-99) mg/dL POC Glucose 500 H* (70-105) mg/dl Lactic Acid (0.4-2.0) mmol/L Calcium 9.1 (8.5-10.1) mg/dL Phosphorus (2.6-4.7) mg/dL Magnesium (1.8-2.4) mg/dL Total Bilirubin 0.9 (0.2-1.0) mg/dL AST 10 L (15-37) U/L ALT 24 (14-59) U/L Alkaline Phosphatase 104 (46-116) U/L Troponin I < 0.017 (0.000-0.056) ng/mL Total Protein 8.5 H (6.4-8.2) g/dL Albumin 4.6 (3.4-5.0) g/dL Globulin 3.9 Albumin/Globulin Ratio 1.2 Amylase (25-115) U/L Urine Color (YELLOW) Urine Appearance (CLEAR) Urine pH (5.0-9.0) Ur Specific [place] (1.005-1.030) Urine Protein (NEGATIVE) Urine Glucose (UA) (NEGATIVE) Urine Ketones (NEGATIVE) Urine Occult Blood (NEGATIVE) Urine Nitrite (NEGATIVE) Urine Bilirubin (NEGATIVE) Urine Urobilinogen (0.2-1.0) mg/dL Ur Leukocyte Esterase (NEGATIVE) U Hyaline Cast (Auto) Urine RBC /HPF Urine WBC (0-5/HPF) /HPF Ur Epithelial Cells (NOT SEEN) /HPF Amorphous Sediment (NOT SEEN) /HPF Urine Bacteria (0-FEW/HPF) /HPF Fine Granular Casts (NOT SEEN) /LPF Urine Mucus (NOT SEEN) /LPF Urine HCG, Qual Urine Opiates Screen (NEGATIVE) Ur Oxycodone Screen (NEGATIVE) Urine Methadone Screen (NEGATIVE) Ur Barbiturates Screen (NEGATIVE) U Tricyclic Antidepress (NEGATIVE) Ur Phencyclidine Scrn (NEGATIVE) Ur Amphetamine Screen (NEGATIVE) U Methamphetamines Scrn (NEGATIVE) Urine MDMA Screen (NEGATIVE) U Benzodiazepines Scrn (NEGATIVE) Urine Cocaine Screen (NEGATIVE) U Marijuana (THC) Screen (NEGATIVE) Ethyl Alcohol (0) mg/dL Ketones Positive Influenza Type A RNA (NEGATIVE) Influenza Type B RNA (NEGATIVE) SARS-CoV-2 RNA ([place]) (NEGATIVE) 10/20/20 10/20/20 10/20/20 Range/Units 10:40 10:40 10:40 WBC (5.0-10.0) 10^3/uL RBC (4.2-5.4) 10^6/uL Hgb (12.0-16.0) g/dL Hct (37.0-47.0) % MCV (80-100) fL MCH (27.0-34.0) pg MCHC (33.0-35.0) g/dL Plt Count (150-450) 10^3/uL Neut % (Auto) (42.2-75.2) % Lymph % (Auto) (20.5-50.1) % [place] % (Auto) (2-8) % Eos % (Auto) (1.0-3.0) % Baso % (Auto) (0.0-1.0) % ABG pH (7.35-7.45) ABG pCO2 (35-45) mmHg ABG pO2 (70-100) mmHg ABG HCO3 (22-26) mmol/L ABG O2 Saturation (95-100) % ABG Base Excess ((-2)-(+3)) mmol/L Aakash Test O2 Delivery Device Sodium (136-145) mmol/L Potassium (3.5-5.1) mmol/L Chloride (98-107) mmol/L Carbon Dioxide (21-32) mmol/L Anion Gap (7-13) mEq/L BUN (7-18) mg/dL Creatinine (0.55-1.02) mg/dL Est Cr Clr Drug Dosing Estimated GFR (MDRD) BUN/Creatinine Ratio (No establ ref range) Glucose (74-99) mg/dL POC Glucose (70-105) mg/dl Lactic Acid 1.7 (0.4-2.0) mmol/L Calcium (8.5-10.1) mg/dL Phosphorus (2.6-4.7) mg/dL Magnesium 1.8 (1.8-2.4) mg/dL Total Bilirubin (0.2-1.0) mg/dL AST (15-37) U/L ALT (14-59) U/L Alkaline Phosphatase (46-116) U/L Troponin I (0.000-0.056) ng/mL Total Protein (6.4-8.2) g/dL Albumin (3.4-5.0) g/dL Globulin Albumin/Globulin Ratio Amylase 118 H (25-115) U/L Urine Color (YELLOW) Urine Appearance (CLEAR) Urine pH (5.0-9.0) Ur Specific [place] (1.005-1.030) Urine Protein (NEGATIVE) Urine Glucose (UA) (NEGATIVE) Urine Ketones (NEGATIVE) Urine Occult Blood (NEGATIVE) Urine Nitrite (NEGATIVE) Urine Bilirubin (NEGATIVE) Urine Urobilinogen (0.2-1.0) mg/dL Ur Leukocyte Esterase (NEGATIVE) U Hyaline Cast (Auto) Urine RBC /HPF Urine WBC (0-5/HPF) /HPF Ur Epithelial Cells (NOT SEEN) /HPF Amorphous Sediment (NOT SEEN) /HPF Urine Bacteria (0-FEW/HPF) /HPF Fine Granular Casts (NOT SEEN) /LPF Urine Mucus (NOT SEEN) /LPF Urine HCG, Qual Urine Opiates Screen (NEGATIVE) Ur Oxycodone Screen (NEGATIVE) Urine Methadone Screen (NEGATIVE) Ur Barbiturates Screen (NEGATIVE) U Tricyclic Antidepress (NEGATIVE) Ur Phencyclidine Scrn (NEGATIVE) Ur Amphetamine Screen (NEGATIVE) U Methamphetamines Scrn (NEGATIVE) Urine MDMA Screen (NEGATIVE) U Benzodiazepines Scrn (NEGATIVE) Urine Cocaine Screen (NEGATIVE) U Marijuana (THC) Screen (NEGATIVE) Ethyl Alcohol < 3 (0) mg/dL Ketones Influenza Type A RNA (NEGATIVE) Influenza Type B RNA (NEGATIVE) SARS-CoV-2 RNA ([place]) (NEGATIVE) 10/20/20 10/20/20 10/20/20 Range/Units 10:58 11:24 12:27 WBC (5.0-10.0) 10^3/uL RBC (4.2-5.4) 10^6/uL Hgb (12.0-16.0) g/dL Hct (37.0-47.0) % MCV (80-100) fL MCH (27.0-34.0) pg MCHC (33.0-35.0) g/dL Plt Count (150-450) 10^3/uL Neut % (Auto) (42.2-75.2) % Lymph % (Auto) (20.5-50.1) % [place] % (Auto) (2-8) % Eos % (Auto) (1.0-3.0) % Baso % (Auto) (0.0-1.0) % ABG pH 7.13 L* (7.35-7.45) ABG pCO2 15 L* (35-45) mmHg ABG pO2 130 H (70-100) mmHg ABG HCO3 4.9 L (22-26) mmol/L ABG O2 Saturation 98 (95-100) % ABG Base Excess -23 L ((-2)-(+3)) mmol/L Aakash Test Performed O2 Delivery Device Room air Sodium (136-145) mmol/L Potassium (3.5-5.1) mmol/L Chloride (98-107) mmol/L Carbon Dioxide (21-32) mmol/L Anion Gap (7-13) mEq/L BUN (7-18) mg/dL Creatinine (0.55-1.02) mg/dL Est Cr Clr Drug Dosing Estimated GFR (MDRD) BUN/Creatinine Ratio (No establ ref range) Glucose (74-99) mg/dL POC Glucose 361 H (70-105) mg/dl Lactic Acid (0.4-2.0) mmol/L Calcium (8.5-10.1) mg/dL Phosphorus (2.6-4.7) mg/dL Magnesium (1.8-2.4) mg/dL Total Bilirubin (0.2-1.0) mg/dL AST (15-37) U/L ALT (14-59) U/L Alkaline Phosphatase (46-116) U/L Troponin I (0.000-0.056) ng/mL Total Protein (6.4-8.2) g/dL Albumin (3.4-5.0) g/dL Globulin Albumin/Globulin Ratio Amylase (25-115) U/L Urine Color (YELLOW) Urine Appearance (CLEAR) Urine pH (5.0-9.0) Ur Specific [place] (1.005-1.030) Urine Protein (NEGATIVE) Urine Glucose (UA) (NEGATIVE) Urine Ketones (NEGATIVE) Urine Occult Blood (NEGATIVE) Urine Nitrite (NEGATIVE) Urine Bilirubin (NEGATIVE) Urine Urobilinogen (0.2-1.0) mg/dL Ur Leukocyte Esterase (NEGATIVE) U Hyaline Cast (Auto) Urine RBC /HPF Urine WBC (0-5/HPF) /HPF Ur Epithelial Cells (NOT SEEN) /HPF Amorphous Sediment (NOT SEEN) /HPF Urine Bacteria (0-FEW/HPF) /HPF Fine Granular Casts (NOT SEEN) /LPF Urine Mucus (NOT SEEN) /LPF Urine HCG, Qual Urine Opiates Screen (NEGATIVE) Ur Oxycodone Screen (NEGATIVE) Urine Methadone Screen (NEGATIVE) Ur Barbiturates Screen (NEGATIVE) U Tricyclic Antidepress (NEGATIVE) Ur Phencyclidine Scrn (NEGATIVE) Ur Amphetamine Screen (NEGATIVE) U Methamphetamines Scrn (NEGATIVE) Urine MDMA Screen (NEGATIVE) U Benzodiazepines Scrn (NEGATIVE) Urine Cocaine Screen (NEGATIVE) U Marijuana (THC) Screen (NEGATIVE) Ethyl Alcohol (0) mg/dL Ketones Influenza Type A RNA Negative (NEGATIVE) Influenza Type B RNA Negative (NEGATIVE) SARS-CoV-2 RNA ([place]) Negative (NEGATIVE) 10/20/20 10/20/20 10/20/20 Range/Units 13:00 13:34 14:46 WBC (5.0-10.0) 10^3/uL RBC (4.2-5.4) 10^6/uL Hgb (12.0-16.0) g/dL Hct (37.0-47.0) % MCV (80-100) fL MCH (27.0-34.0) pg MCHC (33.0-35.0) g/dL Plt Count (150-450) 10^3/uL Neut % (Auto) (42.2-75.2) % Lymph % (Auto) (20.5-50.1) % [place] % (Auto) (2-8) % Eos % (Auto) (1.0-3.0) % Baso % (Auto) (0.0-1.0) % ABG pH (7.35-7.45) ABG pCO2 (35-45) mmHg ABG pO2 (70-100) mmHg ABG HCO3 (22-26) mmol/L ABG O2 Saturation (95-100) % ABG Base Excess ((-2)-(+3)) mmol/L Aakash Test O2 Delivery Device Sodium 141 (136-145) mmol/L Potassium 3.4 L (3.5-5.1) mmol/L Chloride 103 (98-107) mmol/L Carbon Dioxide 8 L* (21-32) mmol/L Anion Gap 33.4 H (7-13) mEq/L BUN 26 H (7-18) mg/dL Creatinine 1.42 H (0.55-1.02) mg/dL Est Cr Clr Drug Dosing 54.72 Estimated GFR (MDRD) 44 BUN/Creatinine Ratio (No establ ref range) Glucose 255 H (74-99) mg/dL POC Glucose 234 H 162 H (70-105) mg/dl Lactic Acid (0.4-2.0) mmol/L Calcium 8.0 L (8.5-10.1) mg/dL Phosphorus 3.2 (2.6-4.7) mg/dL Magnesium 1.6 L (1.8-2.4) mg/dL Total Bilirubin (0.2-1.0) mg/dL AST (15-37) U/L ALT (14-59) U/L Alkaline Phosphatase (46-116) U/L Troponin I (0.000-0.056) ng/mL Total Protein (6.4-8.2) g/dL Albumin (3.4-5.0) g/dL Globulin Albumin/Globulin Ratio Amylase (25-115) U/L Urine Color (YELLOW) Urine Appearance (CLEAR) Urine pH (5.0-9.0) Ur Specific [place] (1.005-1.030) Urine Protein (NEGATIVE) Urine Glucose (UA) (NEGATIVE) Urine Ketones (NEGATIVE) Urine Occult Blood (NEGATIVE) Urine Nitrite (NEGATIVE) Urine Bilirubin (NEGATIVE) Urine Urobilinogen (0.2-1.0) mg/dL Ur Leukocyte Esterase (NEGATIVE) U Hyaline Cast (Auto) Urine RBC /HPF Urine WBC (0-5/HPF) /HPF Ur Epithelial Cells (NOT SEEN) /HPF Amorphous Sediment (NOT SEEN) /HPF Urine Bacteria (0-FEW/HPF) /HPF Fine Granular Casts (NOT SEEN) /LPF Urine Mucus (NOT SEEN) /LPF Urine HCG, Qual Urine Opiates Screen (NEGATIVE) Ur Oxycodone Screen (NEGATIVE) Urine Methadone Screen (NEGATIVE) Ur Barbiturates Screen (NEGATIVE) U Tricyclic Antidepress (NEGATIVE) Ur Phencyclidine Scrn (NEGATIVE) Ur Amphetamine Screen (NEGATIVE) U Methamphetamines Scrn (NEGATIVE) Urine MDMA Screen (NEGATIVE) U Benzodiazepines Scrn (NEGATIVE) Urine Cocaine Screen (NEGATIVE) U Marijuana (THC) Screen (NEGATIVE) Ethyl Alcohol (0) mg/dL Ketones Influenza Type A RNA (NEGATIVE) Influenza Type B RNA (NEGATIVE) SARS-CoV-2 RNA ([place]) (NEGATIVE) 10/20/20 10/20/20 10/20/20 Range/Units 15:40 16:25 16:25 WBC (5.0-10.0) 10^3/uL RBC (4.2-5.4) 10^6/uL Hgb (12.0-16.0) g/dL Hct (37.0-47.0) % MCV (80-100) fL MCH (27.0-34.0) pg MCHC (33.0-35.0) g/dL Plt Count (150-450) 10^3/uL Neut % (Auto) (42.2-75.2) % Lymph % (Auto) (20.5-50.1) % [place] % (Auto) (2-8) % Eos % (Auto) (1.0-3.0) % Baso % (Auto) (0.0-1.0) % ABG pH (7.35-7.45) ABG pCO2 (35-45) mmHg ABG pO2 (70-100) mmHg ABG HCO3 (22-26) mmol/L ABG O2 Saturation (95-100) % ABG Base Excess ((-2)-(+3)) mmol/L Aakash Test O2 Delivery Device Sodium (136-145) mmol/L Potassium (3.5-5.1) mmol/L Chloride (98-107) mmol/L Carbon Dioxide (21-32) mmol/L Anion Gap (7-13) mEq/L BUN (7-18) mg/dL Creatinine (0.55-1.02) mg/dL Est Cr Clr Drug Dosing Estimated GFR (MDRD) BUN/Creatinine Ratio (No establ ref range) Glucose (74-99) mg/dL POC Glucose 130 H (70-105) mg/dl Lactic Acid (0.4-2.0) mmol/L Calcium (8.5-10.1) mg/dL Phosphorus (2.6-4.7) mg/dL Magnesium (1.8-2.4) mg/dL Total Bilirubin (0.2-1.0) mg/dL AST (15-37) U/L ALT (14-59) U/L Alkaline Phosphatase (46-116) U/L Troponin I (0.000-0.056) ng/mL Total Protein (6.4-8.2) g/dL Albumin (3.4-5.0) g/dL Globulin Albumin/Globulin Ratio Amylase (25-115) U/L Urine Color Yellow (YELLOW) Urine Appearance Slightly cloudy (CLEAR) Urine pH 5.5 (5.0-9.0) Ur Specific [place] 1.025 (1.005-1.030) Urine Protein 30 H (NEGATIVE) Urine Glucose (UA) 100 H (NEGATIVE) Urine Ketones >=160 H (NEGATIVE) Urine Occult Blood Trace-intact H (NEGATIVE) Urine Nitrite Negative (NEGATIVE) Urine Bilirubin Small H (NEGATIVE) Urine Urobilinogen 0.2 (0.2-1.0) mg/dL Ur Leukocyte Esterase Negative (NEGATIVE) U Hyaline Cast (Auto) Occasional Urine RBC 0-5 /HPF Urine WBC 0-5 (0-5/HPF) /HPF Ur Epithelial Cells Few (NOT SEEN) /HPF Amorphous Sediment Occasional (NOT SEEN) /HPF Urine Bacteria Rare (0-FEW/HPF) /HPF Fine Granular Casts Occasional H (NOT SEEN) /LPF Urine Mucus Rare (NOT SEEN) /LPF Urine HCG, Qual Negative Urine Opiates Screen (NEGATIVE) Ur Oxycodone Screen (NEGATIVE) Urine Methadone Screen (NEGATIVE) Ur Barbiturates Screen (NEGATIVE) U Tricyclic Antidepress (NEGATIVE) Ur Phencyclidine Scrn (NEGATIVE) Ur Amphetamine Screen (NEGATIVE) U Methamphetamines Scrn (NEGATIVE) Urine MDMA Screen (NEGATIVE) U Benzodiazepines Scrn (NEGATIVE) Urine Cocaine Screen (NEGATIVE) U Marijuana (THC) Screen (NEGATIVE) Ethyl Alcohol (0) mg/dL Ketones Influenza Type A RNA (NEGATIVE) Influenza Type B RNA (NEGATIVE) SARS-CoV-2 RNA ([place]) (NEGATIVE) 10/20/20 10/20/20 10/20/20 Range/Units 16:25 16:38 17:59 WBC (5.0-10.0) 10^3/uL RBC (4.2-5.4) 10^6/uL Hgb (12.0-16.0) g/dL Hct (37.0-47.0) % MCV (80-100) fL MCH (27.0-34.0) pg MCHC (33.0-35.0) g/dL Plt Count (150-450) 10^3/uL Neut % (Auto) (42.2-75.2) % Lymph % (Auto) (20.5-50.1) % [place] % (Auto) (2-8) % Eos % (Auto) (1.0-3.0) % Baso % (Auto) (0.0-1.0) % ABG pH (7.35-7.45) ABG pCO2 (35-45) mmHg ABG pO2 (70-100) mmHg ABG HCO3 (22-26) mmol/L ABG O2 Saturation (95-100) % ABG Base Excess ((-2)-(+3)) mmol/L Aakash Test O2 Delivery Device Sodium 143 (136-145) mmol/L Potassium 4.7 (3.5-5.1) mmol/L Chloride 108 H (98-107) mmol/L Carbon Dioxide 9 L (21-32) mmol/L Anion Gap 30.7 H (7-13) mEq/L BUN 21 H (7-18) mg/dL Creatinine 1.07 H (0.55-1.02) mg/dL Est Cr Clr Drug Dosing 73.02 Estimated GFR (MDRD) > 60 BUN/Creatinine Ratio (No establ ref range) Glucose 133 H (74-99) mg/dL POC Glucose 138 H (70-105) mg/dl Lactic Acid (0.4-2.0) mmol/L Calcium 8.3 L (8.5-10.1) mg/dL Phosphorus 2.6 (2.6-4.7) mg/dL Magnesium 2.1 (1.8-2.4) mg/dL Total Bilirubin (0.2-1.0) mg/dL AST (15-37) U/L ALT (14-59) U/L Alkaline Phosphatase (46-116) U/L Troponin I (0.000-0.056) ng/mL Total Protein (6.4-8.2) g/dL Albumin (3.4-5.0) g/dL Globulin Albumin/Globulin Ratio Amylase (25-115) U/L Urine Color (YELLOW) Urine Appearance (CLEAR) Urine pH (5.0-9.0) Ur Specific [place] (1.005-1.030) Urine Protein (NEGATIVE) Urine Glucose (UA) (NEGATIVE) Urine Ketones (NEGATIVE) Urine Occult Blood (NEGATIVE) Urine Nitrite (NEGATIVE) Urine Bilirubin (NEGATIVE) Urine Urobilinogen (0.2-1.0) mg/dL Ur Leukocyte Esterase (NEGATIVE) U Hyaline Cast (Auto) Urine RBC /HPF Urine WBC (0-5/HPF) /HPF Ur Epithelial Cells (NOT SEEN) /HPF Amorphous Sediment (NOT SEEN) /HPF Urine Bacteria (0-FEW/HPF) /HPF Fine Granular Casts (NOT SEEN) /LPF Urine Mucus (NOT SEEN) /LPF Urine HCG, Qual Urine Opiates Screen Negative (NEGATIVE) Ur Oxycodone Screen Negative (NEGATIVE) Urine Methadone Screen Negative (NEGATIVE) Ur Barbiturates Screen Negative (NEGATIVE) U Tricyclic Antidepress Negative (NEGATIVE) Ur Phencyclidine Scrn Negative (NEGATIVE) Ur Amphetamine Screen Negative (NEGATIVE) U Methamphetamines Scrn Positive H (NEGATIVE) Urine MDMA Screen Negative (NEGATIVE) U Benzodiazepines Scrn Negative (NEGATIVE) Urine Cocaine Screen Negative (NEGATIVE) U Marijuana (THC) Screen Negative (NEGATIVE) Ethyl Alcohol (0) mg/dL Ketones Influenza Type A RNA (NEGATIVE) Influenza Type B RNA (NEGATIVE) SARS-CoV-2 RNA ([place]) (NEGATIVE) 10/20/20 10/20/20 10/20/20 Range/Units 19:33 20:11 20:35 WBC (5.0-10.0) 10^3/uL RBC (4.2-5.4) 10^6/uL Hgb (12.0-16.0) g/dL Hct (37.0-47.0) % MCV (80-100) fL MCH (27.0-34.0) pg MCHC (33.0-35.0) g/dL Plt Count (150-450) 10^3/uL Neut % (Auto) (42.2-75.2) % Lymph % (Auto) (20.5-50.1) % [place] % (Auto) (2-8) % Eos % (Auto) (1.0-3.0) % Baso % (Auto) (0.0-1.0) % ABG pH (7.35-7.45) ABG pCO2 (35-45) mmHg ABG pO2 (70-100) mmHg ABG HCO3 (22-26) mmol/L ABG O2 Saturation (95-100) % ABG Base Excess ((-2)-(+3)) mmol/L Aakash Test O2 Delivery Device Sodium 141 (136-145) mmol/L Potassium 6.3 H D (3.5-5.1) mmol/L Chloride 105 (98-107) mmol/L Carbon Dioxide 10 L (21-32) mmol/L Anion Gap 32.3 H (7-13) mEq/L BUN 18 (7-18) mg/dL Creatinine 0.73 (0.55-1.02) mg/dL Est Cr Clr Drug Dosing 107.03 Estimated GFR (MDRD) > 60 BUN/Creatinine Ratio (No establ ref range) Glucose 236 H (74-99) mg/dL POC Glucose 165 H 208 H (70-105) mg/dl Lactic Acid (0.4-2.0) mmol/L Calcium 8.2 L (8.5-10.1) mg/dL Phosphorus 2.7 (2.6-4.7) mg/dL Magnesium 2.2 (1.8-2.4) mg/dL Total Bilirubin (0.2-1.0) mg/dL AST (15-37) U/L ALT (14-59) U/L Alkaline Phosphatase (46-116) U/L Troponin I (0.000-0.056) ng/mL Total Protein (6.4-8.2) g/dL Albumin (3.4-5.0) g/dL Globulin Albumin/Globulin Ratio Amylase (25-115) U/L Urine Color (YELLOW) Urine Appearance (CLEAR) Urine pH (5.0-9.0) Ur Specific [place] (1.005-1.030) Urine Protein (NEGATIVE) Urine Glucose (UA) (NEGATIVE) Urine Ketones (NEGATIVE) Urine Occult Blood (NEGATIVE) Urine Nitrite (NEGATIVE) Urine Bilirubin (NEGATIVE) Urine Urobilinogen (0.2-1.0) mg/dL Ur Leukocyte Esterase (NEGATIVE) U Hyaline Cast (Auto) Urine RBC /HPF Urine WBC (0-5/HPF) /HPF Ur Epithelial Cells (NOT SEEN) /HPF Amorphous Sediment (NOT SEEN) /HPF Urine Bacteria (0-FEW/HPF) /HPF Fine Granular Casts (NOT SEEN) /LPF Urine Mucus (NOT SEEN) /LPF Urine HCG, Qual Urine Opiates Screen (NEGATIVE) Ur Oxycodone Screen (NEGATIVE) Urine Methadone Screen (NEGATIVE) Ur Barbiturates Screen (NEGATIVE) U Tricyclic Antidepress (NEGATIVE) Ur Phencyclidine Scrn (NEGATIVE) Ur Amphetamine Screen (NEGATIVE) U Methamphetamines Scrn (NEGATIVE) Urine MDMA Screen (NEGATIVE) U Benzodiazepines Scrn (NEGATIVE) Urine Cocaine Screen (NEGATIVE) U Marijuana (THC) Screen (NEGATIVE) Ethyl Alcohol (0) mg/dL Ketones Influenza Type A RNA (NEGATIVE) Influenza Type B RNA (NEGATIVE) SARS-CoV-2 RNA ([place]) (NEGATIVE) 10/20/20 10/20/20 10/20/20 Range/Units 21:10 21:15 22:02 WBC (5.0-10.0) 10^3/uL RBC (4.2-5.4) 10^6/uL Hgb (12.0-16.0) g/dL Hct (37.0-47.0) % MCV (80-100) fL MCH (27.0-34.0) pg MCHC (33.0-35.0) g/dL Plt Count (150-450) 10^3/uL Neut % (Auto) (42.2-75.2) % Lymph % (Auto) (20.5-50.1) % [place] % (Auto) (2-8) % Eos % (Auto) (1.0-3.0) % Baso % (Auto) (0.0-1.0) % ABG pH 7.25 L (7.35-7.45) ABG pCO2 23 L (35-45) mmHg ABG pO2 109 H (70-100) mmHg ABG HCO3 9.7 L (22-26) mmol/L ABG O2 Saturation 98 (95-100) % ABG Base Excess -16 L ((-2)-(+3)) mmol/L Aakash Test Performed O2 Delivery Device Room air Sodium (136-145) mmol/L Potassium (3.5-5.1) mmol/L Chloride (98-107) mmol/L Carbon Dioxide (21-32) mmol/L Anion Gap (7-13) mEq/L BUN (7-18) mg/dL Creatinine (0.55-1.02) mg/dL Est Cr Clr Drug Dosing Estimated GFR (MDRD) BUN/Creatinine Ratio (No establ ref range) Glucose (74-99) mg/dL POC Glucose 245 H 241 H (70-105) mg/dl Lactic Acid (0.4-2.0) mmol/L Calcium (8.5-10.1) mg/dL Phosphorus (2.6-4.7) mg/dL Magnesium (1.8-2.4) mg/dL Total Bilirubin (0.2-1.0) mg/dL AST (15-37) U/L ALT (14-59) U/L Alkaline Phosphatase (46-116) U/L Troponin I (0.000-0.056) ng/mL Total Protein (6.4-8.2) g/dL Albumin (3.4-5.0) g/dL Globulin Albumin/Globulin Ratio Amylase (25-115) U/L Urine Color (YELLOW) Urine Appearance (CLEAR) Urine pH (5.0-9.0) Ur Specific [place] (1.005-1.030) Urine Protein (NEGATIVE) Urine Glucose (UA) (NEGATIVE) Urine Ketones (NEGATIVE) Urine Occult Blood (NEGATIVE) Urine Nitrite (NEGATIVE) Urine Bilirubin (NEGATIVE) Urine Urobilinogen (0.2-1.0) mg/dL Ur Leukocyte Esterase (NEGATIVE) U Hyaline Cast (Auto) Urine RBC /HPF Urine WBC (0-5/HPF) /HPF Ur Epithelial Cells (NOT SEEN) /HPF Amorphous Sediment (NOT SEEN) /HPF Urine Bacteria (0-FEW/HPF) /HPF Fine Granular Casts (NOT SEEN) /LPF Urine Mucus (NOT SEEN) /LPF Urine HCG, Qual Urine Opiates Screen (NEGATIVE) Ur Oxycodone Screen (NEGATIVE) Urine Methadone Screen (NEGATIVE) Ur Barbiturates Screen (NEGATIVE) U Tricyclic Antidepress (NEGATIVE) Ur Phencyclidine Scrn (NEGATIVE) Ur Amphetamine Screen (NEGATIVE) U Methamphetamines Scrn (NEGATIVE) Urine MDMA Screen (NEGATIVE) U Benzodiazepines Scrn (NEGATIVE) Urine Cocaine Screen (NEGATIVE) U Marijuana (THC) Screen (NEGATIVE) Ethyl Alcohol (0) mg/dL Ketones Influenza Type A RNA (NEGATIVE) Influenza Type B RNA (NEGATIVE) SARS-CoV-2 RNA ([place]) (NEGATIVE) 10/20/20 10/21/20 10/21/20 Range/Units 23:01 00:00 01:09 WBC (5.0-10.0) 10^3/uL RBC (4.2-5.4) 10^6/uL Hgb (12.0-16.0) g/dL Hct (37.0-47.0) % MCV (80-100) fL MCH (27.0-34.0) pg MCHC (33.0-35.0) g/dL Plt Count (150-450) 10^3/uL Neut % (Auto) (42.2-75.2) % Lymph % (Auto) (20.5-50.1) % [place] % (Auto) (2-8) % Eos % (Auto) (1.0-3.0) % Baso % (Auto) (0.0-1.0) % ABG pH (7.35-7.45) ABG pCO2 (35-45) mmHg ABG pO2 (70-100) mmHg ABG HCO3 (22-26) mmol/L ABG O2 Saturation (95-100) % ABG Base Excess ((-2)-(+3)) mmol/L Aakash Test O2 Delivery Device Sodium (136-145) mmol/L Potassium (3.5-5.1) mmol/L Chloride (98-107) mmol/L Carbon Dioxide (21-32) mmol/L Anion Gap (7-13) mEq/L BUN (7-18) mg/dL Creatinine (0.55-1.02) mg/dL Est Cr Clr Drug Dosing Estimated GFR (MDRD) BUN/Creatinine Ratio (No establ ref range) Glucose (74-99) mg/dL POC Glucose 217 H 184 H 119 H (70-105) mg/dl Lactic Acid (0.4-2.0) mmol/L Calcium (8.5-10.1) mg/dL Phosphorus (2.6-4.7) mg/dL Magnesium (1.8-2.4) mg/dL Total Bilirubin (0.2-1.0) mg/dL AST (15-37) U/L ALT (14-59) U/L Alkaline Phosphatase (46-116) U/L Troponin I (0.000-0.056) ng/mL Total Protein (6.4-8.2) g/dL Albumin (3.4-5.0) g/dL Globulin Albumin/Globulin Ratio Amylase (25-115) U/L Urine Color (YELLOW) Urine Appearance (CLEAR) Urine pH (5.0-9.0) Ur Specific [place] (1.005-1.030) Urine Protein (NEGATIVE) Urine Glucose (UA) (NEGATIVE) Urine Ketones (NEGATIVE) Urine Occult Blood (NEGATIVE) Urine Nitrite (NEGATIVE) Urine Bilirubin (NEGATIVE) Urine Urobilinogen (0.2-1.0) mg/dL Ur Leukocyte Esterase (NEGATIVE) U Hyaline Cast (Auto) Urine RBC /HPF Urine WBC (0-5/HPF) /HPF Ur Epithelial Cells (NOT SEEN) /HPF Amorphous Sediment (NOT SEEN) /HPF Urine Bacteria (0-FEW/HPF) /HPF Fine Granular Casts (NOT SEEN) /LPF Urine Mucus (NOT SEEN) /LPF Urine HCG, Qual Urine Opiates Screen (NEGATIVE) Ur Oxycodone Screen (NEGATIVE) Urine Methadone Screen (NEGATIVE) Ur Barbiturates Screen (NEGATIVE) U Tricyclic Antidepress (NEGATIVE) Ur Phencyclidine Scrn (NEGATIVE) Ur Amphetamine Screen (NEGATIVE) U Methamphetamines Scrn (NEGATIVE) Urine MDMA Screen (NEGATIVE) U Benzodiazepines Scrn (NEGATIVE) Urine Cocaine Screen (NEGATIVE) U Marijuana (THC) Screen (NEGATIVE) Ethyl Alcohol (0) mg/dL Ketones Influenza Type A RNA (NEGATIVE) Influenza Type B RNA (NEGATIVE) SARS-CoV-2 RNA ([place]) (NEGATIVE) 10/21/20 10/21/20 10/21/20 Range/Units 01:19 01:19 02:01 WBC 16.4 H (5.0-10.0) 10^3/uL RBC 3.68 L (4.2-5.4) 10^6/uL Hgb 11.2 L D (12.0-16.0) g/dL Hct 32.1 L (37.0-47.0) % MCV 87.2 (80-100) fL MCH 30.4 (27.0-34.0) pg MCHC 34.9 (33.0-35.0) g/dL Plt Count 346 (150-450) 10^3/uL Neut % (Auto) (42.2-75.2) % Lymph % (Auto) (20.5-50.1) % [place] % (Auto) (2-8) % Eos % (Auto) (1.0-3.0) % Baso % (Auto) (0.0-1.0) % ABG pH (7.35-7.45) ABG pCO2 (35-45) mmHg ABG pO2 (70-100) mmHg ABG HCO3 (22-26) mmol/L ABG O2 Saturation (95-100) % ABG Base Excess ((-2)-(+3)) mmol/L Aakash Test O2 Delivery Device Sodium 150 H (136-145) mmol/L Potassium 3.4 L D (3.5-5.1) mmol/L Chloride 114 H (98-107) mmol/L Carbon Dioxide 22 D (21-32) mmol/L Anion Gap 17.4 H (7-13) mEq/L BUN 16 (7-18) mg/dL Creatinine 0.99 (0.55-1.02) mg/dL Est Cr Clr Drug Dosing 78.92 Estimated GFR (MDRD) > 60 BUN/Creatinine Ratio (No establ ref range) Glucose 127 H (74-99) mg/dL POC Glucose 83 (70-105) mg/dl Lactic Acid (0.4-2.0) mmol/L Calcium 7.8 L (8.5-10.1) mg/dL Phosphorus (2.6-4.7) mg/dL Magnesium (1.8-2.4) mg/dL Total Bilirubin (0.2-1.0) mg/dL AST (15-37) U/L ALT (14-59) U/L Alkaline Phosphatase (46-116) U/L Troponin I (0.000-0.056) ng/mL Total Protein (6.4-8.2) g/dL Albumin (3.4-5.0) g/dL Globulin Albumin/Globulin Ratio Amylase (25-115) U/L Urine Color (YELLOW) Urine Appearance (CLEAR) Urine pH (5.0-9.0) Ur Specific [place] (1.005-1.030) Urine Protein (NEGATIVE) Urine Glucose (UA) (NEGATIVE) Urine Ketones (NEGATIVE) Urine Occult Blood (NEGATIVE) Urine Nitrite (NEGATIVE) Urine Bilirubin (NEGATIVE) Urine Urobilinogen (0.2-1.0) mg/dL Ur Leukocyte Esterase (NEGATIVE) U Hyaline Cast (Auto) Urine RBC /HPF Urine WBC (0-5/HPF) /HPF Ur Epithelial Cells (NOT SEEN) /HPF Amorphous Sediment (NOT SEEN) /HPF Urine Bacteria (0-FEW/HPF) /HPF Fine Granular Casts (NOT SEEN) /LPF Urine Mucus (NOT SEEN) /LPF Urine HCG, Qual Urine Opiates Screen (NEGATIVE) Ur Oxycodone Screen (NEGATIVE) Urine Methadone Screen (NEGATIVE) Ur Barbiturates Screen (NEGATIVE) U Tricyclic Antidepress (NEGATIVE) Ur Phencyclidine Scrn (NEGATIVE) Ur Amphetamine Screen (NEGATIVE) U Methamphetamines Scrn (NEGATIVE) Urine MDMA Screen (NEGATIVE) U Benzodiazepines Scrn (NEGATIVE) Urine Cocaine Screen (NEGATIVE) U Marijuana (THC) Screen (NEGATIVE) Ethyl Alcohol (0) mg/dL Ketones Influenza Type A RNA (NEGATIVE) Influenza Type B RNA (NEGATIVE) SARS-CoV-2 RNA ([place]) (NEGATIVE) 10/21/20 10/21/20 10/21/20 Range/Units 02:59 04:04 05:02 WBC (5.0-10.0) 10^3/uL RBC (4.2-5.4) 10^6/uL Hgb (12.0-16.0) g/dL Hct (37.0-47.0) % MCV (80-100) fL MCH (27.0-34.0) pg MCHC (33.0-35.0) g/dL Plt Count (150-450) 10^3/uL Neut % (Auto) (42.2-75.2) % Lymph % (Auto) (20.5-50.1) % [place] % (Auto) (2-8) % Eos % (Auto) (1.0-3.0) % Baso % (Auto) (0.0-1.0) % ABG pH (7.35-7.45) ABG pCO2 (35-45) mmHg ABG pO2 (70-100) mmHg ABG HCO3 (22-26) mmol/L ABG O2 Saturation (95-100) % ABG Base Excess ((-2)-(+3)) mmol/L Aakash Test O2 Delivery Device Sodium (136-145) mmol/L Potassium (3.5-5.1) mmol/L Chloride (98-107) mmol/L Carbon Dioxide (21-32) mmol/L Anion Gap (7-13) mEq/L BUN (7-18) mg/dL Creatinine (0.55-1.02) mg/dL Est Cr Clr Drug Dosing Estimated GFR (MDRD) BUN/Creatinine Ratio (No establ ref range) Glucose (74-99) mg/dL POC Glucose 97 149 H 182 H (70-105) mg/dl Lactic Acid (0.4-2.0) mmol/L Calcium (8.5-10.1) mg/dL Phosphorus (2.6-4.7) mg/dL Magnesium (1.8-2.4) mg/dL Total Bilirubin (0.2-1.0) mg/dL AST (15-37) U/L ALT (14-59) U/L Alkaline Phosphatase (46-116) U/L Troponin I (0.000-0.056) ng/mL Total Protein (6.4-8.2) g/dL Albumin (3.4-5.0) g/dL Globulin Albumin/Globulin Ratio Amylase (25-115) U/L Urine Color (YELLOW) Urine Appearance (CLEAR) Urine pH (5.0-9.0) Ur Specific [place] (1.005-1.030) Urine Protein (NEGATIVE) Urine Glucose (UA) (NEGATIVE) Urine Ketones (NEGATIVE) Urine Occult Blood (NEGATIVE) Urine Nitrite (NEGATIVE) Urine Bilirubin (NEGATIVE) Urine Urobilinogen (0.2-1.0) mg/dL Ur Leukocyte Esterase (NEGATIVE) U Hyaline Cast (Auto) Urine RBC /HPF Urine WBC (0-5/HPF) /HPF Ur Epithelial Cells (NOT SEEN) /HPF Amorphous Sediment (NOT SEEN) /HPF Urine Bacteria (0-FEW/HPF) /HPF Fine Granular Casts (NOT SEEN) /LPF Urine Mucus (NOT SEEN) /LPF Urine HCG, Qual Urine Opiates Screen (NEGATIVE) Ur Oxycodone Screen (NEGATIVE) Urine Methadone Screen (NEGATIVE) Ur Barbiturates Screen (NEGATIVE) U Tricyclic Antidepress (NEGATIVE) Ur Phencyclidine Scrn (NEGATIVE) Ur Amphetamine Screen (NEGATIVE) U Methamphetamines Scrn (NEGATIVE) Urine MDMA Screen (NEGATIVE) U Benzodiazepines Scrn (NEGATIVE) Urine Cocaine Screen (NEGATIVE) U Marijuana (THC) Screen (NEGATIVE) Ethyl Alcohol (0) mg/dL Ketones Influenza Type A RNA (NEGATIVE) Influenza Type B RNA (NEGATIVE) SARS-CoV-2 RNA ([place]) (NEGATIVE) 10/21/20 10/21/20 10/21/20 Range/Units 05:55 06:55 06:55 WBC 15.7 H (5.0-10.0) 10^3/uL RBC 3.65 L (4.2-5.4) 10^6/uL Hgb 11.0 L (12.0-16.0) g/dL Hct 32.3 L (37.0-47.0) % MCV 88.5 (80-100) fL MCH 30.1 (27.0-34.0) pg MCHC 34.1 (33.0-35.0) g/dL Plt Count 346 (150-450) 10^3/uL Neut % (Auto) (42.2-75.2) % Lymph % (Auto) (20.5-50.1) % [place] % (Auto) (2-8) % Eos % (Auto) (1.0-3.0) % Baso % (Auto) (0.0-1.0) % ABG pH (7.35-7.45) ABG pCO2 (35-45) mmHg ABG pO2 (70-100) mmHg ABG HCO3 (22-26) mmol/L ABG O2 Saturation (95-100) % ABG Base Excess ((-2)-(+3)) mmol/L Aakash Test O2 Delivery Device Sodium 147 H (136-145) mmol/L Potassium 3.2 L (3.5-5.1) mmol/L Chloride 109 H (98-107) mmol/L Carbon Dioxide 22 (21-32) mmol/L Anion Gap 19.2 H (7-13) mEq/L BUN 13 (7-18) mg/dL Creatinine 0.88 (0.55-1.02) mg/dL Est Cr Clr Drug Dosing 88.79 Estimated GFR (MDRD) > 60 BUN/Creatinine Ratio (No establ ref range) Glucose 210 H (74-99) mg/dL POC Glucose 184 H (70-105) mg/dl Lactic Acid (0.4-2.0) mmol/L Calcium 7.5 L (8.5-10.1) mg/dL Phosphorus 1.6 L (2.6-4.7) mg/dL Magnesium 1.9 (1.8-2.4) mg/dL Total Bilirubin (0.2-1.0) mg/dL AST (15-37) U/L ALT (14-59) U/L Alkaline Phosphatase (46-116) U/L Troponin I (0.000-0.056) ng/mL Total Protein (6.4-8.2) g/dL Albumin (3.4-5.0) g/dL Globulin Albumin/Globulin Ratio Amylase (25-115) U/L Urine Color (YELLOW) Urine Appearance (CLEAR) Urine pH (5.0-9.0) Ur Specific [place] (1.005-1.030) Urine Protein (NEGATIVE) Urine Glucose (UA) (NEGATIVE) Urine Ketones (NEGATIVE) Urine Occult Blood (NEGATIVE) Urine Nitrite (NEGATIVE) Urine Bilirubin (NEGATIVE) Urine Urobilinogen (0.2-1.0) mg/dL Ur Leukocyte Esterase (NEGATIVE) U Hyaline Cast (Auto) Urine RBC /HPF Urine WBC (0-5/HPF) /HPF Ur Epithelial Cells (NOT SEEN) /HPF Amorphous Sediment (NOT SEEN) /HPF Urine Bacteria (0-FEW/HPF) /HPF Fine Granular Casts (NOT SEEN) /LPF Urine Mucus (NOT SEEN) /LPF Urine HCG, Qual Urine Opiates Screen (NEGATIVE) Ur Oxycodone Screen (NEGATIVE) Urine Methadone Screen (NEGATIVE) Ur Barbiturates Screen (NEGATIVE) U Tricyclic Antidepress (NEGATIVE) Ur Phencyclidine Scrn (NEGATIVE) Ur Amphetamine Screen (NEGATIVE) U Methamphetamines Scrn (NEGATIVE) Urine MDMA Screen (NEGATIVE) U Benzodiazepines Scrn (NEGATIVE) Urine Cocaine Screen (NEGATIVE) U Marijuana (THC) Screen (NEGATIVE) Ethyl Alcohol (0) mg/dL Ketones Influenza Type A RNA (NEGATIVE) Influenza Type B RNA (NEGATIVE) SARS-CoV-2 RNA ([place]) (NEGATIVE) 10/21/20 10/21/20 10/21/20 Range/Units 07:14 08:06 09:06 WBC (5.0-10.0) 10^3/uL RBC (4.2-5.4) 10^6/uL Hgb (12.0-16.0) g/dL Hct (37.0-47.0) % MCV (80-100) fL MCH (27.0-34.0) pg MCHC (33.0-35.0) g/dL Plt Count (150-450) 10^3/uL Neut % (Auto) (42.2-75.2) % Lymph % (Auto) (20.5-50.1) % [place] % (Auto) (2-8) % Eos % (Auto) (1.0-3.0) % Baso % (Auto) (0.0-1.0) % ABG pH (7.35-7.45) ABG pCO2 (35-45) mmHg ABG pO2 (70-100) mmHg ABG HCO3 (22-26) mmol/L ABG O2 Saturation (95-100) % ABG Base Excess ((-2)-(+3)) mmol/L Aakash Test O2 Delivery Device Sodium (136-145) mmol/L Potassium (3.5-5.1) mmol/L Chloride (98-107) mmol/L Carbon Dioxide (21-32) mmol/L Anion Gap (7-13) mEq/L BUN (7-18) mg/dL Creatinine (0.55-1.02) mg/dL Est Cr Clr Drug Dosing Estimated GFR (MDRD) BUN/Creatinine Ratio (No establ ref range) Glucose (74-99) mg/dL POC Glucose 209 H 219 H 240 H (70-105) mg/dl Lactic Acid (0.4-2.0) mmol/L Calcium (8.5-10.1) mg/dL Phosphorus (2.6-4.7) mg/dL Magnesium (1.8-2.4) mg/dL Total Bilirubin (0.2-1.0) mg/dL AST (15-37) U/L ALT (14-59) U/L Alkaline Phosphatase (46-116) U/L Troponin I (0.000-0.056) ng/mL Total Protein (6.4-8.2) g/dL Albumin (3.4-5.0) g/dL Globulin Albumin/Globulin Ratio Amylase (25-115) U/L Urine Color (YELLOW) Urine Appearance (CLEAR) Urine pH (5.0-9.0) Ur Specific [place] (1.005-1.030) Urine Protein (NEGATIVE) Urine Glucose (UA) (NEGATIVE) Urine Ketones (NEGATIVE) Urine Occult Blood (NEGATIVE) Urine Nitrite (NEGATIVE) Urine Bilirubin (NEGATIVE) Urine Urobilinogen (0.2-1.0) mg/dL Ur Leukocyte Esterase (NEGATIVE) U Hyaline Cast (Auto) Urine RBC /HPF Urine WBC (0-5/HPF) /HPF Ur Epithelial Cells (NOT SEEN) /HPF Amorphous Sediment (NOT SEEN) /HPF Urine Bacteria (0-FEW/HPF) /HPF Fine Granular Casts (NOT SEEN) /LPF Urine Mucus (NOT SEEN) /LPF Urine HCG, Qual Urine Opiates Screen (NEGATIVE) Ur Oxycodone Screen (NEGATIVE) Urine Methadone Screen (NEGATIVE) Ur Barbiturates Screen (NEGATIVE) U Tricyclic Antidepress (NEGATIVE) Ur Phencyclidine Scrn (NEGATIVE) Ur Amphetamine Screen (NEGATIVE) U Methamphetamines Scrn (NEGATIVE) Urine MDMA Screen (NEGATIVE) U Benzodiazepines Scrn (NEGATIVE) Urine Cocaine Screen (NEGATIVE) U Marijuana (THC) Screen (NEGATIVE) Ethyl Alcohol (0) mg/dL Ketones Influenza Type A RNA (NEGATIVE) Influenza Type B RNA (NEGATIVE) SARS-CoV-2 RNA ([place]) (NEGATIVE) Med Orders - Current: Current Medications Dextrose/Water (Dextrose 50% In Water) 50 ml IV ASDIRECTED PRN PRN Reason: Hypoglycemia Glucagon (Glucagen) 1 mg IM ASDIRECTED PRN PRN Reason: Hypoglycemia Heparin Sodium (Porcine) (Heparin Sodium) 5,000 units SUBCUT Q8HR [facility] Last Admin: 10/21/20 06:21 Dose: 5,000 units Documented by: Insulin Regular in 0.9 % NACL (Myxredlin In Ns 100 Unit/100 Ml) 100 unit in 100 mls @ 6.273 mls/hr IV TITRATE [facility]; Protocol Last Admin: 10/21/20 09:39 Dose: 2.25 units/kg/hr, 141.147 mls/hr Documented by: Potassium Chloride/Dextrose/Sod Cl (D5 1/2 Ns W/ 20 Meq/L Kcl) 1,000 mls @ 125 mls/hr IV ASDIRECTED [facility] Last Admin: 10/21/20 02:19 Dose: 125 mls/hr Documented by: Sodium Bicarbonate 150 meq/ (Sodium Chloride) 400 mls @ 100 mls/hr IV Q4H [facility] Last Admin: 10/21/20 04:42 Dose: 100 mls/hr Documented by: Potassium Chloride 10 meq/ (Premix) 100 mls @ 100 mls/hr IV Q1H [facility] Stop: 10/21/20 15:59 Insulin Glargine (Lantus) 30 unit SUBCUT BID [facility] Last Admin: 10/20/20 22:20 Dose: Not Given Documented by: Insulin Human Lispro (Humalog) 15 unit SUBCUT TIDMEALS [facility] Last Admin: 10/20/20 18:24 Dose: Not Given Documented by: Lorazepam (Ativan) 0 mg IV TITRATE PRN; Protocol PRN Reason: alcohol withdrawal Last Admin: 10/20/20 20:42 Dose: 2 mg Documented by: Lorazepam (Ativan) 0 mg PO TITRATE PRN; Protocol PRN Reason: alcohol withdrawal Peppermint (Peppermint Oil) 1 ml .XX ONETIME ONE Stop: 10/20/20 16:42 Sodium Bicarbonate (Sodium Bicarbonate) 650 mg PO TID [facility] Last Admin: 10/20/20 22:21 Dose: Not Given Documented by: Sodium Chloride (Saline Flush) 10 ml FLUSH ASDIRECTED PRN PRN Reason: Keep Vein Open Sodium Phosphate (Neutra-Phos) 250 mg PO QID [facility] Discontinued Medications Amlodipine Besylate (Norvasc) 10 mg PO ONETIME ONE Stop: 10/20/20 20:28 Last Admin: 10/20/20 20:41 Dose: 10 mg Documented by: Sodium Chloride (Normal Saline) 3,000 mls @ 999 mls/hr IV .BOLUS ONE Stop: 10/20/20 13:44 Last Admin: 10/20/20 10:55 Dose: 999 mls/hr Documented by: Potassium Chloride/Sodium Chloride (Normal Saline With 40 Meq Kcl) 1,000 mls @ 200 mls/hr IV ASDIRECTED [facility] Last Infusion: 10/20/20 20:19 Dose: 150 mls/hr Documented by: Sodium Bicarbonate 150 meq/ (Sodium Chloride) 400 mls @ 100 mls/hr IV Q4H [facility] Last Admin: 10/20/20 16:45 Dose: Not Given Documented by: Sodium Bicarbonate 150 meq/ (Sodium Chloride) 400 mls @ 100 mls/hr IV Q4H [facility] Last Admin: 10/21/20 04:30 Dose: Not Given Documented by: Magnesium Sulfate/Dextrose (Magnesium Sulfate In D5w 1 Gm/100 Ml) 1 gm in 100 mls @ 100 mls/hr IV ONETIME ONE Stop: 10/20/20 15:14 Last Admin: 10/20/20 14:30 Dose: 100 mls/hr Documented by: Magnesium Sulfate/Dextrose (Magnesium Sulfate In D5w 1 Gm/100 Ml) 1 gm in 100 mls @ 100 mls/hr IV ONETIME ONE Stop: 10/20/20 17:44 Last Admin: 10/20/20 16:50 Dose: 100 mls/hr Documented by: Sodium Chloride (Normal Saline) 1,000 mls @ 150 mls/hr IV ASDIRECTED [facility] Last Admin: 10/20/20 21:38 Dose: 150 mls/hr Documented by: Insulin Human Regular (Humulin R) 10 unit IV ONETIME ONE Stop: 10/20/20 10:47 Last Admin: 10/20/20 10:54 Dose: 10 units Documented by: Ondansetron HCl (Zofran) 4 mg IVPUSH ONETIME ONE Stop: 10/20/20 10:40 Last Admin: 10/20/20 10:44 Dose: 4 mg Documented by: Pantoprazole Sodium (Protonix Iv) 40 mg IVPUSH ONETIME ONE Stop: 10/20/20 16:00 Last Admin: 10/20/20 16:18 Dose: 40 mg Documented by: Peppermint (Peppermint Oil) Confirm Administered Dose 30 ml .ROUTE .STK-MED ONE Stop: 10/20/20 12:57 Last Admin: 10/20/20 14:34 Dose: 1 bottle Documented by: Potassium Chloride (Klor-Con 10) 20 meq PO ONETIME ONE Stop: 10/20/20 14:01 Last Admin: 10/20/20 14:27 Dose: 20 meq Documented by: Potassium Chloride (Klor-Con 10) 40 meq PO ONETIME ONE Stop: 10/21/20 07:56 Sodium Bicarbonate (Sodium Bicarbonate 8.4%) 12 meq IVPUSH ONETIME ONE Stop: 10/20/20 11:07 Last Admin: 10/20/20 11:15 Dose: 12 meq Documented by: Sodium Bicarbonate (Sodium Bicarbonate 8.4%) 150 meq IVPUSH Q4H [facility] Stop: 10/20/20 21:16 Last Admin: 10/20/20 16:45 Dose: Not Given Documented by: - Exam General: Alert, Oriented HEENT: Pupils Equal, Pupils Reactive, EOMI, Mucous Membr. Moist/[place] Neck: Supple Lungs: Clear to Auscultation, Normal Respiratory Effort Cardiovascular: Regular Rate, Regular Rhythm, Tachycardia GI/Abdominal Exam: Normal Bowel Sounds, Soft, Non-Tender, No Organomegaly, No Distention, No Abnormal Bruit, No Mass, Pelvis Stable Back Exam: Normal Inspection, Full Range of Motion Extremities: Normal Inspection, Normal Range of Motion, Non-Tender, No Pedal Edema, Normal Capillary Refill Skin: Warm, Dry, Intact Neurological: No New Focal Deficit Psy/Mental Status: Alert, Normal Affect, Normal Mood Sepsis Event Note - Evaluation Sepsis Screening Result: No Definite Risk - Focused Exam Vital Signs: Vital Signs Temp Pulse Resp BP Pulse Ox 10/21/20 08:13 99.3 F 117 H 20 121/75 99 10/21/20 04:00 100.2 F 127 H 18 115/59 L 99 10/21/20 00:00 99.8 F 118 H 16 125/73 98 - Problem List Review Problem List Initiated/Reviewed/Updated: Yes - My Orders Last 24 Hours: My Active Orders 10/20/20 11:55 Oxygen Therapy [RC] PRN Up ad Jodee [RC] ASDIRECTED Vital Signs [RC] 04,08,12,16,20,00 Resuscitation Status Routine 10/20/20 Lunch Nothing per Oral Now Diet [DIET] 10/20/20 12:45 Communication Order [RC] 10,10/20/20 13:06 Telemetry Monitoring [Cardiac Monitoring] [RC] . DIRECTED 10/20/20 13:11 POC Glucose [Blood Glucose Check, Bedside] [RC] Q1H 10/20/20 14:00 Heparin Sodium 5,000 units SUBCUT Q8HR 10/20/20 14:03 Communication Order [RC] STAT 10/20/20 16:41 Peppermint Oil 1 ml .XX ONETIME ONE 10/20/20 17:16 Insulin Lispro [HumaLOG] 15 unit SUBCUT TIDMEALS 10/20/20 17:33 Communication Order [RC] DAILY 10/20/20 20:22 Aspiration Precautions [RC] ASDIRECTED [facility] Assessment [RC] 00,04,08,12,16,20 Notify Provider [RC] PRN LORazepam [Ativan] See Protocol IV TITRATE PRN LORazepam [Ativan] See Protocol PO TITRATE PRN Seizure Precautions [OM.PC] Stat 10/20/20 21:00 Insulin Glarg,Human.Rec.Analog [LantUS] 30 unit SUBCUT BID Sodium Bicarbonate 650 mg PO TID 10/21/20 02:00 D5 1/2 NS w/ 20 mEq/L KCl 1,000 ml IV ASDIRECTED 10/21/20 04:30 Sodium Bicarbonate [Sodium Bicarbonate 8.4%] 150 meq Sodium Chloride 0.9% [Normal Saline] 250 ml IV Q4H 10/21/20 10:00 Potassium Chloride [KCl in Water 10 MEQ/100 ML] 10 meq Premix Bag 1 bag IV Q1H 10/21/20 Lunch Consistent Carbohydrate Diet [DIET] BMP [BASIC METABOLIC PANEL,BMP] [CHEM] Q6H 10/21/20 13:00 Phosphorus #1 [Neutra-Phos] 250 mg PO QID 10/21/20 18:00 BMP [BASIC METABOLIC PANEL,BMP] [CHEM] Q6H 10/22/20 00:00 BMP [BASIC METABOLIC PANEL,BMP] [CHEM] Q6H 02/01/21 06:00 BMP [BASIC METABOLIC PANEL,BMP] [CHEM] Q6H - Plan Plan:: Diabetic ketoacidosis History of type 1 diabetes mellitus Hypokalemia Hypophosphatemia Continue DKA protocol Monitor replace electrolytes [magnesium, potassium, phosphorus] 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 Anion gap was 37. Continue IV fluids and monitor Repeat bicarb infusions Leukocytosis WBC of 21.4. Likely due to dehydration and stress reaction. Chest x-ray unremarkable Urinalysis negative for UTI - wbc trending down Prolonged QTC QTC of 556 Avoid QT prolonging medications including antiemetics for now, repeat EKG and reassess Maintain potassium above 4 and magnesium above 2 Methamphetamine abuse/withdrawal - [employer] on cessation - Probably explains her tachycardia - CIWA protocol with ativan for methamphetamine withdrawal
[2020-10-21] MEDS: Sodium Bicarbonate 650 MG Tab PO SCH (10:46)
[2020-10-21] MEDS: Potassium Chloride 10 MEQ in Premix Bag 1 BAG IV SCH ×6 (10:57→17:18)
[2020-10-21] MEDS: Pantoprazole 40 MG Vial IVPUSH SCH (10:57)
[2020-10-21 12:21] LABS: ANION GAP 15.8 mEq/L (7-13); CHLORIDE,CL 103 mmol/L (98-107); SODIUM,NA 142 mmol/L (136-145)
[2020-10-21] MEDS: Ondansetron 4 MG/2 ML SDV IVPUSH PRN ×2 (13:05→18:19)
[2020-10-21] MEDS: LORazepam 2 MG/ML SDV IV PRN ×2 (13:06→19:46)
[2020-10-21] MEDS: Insulin Lispro 100 Units/ML 3 ML Vial SUBCUT SCH ×3 (14:16→17:32)
[2020-10-21] MEDS: Insulin Glarg,Human.Rec.Analog 100 Unit/ML SUBCUT SCH ×2 (14:17→22:34)
[2020-10-21] MEDS: Phosphorus #1 250 MG Tab PO SCH ×3 (14:18→22:42)
[2020-10-21 18:26] LABS: ANION GAP 15.7 mEq/L (7-13); CHLORIDE,CL 101 mmol/L (98-107); SODIUM,NA 139 mmol/L (136-145)
[2020-10-21] MEDS: Sodium Chloride 0.9% 10 ML Syringe FLUSH PRN (19:50)
[2020-10-21] MEDS ORDERED: Insulin Lispro 100 Units/ML 3 ML Vial SUBCUT ONE (22:12)
[2020-10-21] MEDS: Sodium Chloride 0.9% 1,000 ML IV SCH (22:39)
[2020-10-21] MEDS ORDERED: Acetaminophen 325 MG Tab PO PRN (23:16)
[2020-10-22] MEDS: Piperacillin/Tazobactam 3.375 GM in Sodium Chloride 0.9% 100 ML IV SCH ×2 (00:25→05:01)
[2020-10-22 00:38] LABS: ANION GAP 19.1 mEq/L (7-13); CHLORIDE,CL 100 mmol/L (98-107); SODIUM,NA 137 mmol/L (136-145)
[2020-10-22] MEDS ORDERED: Insulin Regular, Human 100 Units/ML 3 ML Vial IV ONE (01:02)
[2020-10-22] MEDS ORDERED: 50% Dextrose in Water 50 ML Syringe IV PRN (01:02)
[2020-10-22] MEDS ORDERED: Glucagon,Human Recombinant 1 MG Vial IM PRN (01:02)
[2020-10-22] MEDS ORDERED: Aluminum Hydroxide/Magnesium Hydroxide/Simethicone Susp 30 ML Cup PO ONE (01:10)
[2020-10-22] MEDS ORDERED: Potassium Chloride 20 MEQ in Premix Bag 1 BAG IV SCH ×2 (01:15→02:00)
[2020-10-22] MEDS ORDERED: Potassium Chloride 10 MEQ in Premix Bag 1 BAG IV SCH (01:15)
[2020-10-22] MEDS: Sodium Chloride 0.9% 10 ML Syringe FLUSH PRN ×4 (01:24→05:04)
[2020-10-22] MEDS: Magnesium Sulfate/D5W 1 GM/100 ML BAG IV SCH ×2 (01:28→02:36)
[2020-10-22] MEDS: Potassium Chloride 20 MEQ in Premix Bag 1 BAG IV SCH ×2 (03:47→05:54)
[2020-10-22] MEDS: Heparin Sodium 5,000 Units/ML Vial SUBCUT SCH (05:56)
[2020-10-22 06:06] LABS: ANION GAP 25.5 mEq/L (7-13); CHLORIDE,CL 98 mmol/L (98-107); SODIUM,NA 134 mmol/L (136-145)
[2020-10-22] MEDS: Ondansetron 4 MG/2 ML SDV IVPUSH PRN (08:10)
[2020-10-22] MEDS: Insulin Glarg,Human.Rec.Analog 100 Unit/ML SUBCUT SCH (08:13)
[2020-10-22] MEDS: Pantoprazole 40 MG Vial IVPUSH SCH (09:01)
[2020-10-22] MEDS: Insulin Lispro 100 Units/ML 3 ML Vial SUBCUT SCH ×2 (09:01→12:21)
[2020-10-22] MEDS: Phosphorus #1 250 MG Tab PO SCH (09:29)
[2020-10-22] MEDS: Sodium Chloride 0.9% 1,000 ML IV SCH (09:32)
[2020-10-22 10:23] LABS: BASE EXCESS ARTERIAL -14 mmol/L ((-2)-(+3)); BICARBONATE,ARTERIAL 10.6 mmol/L (22-26); O2 DELIVERY DEVICE ROOM AIR; O2 SATURATION ARTERIAL 98 % (95-100); PCO2 ARTERIAL 23 mmHg (35-45); PO2 ARTERIAL 102 mmHg (70-100)
[2020-10-22 10:26] LABS: ALLEN TEST pos
--- NOTE | 2020-10-22 11:35 | PCM.DCSUM1 ---
Discharge Summary - Hospital Course Free Text/Narrative:: Patient is a 30-year-old female with a medical history of type 1 diabetes mellitus and medication on-compliance who presented on 10/20/20 with complaints of chest pain, nausea and vomiting of 2 days duration. She reports that she does not have a glucometer and has not been able to check her blood sugar. Patient's blood sugar was found to be elevated at 508. Blood was positive for ketones. ABG had a pH of 7.13. She had leukocytosis of 21.4. Urine was positive for methamphetamines. Patient was started on DKA protocol and also CIWA protocol with benzodiazepine for methamphetamine overdose with hypertension and tachycardia. Initial QTc was prolong at ~556 and antiemetics could not be immediately given. Patient continued to struggle with DKA control, nausea , and emesis despite adequate treatment with DKA protocol and antiemetics (following normalization of her QTc). She had a fever of 100.5 last night. Blood cultures were obtain and she was started on vancomycin and zosyn. No obvious source of infection. UA was negative and CXR did not show any infiltrate. She also has electrolyte abnormalities )hypokalemia, hypophosphatemia, hyper and hyponatremia). Due to her unresolving DKA and persistence of symptoms, she is being transferred to [facility] for further evaluation and care. Issues addressed Diabetic ketoacidosis History of type 1 diabetes mellitus Hypokalemia Hypophosphatemia DKA protocol Monitor replace electrolytes [magnesium, potassium, phosphorus] CHANDLER High anion gap metabolic acidosis Hyponatremia/hypernatremia Creatinine was 1.64. Anion gap was 37. Continue IV fluids and monitor Repeat bicarb infusions Leukocytosis WBC of 21.4. Likely due to dehydration and stress reaction. Chest x-ray unremarkable Urinalysis negative for UTI - wbc trending down - Started on vancomycin and zosyn after fever of 100.5 Prolonged QTC QTC of 556 Repeat EKG shows QTc of ~454 Maintain potassium above 4 and magnesium above 2 Methamphetamine abuse/withdrawal - [employer] on cessation - Probably explains her tachycardia - CIWA protocol with ativan for methamphetamine withdrawal Diagnosis: Stroke: No - Discharge Data Discharge Date: 10/22/20 Discharge Disposition: DC/Tfer to Acute Hospital 02 Condition: Good - Referral to Home Health Primary Care Physician: PCP None - Discharge Plan *PRESCRIPTION DRUG MONITORING PROGRAM REVIEWED*: Not Applicable *COPY OF PRESCRIPTION DRUG MONITORING REPORT IN PATIENT LEOLA: Not Applicable Home Medications: Home Meds Insulin Aspart [Insulin Aspart Flexpen] 10 units SUBCUT TIDMEALS 30 Days #1 pen 05/20/20 [Rx] Insulin Detemir [Levemir Flextouch] 20 unit SQ BID 30 Days #1 pen 05/20/20 [Rx] Forms: ED Department Discharge Referrals: PCP,None [Primary Care Provider] - - Discharge Summary/Plan Comment DC Time >30 min.: Yes - General Info Date of Service: 10/22/20 Admission Dx/Problem (Free Text: Admission Diagnosis/Problem Admission Diagnosis/Problem Diabetic ketoacidosis Subjective Update: patient seen and examined today. Continues to have severe nausea and emesis. Had fever of 100.5 last night. Functional Status: Reports: Pain Controlled - Review of Systems General: Reports: Fatigue HEENT: Reports: No Symptoms Pulmonary: Reports: No Symptoms Cardiovascular: Reports: No Symptoms Gastrointestinal: Reports: Nausea, Vomiting Genitourinary: Reports: No Symptoms Musculoskeletal: Reports: No Symptoms Skin: Reports: No Symptoms Neurological: Reports: No Symptoms Psychiatric: Reports: No Symptoms - Patient Data Vitals - Most Recent: Last Vital Signs Temp 99.8 F 10/22/20 08:00 Pulse 116 H 10/22/20 08:00 Resp 24 H 10/22/20 08:00 BP 144/99 H 10/22/20 08:00 Pulse Ox 94 L 10/22/20 11:00 Weight - Most Recent: 138 lb 3.677 oz I&O - Last 24 hours: Intake & Output 10/21/20 10/22/20 10/22/20 22:59 06:59 14:59 Intake Total 2647 1777 Output Total 100 2800 950 Balance 5557 1023 -950 Lab Results - Last 24 hrs: Laboratory Results - last 24 hr 10/20/20 10/21/20 10/21/20 Range/Units 11:26 12:00 12:12 WBC (5.0-10.0) 10^3/uL RBC (4.2-5.4) 10^6/uL Hgb (12.0-16.0) g/dL Hct (37.0-47.0) % MCV (80-100) fL MCH (27.0-34.0) pg MCHC (33.0-35.0) g/dL Plt Count (150-450) 10^3/uL ABG pH (7.35-7.45) ABG pCO2 (35-45) mmHg ABG pO2 (70-100) mmHg ABG HCO3 (22-26) mmol/L ABG O2 Saturation (95-100) % ABG Base Excess ((-2)-(+3)) mmol/L Aakash Test O2 Delivery Device Sodium 142 (136-145) mmol/L Potassium 2.8 L (3.5-5.1) mmol/L Chloride 103 (98-107) mmol/L Carbon Dioxide 26 (21-32) mmol/L Anion Gap 15.8 H (7-13) mEq/L BUN 7 (7-18) mg/dL Creatinine 0.81 (0.55-1.02) mg/dL Est Cr Clr Drug Dosing 96.46 mL/min Estimated GFR (MDRD) > 60 Glucose 187 H (74-99) mg/dL POC Glucose 397 H 184 H (70-105) mg/dl Calcium 8.0 L (8.5-10.1) mg/dL Phosphorus (2.6-4.7) mg/dL Magnesium (1.8-2.4) mg/dL Urine Color (YELLOW) Urine Appearance (CLEAR) Urine pH (5.0-9.0) Ur Specific [place] (1.005-1.030) Urine Protein (NEGATIVE) Urine Glucose (UA) (NEGATIVE) Urine Ketones (NEGATIVE) Urine Occult Blood (NEGATIVE) Urine Nitrite (NEGATIVE) Urine Bilirubin (NEGATIVE) Urine Urobilinogen (0.2-1.0) mg/dL Ur Leukocyte Esterase (NEGATIVE) 10/21/20 10/21/20 10/21/20 Range/Units 13:30 14:02 15:04 WBC (5.0-10.0) 10^3/uL RBC (4.2-5.4) 10^6/uL Hgb (12.0-16.0) g/dL Hct (37.0-47.0) % MCV (80-100) fL MCH (27.0-34.0) pg MCHC (33.0-35.0) g/dL Plt Count (150-450) 10^3/uL ABG pH (7.35-7.45) ABG pCO2 (35-45) mmHg ABG pO2 (70-100) mmHg ABG HCO3 (22-26) mmol/L ABG O2 Saturation (95-100) % ABG Base Excess ((-2)-(+3)) mmol/L Aakash Test O2 Delivery Device Sodium (136-145) mmol/L Potassium (3.5-5.1) mmol/L Chloride (98-107) mmol/L Carbon Dioxide (21-32) mmol/L Anion Gap (7-13) mEq/L BUN (7-18) mg/dL Creatinine (0.55-1.02) mg/dL Est Cr Clr Drug Dosing mL/min Estimated GFR (MDRD) Glucose (74-99) mg/dL POC Glucose 132 H 126 H 127 H (70-105) mg/dl Calcium (8.5-10.1) mg/dL Phosphorus (2.6-4.7) mg/dL Magnesium (1.8-2.4) mg/dL Urine Color (YELLOW) Urine Appearance (CLEAR) Urine pH (5.0-9.0) Ur Specific [place] (1.005-1.030) Urine Protein (NEGATIVE) Urine Glucose (UA) (NEGATIVE) Urine Ketones (NEGATIVE) Urine Occult Blood (NEGATIVE) Urine Nitrite (NEGATIVE) Urine Bilirubin (NEGATIVE) Urine Urobilinogen (0.2-1.0) mg/dL Ur Leukocyte Esterase (NEGATIVE) 10/21/20 10/21/20 10/21/20 Range/Units 16:04 17:09 18:03 WBC (5.0-10.0) 10^3/uL RBC (4.2-5.4) 10^6/uL Hgb (12.0-16.0) g/dL Hct (37.0-47.0) % MCV (80-100) fL MCH (27.0-34.0) pg MCHC (33.0-35.0) g/dL Plt Count (150-450) 10^3/uL ABG pH (7.35-7.45) ABG pCO2 (35-45) mmHg ABG pO2 (70-100) mmHg ABG HCO3 (22-26) mmol/L ABG O2 Saturation (95-100) % ABG Base Excess ((-2)-(+3)) mmol/L Aakash Test O2 Delivery Device Sodium 139 (136-145) mmol/L Potassium 3.7 (3.5-5.1) mmol/L Chloride 101 (98-107) mmol/L Carbon Dioxide 26 (21-32) mmol/L Anion Gap 15.7 H (7-13) mEq/L BUN 6 L (7-18) mg/dL Creatinine 0.74 (0.55-1.02) mg/dL Est Cr Clr Drug Dosing 105.58 mL/min Estimated GFR (MDRD) > 60 Glucose 117 H (74-99) mg/dL POC Glucose 113 H 103 (70-105) mg/dl Calcium 8.5 (8.5-10.1) mg/dL Phosphorus (2.6-4.7) mg/dL Magnesium (1.8-2.4) mg/dL Urine Color (YELLOW) Urine Appearance (CLEAR) Urine pH (5.0-9.0) Ur Specific [place] (1.005-1.030) Urine Protein (NEGATIVE) Urine Glucose (UA) (NEGATIVE) Urine Ketones (NEGATIVE) Urine Occult Blood (NEGATIVE) Urine Nitrite (NEGATIVE) Urine Bilirubin (NEGATIVE) Urine Urobilinogen (0.2-1.0) mg/dL Ur Leukocyte Esterase (NEGATIVE) 10/21/20 10/22/20 10/22/20 Range/Units 22:04 00:17 00:17 WBC 11.5 H (5.0-10.0) 10^3/uL RBC 3.77 L (4.2-5.4) 10^6/uL Hgb 11.4 L (12.0-16.0) g/dL Hct 33.1 L (37.0-47.0) % MCV 87.8 (80-100) fL MCH 30.2 (27.0-34.0) pg MCHC 34.4 (33.0-35.0) g/dL Plt Count 310 (150-450) 10^3/uL ABG pH (7.35-7.45) ABG pCO2 (35-45) mmHg ABG pO2 (70-100) mmHg ABG HCO3 (22-26) mmol/L ABG O2 Saturation (95-100) % ABG Base Excess ((-2)-(+3)) mmol/L Aakash Test O2 Delivery Device Sodium 137 (136-145) mmol/L Potassium 3.1 L (3.5-5.1) mmol/L Chloride 100 (98-107) mmol/L Carbon Dioxide 21 (21-32) mmol/L Anion Gap 19.1 H (7-13) mEq/L BUN 8 (7-18) mg/dL Creatinine 0.87 (0.55-1.02) mg/dL Est Cr Clr Drug Dosing 89.81 mL/min Estimated GFR (MDRD) > 60 Glucose 242 H (74-99) mg/dL POC Glucose 331 H (70-105) mg/dl Calcium 8.0 L (8.5-10.1) mg/dL Phosphorus (2.6-4.7) mg/dL Magnesium (1.8-2.4) mg/dL Urine Color (YELLOW) Urine Appearance (CLEAR) Urine pH (5.0-9.0) Ur Specific [place] (1.005-1.030) Urine Protein (NEGATIVE) Urine Glucose (UA) (NEGATIVE) Urine Ketones (NEGATIVE) Urine Occult Blood (NEGATIVE) Urine Nitrite (NEGATIVE) Urine Bilirubin (NEGATIVE) Urine Urobilinogen (0.2-1.0) mg/dL Ur Leukocyte Esterase (NEGATIVE) 10/22/20 10/22/20 10/22/20 Range/Units 01:45 02:14 04:04 WBC (5.0-10.0) 10^3/uL RBC (4.2-5.4) 10^6/uL Hgb (12.0-16.0) g/dL Hct (37.0-47.0) % MCV (80-100) fL MCH (27.0-34.0) pg MCHC (33.0-35.0) g/dL Plt Count (150-450) 10^3/uL ABG pH (7.35-7.45) ABG pCO2 (35-45) mmHg ABG pO2 (70-100) mmHg ABG HCO3 (22-26) mmol/L ABG O2 Saturation (95-100) % ABG Base Excess ((-2)-(+3)) mmol/L Aakash Test O2 Delivery Device Sodium (136-145) mmol/L Potassium (3.5-5.1) mmol/L Chloride (98-107) mmol/L Carbon Dioxide (21-32) mmol/L Anion Gap (7-13) mEq/L BUN (7-18) mg/dL Creatinine (0.55-1.02) mg/dL Est Cr Clr Drug Dosing mL/min Estimated GFR (MDRD) Glucose (74-99) mg/dL POC Glucose 273 H 237 H (70-105) mg/dl Calcium (8.5-10.1) mg/dL Phosphorus (2.6-4.7) mg/dL Magnesium (1.8-2.4) mg/dL Urine Color Yellow (YELLOW) Urine Appearance Clear (CLEAR) Urine pH 7.0 (5.0-9.0) Ur Specific [place] >= 1.030 (1.005-1.030) Urine Protein Negative (NEGATIVE) Urine Glucose (UA) 500 H (NEGATIVE) Urine Ketones 80 H (NEGATIVE) Urine Occult Blood Trace-intact H (NEGATIVE) Urine Nitrite Negative (NEGATIVE) Urine Bilirubin Negative (NEGATIVE) Urine Urobilinogen 0.2 (0.2-1.0) mg/dL Ur Leukocyte Esterase Negative (NEGATIVE) 10/22/20 10/22/20 10/22/20 Range/Units 05:35 07:54 10:20 WBC (5.0-10.0) 10^3/uL RBC (4.2-5.4) 10^6/uL Hgb (12.0-16.0) g/dL Hct (37.0-47.0) % MCV (80-100) fL MCH (27.0-34.0) pg MCHC (33.0-35.0) g/dL Plt Count (150-450) 10^3/uL ABG pH 7.28 L (7.35-7.45) ABG pCO2 23 L (35-45) mmHg ABG pO2 102 H (70-100) mmHg ABG HCO3 10.6 L (22-26) mmol/L ABG O2 Saturation 98 (95-100) % ABG Base Excess -14 L ((-2)-(+3)) mmol/L Aakash Test pos O2 Delivery Device Room air Sodium 134 L (136-145) mmol/L Potassium 4.5 (3.5-5.1) mmol/L Chloride 98 (98-107) mmol/L Carbon Dioxide 15 L (21-32) mmol/L Anion Gap 25.5 H (7-13) mEq/L BUN 7 (7-18) mg/dL Creatinine 0.87 (0.55-1.02) mg/dL Est Cr Clr Drug Dosing 89.81 mL/min Estimated GFR (MDRD) > 60 Glucose 269 H (74-99) mg/dL POC Glucose 289 H (70-105) mg/dl Calcium 8.3 L (8.5-10.1) mg/dL Phosphorus 2.2 L (2.6-4.7) mg/dL Magnesium 2.0 (1.8-2.4) mg/dL Urine Color (YELLOW) Urine Appearance (CLEAR) Urine pH (5.0-9.0) Ur Specific [place] (1.005-1.030) Urine Protein (NEGATIVE) Urine Glucose (UA) (NEGATIVE) Urine Ketones (NEGATIVE) Urine Occult Blood (NEGATIVE) Urine Nitrite (NEGATIVE) Urine Bilirubin (NEGATIVE) Urine Urobilinogen (0.2-1.0) mg/dL Ur Leukocyte Esterase (NEGATIVE) 10/22/20 Range/Units 10:23 WBC (5.0-10.0) 10^3/uL RBC (4.2-5.4) 10^6/uL Hgb (12.0-16.0) g/dL Hct (37.0-47.0) % MCV (80-100) fL MCH (27.0-34.0) pg MCHC (33.0-35.0) g/dL Plt Count (150-450) 10^3/uL ABG pH (7.35-7.45) ABG pCO2 (35-45) mmHg ABG pO2 (70-100) mmHg ABG HCO3 (22-26) mmol/L ABG O2 Saturation (95-100) % ABG Base Excess ((-2)-(+3)) mmol/L Aakash Test O2 Delivery Device Sodium (136-145) mmol/L Potassium (3.5-5.1) mmol/L Chloride (98-107) mmol/L Carbon Dioxide (21-32) mmol/L Anion Gap (7-13) mEq/L BUN (7-18) mg/dL Creatinine (0.55-1.02) mg/dL Est Cr Clr Drug Dosing mL/min Estimated GFR (MDRD) Glucose (74-99) mg/dL POC Glucose 259 H (70-105) mg/dl Calcium (8.5-10.1) mg/dL Phosphorus (2.6-4.7) mg/dL Magnesium (1.8-2.4) mg/dL Urine Color (YELLOW) Urine Appearance (CLEAR) Urine pH (5.0-9.0) Ur Specific [place] (1.005-1.030) Urine Protein (NEGATIVE) Urine Glucose (UA) (NEGATIVE) Urine Ketones (NEGATIVE) Urine Occult Blood (NEGATIVE) Urine Nitrite (NEGATIVE) Urine Bilirubin (NEGATIVE) Urine Urobilinogen (0.2-1.0) mg/dL Ur Leukocyte Esterase (NEGATIVE) ULI Results - Last 24 hrs: Microbiology 10/20/20 11:05 Aerobic Blood Culture - Preliminary Blood - Venous - Lab Draw NO GROWTH AFTER 2 DAYS Anaerobic Blood Culture - Preliminary NO GROWTH AFTER 2 DAYS 10/20/20 10:40 Aerobic Blood Culture - Preliminary Blood - Venous - Iv Start NO GROWTH AFTER 2 DAYS Anaerobic Blood Culture - Preliminary NO GROWTH AFTER 2 DAYS Med Orders - Current: Current Medications Acetaminophen (Tylenol) 650 mg PO Q6H PRN PRN Reason: Fever Dextrose/Water (Dextrose 50% In Water) 50 ml IV ASDIRECTED PRN PRN Reason: Hypoglycemia Glucagon (Glucagen) 1 mg IM ASDIRECTED PRN PRN Reason: Hypoglycemia Heparin Sodium (Porcine) (Heparin Sodium) 5,000 units SUBCUT Q8HR [facility] Last Admin: 10/22/20 05:56 Dose: Not Given Documented by: Sodium Chloride (Normal Saline) 1,000 mls @ 125 mls/hr IV ASDIRECTED [facility] Last Admin: 10/22/20 09:32 Dose: 125 mls/hr Documented by: Vancomycin HCl 1 gm/ Sodium (Chloride) 250 mls @ 166.667 mls/hr IV Q8H [facility] Last Admin: 10/22/20 09:28 Dose: 166.667 mls/hr Documented by: Piperacillin Sod/Tazobactam (Sod 3.375 gm/ Sodium Chloride) 100 mls @ 200 mls/hr IV Q6HR [facility] Sodium Bicarbonate 150 meq/ (Dextrose/Water) 1,150 mls @ 100 mls/hr IV ONETIME ONE Stop: 10/22/20 23:29 Insulin Glargine (Lantus) 15 unit SUBCUT BID [facility] Last Admin: 10/22/20 08:13 Dose: Not Given Documented by: Insulin Human Lispro (Humalog) 15 unit SUBCUT TIDMEALS [facility] Last Admin: 10/22/20 09:01 Dose: 15 units Documented by: Lorazepam (Ativan) 0 mg IV TITRATE PRN; Protocol PRN Reason: alcohol withdrawal Last Admin: 10/21/20 19:46 Dose: 2 mg Documented by: Lorazepam (Ativan) 0 mg PO TITRATE PRN; Protocol PRN Reason: alcohol withdrawal Ondansetron HCl (Zofran) 4 mg IVPUSH Q4H PRN PRN Reason: Nausea/Vomiting Last Admin: 10/22/20 08:10 Dose: 4 mg Documented by: Pantoprazole Sodium (Protonix Iv) 40 mg IVPUSH DAILY [facility] Last Admin: 10/22/20 09:01 Dose: 40 mg Documented by: Sodium Chloride (Saline Flush) 10 ml FLUSH ASDIRECTED PRN PRN Reason: Keep Vein Open Last Admin: 10/22/20 05:04 Dose: 10 ml Documented by: Sodium Phosphate (Neutra-Phos) 250 mg PO QID [facility] Last Admin: 10/22/20 09:29 Dose: Not Given Documented by: Vancomycin HCl (Pharmacy To Dose - Vancomycin) 0 dose .XX ASDIRECTED [facility] Discontinued Medications Al Hydroxide/Mg Hydroxide (Mag-Al Plus) 30 ml PO ONETIME ONE Stop: 10/22/20 01:11 Last Admin: 10/22/20 01:53 Dose: 30 ml Documented by: Amlodipine Besylate (Norvasc) 10 mg PO ONETIME ONE Stop: 10/20/20 20:28 Last Admin: 10/20/20 20:41 Dose: 10 mg Documented by: Sodium Chloride (Normal Saline) 3,000 mls @ 999 mls/hr IV .BOLUS ONE Stop: 10/20/20 13:44 Last Admin: 10/20/20 10:55 Dose: 999 mls/hr Documented by: Insulin Regular in 0.9 % NACL (Myxredlin In Ns 100 Unit/100 Ml) 100 unit in 100 mls @ 6.273 mls/hr IV TITRATE [facility]; Protocol Last Titration: 10/21/20 17:32 Dose: 0 units/kg/hr, 0 mls/hr Documented by: Potassium Chloride/Sodium Chloride (Normal Saline With 40 Meq Kcl) 1,000 mls @ 200 mls/hr IV ASDIRECTED [facility] Last Infusion: 10/20/20 20:19 Dose: 150 mls/hr Documented by: Sodium Bicarbonate 150 meq/ (Sodium Chloride) 400 mls @ 100 mls/hr IV Q4H [facility] Last Admin: 10/20/20 16:45 Dose: Not Given Documented by: Sodium Bicarbonate 150 meq/ (Sodium Chloride) 400 mls @ 100 mls/hr IV Q4H [facility] Last Admin: 10/21/20 04:30 Dose: Not Given Documented by: Magnesium Sulfate/Dextrose (Magnesium Sulfate In D5w 1 Gm/100 Ml) 1 gm in 100 mls @ 100 mls/hr IV ONETIME ONE Stop: 10/20/20 15:14 Last Admin: 10/20/20 14:30 Dose: 100 mls/hr Documented by: Magnesium Sulfate/Dextrose (Magnesium Sulfate In D5w 1 Gm/100 Ml) 1 gm in 100 mls @ 100 mls/hr IV ONETIME ONE Stop: 10/20/20 17:44 Last Admin: 10/20/20 16:50 Dose: 100 mls/hr Documented by: Sodium Chloride (Normal Saline) 1,000 mls @ 150 mls/hr IV ASDIRECTED [facility] Last Admin: 10/20/20 21:38 Dose: 150 mls/hr Documented by: Potassium Chloride/Dextrose/Sod Cl (D5 1/2 Ns W/ 20 Meq/L Kcl) 1,000 mls @ 125 mls/hr IV ASDIRECTED [facility] Last Infusion: 10/21/20 19:48 Dose: Infused Documented by: Sodium Bicarbonate 150 meq/ (Sodium Chloride) 400 mls @ 100 mls/hr IV Q4H [facility] Last Admin: 10/21/20 14:25 Dose: Not Given Documented by: Potassium Chloride 10 meq/ (Premix) 100 mls @ 100 mls/hr IV Q1H [facility] Stop: 10/21/20 15:59 Last Admin: 10/21/20 17:18 Dose: 100 mls/hr Documented by: Piperacillin Sod/Tazobactam (Sod 3.375 gm/ Sodium Chloride) 100 mls @ 200 mls/hr IV Q6H [facility] Last Infusion: 10/22/20 05:35 Dose: Infused Documented by: Potassium Chloride 10 meq/ (Premix) 100 mls @ 100 mls/hr IV Q1H [facility] Stop: 10/22/20 09:14 Potassium Chloride 20 meq/ (Premix) 100 mls @ 50 mls/hr IV Q1H [facility] Stop: 10/22/20 06:14 Last Infusion: 10/22/20 04:49 Dose: Infused Documented by: Magnesium Sulfate/Dextrose (Magnesium Sulfate In D5w 1 Gm/100 Ml) 1 gm in 100 mls @ 100 mls/hr IV Q1H [facility] Stop: 10/22/20 03:14 Last Infusion: 10/22/20 03:41 Dose: Infused Documented by: Potassium Chloride 20 meq/ (Premix) 100 mls @ 50 mls/hr IV Q2H [facility] Stop: 10/22/20 09:59 Potassium Chloride 20 meq/ (Premix) 100 mls @ 50 mls/hr IV Q2H [facility] Stop: 10/22/20 11:14 Last Admin: 10/22/20 05:54 Dose: 50 mls/hr Documented by: Insulin Glargine (Lantus) 30 unit SUBCUT BID [facility] Last Admin: 10/21/20 14:17 Dose: Not Given Documented by: Insulin Human Lispro (Humalog) 10 unit SUBCUT ONETIME ONE Stop: 10/21/20 22:13 Last Admin: 10/21/20 22:35 Dose: 10 units Documented by: Insulin Human Regular (Humulin R) 10 unit IV ONETIME ONE Stop: 10/20/20 10:47 Last Admin: 10/20/20 10:54 Dose: 10 units Documented by: Insulin Human Regular (Humulin R) 10 unit IV ONETIME ONE Stop: 10/22/20 01:03 Last Admin: 10/22/20 02:04 Dose: 10 units Documented by: Ondansetron HCl (Zofran) 4 mg IVPUSH ONETIME ONE Stop: 10/20/20 10:40 Last Admin: 10/20/20 10:44 Dose: 4 mg Documented by: Pantoprazole Sodium (Protonix Iv) 40 mg IVPUSH ONETIME ONE Stop: 10/20/20 16:00 Last Admin: 10/20/20 16:18 Dose: 40 mg Documented by: Peppermint (Peppermint Oil) Confirm Administered Dose 30 ml .ROUTE .STK-MED ONE Stop: 10/20/20 12:57 Last Admin: 10/20/20 14:34 Dose: 1 bottle Documented by: Peppermint (Peppermint Oil) 1 ml .XX ONETIME ONE Stop: 10/20/20 16:42 Potassium Chloride (Klor-Con 10) 20 meq PO ONETIME ONE Stop: 10/20/20 14:01 Last Admin: 10/20/20 14:27 Dose: 20 meq Documented by: Potassium Chloride (Klor-Con 10) 40 meq PO ONETIME ONE Stop: 10/21/20 07:56 Last Admin: 10/21/20 14:16 Dose: Not Given Documented by: Sodium Bicarbonate (Sodium Bicarbonate 8.4%) 12 meq IVPUSH ONETIME ONE Stop: 10/20/20 11:07 Last Admin: 10/20/20 11:15 Dose: 12 meq Documented by: Sodium Bicarbonate (Sodium Bicarbonate 8.4%) 150 meq IVPUSH Q4H [facility] Stop: 10/20/20 21:16 Last Admin: 10/20/20 16:45 Dose: Not Given Documented by: Sodium Bicarbonate (Sodium Bicarbonate) 650 mg PO TID [facility] Last Admin: 10/21/20 10:46 Dose: Not Given Documented by: Vancomycin HCl (Pharmacy To Dose - Vancomycin) 1 dose .XX ASDIRECTED DONNIE - Exam General: Reports: Alert, Oriented HEENT: Reports: Pupils Equal, Pupils Reactive, EOMI, Mucous Membr. Moist/[place] Neck: Reports: Supple Lungs: Reports: Clear to Auscultation, Normal Respiratory Effort Cardiovascular: Reports: Regular Rate, Regular Rhythm GI/Abdominal Exam: Normal Bowel Sounds, Soft, Non-Tender, No Organomegaly, No Distention, No Abnormal Bruit, No Mass, Pelvis Stable Back Exam: Reports: Normal Inspection, Full Range of Motion Extremities: Normal Inspection, Normal Range of Motion, Non-Tender, No Pedal Edema, Normal Capillary Refill Skin: Reports: Warm, Dry, Intact Neurological: Reports: No New Focal Deficit Psy/Mental Status: Reports: Alert, Normal Affect, Normal Mood
[2020-10-22] MEDS ORDERED: Piperacillin/Tazobactam 3.375 GM in Sodium Chloride 0.9% 100 ML IV SCH (12:00)
[2020-10-22] MEDS ORDERED: Sodium Bicarbonate 150 MEQ in Dextrose 5% in Water 1,000 ML IV ONE ×2 (12:00)
[2020-10-22 12:06] VITALS: BP 128/80; PULSE 106
== END 2020-10-22 12:19 | DRG 638 ==
LOC: DL.ED 10:09 → DL.MS 11:48
PROVIDERS: ADMIT Internal Medicine; ATTEND Internal Medicine
DX: E10.10 Type 1 diabetes mellitus with ketoacidosis without coma (principal); E87.1 Hypo-osmolality and hyponatremia; N17.9 Acute kidney failure, unspecified; F15.23 Other stimulant dependence with withdrawal; I10 Essential (primary) hypertension; E87.6 Hypokalemia; E83.39 Other disorders of phosphorus metabolism; F41.9 Anxiety disorder, unspecified; F32.9 Major depressive disorder, single episode, unspecified; H54.7 Unspecified visual loss; I45.81 Long QT syndrome; Z91.19 Patient's noncompliance with other medical treatment and regimen; Z87.440 Personal history of urinary (tract) infections; Z20.822 Contact with and (suspected) exposure to COVID-19
CPT/HCPCS: 0240U; 36415; 36600; 71045; 80048; 80053; 80305-QW; 80307; 81001; 81003; 81025; 82009; 82150; 82803; 82962; 83605; 83735; 84100; 84484; 85025; 85027; 87040; 93005; 96374; 96375; 99285-25; A9270-GY; C9113; J1644; J1815-GY; J2060; J2405; J2543; J3370; J3475; J3480; J7030; J7040; J7050; J7060

== ENCOUNTER 2021-03-02 16:59 | Emergency (ER) | payer MEDICAID ==
[2021-03-02] MEDS ORDERED: Sodium Chloride 0.9% 10 ML Syringe FLUSH PRN (17:03)
[2021-03-02] MEDS ORDERED: Insulin Regular, Human 100 Units/ML 3 ML Vial IV ONE (17:04)
[2021-03-02] MEDS ORDERED: Ondansetron 4 MG/2 ML SDV IV ONE (17:05)
[2021-03-02] MEDS ORDERED: Sodium Chloride 0.9% 1,000 ML IV ONE ×3 (17:05→17:52)
[2021-03-02 17:29] VITALS: BP 89/40; PULSE 190
[2021-03-02 17:43] LABS: BASE EXCESS ARTERIAL -29 mmol/L ((-2)-(+3)); BICARBONATE,ARTERIAL 3.7 mmol/L (22-26); O2 DELIVERY DEVICE NASAL CANNULA; O2 SATURATION ARTERIAL 92 % (95-100); PCO2 ARTERIAL 27 mmHg (35-45); PO2 ARTERIAL 110 mmHg (70-100)
[2021-03-02 17:44] LABS: ALLEN TEST PERFORMED
[2021-03-02 17:45] LABS: PTT,PARTIAL THROMBOPLSTIN TIME 32.7 SEC (22.0-34.0)
[2021-03-02] MEDS ORDERED: Sodium Bicarbonate 8.4% 50 MEQ/50 ML Syringe IVPUSH ONE (17:45)
[2021-03-02 17:55] LABS: ANION GAP 42.7 mEq/L (7-13); CHLORIDE,CL 86 mmol/L (98-107); SODIUM,NA 126 mmol/L (136-145)
--- NOTE | 2021-03-02 18:10 | CR ---
PROCEDURE INFORMATION: Exam: XR Chest Exam date and time: 03/02/2021 5:35 PM Age: 30 years old Clinical indication: Other: Tube placement; Additional info: Dka, possible aspiration TECHNIQUE: Imaging protocol: XR of the chest. Views: 1 view. COMPARISON: CR Chest 1V Frontal 10/20/2020 11:35 AM FINDINGS: Tubes, catheters and devices: Endotracheal tube tip 2.5 cm above roman. Lungs: Unremarkable. No consolidation. Pleural spaces: Unremarkable. No pleural effusion. No pneumothorax. Heart/Mediastinum: Unremarkable. No cardiomegaly. Bones/joints: Unremarkable. IMPRESSION: No acute findings.
[2021-03-02] MEDS: Calcium Gluconate 10% 1 GM/10 ML SDV ONE ×2 (18:14→18:15)
[2021-03-02] MEDS: Calcium Gluconate 10% 1 GM/10 ML SDV IVPUSH ONE ×2 (18:14→18:16)
--- NOTE | 2021-03-02 18:21 | CT ---
PROCEDURE INFORMATION: Exam: CT Head Without Contrast Exam date and time: 03/02/2021 6:03 PM Age: 30 years old Clinical indication: Other: Unresponsive; Prior surgery; Surgery date: <1 month; Surgery type: Craniotomy; Additional info: New onset seizure, recent tbi with craniotomy TECHNIQUE: Imaging protocol: Computed tomography of the head without contrast. Radiation optimization: All CT scans at this facility use at least one of these dose optimization techniques: automated exposure control; mA and/or kV adjustment per patient size (includes targeted exams where dose is matched to clinical indication); or iterative reconstruction. Other technique: STROKE PROTOCOL was implemented. COMPARISON: CT Head wo Cont 05/05/2020 9:29 PM FINDINGS: Brain: There is right frontal subdural hematoma, predominately fluid density. There are some dense blood products however along the lower margin of the collection. Collection measures up to 13 mm in transaxial dimension there is associated 7 mm of subfalcine herniation to the left at the level of the septum pellucidum. No parenchymal hemorrhage. Basilar cisterns are unremarkable Cerebral ventricles: See "Brain" finding. Paranasal sinuses: Visualized sinuses are unremarkable. No fluid levels. Mastoid air cells: Visualized mastoid air cells are well aerated. Bones/joints: Right frontal craniotomy noted. Soft tissues: Unremarkable. IMPRESSION: Right frontal subdural hematoma with up to 7 mm midline shift to the left.
[2021-03-02 18:47] LABS: CORONAVIRUS COVID-19 NAA NEGATIVE (NEGATIVE)
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
[2021-03-02] MEDS ORDERED: EPINEPHrine 1:10,000 1 MG/10 ML Syringe ONE (19:24)
== END 2021-03-02 18:25 ==
LOC: DL.ED 16:59
DX: I62.00 Nontraumatic subdural hemorrhage, unspecified (principal); E10.11 Type 1 diabetes mellitus with ketoacidosis with coma; R56.9 Unspecified convulsions; N17.9 Acute kidney failure, unspecified; E87.5 Hyperkalemia; Z91.19 Patient's noncompliance with other medical treatment and regimen; Z20.822 Contact with and (suspected) exposure to COVID-19
CPT/HCPCS: 0240U; 31500; 36415; 36600; 51702; 70450; 71045; 80053; 80305-QW; 80307; 81001; 81025; 82009; 82150; 82803; 82947; 83605; 83690; 83735; 84100; 84484; 85025; 85610; 85730; 87040; 93010; 96374; 96375; 99285; 99285-25; J0610; J1815-GY; J2405; J3360; J7030

== ENCOUNTER 2021-04-12 21:15 | Emergency (ER) | payer MEDICAID ==
[2021-04-12] MEDS ORDERED: Acetaminophen 325 MG Tab PO ONE (21:24)
[2021-04-12] MEDS ORDERED: Sodium Chloride 0.9% 1,000 ML IV ONE (21:24)
[2021-04-12] MEDS ORDERED: Insulin Regular, Human 100 Units/ML 3 ML Vial IV ONE (21:27)
[2021-04-12] MEDS ORDERED: Glucagon,Human Recombinant 1 MG Vial IM PRN (21:27)
[2021-04-12] MEDS ORDERED: 50% Dextrose in Water 50 ML Syringe IVPUSH PRN (21:27)
[2021-04-12] MEDS ORDERED: Acetaminophen 650 MG Supp ONE (21:27)
[2021-04-12 21:32] VITALS: BP 71/31; PULSE 162
[2021-04-12 21:43] LABS: BASE EXCESS ARTERIAL -25 mmol/L ((-2)-(+3)); BICARBONATE,ARTERIAL 4.4 mmol/L (22-26); O2 DELIVERY DEVICE ROOM AIR; O2 SATURATION ARTERIAL 81 % (95-100); PO2 ARTERIAL 67 mmHg (70-100)
[2021-04-12 21:44] LABS: ALLEN TEST PERFORMED; PCO2 ARTERIAL 17 mmHg (35-45)
[2021-04-12] MEDS ORDERED: Sodium Bicarbonate 8.4% 50 MEQ/50 ML Syringe IVPUSH ONE (21:47)
[2021-04-12 21:55] LABS: CHLORIDE,CL 96 mmol/L (98-107); SODIUM,NA 137 mmol/L (136-145)
[2021-04-12 21:58] LABS: ACETAMINOPHEN 0 ug/mL (10-30 (Therapeutic))
[2021-04-12 21:59] LABS: ANION GAP 42.20001 mEq/L (7-13)
--- NOTE | 2021-04-12 22:07 | EDM.PDOC ---
ED HPI GENERAL MEDICAL PROBLEM - General Chief Complaint: Diabetic Complaint Stated Complaint: BY AMBULANCE Time Seen by Provider: 04/12/21 21:25 Source of Information: Reports: EMS History Limitations: Reports: Altered Mental Status - History of Present Illness INITIAL COMMENTS - FREE TEXT/NARRATIVE: ED via [facility] with report of unresponsive. Was alert and oriented prior to going for nap 2 hours prior. Hx IDDM and prior cerebral bleeds. recently discharged [facility] yesterday. EMS report family not coming to ED. No other information provided by family. EMS glucose "high" - Related Data Allergies Allergy/AdvReac Type Severity Reaction Status Date / Time No Known Allergies Allergy Verified 10/20/20 10:25 Home Meds: Home Meds Insulin Aspart [Insulin Aspart Flexpen] 10 units SUBCUT TIDMEALS 30 Days #1 pen 05/20/20 [Rx] Insulin Detemir [Levemir Flextouch] 20 unit SQ BID 30 Days #1 pen 05/20/20 [Rx] Past Medical History - Past Health History Medical/Surgical History: Denies Medical/Surgical History HEENT History: Reports: Impaired Vision Other HEENT History: states has a cloud to the right side. States she is near sighted. 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: Musculoskeletal History: Reports: Other (See Below) Other Musculoskeletal History: 12/04/16 Bilateral ingrown toe nails leading to sepsis, IV vanco BID for 10 days Neurological History: Reports: Brain Injury, Concussion, Seizure Psychiatric History: Reports: Addiction, Anxiety, Depression, Other (See Below) Other Psychiatric History: Medical non-compliance Endocrine/Metabolic History: Reports: Diabetes, Type I (uncontrolled, with DKA) Hematologic History: Reports: None Immunologic History: Reports: None Oncologic (Cancer) History: Reports: None Dermatologic History: Reports: None - Infectious Disease History Infectious Disease History: Reports: None - Past Surgical History Head Surgeries/Procedures: Reports: None Other HEENT Surgeries/Procedures: recent head injury unsure if surgical or not Social & Family History - Family History Family Medical History: No Pertinent Family History HEENT: Reports: None Oncologic: Reports: Breast, Other (See Below) Other Oncologic Family History: Stomach CA - Caffeine Use Caffeine Use: Reports: None Other Caffeine Use: pt. unable to answer - Living Situation & Occupation Living situation: Reports: with Family ED ROS GENERAL - Review of Systems Review Of Systems: Unable To Obtain Reason Not Obtained: [facility] ED EXAM GENERAL NO PERIP PULSE - Physical Exam Exam: See Below Exam Limited By: No Limitations General Appearance: Obtunded, Thin Eye Exam: Bilateral Eye: EOMI, PERRL (3 sluggish) Nose: Normal Inspection Throat/Mouth: Other (poor dentation) Head: Other (protective helmet). No: Normocephalic (craniotomy right ), Facial Swelling Cardiovascular: Regular Rate, Rhythm, Tachycardia GI/Abdominal: Normal Bowel Sounds, Soft Neurological: No: Alert Skin Exam: Warm, Dry, Intact. No: Normal Color (pale) #1 Interpretation EKG Date: 04/12/21 Time: 22:21 Rhythm: Other (Sinus tachycardia) Rate (Beats/Min): 134 P-Wave: Present QRS: Normal ST-T: Normal Comparison: No Change Course - Vital Signs Last Recorded V/S: Last Vital Signs Temp 100.4 F 04/12/21 21:34 Pulse 162 H 04/12/21 21:27 Resp 33 H 04/12/21 21:27 BP 71/31 L 04/12/21 21:27 Pulse Ox 95 04/12/21 21:27 - Orders/Labs/Meds Labs: Laboratory Tests 04/12/21 04/12/21 04/12/21 Range/Units 21:20 21:20 21:20 WBC 13.0 H (5.0-10.0) 10^3/uL RBC 3.76 L (4.2-5.4) 10^6/uL Hgb 10.5 L D (12.0-16.0) g/dL Hct 40.2 (37.0-47.0) % MCV 106.9 H D (80-100) fL MCH 27.9 (27.0-34.0) pg MCHC 26.1 L (33.0-35.0) g/dL Plt Count 467 H D (150-450) 10^3/uL Neut % (Auto) 80.8 H (42.2-75.2) % Lymph % (Auto) 6.7 L (20.5-50.1) % [place] % (Auto) 12.2 H (2-8) % Eos % (Auto) 0.2 L (1.0-3.0) % Baso % (Auto) 0.1 (0.0-1.0) % Add Manual Diff Yes Neutrophils % (Manual) 68 (42-75) % Band Neutrophils % 19 % Lymphocytes % (Manual) 10 L (20-50) % Atypical Lymphs % 0 % Monocytes % (Manual) 3 (2-8) % Platelet Estimate Increased PT Cancelled INR Cancelled D-Dimer, Quantitative 1050 H (0-400) ng/mL ABG pH (7.35-7.45) ABG pCO2 (35-45) mmHg ABG pO2 (70-100) mmHg ABG HCO3 (22-26) mmol/L ABG O2 Saturation (95-100) % ABG Base Excess ((-2)-(+3)) mmol/L Aakash Test O2 Delivery Device Sodium (136-145) mmol/L Potassium (3.5-5.1) mmol/L Chloride (98-107) mmol/L Carbon Dioxide (21-32) mmol/L Anion Gap (7-13) mEq/L BUN (7-18) mg/dL Creatinine (0.55-1.02) mg/dL Est Cr Clr Drug Dosing Estimated GFR (MDRD) BUN/Creatinine Ratio (No establ ref range) Glucose (70-99) mg/dL POC Glucose (70-99) mg/dL Lactic Acid (0.4-2.0) mmol/L Calcium (8.5-10.1) mg/dL Magnesium (1.8-2.4) mg/dL Total Bilirubin (0.2-1.0) mg/dL AST (15-37) U/L ALT (14-59) U/L Alkaline Phosphatase (46-116) U/L Ammonia (11-32) umol/L B-Natriuretic Peptide (0-100) pg/ml Total Protein (6.4-8.2) g/dL Albumin (3.4-5.0) g/dL Globulin Albumin/Globulin Ratio Amylase (25-115) U/L HCG, Qual Salicylates (2.8-20(Therapeutic)) mg/dL Urine Opiates Screen (NEGATIVE) Ur Oxycodone Screen (NEGATIVE) Urine Methadone Screen (NEGATIVE) Acetaminophen 0 L (10-30 (Therapeutic)) ug/mL Ur Barbiturates Screen (NEGATIVE) U Tricyclic Antidepress (NEGATIVE) Ur Phencyclidine Scrn (NEGATIVE) Ur Amphetamine Screen (NEGATIVE) U Methamphetamines Scrn (NEGATIVE) Urine MDMA Screen (NEGATIVE) U Benzodiazepines Scrn (NEGATIVE) Urine Cocaine Screen (NEGATIVE) U Marijuana (THC) Screen (NEGATIVE) Ethyl Alcohol < 3 (0) mg/dL Ketones Influenza Type A RNA (NEGATIVE) Influenza Type B RNA (NEGATIVE) SARS-CoV-2 RNA ([place]) (NEGATIVE) 04/12/21 04/12/21 04/12/21 Range/Units 21:20 21:20 21:20 WBC (5.0-10.0) 10^3/uL RBC (4.2-5.4) 10^6/uL Hgb (12.0-16.0) g/dL Hct (37.0-47.0) % MCV (80-100) fL MCH (27.0-34.0) pg MCHC (33.0-35.0) g/dL Plt Count (150-450) 10^3/uL Neut % (Auto) (42.2-75.2) % Lymph % (Auto) (20.5-50.1) % [place] % (Auto) (2-8) % Eos % (Auto) (1.0-3.0) % Baso % (Auto) (0.0-1.0) % Add Manual Diff Neutrophils % (Manual) (42-75) % Band Neutrophils % % Lymphocytes % (Manual) (20-50) % Atypical Lymphs % % Monocytes % (Manual) (2-8) % Platelet Estimate PT INR D-Dimer, Quantitative (0-400) ng/mL ABG pH (7.35-7.45) ABG pCO2 (35-45) mmHg ABG pO2 (70-100) mmHg ABG HCO3 (22-26) mmol/L ABG O2 Saturation (95-100) % ABG Base Excess ((-2)-(+3)) mmol/L Aakash Test O2 Delivery Device Sodium 137 D (136-145) mmol/L Potassium 6.2 H D (3.5-5.1) mmol/L Chloride 96 L (98-107) mmol/L Carbon Dioxide < 5 L* (21-32) mmol/L Anion Gap 42.20579 H (7-13) mEq/L BUN 93 H D (7-18) mg/dL Creatinine 4.20 H D (0.55-1.02) mg/dL Est Cr Clr Drug Dosing TNP Estimated GFR (MDRD) 13 BUN/Creatinine Ratio 22.1 (No establ ref range) Glucose > 1500 H* (70-99) mg/dL POC Glucose (70-99) mg/dL Lactic Acid (0.4-2.0) mmol/L Calcium 8.2 L (8.5-10.1) mg/dL Magnesium 3.1 H (1.8-2.4) mg/dL Total Bilirubin 0.5 (0.2-1.0) mg/dL AST 39 H (15-37) U/L ALT 79 H (14-59) U/L Alkaline Phosphatase 172 H (46-116) U/L Ammonia 43 H (11-32) umol/L B-Natriuretic Peptide 88 (0-100) pg/ml Total Protein 8.6 H (6.4-8.2) g/dL Albumin 4.3 (3.4-5.0) g/dL Globulin 4.3 Albumin/Globulin Ratio 1.0 Amylase 392 H (25-115) U/L HCG, Qual Negative Salicylates 6.1 (2.8-20(Therapeutic)) mg/dL Urine Opiates Screen (NEGATIVE) Ur Oxycodone Screen (NEGATIVE) Urine Methadone Screen (NEGATIVE) Acetaminophen (10-30 (Therapeutic)) ug/mL Ur Barbiturates Screen (NEGATIVE) U Tricyclic Antidepress (NEGATIVE) Ur Phencyclidine Scrn (NEGATIVE) Ur Amphetamine Screen (NEGATIVE) U Methamphetamines Scrn (NEGATIVE) Urine MDMA Screen (NEGATIVE) U Benzodiazepines Scrn (NEGATIVE) Urine Cocaine Screen (NEGATIVE) U Marijuana (THC) Screen (NEGATIVE) Ethyl Alcohol (0) mg/dL Ketones Moderate-40 mg/dl Influenza Type A RNA (NEGATIVE) Influenza Type B RNA (NEGATIVE) SARS-CoV-2 RNA ([place]) (NEGATIVE) 04/12/21 04/12/21 04/12/21 Range/Units 21:20 21:20 21:40 WBC (5.0-10.0) 10^3/uL RBC (4.2-5.4) 10^6/uL Hgb (12.0-16.0) g/dL Hct (37.0-47.0) % MCV (80-100) fL MCH (27.0-34.0) pg MCHC (33.0-35.0) g/dL Plt Count (150-450) 10^3/uL Neut % (Auto) (42.2-75.2) % Lymph % (Auto) (20.5-50.1) % [place] % (Auto) (2-8) % Eos % (Auto) (1.0-3.0) % Baso % (Auto) (0.0-1.0) % Add Manual Diff Neutrophils % (Manual) (42-75) % Band Neutrophils % % Lymphocytes % (Manual) (20-50) % Atypical Lymphs % % Monocytes % (Manual) (2-8) % Platelet Estimate PT INR D-Dimer, Quantitative (0-400) ng/mL ABG pH 7.04 L* (7.35-7.45) ABG pCO2 17 L* (35-45) mmHg ABG pO2 67 L (70-100) mmHg ABG HCO3 4.4 L (22-26) mmol/L ABG O2 Saturation 81 L (95-100) % ABG Base Excess -25 L ((-2)-(+3)) mmol/L Aakash Test Performed O2 Delivery Device Room air Sodium (136-145) mmol/L Potassium (3.5-5.1) mmol/L Chloride (98-107) mmol/L Carbon Dioxide (21-32) mmol/L Anion Gap (7-13) mEq/L BUN (7-18) mg/dL Creatinine (0.55-1.02) mg/dL Est Cr Clr Drug Dosing Estimated GFR (MDRD) BUN/Creatinine Ratio (No establ ref range) Glucose (70-99) mg/dL POC Glucose (70-99) mg/dL Lactic Acid 2.7 H* (0.4-2.0) mmol/L Calcium (8.5-10.1) mg/dL Magnesium (1.8-2.4) mg/dL Total Bilirubin (0.2-1.0) mg/dL AST (15-37) U/L ALT (14-59) U/L Alkaline Phosphatase (46-116) U/L Ammonia (11-32) umol/L B-Natriuretic Peptide (0-100) pg/ml Total Protein (6.4-8.2) g/dL Albumin (3.4-5.0) g/dL Globulin Albumin/Globulin Ratio Amylase (25-115) U/L HCG, Qual Salicylates (2.8-20(Therapeutic)) mg/dL Urine Opiates Screen (NEGATIVE) Ur Oxycodone Screen (NEGATIVE) Urine Methadone Screen (NEGATIVE) Acetaminophen (10-30 (Therapeutic)) ug/mL Ur Barbiturates Screen (NEGATIVE) U Tricyclic Antidepress (NEGATIVE) Ur Phencyclidine Scrn (NEGATIVE) Ur Amphetamine Screen (NEGATIVE) U Methamphetamines Scrn (NEGATIVE) Urine MDMA Screen (NEGATIVE) U Benzodiazepines Scrn (NEGATIVE) Urine Cocaine Screen (NEGATIVE) U Marijuana (THC) Screen (NEGATIVE) Ethyl Alcohol (0) mg/dL Ketones Influenza Type A RNA Negative (NEGATIVE) Influenza Type B RNA Negative (NEGATIVE) SARS-CoV-2 RNA ([place]) Negative (NEGATIVE) 04/12/21 04/12/21 Range/Units 22:05 22:10 WBC (5.0-10.0) 10^3/uL RBC (4.2-5.4) 10^6/uL Hgb (12.0-16.0) g/dL Hct (37.0-47.0) % MCV (80-100) fL MCH (27.0-34.0) pg MCHC (33.0-35.0) g/dL Plt Count (150-450) 10^3/uL Neut % (Auto) (42.2-75.2) % Lymph % (Auto) (20.5-50.1) % [place] % (Auto) (2-8) % Eos % (Auto) (1.0-3.0) % Baso % (Auto) (0.0-1.0) % Add Manual Diff Neutrophils % (Manual) (42-75) % Band Neutrophils % % Lymphocytes % (Manual) (20-50) % Atypical Lymphs % % Monocytes % (Manual) (2-8) % Platelet Estimate PT INR D-Dimer, Quantitative (0-400) ng/mL ABG pH (7.35-7.45) ABG pCO2 (35-45) mmHg ABG pO2 (70-100) mmHg ABG HCO3 (22-26) mmol/L ABG O2 Saturation (95-100) % ABG Base Excess ((-2)-(+3)) mmol/L Aakash Test O2 Delivery Device Sodium (136-145) mmol/L Potassium (3.5-5.1) mmol/L Chloride (98-107) mmol/L Carbon Dioxide (21-32) mmol/L Anion Gap (7-13) mEq/L BUN (7-18) mg/dL Creatinine (0.55-1.02) mg/dL Est Cr Clr Drug Dosing Estimated GFR (MDRD) BUN/Creatinine Ratio (No establ ref range) Glucose (70-99) mg/dL POC Glucose > 600 H* (70-99) mg/dL Lactic Acid (0.4-2.0) mmol/L Calcium (8.5-10.1) mg/dL Magnesium (1.8-2.4) mg/dL Total Bilirubin (0.2-1.0) mg/dL AST (15-37) U/L ALT (14-59) U/L Alkaline Phosphatase (46-116) U/L Ammonia (11-32) umol/L B-Natriuretic Peptide (0-100) pg/ml Total Protein (6.4-8.2) g/dL Albumin (3.4-5.0) g/dL Globulin Albumin/Globulin Ratio Amylase (25-115) U/L HCG, Qual Salicylates (2.8-20(Therapeutic)) mg/dL Urine Opiates Screen Negative (NEGATIVE) Ur Oxycodone Screen Negative (NEGATIVE) Urine Methadone Screen Negative (NEGATIVE) Acetaminophen (10-30 (Therapeutic)) ug/mL Ur Barbiturates Screen Negative (NEGATIVE) U Tricyclic Antidepress Negative (NEGATIVE) Ur Phencyclidine Scrn Negative (NEGATIVE) Ur Amphetamine Screen Negative (NEGATIVE) U Methamphetamines Scrn Negative (NEGATIVE) Urine MDMA Screen Negative (NEGATIVE) U Benzodiazepines Scrn Negative (NEGATIVE) Urine Cocaine Screen Negative (NEGATIVE) U Marijuana (THC) Screen Negative (NEGATIVE) Ethyl Alcohol (0) mg/dL Ketones Influenza Type A RNA (NEGATIVE) Influenza Type B RNA (NEGATIVE) SARS-CoV-2 RNA ([place]) (NEGATIVE) Meds: Medications Discontinued Medications Generic Name Dose Route Start Last Admin Trade Name Freq PRN Reason Stop Dose Admin Acetaminophen 650 mg 04/12/21 21:24 04/12/21 21:40 Acetaminophen 325 Mg Tab PO 04/12/21 21:25 Not Given NOW ONE Acetaminophen Confirm 04/12/21 21:27 04/12/21 21:34 Acetaminophen 650 Mg Supp Administered 04/12/21 21:28 650 mg Dose Administration 650 mg .ROUTE .STK-MED ONE Dextrose/Water 50 ml 04/12/21 21:27 50% Dextrose In Water 50 Ml Syringe IVPUSH Q15M PRN Hypoglycemia Glucagon 1 mg 04/12/21 21:27 Glucagon,Human Recombinant 1 Mg Vial IM Q15M PRN Hypoglycemia Sodium Chloride 1,000 mls @ 999 mls/hr 04/12/21 21:24 04/12/21 21:36 Normal Saline IV 04/12/21 22:24 999 mls/hr .BOLUS ONE Administration Insulin Regular in 0.9 % NACL 100 unit in 100 mls @ 5.28 mls/hr 04/12/21 21:30 04/12/21 22:01 Myxredlin In Ns 100 Unit/100 Ml IV 0.1 units/kg/hr TITRATE DONNIE 5.28 mls/hr Administration Protocol 0.1 UNITS/KG/HR Levetiracetam 1,000 mg/ Premix 200 mls @ 800 mls/hr 04/12/21 22:31 04/12/21 22:34 IV 04/12/21 22:32 800 mls/hr ONETIME ONE Administration Insulin Human Regular 10 unit 04/12/21 21:27 04/12/21 21:39 Insulin Regular, Human 100 Units/Ml 3 Ml Vial IV 04/12/21 21:28 10 units ONETIME ONE Administration Sodium Bicarbonate 50 meq 04/12/21 21:47 04/12/21 21:58 Sodium Bicarbonate 8.4% 50 Meq/50 Ml Syringe IVPUSH 04/12/21 21:48 50 meq ONETIME ONE Administration - Re-Assessments/Exams Free Text/Narrative Re-Assessment/Exam: No bed available at [facility] or [facility]. Transfer [facility] flight. IVF, IV insulin drip initiated prior to transfer. GCS = 6 Airway patent, Respiration non labored. Intubation discussed with flight team. No new changes on CT. Vitals stable . . 04/16/21 02:57 Departure - Departure Time of Disposition: 22:36 Disposition: DC/Tfer to Acute Hospital 02 Condition: Fair, Undetermined Clinical Impression: Hyperglycemia, Hyperkalemia DKA, type 1 Qualifiers: Diabetes mellitus complication detail: with coma Qualified Code(s): E10.11 - Type 1 diabetes mellitus with ketoacidosis with coma - Discharge Information *PRESCRIPTION DRUG MONITORING PROGRAM REVIEWED*: No *COPY OF PRESCRIPTION DRUG MONITORING REPORT IN PATIENT LEOLA: No Referrals: Andrea Archibald [Primary Care Provider] - Forms: ED Department Discharge Sepsis Event Note (ED) - Evaluation Sepsis Screening Result: No Definite Risk
[2021-04-12 22:17] LABS: AMPHETAMINES,URINE NEGATIVE (NEGATIVE); BARBITURATES,URINE NEGATIVE (NEGATIVE); BENZODIAZEPINE,URINE NEGATIVE (NEGATIVE); MDMA (ECSTASY), URINE NEGATIVE (NEGATIVE); METHADONE,URINE NEGATIVE (NEGATIVE); METHAMPHETAMINES,URINE NEGATIVE (NEGATIVE); OPIATES,URINE NEGATIVE (NEGATIVE); OXYCODONE,URINE NEGATIVE (NEGATIVE); PHENCYCLIDINE,URINE NEGATIVE (NEGATIVE); TCA,URINE NEGATIVE (NEGATIVE)
[2021-04-12] MEDS ORDERED: levETIRAcetam in NaCl (iso-os) 1,000 MG in Premix Bag 1 BAG IV ONE ×2 (22:31)
--- NOTE | 2021-04-12 22:53 | CT ---
PROCEDURE INFORMATION: Exam: CT Head Without Contrast Exam date and time: 04/12/2021 9:52 PM Age: 30 years old Clinical indication: Other: Altered mentation; Prior surgery; Additional info: Altered mental TECHNIQUE: Imaging protocol: Computed tomography of the head without contrast. Radiation optimization: All CT scans at this facility use at least one of these dose optimization techniques: automated exposure control; mA and/or kV adjustment per patient size (includes targeted exams where dose is matched to clinical indication); or iterative reconstruction. COMPARISON: CT Head wo Cont 03/02/2021 6:03 PM FINDINGS: Brain: There is hypoattenuation of the frontal deep white matter on the right and anteriorly on the left. There are scattered areas gyral hyperattenuation seen along the medial aspect of the frontal lobes bilaterally, within the insular cortex the left and the posterior cortex of the transverse temporal gyrus (Heschel's gyrus). The aftermath of an hypoxic event could have this appearance. An inflammatory or infectious etiology cannot be excluded. Cerebral ventricles: No ventriculomegaly. Paranasal sinuses: Visualized sinuses are unremarkable. No fluid levels. Mastoid air cells: Visualized mastoid air cells are well aerated. Bones/joints: Large right frontoparietal craniotomy flap removal. Soft tissues: Unremarkable. IMPRESSION: 1. The patient is status post frontoparietal craniotomy flap removal. 2. There is decreasing attenuation within the deep white matter of the frontal lobes bilaterally, right more prominent than left. There are scattered areas of increased attenuation within the cortical morgan of the frontal lobes bilaterally, the right insula and posterior cortex of the transverse temporal gyrus on the right., findings that may be associated with prior hypoxic event although inflammatory or infectious etiologies cannot be excluded.
--- NOTE | 2021-04-12 22:57 | CR ---
PROCEDURE INFORMATION: Exam: XR Chest Exam date and time: 04/12/2021 10:06 PM Age: 30 years old Clinical indication: Other: Altered mentation; Additional info: Altered mental TECHNIQUE: Imaging protocol: XR of the chest. Views: 1 view. COMPARISON: CR Chest 1V Frontal 03/02/2021 5:35 PM FINDINGS: Lungs: Unremarkable. No consolidation. Pleural spaces: Unremarkable. No pleural effusion. No pneumothorax. Heart/Mediastinum: Unremarkable. No cardiomegaly. Bones/joints: Unremarkable. IMPRESSION: No acute findings.
[2021-04-12 23:02] LABS: CORONAVIRUS COVID-19 NAA NEGATIVE (NEGATIVE)
== END 2021-04-12 22:36 ==
LOC: DL.ED 21:15
DX: E10.11 Type 1 diabetes mellitus with ketoacidosis with coma (principal); E10.65 Type 1 diabetes mellitus with hyperglycemia; E87.5 Hyperkalemia; R00.0 Tachycardia, unspecified; Z20.822 Contact with and (suspected) exposure to COVID-19
CPT/HCPCS: 0240U; 36415; 36600; 51702; 70450; 71045; 80053; 80143; 80179; 80305; 80307; 82009; 82140; 82150; 82803; 82947; 83605; 83735; 83880; 84703; 85025; 85379; 87040; 93005; 93010; 96374; 96375; 99284; 99285; A9270; J1815; J1953; J7030

== ENCOUNTER 2021-04-26 14:26 | Emergency (ER) | payer MEDICAID ==
--- NOTE | 2021-04-26 14:37 | EDM.PDOC ---
ED HPI GENERAL MEDICAL PROBLEM - General Chief Complaint: Diabetic Complaint Stated Complaint: AMBULANCE Time Seen by Provider: 04/26/21 14:36 Source of Information: Reports: Patient, EMS, Old Records, RN, RN Notes Reviewed History Limitations: Reports: Altered Mental Status - History of Present Illness INITIAL COMMENTS - FREE TEXT/NARRATIVE: Pt arrives to ER by ambulance with report that she has not been using her insulin for an unknown length of time, and today became weak and confused. Pt has DM Type 1 with multiple episodes of DKA. Pt was transferred by airlift ambulance from [facility] to [facility] on 04/12/21. Pt arrives lethargic, but arousable, follows commands. Pt does not provide any further history. Onset: Gradual Duration: Constant Location: Reports: Generalized Severity: Severe Improves with: Reports: None Worsens with: Reports: None - Related Data Allergies Allergy/AdvReac Type Severity Reaction Status Date / Time No Known Allergies Allergy Verified 10/20/20 10:25 Home Meds: Home Meds Insulin Aspart [Insulin Aspart Flexpen] 10 units SUBCUT TIDMEALS 30 Days #1 pen 05/20/20 [Rx] Insulin Detemir [Levemir Flextouch] 20 unit SQ BID 30 Days #1 pen 05/20/20 [Rx] Past Medical History - Past Health History Medical/Surgical History: Denies Medical/Surgical History HEENT History: Reports: Impaired Vision Other HEENT History: states has a cloud to the right side. States she is near sighted. 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, Recurrent [employer]ENT History: Reports: Musculoskeletal History: Reports: Other (See Below) Other Musculoskeletal History: 12/04/16 Bilateral ingrown toe nails leading to sepsis, IV vanco BID for 10 days Neurological History: Reports: Brain Injury, Concussion, Seizure Psychiatric History: Reports: Addiction, Anxiety, Depression, Other (See Below) Other Psychiatric History: Medical non-compliance Endocrine/Metabolic History: Reports: Diabetes, Type I (uncontrolled, with DKA), Other (See Below) (DKA) Hematologic History: Reports: None Immunologic History: Reports: None Oncologic (Cancer) History: Reports: None Dermatologic History: Reports: None - Infectious Disease History Infectious Disease History: Reports: None - Past Surgical History Head Surgeries/Procedures: Reports: None Other HEENT Surgeries/Procedures: recent head injury unsure if surgical or not Social & Family History - Family History Family Medical History: No Pertinent Family History HEENT: Reports: None Oncologic: Reports: Breast, Other (See Below) Other Oncologic Family History: Stomach CA - Caffeine Use Caffeine Use: Reports: None Other Caffeine Use: pt. unable to answer - Living Situation & Occupation Living situation: Reports: with Family ED ROS GENERAL - Review of Systems Review Of Systems: Comprehensive ROS is negative, except as noted in HPI. ED EXAM GENERAL NO PERIP PULSE - Physical Exam Exam: See Below Exam Limited By: Altered Mental Status General Appearance: Lethargic, Other (Acutely ill appearing) Eye Exam: Bilateral Eye: Normal Inspection, PERRL Ears: Normal External Exam Nose: Normal Inspection, Normal Mucosa, No Blood Throat/Mouth: No Airway Compromise, Other (Very dry oral mucosa) Head: Other (Chronic right skull concavity, post-traumatic/post-surgical) Neck: Normal Inspection, Full Range of Motion Respiratory/Chest: No Respiratory Distress, Lungs Clear, Other (Hyperventilating). No: Crackles, Rales, Rhonchi, Wheezing Cardiovascular: Regular Rate, Rhythm, No Edema, Tachycardia GI/Abdominal: Soft, Non-Tender, Abnormal Bowel Sounds (Hypoactive bowel sounds). No: Guarding, Rigid, Rebound Back Exam: Full Range of Motion Extremities: Normal Inspection Neurological: No Motor/Sensory Deficits, Inattentive, Slow to Respond Skin Exam: Warm, Dry, Intact, Normal Color, No Rash #1 Interpretation EKG Date: 04/26/21 Time: 15:17 Rhythm: Other (ectopic atrial tachycardia, unifocal) Rate (Beats/Min): 134 [place]: Normal P-Wave: Present QRS: RBBB (and LAFB) ST-T: Normal QT: Normal Comparison: NA - No Prior EKG Course - Vital Signs Last Recorded V/S: Last Vital Signs Temp 98.0 F 04/26/21 15:58 Pulse 141 H 04/26/21 15:58 Resp 24 H 04/26/21 15:58 BP 114/56 L 04/26/21 15:58 Pulse Ox 100 04/26/21 15:58 - Orders/Labs/Meds Orders: Active Orders 24 hr Category Date Time Status Blood Glucose Check, Bedside [RC] ONETIME Care 04/26/21 14:37 Active EKG 12 Lead [EKG Documentation Completion] [RC] STAT Care 04/26/21 14:37 Active Insert Gramajo Catheter [Insert Urinary Catheter] [OM.PC] Care 04/26/21 15:14 Ordered Stat Peripheral IV Care [RC] . DIRECTED Care 04/26/21 14:38 Active Peripheral IV Care [RC] . DIRECTED Care 04/26/21 14:39 Active Urinary Catheter Assessment [RC] ASDIRECTED Care 04/26/21 15:15 Active CBC WITH AUTO DIFF [HEME] Stat Lab 04/26/21 15:03 Results COVID-19/FLU A+B [MOLEC] Stat Lab 04/26/21 15:38 Received CULTURE BLOOD [BC] Stat Lab 04/26/21 15:03 Results CULTURE BLOOD [BC] Stat Lab 04/26/21 15:11 Received GLUCOSE RANDOM [CHEM] Stat Lab 04/26/21 17:04 Received GLUCOSE RANDOM [CHEM] Stat Lab 04/26/21 17:30 Ordered MANUAL DIFFERENTIAL QA/NC [HEME] Stat Lab 04/26/21 15:03 Results REFLEX LACTIC ACID YES OR NO [CHEM] Routine Lab 04/26/21 15:52 Received Insulin Regular in 0.9 % NACL [Myxredlin in NS 100 UNIT Med 04/26/21 14:45 Active /100 ML] 100 unit in 100 ml IV TITRATE Sodium Bicarbonate [Sodium Bicarbonate 8.4%] 100 meq Med 04/26/21 16:39 Active Dextrose 5% in Water 1,000 ml IV ONETIME Sodium Chloride 0.9% [Normal Saline] 1,000 ml Med 04/26/21 16:45 Active IV ASDIRECTED Sodium Chloride 0.9% [Saline Flush] Med 04/26/21 14:38 Active 10 ml FLUSH ASDIRECTED PRN Sodium Chloride 0.9% [Saline Flush] Med 04/26/21 14:39 Active 10 ml FLUSH ASDIRECTED PRN Blood Culture x2 Reflex Set [OM.PC] Stat Oth 04/26/21 14:37 Ordered Peripheral IV Insertion Adult [OM.PC] Stat Oth 04/26/21 14:37 Ordered Peripheral IV Insertion Adult [OM.PC] Stat Oth 04/26/21 14:39 Ordered Medication Orders Insulin Regular in 0.9 % NACL (Myxredlin In Ns 100 Unit/100 Ml) 100 unit in 100 mls @ 6.6 mls/hr IV TITRATE DONNIE; Protocol Last Titration: 04/26/21 16:53 Dose: 0.12 units/kg/hr, 8 mls/hr Documented by: NANO Cosigned by: RULA Admin: 04/26/21 15:03 Dose: 0.1 units/kg/hr, 6.6 mls/hr Documented by: CARLOS Cosigned by: ANDREW Sodium Chloride (Normal Saline) 1,000 mls @ 200 mls/hr IV ASDIRECTED DONINE Last Admin: 04/26/21 16:33 Dose: 200 mls/hr Documented by: CARLOS Sodium Bicarbonate 100 meq/ (Dextrose/Water) 1,100 mls @ 100 mls/hr IV ONETIME ONE Stop: 04/27/21 03:38 Last Admin: 04/26/21 17:07 Dose: 100 mls/hr Documented by: CARLOS Sodium Chloride (Sodium Chloride 0.9% 10 Ml Syringe) 10 ml FLUSH ASDIRECTED PRN PRN Reason: Keep Vein Open Sodium Chloride (Sodium Chloride 0.9% 10 Ml Syringe) 10 ml FLUSH ASDIRECTED PRN PRN Reason: Keep Vein Open Labs: Laboratory Tests 04/26/21 04/26/21 04/26/21 Range/Units 14:37 14:38 15:03 WBC 17.4 H (5.0-10.0) 10^3/uL RBC 3.49 L (4.2-5.4) 10^6/uL Hgb 10.0 L (12.0-16.0) g/dL Hct 38.1 (37.0-47.0) % MCV 109.2 H (80-100) fL MCH 28.7 (27.0-34.0) pg MCHC 26.2 L (33.0-35.0) g/dL Plt Count 438 (150-450) 10^3/uL Neut % (Auto) 89.3 H (42.2-75.2) % Lymph % (Auto) 7.6 L (20.5-50.1) % Rock % (Auto) 2.9 (2-8) % Eos % (Auto) 0.1 L (1.0-3.0) % Baso % (Auto) 0.1 (0.0-1.0) % Add Manual Diff Yes ABG pH 6.87 L* (7.35-7.45) ABG pCO2 23 L (35-45) mmHg ABG pO2 78 (70-100) mmHg ABG HCO3 4.0 L (22-26) mmol/L ABG O2 Saturation 85 L (95-100) % ABG Base Excess -28 L ((-2)-(+3)) mmol/L Aakash Test Positive O2 Delivery Device Room air Sodium (136-145) mmol/L Potassium (3.5-5.1) mmol/L Chloride (98-107) mmol/L Carbon Dioxide (21-32) mmol/L Anion Gap (7-13) mEq/L BUN (7-18) mg/dL Creatinine (0.55-1.02) mg/dL Est Cr Clr Drug Dosing Estimated GFR (MDRD) BUN/Creatinine Ratio (No establ ref range) Glucose (70-99) mg/dL POC Glucose > 600 H* (70-99) mg/dL Lactic Acid (0.4-2.0) mmol/L Calcium (8.5-10.1) mg/dL Magnesium (1.8-2.4) mg/dL Total Bilirubin (0.2-1.0) mg/dL AST (15-37) U/L ALT (14-59) U/L Alkaline Phosphatase (46-116) U/L Troponin I High Sens (<=51) pg/mL Total Protein (6.4-8.2) g/dL Albumin (3.4-5.0) g/dL Globulin Albumin/Globulin Ratio Amylase (25-115) U/L Urine Color (YELLOW) Urine Appearance (CLEAR) Urine pH (5.0-9.0) Ur Specific [place] (1.005-1.030) Urine Protein (NEGATIVE) Urine Glucose (UA) (NEGATIVE) Urine Ketones (NEGATIVE) Urine Occult Blood (NEGATIVE) Urine Nitrite (NEGATIVE) Urine Bilirubin (NEGATIVE) Urine Urobilinogen (0.2-1.0) mg/dL Ur Leukocyte Esterase (NEGATIVE) U Hyaline Cast (Auto) Urine RBC (0-5) /HPF Urine WBC (0-5/HPF) /HPF Ur Epithelial Cells (NOT SEEN) /HPF Amorphous Sediment (NOT SEEN) /HPF Fine Granular Casts (NOT SEEN) /LPF Urine Mucus (NOT SEEN) /LPF Urine HCG, Qual Urine Opiates Screen (NEGATIVE) Ur Oxycodone Screen (NEGATIVE) Urine Methadone Screen (NEGATIVE) Ur Barbiturates Screen (NEGATIVE) U Tricyclic Antidepress (NEGATIVE) Ur Phencyclidine Scrn (NEGATIVE) Ur Amphetamine Screen (NEGATIVE) U Methamphetamines Scrn (NEGATIVE) Urine MDMA Screen (NEGATIVE) U Benzodiazepines Scrn (NEGATIVE) Urine Cocaine Screen (NEGATIVE) U Marijuana (THC) Screen (NEGATIVE) Ethyl Alcohol (0) mg/dL Ketones 04/26/21 04/26/21 04/26/21 Range/Units 15:03 15:03 15:30 WBC (5.0-10.0) 10^3/uL RBC (4.2-5.4) 10^6/uL Hgb (12.0-16.0) g/dL Hct (37.0-47.0) % MCV (80-100) fL MCH (27.0-34.0) pg MCHC (33.0-35.0) g/dL Plt Count (150-450) 10^3/uL Neut % (Auto) (42.2-75.2) % Lymph % (Auto) (20.5-50.1) % Rock % (Auto) (2-8) % Eos % (Auto) (1.0-3.0) % Baso % (Auto) (0.0-1.0) % Add Manual Diff ABG pH (7.35-7.45) ABG pCO2 (35-45) mmHg ABG pO2 (70-100) mmHg ABG HCO3 (22-26) mmol/L ABG O2 Saturation (95-100) % ABG Base Excess ((-2)-(+3)) mmol/L Aakash Test O2 Delivery Device Sodium 125 L D (136-145) mmol/L Potassium 7.7 H* D (3.5-5.1) mmol/L Chloride 86 L (98-107) mmol/L Carbon Dioxide < 5 L* (21-32) mmol/L Anion Gap 41.56105 H (7-13) mEq/L BUN 54 H D (7-18) mg/dL Creatinine 2.59 H D (0.55-1.02) mg/dL Est Cr Clr Drug Dosing TNP Estimated GFR (MDRD) 22 BUN/Creatinine Ratio 20.8 (No establ ref range) Glucose 1458 H* 1432 H* (70-99) mg/dL POC Glucose (70-99) mg/dL Lactic Acid 5.8 H* (0.4-2.0) mmol/L Calcium 9.0 (8.5-10.1) mg/dL Magnesium 2.7 H (1.8-2.4) mg/dL Total Bilirubin 0.6 (0.2-1.0) mg/dL AST 17 (15-37) U/L ALT 49 (14-59) U/L Alkaline Phosphatase 205 H (46-116) U/L Troponin I High Sens 7 (<=51) pg/mL Total Protein 7.9 (6.4-8.2) g/dL Albumin 3.8 (3.4-5.0) g/dL Globulin 4.1 Albumin/Globulin Ratio 0.9 Amylase 172 H (25-115) U/L Urine Color (YELLOW) Urine Appearance (CLEAR) Urine pH (5.0-9.0) Ur Specific [place] (1.005-1.030) Urine Protein (NEGATIVE) Urine Glucose (UA) (NEGATIVE) Urine Ketones (NEGATIVE) Urine Occult Blood (NEGATIVE) Urine Nitrite (NEGATIVE) Urine Bilirubin (NEGATIVE) Urine Urobilinogen (0.2-1.0) mg/dL Ur Leukocyte Esterase (NEGATIVE) U Hyaline Cast (Auto) Urine RBC (0-5) /HPF Urine WBC (0-5/HPF) /HPF Ur Epithelial Cells (NOT SEEN) /HPF Amorphous Sediment (NOT SEEN) /HPF Fine Granular Casts (NOT SEEN) /LPF Urine Mucus (NOT SEEN) /LPF Urine HCG, Qual Urine Opiates Screen (NEGATIVE) Ur Oxycodone Screen (NEGATIVE) Urine Methadone Screen (NEGATIVE) Ur Barbiturates Screen (NEGATIVE) U Tricyclic Antidepress (NEGATIVE) Ur Phencyclidine Scrn (NEGATIVE) Ur Amphetamine Screen (NEGATIVE) U Methamphetamines Scrn (NEGATIVE) Urine MDMA Screen (NEGATIVE) U Benzodiazepines Scrn (NEGATIVE) Urine Cocaine Screen (NEGATIVE) U Marijuana (THC) Screen (NEGATIVE) Ethyl Alcohol < 3 (0) mg/dL Ketones Large-80 mg/dl 04/26/21 04/26/21 04/26/21 Range/Units 15:33 15:33 15:33 WBC (5.0-10.0) 10^3/uL RBC (4.2-5.4) 10^6/uL Hgb (12.0-16.0) g/dL Hct (37.0-47.0) % MCV (80-100) fL MCH (27.0-34.0) pg MCHC (33.0-35.0) g/dL Plt Count (150-450) 10^3/uL Neut % (Auto) (42.2-75.2) % Lymph % (Auto) (20.5-50.1) % Rock % (Auto) (2-8) % Eos % (Auto) (1.0-3.0) % Baso % (Auto) (0.0-1.0) % Add Manual Diff ABG pH (7.35-7.45) ABG pCO2 (35-45) mmHg ABG pO2 (70-100) mmHg ABG HCO3 (22-26) mmol/L ABG O2 Saturation (95-100) % ABG Base Excess ((-2)-(+3)) mmol/L Aakash Test O2 Delivery Device Sodium (136-145) mmol/L Potassium (3.5-5.1) mmol/L Chloride (98-107) mmol/L Carbon Dioxide (21-32) mmol/L Anion Gap (7-13) mEq/L BUN (7-18) mg/dL Creatinine (0.55-1.02) mg/dL Est Cr Clr Drug Dosing Estimated GFR (MDRD) BUN/Creatinine Ratio (No establ ref range) Glucose (70-99) mg/dL POC Glucose (70-99) mg/dL Lactic Acid (0.4-2.0) mmol/L Calcium (8.5-10.1) mg/dL Magnesium (1.8-2.4) mg/dL Total Bilirubin (0.2-1.0) mg/dL AST (15-37) U/L ALT (14-59) U/L Alkaline Phosphatase (46-116) U/L Troponin I High Sens (<=51) pg/mL Total Protein (6.4-8.2) g/dL Albumin (3.4-5.0) g/dL Globulin Albumin/Globulin Ratio Amylase (25-115) U/L Urine Color Yellow (YELLOW) Urine Appearance Clear (CLEAR) Urine pH 5.0 (5.0-9.0) Ur Specific [place] 1.015 (1.005-1.030) Urine Protein 30 H (NEGATIVE) Urine Glucose (UA) 500 H (NEGATIVE) Urine Ketones 40 H (NEGATIVE) Urine Occult Blood Trace-lysed H (NEGATIVE) Urine Nitrite Negative (NEGATIVE) Urine Bilirubin Small H (NEGATIVE) Urine Urobilinogen 0.2 (0.2-1.0) mg/dL Ur Leukocyte Esterase Negative (NEGATIVE) U Hyaline Cast (Auto) Many Urine RBC 0-5 (0-5) /HPF Urine WBC 0-5 (0-5/HPF) /HPF Ur Epithelial Cells Few (NOT SEEN) /HPF Amorphous Sediment Moderate H (NOT SEEN) /HPF Fine Granular Casts Few H (NOT SEEN) /LPF Urine Mucus Many H (NOT SEEN) /LPF Urine HCG, Qual Negative Urine Opiates Screen Negative (NEGATIVE) Ur Oxycodone Screen Negative (NEGATIVE) Urine Methadone Screen Negative (NEGATIVE) Ur Barbiturates Screen Negative (NEGATIVE) U Tricyclic Antidepress Negative (NEGATIVE) Ur Phencyclidine Scrn Negative (NEGATIVE) Ur Amphetamine Screen Negative (NEGATIVE) U Methamphetamines Scrn Negative (NEGATIVE) Urine MDMA Screen Negative (NEGATIVE) U Benzodiazepines Scrn Negative (NEGATIVE) Urine Cocaine Screen Negative (NEGATIVE) U Marijuana (THC) Screen Negative (NEGATIVE) Ethyl Alcohol (0) mg/dL Ketones 04/26/21 04/26/21 Range/Units 16:00 16:33 WBC (5.0-10.0) 10^3/uL RBC (4.2-5.4) 10^6/uL Hgb (12.0-16.0) g/dL Hct (37.0-47.0) % MCV (80-100) fL MCH (27.0-34.0) pg MCHC (33.0-35.0) g/dL Plt Count (150-450) 10^3/uL Neut % (Auto) (42.2-75.2) % Lymph % (Auto) (20.5-50.1) % Rock % (Auto) (2-8) % Eos % (Auto) (1.0-3.0) % Baso % (Auto) (0.0-1.0) % Add Manual Diff ABG pH (7.35-7.45) ABG pCO2 (35-45) mmHg ABG pO2 (70-100) mmHg ABG HCO3 (22-26) mmol/L ABG O2 Saturation (95-100) % ABG Base Excess ((-2)-(+3)) mmol/L Aakash Test O2 Delivery Device Sodium 139 D (136-145) mmol/L Potassium 6.2 H D (3.5-5.1) mmol/L Chloride 100 D (98-107) mmol/L Carbon Dioxide 7 L* (21-32) mmol/L Anion Gap 38.2 H (7-13) mEq/L BUN 49 H (7-18) mg/dL Creatinine 2.37 H (0.55-1.02) mg/dL Est Cr Clr Drug Dosing TNP Estimated GFR (MDRD) 24 BUN/Creatinine Ratio (No establ ref range) Glucose 1300 H* 1074 H* (70-99) mg/dL POC Glucose (70-99) mg/dL Lactic Acid (0.4-2.0) mmol/L Calcium 7.6 L (8.5-10.1) mg/dL Magnesium (1.8-2.4) mg/dL Total Bilirubin (0.2-1.0) mg/dL AST (15-37) U/L ALT (14-59) U/L Alkaline Phosphatase (46-116) U/L Troponin I High Sens (<=51) pg/mL Total Protein (6.4-8.2) g/dL Albumin (3.4-5.0) g/dL Globulin Albumin/Globulin Ratio Amylase (25-115) U/L Urine Color (YELLOW) Urine Appearance (CLEAR) Urine pH (5.0-9.0) Ur Specific [place] (1.005-1.030) Urine Protein (NEGATIVE) Urine Glucose (UA) (NEGATIVE) Urine Ketones (NEGATIVE) Urine Occult Blood (NEGATIVE) Urine Nitrite (NEGATIVE) Urine Bilirubin (NEGATIVE) Urine Urobilinogen (0.2-1.0) mg/dL Ur Leukocyte Esterase (NEGATIVE) U Hyaline Cast (Auto) Urine RBC (0-5) /HPF Urine WBC (0-5/HPF) /HPF Ur Epithelial Cells (NOT SEEN) /HPF Amorphous Sediment (NOT SEEN) /HPF Fine Granular Casts (NOT SEEN) /LPF Urine Mucus (NOT SEEN) /LPF Urine HCG, Qual Urine Opiates Screen (NEGATIVE) Ur Oxycodone Screen (NEGATIVE) Urine Methadone Screen (NEGATIVE) Ur Barbiturates Screen (NEGATIVE) U Tricyclic Antidepress (NEGATIVE) Ur Phencyclidine Scrn (NEGATIVE) Ur Amphetamine Screen (NEGATIVE) U Methamphetamines Scrn (NEGATIVE) Urine MDMA Screen (NEGATIVE) U Benzodiazepines Scrn (NEGATIVE) Urine Cocaine Screen (NEGATIVE) U Marijuana (THC) Screen (NEGATIVE) Ethyl Alcohol (0) mg/dL Ketones Meds: Medications Generic Name Dose Route Start Last Admin Trade Name Freq PRN Reason Stop Dose Admin Insulin Regular in 0.9 % NACL 100 unit in 100 mls @ 6.6 mls/hr 04/26/21 14:45 04/26/21 16:53 Myxredlin In Ns 100 Unit/100 Ml IV 0.12 units/kg/hr TITRATE DONNIE 8 mls/hr Titration Protocol 0.1 UNITS/KG/HR Sodium Chloride 1,000 mls @ 200 mls/hr 04/26/21 16:45 04/26/21 16:33 Normal Saline IV 200 mls/hr ASDIRECTED DONNIE Administration Sodium Bicarbonate 100 meq/ 1,100 mls @ 100 mls/hr 04/26/21 16:39 04/26/21 17:07 Dextrose/Water IV 04/27/21 03:38 100 mls/hr ONETIME ONE Administration Sodium Chloride 10 ml 04/26/21 14:38 Sodium Chloride 0.9% 10 Ml Syringe FLUSH ASDIRECTED PRN Keep Vein Open Sodium Chloride 10 ml 04/26/21 14:39 Sodium Chloride 0.9% 10 Ml Syringe FLUSH ASDIRECTED PRN Keep Vein Open Discontinued Medications Generic Name Dose Route Start Last Admin Trade Name Freq PRN Reason Stop Dose Admin Sodium Chloride 1,000 mls @ 999 mls/hr 04/26/21 14:39 04/26/21 15:13 Normal Saline IV 04/26/21 15:39 999 mls/hr .BOLUS ONE Administration Sodium Chloride 1,000 mls @ 999 mls/hr 04/26/21 15:13 04/26/21 15:28 Normal Saline IV 04/26/21 16:13 999 mls/hr .BOLUS ONE Administration Sodium Chloride 1,000 mls @ 999 mls/hr 04/26/21 16:05 04/26/21 16:08 Normal Saline IV 04/26/21 17:05 999 mls/hr .BOLUS ONE Administration Insulin Human Regular 10 unit 04/26/21 14:42 04/26/21 15:00 Insulin Regular, Human 100 Units/Ml 3 Ml Vial IV 04/26/21 14:43 10 units ONETIME ONE Administration Lorazepam 2 mg 04/26/21 15:16 04/26/21 15:18 Lorazepam 2 Mg/Ml Sdv IVPUSH 04/26/21 15:17 2 mg ONETIME ONE Administration Lorazepam Confirm 04/26/21 15:17 04/26/21 15:21 Lorazepam 2 Mg/Ml Sdv Administered 04/26/21 15:18 Not Given Dose 2 mg .ROUTE .STK-MED ONE Ondansetron HCl 4 mg 04/26/21 15:13 04/26/21 15:20 Ondansetron 4 Mg/2 Ml Sdv IV 04/26/21 15:14 4 mg ONETIME ONE Administration Sodium Bicarbonate 50 meq 04/26/21 15:14 04/26/21 15:20 Sodium Bicarbonate 8.4% 50 Meq/50 Ml Syringe IVPUSH 04/26/21 15:15 50 meq ONETIME ONE Administration - Radiology Interpretation Free Text/Narrative:: [facility] Final Radiology Report Call: [phone] assistance Online chat: [email or web address] Name: PARAMJIT ROSS Age: 30Years F Date: 04/26/2021 SSN: -- : 1990 Study: CR CHEST 1V FRONTAL Requesting Physician: DOLORES KOCH Images: 1 Addl Studies: Provided Clinical History: cough, DKA Contrast: Contrast Medium: Contrast Amount: Contrast Method: CONFIDENTIALITY STATEMENT This report is intended only for use by the referring physician, and only in accordance with law. If you received this in error, call [phone]. Page 1 of 1 PROCEDURE INFORMATION: Exam: XR Chest Exam date and time: 04/26/2021 2:56 PM Age: 30 years old Clinical indication: Cough; Additional info: Cough, dka TECHNIQUE: Imaging protocol: XR of the chest. Views: 1 view. COMPARISON: CR Chest 1V Frontal 04/12/2021 10:06 PM FINDINGS: Lungs: A metallic ring overlies the left mid to lower lung. The position is indeterminate and could be within or outside the patient. The pulmonary vasculature is not engorged. The lungs are normal. Pleural spaces: There are no pleural effusions visualized. There is no evidence of pneumothorax. Heart/Mediastinum: The heart is not enlarged. Bones/joints: Unremarkable IMPRESSION: Metallic ring overlying the left mid to lower lung. Correlation with a lateral chest x-ray might be useful. Thank you for allowing us to participate in the care of your patient. Dictated and Authenticated by: Dat Medina MD 04/26/2021 3:17 PM Central Time ([place] & [place]) - Re-Assessments/Exams Free Text/Narrative Re-Assessment/Exam: 04/26/21 Pt began agitated, very anxious, and tried to pull at her IV tubing. She was given Ativan 2mg IVP and rested comfortably. Departure - Departure Time of Disposition: 17:34 (admitted to Dr. Peterson) Disposition: Admitted As Inpatient 67 Condition: Serious, Critical Clinical Impression: History of traumatic brain injury Diabetic ketoacidosis Qualifiers: Diabetes mellitus type: type 1 Diabetes mellitus complication detail: without coma Qualified Code(s): E10.10 - Type 1 diabetes mellitus with ketoacidosis without coma Diabetes type 1, uncontrolled Qualifiers: Glycemic state: with hyperglycemia Qualified Code(s): E10.65 - Type 1 diabetes mellitus with hyperglycemia - Discharge Information *PRESCRIPTION DRUG MONITORING PROGRAM REVIEWED*: No *COPY OF PRESCRIPTION DRUG MONITORING REPORT IN PATIENT LEOLA: No Forms: ED Department Discharge Sepsis Event Note (ED) - Focused Exam Vital Signs: Vital Signs Temp Pulse Resp BP Pulse Ox 04/26/21 15:58 98.0 F 141 H 24 H 114/56 L 100 04/26/21 14:27 98.0 F 159 H 34 H 128/56 L 83 L - My Orders Last 24 Hours: My Active Orders 04/26/21 14:37 Blood Glucose Check, Bedside [RC] ONETIME EKG 12 Lead [EKG Documentation Completion] [RC] STAT Blood Culture x2 Reflex Set [OM.PC] Stat Peripheral IV Insertion Adult [OM.PC] Stat 04/26/21 14:38 Peripheral IV Care [RC] . DIRECTED Sodium Chloride 0.9% [Saline Flush] 10 ml FLUSH ASDIRECTED PRN 04/26/21 14:39 Peripheral IV Care [RC] . DIRECTED Sodium Chloride 0.9% [Saline Flush] 10 ml FLUSH ASDIRECTED PRN Peripheral IV Insertion Adult [OM.PC] Stat 04/26/21 14:45 Insulin Regular in 0.9 % NACL [Myxredlin in NS 100 UNIT/100 ML] 100 unit in 100 ml IV TITRATE 04/26/21 15:03 CBC WITH AUTO DIFF [HEME] Stat CULTURE BLOOD [BC] Stat MANUAL DIFFERENTIAL QA/NC [HEME] Stat 04/26/21 15:11 CULTURE BLOOD [BC] Stat 04/26/21 15:14 Insert Gramajo Catheter [Insert Urinary Catheter] [OM.PC] Stat 04/26/21 15:15 Urinary Catheter Assessment [RC] ASDIRECTED 04/26/21 15:38 COVID-19/FLU A+B [MOLEC] Stat 04/26/21 15:52 REFLEX LACTIC ACID YES OR NO [CHEM] Routine 04/26/21 16:39 Sodium Bicarbonate [Sodium Bicarbonate 8.4%] 100 meq Dextrose 5% in Water 1,000 ml IV ONETIME 04/26/21 16:45 Sodium Chloride 0.9% [Normal Saline] 1,000 ml IV ASDIRECTED 04/26/21 17:04 GLUCOSE RANDOM [CHEM] Stat 04/26/21 17:30 GLUCOSE RANDOM [CHEM] Stat - Assessment/Plan Last 24 Hours: My Active Orders 04/26/21 14:37 Blood Glucose Check, Bedside [RC] ONETIME EKG 12 Lead [EKG Documentation Completion] [RC] STAT Blood Culture x2 Reflex Set [OM.PC] Stat Peripheral IV Insertion Adult [OM.PC] Stat 04/26/21 14:38 Peripheral IV Care [RC] . DIRECTED Sodium Chloride 0.9% [Saline Flush] 10 ml FLUSH ASDIRECTED PRN 04/26/21 14:39 Peripheral IV Care [RC] . DIRECTED Sodium Chloride 0.9% [Saline Flush] 10 ml FLUSH ASDIRECTED PRN Peripheral IV Insertion Adult [OM.PC] Stat 04/26/21 14:45 Insulin Regular in 0.9 % NACL [Myxredlin in NS 100 UNIT/100 ML] 100 unit in 100 ml IV TITRATE 04/26/21 15:03 CBC WITH AUTO DIFF [HEME] Stat CULTURE BLOOD [BC] Stat MANUAL DIFFERENTIAL QA/NC [HEME] Stat 04/26/21 15:11 CULTURE BLOOD [BC] Stat 04/26/21 15:14 Insert [place] Catheter [Insert Urinary Catheter] [OM.PC] Stat 04/26/21 15:15 Urinary Catheter Assessment [RC] ASDIRECTED 04/26/21 15:38 COVID-19/FLU A+B [MOLEC] Stat 04/26/21 15:52 REFLEX LACTIC ACID YES OR NO [CHEM] Routine 04/26/21 16:39 Sodium Bicarbonate [Sodium Bicarbonate 8.4%] 100 meq Dextrose 5% in Water 1,000 ml IV ONETIME 04/26/21 16:45 Sodium Chloride 0.9% [Normal Saline] 1,000 ml IV ASDIRECTED 04/26/21 17:04 GLUCOSE RANDOM [CHEM] Stat 04/26/21 17:30 GLUCOSE RANDOM [CHEM] Stat
[2021-04-26] MEDS ORDERED: Sodium Chloride 0.9% 10 ML Syringe FLUSH PRN ×2 (14:38→14:39)
[2021-04-26] MEDS ORDERED: Sodium Chloride 0.9% 1,000 ML IV ONE ×3 (14:39→16:05)
[2021-04-26] MEDS ORDERED: Insulin Regular, Human 100 Units/ML 3 ML Vial IV ONE (14:42)
[2021-04-26 15:11] LABS: O2 DELIVERY DEVICE ROOM AIR
[2021-04-26 15:12] LABS: ALLEN TEST POSITIVE; BASE EXCESS ARTERIAL -28 mmol/L ((-2)-(+3)); O2 SATURATION ARTERIAL 85 % (95-100); PCO2 ARTERIAL 23 mmHg (35-45); PO2 ARTERIAL 78 mmHg (70-100)
[2021-04-26] MEDS ORDERED: Ondansetron 4 MG/2 ML SDV IV ONE (15:13)
[2021-04-26] MEDS ORDERED: Sodium Bicarbonate 8.4% 50 MEQ/50 ML Syringe IVPUSH ONE (15:14)
[2021-04-26] MEDS ORDERED: LORazepam 2 MG/ML SDV IVPUSH ONE (15:16)
[2021-04-26] MEDS ORDERED: LORazepam 2 MG/ML SDV ONE (15:17)
--- NOTE | 2021-04-26 15:18 | CR ---
PROCEDURE INFORMATION: Exam: XR Chest Exam date and time: 04/26/2021 2:56 PM Age: 30 years old Clinical indication: Cough; Additional info: Cough, dka TECHNIQUE: Imaging protocol: XR of the chest. Views: 1 view. COMPARISON: CR Chest 1V Frontal 04/12/2021 10:06 PM FINDINGS: Lungs: A metallic ring overlies the left mid to lower lung. The position is indeterminate and could be within or outside the patient. The pulmonary vasculature is not engorged. The lungs are normal. Pleural spaces: There are no pleural effusions visualized. There is no evidence of pneumothorax. Heart/Mediastinum: The heart is not enlarged. Bones/joints: Unremarkable IMPRESSION: Metallic ring overlying the left mid to lower lung. Correlation with a lateral chest x-ray might be useful.
[2021-04-26 15:50] LABS: CHLORIDE,CL 86 mmol/L (98-107); SODIUM,NA 125 mmol/L (136-145)
[2021-04-26 15:52] LABS: ANION GAP 41.70001 mEq/L (7-13)
[2021-04-26 16:00] VITALS: BP 114/56; PULSE 141
[2021-04-26 16:09] LABS: AMPHETAMINES,URINE NEGATIVE (NEGATIVE); BARBITURATES,URINE NEGATIVE (NEGATIVE); BENZODIAZEPINE,URINE NEGATIVE (NEGATIVE); MDMA (ECSTASY), URINE NEGATIVE (NEGATIVE); METHADONE,URINE NEGATIVE (NEGATIVE); METHAMPHETAMINES,URINE NEGATIVE (NEGATIVE); OPIATES,URINE NEGATIVE (NEGATIVE); OXYCODONE,URINE NEGATIVE (NEGATIVE); PHENCYCLIDINE,URINE NEGATIVE (NEGATIVE); TCA,URINE NEGATIVE (NEGATIVE)
[2021-04-26 16:22] LABS: CORONAVIRUS COVID-19 NAA NEGATIVE (NEGATIVE)
[2021-04-26] MEDS ORDERED: Sodium Bicarbonate 100 MEQ in Dextrose 5% in Water 1,000 ML IV ONE ×2 (16:39)
[2021-04-26] MEDS ORDERED: Sodium Chloride 0.9% 1,000 ML IV SCH (16:45)
[2021-04-26] MEDS ORDERED: Sodium Chloride 0.9% 500 ML IV SCH (16:45)
[2021-04-26 17:06] LABS: ANION GAP 38.2 mEq/L (7-13); CHLORIDE,CL 100 mmol/L (98-107); SODIUM,NA 139 mmol/L (136-145)
[2021-04-26 18:51] LABS: O2 DELIVERY DEVICE ROOM AIR; O2 SATURATION ARTERIAL 97 % (95-100); PCO2 ARTERIAL 18 mmHg (35-45); PO2 ARTERIAL 110 mmHg (70-100)
[2021-04-26 18:52] LABS: ALLEN TEST POSITIVE; BASE EXCESS ARTERIAL -18 mmol/L ((-2)-(+3)); BICARBONATE,ARTERIAL 7.8 mmol/L (22-26)
[2021-04-26 20:59] LABS: ANION GAP 27.9 mEq/L (7-13); CHLORIDE,CL 108 mmol/L (98-107); SODIUM,NA 144 mmol/L (136-145)
== END 2021-04-26 20:15 ==
LOC: DL.ED 14:26
DX: E10.65 Type 1 diabetes mellitus with hyperglycemia (principal); E10.10 Type 1 diabetes mellitus with ketoacidosis without coma; Z87.820 Personal history of traumatic brain injury
CPT/HCPCS: 0240U; 36415; 36600; 51702; 71045; 80048; 80053; 80305; 80307; 81001; 81025; 82009; 82150; 82803; 82947; 83605; 83690; 83735; 84100; 84484; 85025; 87040; 93005; 96365; 96366; 96375; 96376; 99285; J1815; J2060; J2405; J7030; J7060; 36410

== ENCOUNTER 2021-06-07 06:15 | Emergency (ER) | payer MEDICAID ==
[2021-06-07 06:37] VITALS: BP 140/115; PULSE 109
--- NOTE | 2021-06-07 06:46 | EDM.PDOC ---
<Misha Gomez - Last Filed: 06/07/21 06:42> ED HPI GENERAL MEDICAL PROBLEM - General Chief Complaint: Diabetic Complaint Stated Complaint: AMBULANCE Time Seen by Provider: 06/07/21 06:25 Source of Information: Reports: Patient History Limitations: Reports: No Limitations - History of Present Illness INITIAL COMMENTS - FREE TEXT/NARRATIVE: Patient comes emergency department today from home by ambulance with concerns of a hypoglycemic episode. 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 She is a diabetic who typically has problems with her blood sugars. Primarily hyperglycemia and DKA. This morning she was found by her friend to be unresponsive. Upon EMS arrival she was unresponsive blood sugar was noted to be 47. She was given glucagon IM as they were unable to get an IV placed. The patient slowly awoke. Upon arrival the patient is alert appropriate oriented without any complaints. She relates she has felt well the past couple of days. She has been taking her insulin as previous without any change in her dosing regimen. The only thing that is changed as before she went to bed last night she did not eat a snack as she typically would. She has had no chest pain shortness of breath difficulty breathing cough. No fever no chills. No abdominal pain no nausea no vomiting. She has been urinating more frequently as well as dysuria. No black or tarry stools. No rash lesions sores. - Related Data Allergies Allergy/AdvReac Type Severity Reaction Status Date / Time No Known Allergies Allergy Verified 06/07/21 06:32 Home Meds: Home Meds Insulin Aspart [Insulin Aspart Flexpen] 10 units SUBCUT TIDMEALS 30 Days #1 pen 05/20/20 [Rx] Insulin Detemir [Levemir Flextouch] 20 unit SQ BID 30 Days #1 pen 05/20/20 [Rx] Past Medical History - Past Health History Medical/Surgical History: Denies Medical/Surgical History HEENT History: Reports: Impaired Vision Other HEENT History: states has a cloud to the right side. States she is near sighted. 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: Musculoskeletal History: Reports: Other (See Below) Other Musculoskeletal History: 12/04/16 Bilateral ingrown toe nails leading to sepsis, IV vanco BID for 10 days Neurological History: Reports: Brain Injury, Concussion, Seizure Psychiatric History: Reports: Addiction, Anxiety, Depression, Other (See Below) Other Psychiatric History: Medical non-compliance Endocrine/Metabolic History: Reports: Diabetes, Type I, Other (See Below) Hematologic History: Reports: Anemia Immunologic History: Reports: None Oncologic (Cancer) History: Reports: None Dermatologic History: Reports: None - Infectious Disease History Infectious Disease History: Reports: None - Past Surgical History Head Surgeries/Procedures: Reports: None Other HEENT Surgeries/Procedures: recent head injury unsure if surgical or not Social & Family History - Family History Family Medical History: No Pertinent Family History HEENT: Reports: None Oncologic: Reports: Breast, Other (See Below) Other Oncologic Family History: Stomach CA - Tobacco Use Tobacco Use Status *Q: Never Tobacco User Second Hand Smoke Exposure: No - Caffeine Use Caffeine Use: Reports: None Other Caffeine Use: pt. unable to answer - Recreational Drug Use Recreational Drug Use: No - Living Situation & Occupation Living situation: Reports: with Family ED ROS GENERAL - Review of Systems Review Of Systems: Comprehensive ROS is negative, except as noted in HPI. ED EXAM GENERAL NO PERIP PULSE - Physical Exam Exam: See Below Exam Limited By: No Limitations General Appearance: Alert, WD/WN, No Apparent Distress Respiratory/Chest: No Respiratory Distress, Lungs Clear, Normal Breath Sounds, No Accessory Muscle Use, Chest Non-Tender Cardiovascular: Normal Peripheral Pulses, Regular Rate, Rhythm GI/Abdominal: Normal Bowel Sounds, Soft, Non-Tender (Female) Exam: Deferred Rectal (Female) Exam: Deferred Back Exam: Normal Inspection, Full Range of Motion Extremities: Normal Inspection, Normal Range of Motion, Non-Tender, No Pedal Edema, Normal Capillary Refill Neurological: Alert, Oriented, Normal Cognition, No Motor/Sensory Deficits Psychiatric: Normal Affect, Normal Mood Skin Exam: Warm, Dry, Intact, Normal Color Lymphatic: No Adenopathy Course - Re-Assessments/Exams Free Text/Narrative Re-Assessment/Exam: 06/07/21 06:45 Arrival the patients blood sugar is 110. She was given a breakfast tray. She is alert appropriate. Labs drawn. Will watch blood sugars every 30 minutes until stable. UA pending. Report to Rafael NAJERA at change of shift. Departure - Departure Disposition: Home, Self-Care 01 Clinical Impression: Hypoglycemia - Discharge Information Instructions: Hypoglycemia Forms: ED Department Discharge Additional Instructions: Monitor your blood sugar every marita for the next 4 hours. If any new symptoms or concerns develop contact your [facility] facility or return to the ER. Sepsis Event Note (ED) - Evaluation Sepsis Screening Result: No Definite Risk <Nicholas Tafoya - Last Filed: 06/07/21 08:14> Course - Vital Signs Last Recorded V/S: Last Vital Signs Temp 97.2 F 06/07/21 06:32 Pulse 109 H 06/07/21 06:32 Resp 18 06/07/21 06:32 BP 140/115 H 06/07/21 06:32 Pulse Ox 100 06/07/21 06:32 - Orders/Labs/Meds Orders: Active Orders 24 hr Category Date Time Status Accu Check [Blood Glucose Check, Bedside] [RC] Care 06/07/21 06:35 Active ASDIRECTED Blood Glucose Check, Bedside [RC] ONETIME Care 06/07/21 08:08 Ordered UA RFX ULI AND CULT IF INDIC [URIN] Stat Lab 06/07/21 06:42 Ordered Labs: Laboratory Tests 06/07/21 06/07/21 06/07/21 Range/Units 06:23 07:01 07:01 WBC 4.9 L (5.0-10.0) 10^3/uL RBC 4.66 (4.2-5.4) 10^6/uL Hgb 12.9 D (12.0-16.0) g/dL Hct 39.4 (37.0-47.0) % MCV 84.5 D (80-100) fL MCH 27.7 (27.0-34.0) pg MCHC 32.7 L (33.0-35.0) g/dL Plt Count 183 D (150-450) 10^3/uL Neut % (Auto) 66.6 (42.2-75.2) % Lymph % (Auto) 24.5 (20.5-50.1) % [place] % (Auto) 7.1 (2-8) % Eos % (Auto) 1.6 (1.0-3.0) % Baso % (Auto) 0.2 (0.0-1.0) % Sodium 137 (136-145) mmol/L Potassium 4.7 (3.5-5.1) mmol/L Chloride 100 (98-107) mmol/L Carbon Dioxide 26 D (21-32) mmol/L Anion Gap 15.7 H (7-13) mEq/L BUN 12 D (7-18) mg/dL Creatinine 0.63 D (0.55-1.02) mg/dL Est Cr Clr Drug Dosing TNP Estimated GFR (MDRD) > 60 BUN/Creatinine Ratio 19.0 (No establ ref range) Glucose 274 H (70-99) mg/dL POC Glucose 110 H (70-99) mg/dL Calcium 9.3 (8.5-10.1) mg/dL Total Bilirubin 0.2 (0.2-1.0) mg/dL AST 25 (15-37) U/L ALT 32 (14-59) U/L Alkaline Phosphatase 169 H (46-116) U/L Total Protein 8.5 H (6.4-8.2) g/dL Albumin 4.1 (3.4-5.0) g/dL Globulin 4.4 Albumin/Globulin Ratio 0.9 09/17/21 Range/Units 07:35 WBC (5.0-10.0) 10^3/uL RBC (4.2-5.4) 10^6/uL Hgb (12.0-16.0) g/dL Hct (37.0-47.0) % MCV (80-100) fL MCH (27.0-34.0) pg MCHC (33.0-35.0) g/dL Plt Count (150-450) 10^3/uL Neut % (Auto) (42.2-75.2) % Lymph % (Auto) (20.5-50.1) % [place] % (Auto) (2-8) % Eos % (Auto) (1.0-3.0) % Baso % (Auto) (0.0-1.0) % Sodium (136-145) mmol/L Potassium (3.5-5.1) mmol/L Chloride (98-107) mmol/L Carbon Dioxide (21-32) mmol/L Anion Gap (7-13) mEq/L BUN (7-18) mg/dL Creatinine (0.55-1.02) mg/dL Est Cr Clr Drug Dosing Estimated GFR (MDRD) BUN/Creatinine Ratio (No establ ref range) Glucose (70-99) mg/dL POC Glucose 365 H (70-99) mg/dL Calcium (8.5-10.1) mg/dL Total Bilirubin (0.2-1.0) mg/dL AST (15-37) U/L ALT (14-59) U/L Alkaline Phosphatase (46-116) U/L Total Protein (6.4-8.2) g/dL Albumin (3.4-5.0) g/dL Globulin Albumin/Globulin Ratio - Re-Assessments/Exams Free Text/Narrative Re-Assessment/Exam: 06/07/21 07:07 Assumed care from 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 She has no complaints and is in no distress. She gave me the number for her sister Janet who will be called to pick her up Departure - Departure Time of Disposition: 08:12 Condition: Good - Discharge Information *PRESCRIPTION DRUG MONITORING PROGRAM REVIEWED*: Not Applicable *COPY OF PRESCRIPTION DRUG MONITORING REPORT IN PATIENT LEOLA: Not Applicable Sepsis Event Note (ED) - Focused Exam Vital Signs: Vital Signs Temp Pulse Resp BP Pulse Ox 06/07/21 06:32 97.2 F 109 H 18 140/115 H 100 - My Orders Last 24 Hours: My Active Orders 06/07/21 08:08 Blood Glucose Check, Bedside [RC] ONETIME - Assessment/Plan Last 24 Hours: My Active Orders 06/07/21 08:08 Blood Glucose Check, Bedside [RC] ONETIME
[2021-06-07 07:33] LABS: ANION GAP 15.7 mEq/L (7-13); CHLORIDE,CL 100 mmol/L (98-107); SODIUM,NA 137 mmol/L (136-145)
== END 2021-06-07 09:37 | disposition home or self-care (01) ==
LOC: DL.ED 06:15
DX: E10.649 Type 1 diabetes mellitus with hypoglycemia without coma (principal)
CPT/HCPCS: 36415; 80053; 82947; 85025; 99285

== ENCOUNTER 2021-06-14 00:06 | Emergency (ER) | payer MEDICAID ==
[2021-06-14] MEDS ORDERED: 50% Dextrose in Water 50 ML Syringe IVPUSH ONE (00:10)
[2021-06-14 00:25] VITALS: BP 144/113; PULSE 99
[2021-06-14 00:49] LABS: ANION GAP 12.5 mEq/L (7-13); CHLORIDE,CL 100 mmol/L (98-107); SODIUM,NA 136 mmol/L (136-145)
[2021-06-14 01:18] LABS: AMPHETAMINES,URINE NEGATIVE (NEGATIVE); BARBITURATES,URINE NEGATIVE (NEGATIVE); BENZODIAZEPINE,URINE NEGATIVE (NEGATIVE); MDMA (ECSTASY), URINE NEGATIVE (NEGATIVE); METHADONE,URINE NEGATIVE (NEGATIVE); METHAMPHETAMINES,URINE POSITIVE (NEGATIVE); OPIATES,URINE NEGATIVE (NEGATIVE); OXYCODONE,URINE NEGATIVE (NEGATIVE); PHENCYCLIDINE,URINE NEGATIVE (NEGATIVE); TCA,URINE NEGATIVE (NEGATIVE)
--- NOTE | 2021-06-14 03:14 | EDM.PDOC ---
ED HPI GENERAL MEDICAL PROBLEM - General Chief Complaint: Diabetic Complaint Stated Complaint: AMBULANCE Time Seen by Provider: 06/14/21 00:25 Source of Information: Reports: Patient, EMS History Limitations: Reports: No Limitations - History of Present Illness INITIAL COMMENTS - FREE TEXT/NARRATIVE: ED via [facility] with report of altered mental state. Hx of diabetes, Seemed slow and more lethargic tonight, ambulance noted BS 37 on arrival , able to administer oral glucose. Patient awake verbally responsive on arrival to ED. Admits not checking BS Denies nausea vomiting or urinary sx. - Related Data Allergies Allergy/AdvReac Type Severity Reaction Status Date / Time No Known Allergies Allergy Verified 06/07/21 06:32 Home Meds: Home Meds Insulin Aspart [Insulin Aspart Flexpen] 10 units SUBCUT TIDMEALS 30 Days #1 pen 05/20/20 [Rx] Insulin Detemir [Levemir Flextouch] 20 unit SQ BID 30 Days #1 pen 05/20/20 [Rx] Past Medical History - Past Health History Medical/Surgical History: Denies Medical/Surgical History HEENT History: Reports: Impaired Vision Other HEENT History: states has a cloud to the right side. States she is near sighted. 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: Musculoskeletal History: Reports: Other (See Below) Other Musculoskeletal History: 12/04/16 Bilateral ingrown toe nails leading to sepsis, IV vanco BID for 10 days Neurological History: Reports: Brain Injury, Concussion, Seizure Psychiatric History: Reports: Addiction, Anxiety, Depression, Other (See Below) Other Psychiatric History: Medical non-compliance Endocrine/Metabolic History: Reports: Diabetes, Type I, Other (See Below) Hematologic History: Reports: Anemia Immunologic History: Reports: None Oncologic (Cancer) History: Reports: None Dermatologic History: Reports: None - Infectious Disease History Infectious Disease History: Reports: None - Past Surgical History Head Surgeries/Procedures: Reports: None Other HEENT Surgeries/Procedures: recent head injury unsure if surgical or not Social & Family History - Family History Family Medical History: No Pertinent Family History HEENT: Reports: None Oncologic: Reports: Breast, Other (See Below) Other Oncologic Family History: Stomach CA - Tobacco Use Tobacco Use Status *Q: Unknown Ever Used Tobacco - Caffeine Use Caffeine Use: Reports: None Other Caffeine Use: pt. unable to answer - Living Situation & Occupation Living situation: Reports: with Family ED ROS GENERAL - Review of Systems Review Of Systems: Comprehensive ROS is negative, except as noted in HPI. ED EXAM GENERAL NO PERIP PULSE - Physical Exam Exam: See Below Exam Limited By: No Limitations General Appearance: Alert, No Apparent Distress Eye Exam: Bilateral Eye: EOMI Ears: Normal External Exam Nose: Normal Inspection Throat/Mouth: Normal Inspection Head: Atraumatic. No: Normocephalic Neck: Normal Inspection Respiratory/Chest: No Respiratory Distress, Lungs Clear, Normal Breath Sounds Cardiovascular: Regular Rate, Rhythm Extremities: Normal Inspection Neurological: Alert, Oriented, Slow to Respond Psychiatric: Normal Affect Course - Vital Signs Last Recorded V/S: Last Vital Signs Temp 96.8 F L 06/14/21 00:22 Pulse 99 06/14/21 00:22 Resp 18 06/14/21 00:22 BP 144/113 H 06/14/21 00:22 Pulse Ox 100 06/14/21 00:22 - Orders/Labs/Meds Orders: Active Orders 24 hr Category Date Time Status Blood Glucose Check, Bedside [RC] ONETIME Care 06/14/21 00:09 Active Blood Glucose Check, Bedside [RC] ONETIME Care 06/14/21 00:23 Active Blood Glucose Check, Bedside [RC] ONETIME Care 06/14/21 01:18 Active Blood Glucose Check, Bedside [RC] ONETIME Care 06/14/21 02:34 Active Labs: Laboratory Tests 06/14/21 06/14/21 06/14/21 Range/Units 00:15 00:16 00:16 WBC 5.4 (5.0-10.0) 10^3/uL RBC 4.08 L (4.2-5.4) 10^6/uL Hgb 11.3 L D (12.0-16.0) g/dL Hct 35.8 L (37.0-47.0) % MCV 87.7 D (80-100) fL MCH 27.7 (27.0-34.0) pg MCHC 31.6 L (33.0-35.0) g/dL Plt Count 423 D (150-450) 10^3/uL Neut % (Auto) 50.2 (42.2-75.2) % Lymph % (Auto) 34.5 (20.5-50.1) % [place] % (Auto) 12.7 H (2-8) % Eos % (Auto) 2.4 (1.0-3.0) % Baso % (Auto) 0.2 (0.0-1.0) % Sodium 136 (136-145) mmol/L Potassium 4.5 (3.5-5.1) mmol/L Chloride 100 (98-107) mmol/L Carbon Dioxide 28 (21-32) mmol/L Anion Gap 12.5 (7-13) mEq/L BUN 30 H (7-18) mg/dL Creatinine 0.87 (0.55-1.02) mg/dL Est Cr Clr Drug Dosing TNP Estimated GFR (MDRD) > 60 BUN/Creatinine Ratio 34.5 (No establ ref range) Glucose 39 L* (70-99) mg/dL POC Glucose 32 L* (70-99) mg/dL Lactic Acid (0.4-2.0) mmol/L Calcium 8.7 (8.5-10.1) mg/dL Total Bilirubin 0.1 L (0.2-1.0) mg/dL AST 14 L (15-37) U/L ALT 26 (14-59) U/L Alkaline Phosphatase 164 H (46-116) U/L Total Protein 8.2 (6.4-8.2) g/dL Albumin 3.8 (3.4-5.0) g/dL Globulin 4.4 Albumin/Globulin Ratio 0.9 Urine Color (YELLOW) Urine Appearance (CLEAR) Urine pH (5.0-9.0) Ur Specific Ruth (1.005-1.030) Urine Protein (NEGATIVE) Urine Glucose (UA) (NEGATIVE) Urine Ketones (NEGATIVE) Urine Occult Blood (NEGATIVE) Urine Nitrite (NEGATIVE) Urine Bilirubin (NEGATIVE) Urine Urobilinogen (0.2-1.0) mg/dL Ur Leukocyte Esterase (NEGATIVE) Urine Opiates Screen (NEGATIVE) Ur Oxycodone Screen (NEGATIVE) Urine Methadone Screen (NEGATIVE) Ur Barbiturates Screen (NEGATIVE) U Tricyclic Antidepress (NEGATIVE) Ur Phencyclidine Scrn (NEGATIVE) Ur Amphetamine Screen (NEGATIVE) U Methamphetamines Scrn (NEGATIVE) Urine MDMA Screen (NEGATIVE) U Benzodiazepines Scrn (NEGATIVE) Urine Cocaine Screen (NEGATIVE) U Marijuana (THC) Screen (NEGATIVE) Ethyl Alcohol < 3 (0) mg/dL SARS-CoV-2 RNA ([place]) (NEGATIVE) 06/14/21 06/14/21 06/14/21 Range/Units 00:16 00:24 00:29 WBC (5.0-10.0) 10^3/uL RBC (4.2-5.4) 10^6/uL Hgb (12.0-16.0) g/dL Hct (37.0-47.0) % MCV (80-100) fL MCH (27.0-34.0) pg MCHC (33.0-35.0) g/dL Plt Count (150-450) 10^3/uL Neut % (Auto) (42.2-75.2) % Lymph % (Auto) (20.5-50.1) % [place] % (Auto) (2-8) % Eos % (Auto) (1.0-3.0) % Baso % (Auto) (0.0-1.0) % Sodium (136-145) mmol/L Potassium (3.5-5.1) mmol/L Chloride (98-107) mmol/L Carbon Dioxide (21-32) mmol/L Anion Gap (7-13) mEq/L BUN (7-18) mg/dL Creatinine (0.55-1.02) mg/dL Est Cr Clr Drug Dosing Estimated GFR (MDRD) BUN/Creatinine Ratio (No establ ref range) Glucose (70-99) mg/dL POC Glucose 117 H (70-99) mg/dL Lactic Acid 1.2 (0.4-2.0) mmol/L Calcium (8.5-10.1) mg/dL Total Bilirubin (0.2-1.0) mg/dL AST (15-37) U/L ALT (14-59) U/L Alkaline Phosphatase (46-116) U/L Total Protein (6.4-8.2) g/dL Albumin (3.4-5.0) g/dL Globulin Albumin/Globulin Ratio Urine Color (YELLOW) Urine Appearance (CLEAR) Urine pH (5.0-9.0) Ur Specific Ruth (1.005-1.030) Urine Protein (NEGATIVE) Urine Glucose (UA) (NEGATIVE) Urine Ketones (NEGATIVE) Urine Occult Blood (NEGATIVE) Urine Nitrite (NEGATIVE) Urine Bilirubin (NEGATIVE) Urine Urobilinogen (0.2-1.0) mg/dL Ur Leukocyte Esterase (NEGATIVE) Urine Opiates Screen (NEGATIVE) Ur Oxycodone Screen (NEGATIVE) Urine Methadone Screen (NEGATIVE) Ur Barbiturates Screen (NEGATIVE) U Tricyclic Antidepress (NEGATIVE) Ur Phencyclidine Scrn (NEGATIVE) Ur Amphetamine Screen (NEGATIVE) U Methamphetamines Scrn (NEGATIVE) Urine MDMA Screen (NEGATIVE) U Benzodiazepines Scrn (NEGATIVE) Urine Cocaine Screen (NEGATIVE) U Marijuana (THC) Screen (NEGATIVE) Ethyl Alcohol (0) mg/dL SARS-CoV-2 RNA ([place]) Negative (NEGATIVE) 06/14/21 06/14/21 06/14/21 Range/Units 01:06 01:06 01:30 WBC (5.0-10.0) 10^3/uL RBC (4.2-5.4) 10^6/uL Hgb (12.0-16.0) g/dL Hct (37.0-47.0) % MCV (80-100) fL MCH (27.0-34.0) pg MCHC (33.0-35.0) g/dL Plt Count (150-450) 10^3/uL Neut % (Auto) (42.2-75.2) % Lymph % (Auto) (20.5-50.1) % [place] % (Auto) (2-8) % Eos % (Auto) (1.0-3.0) % Baso % (Auto) (0.0-1.0) % Sodium (136-145) mmol/L Potassium (3.5-5.1) mmol/L Chloride (98-107) mmol/L Carbon Dioxide (21-32) mmol/L Anion Gap (7-13) mEq/L BUN (7-18) mg/dL Creatinine (0.55-1.02) mg/dL Est Cr Clr Drug Dosing Estimated GFR (MDRD) BUN/Creatinine Ratio (No establ ref range) Glucose (70-99) mg/dL POC Glucose 185 H (70-99) mg/dL Lactic Acid (0.4-2.0) mmol/L Calcium (8.5-10.1) mg/dL Total Bilirubin (0.2-1.0) mg/dL AST (15-37) U/L ALT (14-59) U/L Alkaline Phosphatase (46-116) U/L Total Protein (6.4-8.2) g/dL Albumin (3.4-5.0) g/dL Globulin Albumin/Globulin Ratio Urine Color Yellow (YELLOW) Urine Appearance Slightly cloudy (CLEAR) Urine pH 7.0 (5.0-9.0) Ur Specific Ruth 1.020 (1.005-1.030) Urine Protein Negative (NEGATIVE) Urine Glucose (UA) 250 H (NEGATIVE) Urine Ketones Negative (NEGATIVE) Urine Occult Blood Negative (NEGATIVE) Urine Nitrite Negative (NEGATIVE) Urine Bilirubin Negative (NEGATIVE) Urine Urobilinogen 0.2 (0.2-1.0) mg/dL Ur Leukocyte Esterase Negative (NEGATIVE) Urine Opiates Screen Negative (NEGATIVE) Ur Oxycodone Screen Negative (NEGATIVE) Urine Methadone Screen Negative (NEGATIVE) Ur Barbiturates Screen Negative (NEGATIVE) U Tricyclic Antidepress Negative (NEGATIVE) Ur Phencyclidine Scrn Negative (NEGATIVE) Ur Amphetamine Screen Negative (NEGATIVE) U Methamphetamines Scrn Positive H (NEGATIVE) Urine MDMA Screen Negative (NEGATIVE) U Benzodiazepines Scrn Negative (NEGATIVE) Urine Cocaine Screen Negative (NEGATIVE) U Marijuana (THC) Screen Negative (NEGATIVE) Ethyl Alcohol (0) mg/dL SARS-CoV-2 RNA ([place]) (NEGATIVE) 06/14/21 06/14/21 Range/Units 02:32 04:35 WBC (5.0-10.0) 10^3/uL RBC (4.2-5.4) 10^6/uL Hgb (12.0-16.0) g/dL Hct (37.0-47.0) % MCV (80-100) fL MCH (27.0-34.0) pg MCHC (33.0-35.0) g/dL Plt Count (150-450) 10^3/uL Neut % (Auto) (42.2-75.2) % Lymph % (Auto) (20.5-50.1) % [place] % (Auto) (2-8) % Eos % (Auto) (1.0-3.0) % Baso % (Auto) (0.0-1.0) % Sodium (136-145) mmol/L Potassium (3.5-5.1) mmol/L Chloride (98-107) mmol/L Carbon Dioxide (21-32) mmol/L Anion Gap (7-13) mEq/L BUN (7-18) mg/dL Creatinine (0.55-1.02) mg/dL Est Cr Clr Drug Dosing Estimated GFR (MDRD) BUN/Creatinine Ratio (No establ ref range) Glucose (70-99) mg/dL POC Glucose 243 H 222 H (70-99) mg/dL Lactic Acid (0.4-2.0) mmol/L Calcium (8.5-10.1) mg/dL Total Bilirubin (0.2-1.0) mg/dL AST (15-37) U/L ALT (14-59) U/L Alkaline Phosphatase (46-116) U/L Total Protein (6.4-8.2) g/dL Albumin (3.4-5.0) g/dL Globulin Albumin/Globulin Ratio Urine Color (YELLOW) Urine Appearance (CLEAR) Urine pH (5.0-9.0) Ur Specific Ruth (1.005-1.030) Urine Protein (NEGATIVE) Urine Glucose (UA) (NEGATIVE) Urine Ketones (NEGATIVE) Urine Occult Blood (NEGATIVE) Urine Nitrite (NEGATIVE) Urine Bilirubin (NEGATIVE) Urine Urobilinogen (0.2-1.0) mg/dL Ur Leukocyte Esterase (NEGATIVE) Urine Opiates Screen (NEGATIVE) Ur Oxycodone Screen (NEGATIVE) Urine Methadone Screen (NEGATIVE) Ur Barbiturates Screen (NEGATIVE) U Tricyclic Antidepress (NEGATIVE) Ur Phencyclidine Scrn (NEGATIVE) Ur Amphetamine Screen (NEGATIVE) U Methamphetamines Scrn (NEGATIVE) Urine MDMA Screen (NEGATIVE) U Benzodiazepines Scrn (NEGATIVE) Urine Cocaine Screen (NEGATIVE) U Marijuana (THC) Screen (NEGATIVE) Ethyl Alcohol (0) mg/dL SARS-CoV-2 RNA ([place]) (NEGATIVE) Meds: Medications Discontinued Medications Generic Name Dose Route Start Last Admin Trade Name Freq PRN Reason Stop Dose Admin Dextrose/Water 50 ml 06/14/21 00:10 06/14/21 00:20 50% Dextrose In Water 50 Ml Syringe IVPUSH 06/14/21 00:11 50 ml ONETIME ONE Administration - Re-Assessments/Exams Free Text/Narrative Re-Assessment/Exam: 06/14/21 03:14 Tolerated sandwich and milk serum glucose reamins above baseline. Intermittent dozing. States no one to come and get her. Contact #'s on file attempted without response. Departure - Departure Time of Disposition: 05:43 Disposition: Home, Self-Care 01 Condition: Good Clinical Impression: Hypoglycemia, IDDM (insulin dependent diabetes mellitus) - Discharge Information *PRESCRIPTION DRUG MONITORING PROGRAM REVIEWED*: No *COPY OF PRESCRIPTION DRUG MONITORING REPORT IN PATIENT LEOLA: No Instructions: Preventing Hypoglycemia Forms: ED Department Discharge Additional Instructions: monitor blood sugars check at least 3 times daily home medications as prescribed balanced diet Sepsis Event Note (ED) - Focused Exam Vital Signs: Vital Signs Temp Pulse Resp BP Pulse Ox 06/14/21 00:22 96.8 F L 99 18 144/113 H 100 - My Orders Last 24 Hours: My Active Orders 06/14/21 00:09 Blood Glucose Check, Bedside [RC] ONETIME 06/14/21 00:23 Blood Glucose Check, Bedside [RC] ONETIME 06/14/21 01:18 Blood Glucose Check, Bedside [RC] ONETIME 06/14/21 02:34 Blood Glucose Check, Bedside [RC] ONETIME - Assessment/Plan Last 24 Hours: My Active Orders 06/14/21 00:09 Blood Glucose Check, Bedside [RC] ONETIME 06/14/21 00:23 Blood Glucose Check, Bedside [RC] ONETIME 06/14/21 01:18 Blood Glucose Check, Bedside [RC] ONETIME 06/14/21 02:34 Blood Glucose Check, Bedside [RC] ONETIME
== END 2021-06-14 05:52 | disposition home or self-care (01) ==
LOC: DL.ED 00:06
DX: E10.649 Type 1 diabetes mellitus with hypoglycemia without coma (principal); Z20.822 Contact with and (suspected) exposure to COVID-19
CPT/HCPCS: 36415; 80053; 80305-QW; 80307; 81003; 82947; 83605; 85025; 96374; 99284-25; U0002

== ENCOUNTER 2021-06-17 13:50 | Emergency (ER) | payer MEDICAID ==
[~2021-06-17 13:50] MED LIST: Calcium Chloride 10% 1 GM/10 ML Syringe IVPUSH ONE; Sodium Bicarbonate 8.4% 50 MEQ/50 ML Syringe IVPUSH ONE
[2021-06-17] MEDS ORDERED: Sodium Bicarbonate 8.4% 50 MEQ/50 ML Syringe IV ONE (13:51)
[2021-06-17] MEDS ORDERED: Rocuronium 100 MG/10 ML MDV IV ONE (13:51)
[2021-06-17] MEDS ORDERED: Calcium Chloride 10% 1 GM/10 ML Syringe IV ONE (13:51)
[2021-06-17] MEDS ORDERED: Etomidate 2 MG/ML 20 ML SDV IVPUSH ONE (13:51)
[2021-06-17] MEDS ORDERED: Sodium Bicarbonate 8.4% 50 MEQ/50 ML Syringe IVPUSH ONE ×3 (14:00→14:15)
[2021-06-17] MEDS ORDERED: Sodium Bicarbonate 8.4% 50 MEQ/50 ML SDV ONE (14:10)
[2021-06-17 14:17] LABS: AMPHETAMINES,URINE NEGATIVE (NEGATIVE); BARBITURATES,URINE NEGATIVE (NEGATIVE); BENZODIAZEPINE,URINE NEGATIVE (NEGATIVE); MDMA (ECSTASY), URINE NEGATIVE (NEGATIVE); METHADONE,URINE NEGATIVE (NEGATIVE); METHAMPHETAMINES,URINE POSITIVE (NEGATIVE); OPIATES,URINE NEGATIVE (NEGATIVE); OXYCODONE,URINE NEGATIVE (NEGATIVE); PHENCYCLIDINE,URINE NEGATIVE (NEGATIVE); TCA,URINE NEGATIVE (NEGATIVE)
[2021-06-17] MEDS ORDERED: Norepinephrine 4 MG in Dextrose 5% in Water 246 ML IV SCH ×2 (14:30)
[2021-06-17] MEDS ORDERED: Sodium Bicarbonate 100 MEQ in Dextrose 5% in Water 1,000 ML IV ONE ×2 (14:30)
[2021-06-17 14:39] LABS: ANION GAP 45.5 mEq/L (7-13); CHLORIDE,CL 85 mmol/L (98-107); SODIUM,NA 127 mmol/L (136-145)
[2021-06-17 14:43] LABS: BASE EXCESS ARTERIAL -27 mmol/L ((-2)-(+3)); BICARBONATE,ARTERIAL 3.5 mmol/L (22-26); O2 DELIVERY DEVICE NON REBR MASK; O2 SATURATION ARTERIAL 74 % (95-100); PO2 ARTERIAL 59 mmHg (70-100)
[2021-06-17 14:44] LABS: ACETAMINOPHEN 0 ug/mL (10-30 (Therapeutic))
[2021-06-17 14:44] LABS: ALLEN TEST PERFORMED; PCO2 ARTERIAL 17 mmHg (35-45)
[2021-06-17] MEDS ORDERED: Midazolam 50 MG in Sodium Chloride 0.9% 40 ML IV SCH (14:45)
[2021-06-17] MEDS ORDERED: Albuterol 0.083% 2.5 MG/3 ML Neb Soln NEB ONE (14:49)
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
[2021-06-17] MEDS ORDERED: INSULIN REGULAR IV SCH ×2 (15:00)
[2021-06-17] MEDS ORDERED: NACL IV SCH ×2 (15:00)
--- NOTE | 2021-06-17 15:02 | CR ---
PROCEDURE INFORMATION: Exam: XR Chest Exam date and time: 06/17/2021 2:26 PM Age: 31 years old Clinical indication: Dyspnea TECHNIQUE: Imaging protocol: XR of the chest. Views: 1 view. COMPARISON: CR Chest 1V Frontal 04/26/2021 2:56 PM FINDINGS: Tubes, catheters and devices: There is a feeding tube with its tip overlying the distal esophagus. There is an endotracheal tube with its tip 6 cm above the roman at the level clavicles. Lungs: Unremarkable. No consolidation. Pleural spaces: Unremarkable. No pleural effusion. No pneumothorax. Heart/Mediastinum: Unremarkable. No cardiomegaly. Bones/joints: Unremarkable. IMPRESSION: The lungs are clear. Endotracheal tube and feeding tube as above.
[2021-06-17] MEDS ORDERED: INSULIN REGULAR ONE (15:07)
[2021-06-17] MEDS ORDERED: NACL 0.9% ONE (15:07)
[2021-06-17] MEDS ORDERED: Insulin Regular in 0.9 % NACL 100 ML IV SCH (15:15)
[2021-06-17] MEDS ORDERED: Midazolam 1 MG/ML 2 ML SDV IVPUSH ONE ×2 (15:16→15:20)
[2021-06-17] MEDS ORDERED: fentaNYL 100 MCG/2 ML SDV IVPUSH ONE (15:17)
[2021-06-17] MEDS ORDERED: Midazolam 1 MG/ML 2 ML SDV ONE (15:21)
[2021-06-17] MEDS: Midazolam 1 MG/ML 2 ML SDV IVPUSH ONE (15:24)
[2021-06-17 15:25] VITALS: BP 104/50; PULSE 117
[2021-06-17 15:34] LABS: BASE EXCESS VENOUS -19.3 mmol/l ((-2)-(+3)); BICARBONATE,VENOUS 10 mmol/l (19-25); O2 DELIVERY DEVICE VENTILATOR; O2 SATURATION VENOUS 64.2 % (60-80); PCO2 VENOUS 35 mmHg (41-51); PH,VENOUS 7.07 (7.31-7.41); PO2 VENOUS 48 mmHg (35-42)
[2021-06-17 15:35] LABS: ANION GAP 43.3 mEq/L (7-13); CHLORIDE,CL 93 mmol/L (98-107); SODIUM,NA 137 mmol/L (136-145)
[2021-06-17] MEDS ORDERED: Sodium Chloride 0.9% 1,000 ML IV ONE ×3 (16:39→16:40)
== END 2021-06-17 16:00 ==
LOC: DL.ED 13:50
DX: E10.10 Type 1 diabetes mellitus with ketoacidosis without coma (principal); S09.90XA Unspecified injury of head, initial encounter; F15.10 Other stimulant abuse, uncomplicated; W22.8XXA Striking against or struck by other objects, initial encounter
CPT/HCPCS: 31500; 36415; 36600; 71045; 80053; 80143; 80179; 80305; 80307; 81003; 82009; 82140; 82150; 82803; 82947; 83605; 83690; 83735; 85025; 87040; 93005; 96365; 96368; 99285; J1815; J2250; J3010; J3490; J7030; J7060; J7613-GY